=== PATIENT | male | born 1930 | race Caucasian/White ===

== ENCOUNTER 2017-04-23 20:34 | Emergency (ER) | payer MEDICARE, OTHER ==
[~2017-04-23 20:34] MED LIST: ALLO100 PO; COZA50TA PO; ECOT81TA2 PO; GABA100C4 PO; METO50TA PO; PERC10TA27 PO; ULTR50TA PO; Z.0.OXYGENDME NC; ZOCO80TA PO
[2017-04-23 20:38] VITALS: BP 144/67; PULSE 87; RESP 16; TEMP 97.7; O2SAT 95
[2017-04-24] MEDS ORDERED: METO50TA PO (09:33)
[2017-04-24] MEDS ORDERED: ZOCO80TA PO (09:33)
[2017-04-24] MEDS ORDERED: LOSA50TA PO (09:33)
[2017-04-24] MEDS ORDERED: ALLO100T PO (09:33)
[2017-04-24] MEDS ORDERED: ASPI81CH CHEW (09:33)
[2017-04-24] MEDS ORDERED: TRAM50TA PO (09:33)
[2017-04-24] MEDS ORDERED: DOXY1CAP91 PO (10:40)
== END 2017-04-23 22:27 | disposition left against medical advice (07) ==
LOC: NED 20:34
DX: R23.8 Other skin changes (principal); R22.40 Localized swelling, mass and lump, unspecified lower limb; Z53.21 Procedure and treatment not carried out due to patient leaving prior to being seen by health care provider

== ENCOUNTER 2017-04-24 09:11 | Emergency (ER) | payer OTHER ==
[~2017-04-24] VITALS: Ht 180.3 cm; Wt 100.6 kg
[2017-04-24 09:15] VITALS: BP 124/74; PULSE 76; RESP 16; TEMP 98.1; O2SAT 85
[2017-04-24] MEDS ORDERED: METO50TA PO (09:33)
[2017-04-24] MEDS ORDERED: ASPI81CH CHEW (09:33)
[2017-04-24] MEDS ORDERED: ZOCO80TA PO (09:33)
[2017-04-24] MEDS ORDERED: ALLO100T PO (09:33)
[2017-04-24] MEDS ORDERED: LOSA50TA PO (09:33)
[2017-04-24] MEDS ORDERED: TRAM50TA PO (09:33)
--- NOTE | 2017-04-24 09:40 | PD ---
HPI Chief Complaint: Skin Problem Time Seen by Provider: 09:26 Travel History International Travel<30 days: No Contact w/Intl Traveler<30days: No Traveled to known affect area: No History of Present Illness HPI Patient 87-year-old male presents emergency Department with a rash to his right lower extremity for the past 2 days. Patient states that it was itchy and he was scratching it and had some little discharge which was blood mixed with some minimal amount of pus. Denies any overt pain. He states his right lower extremity has been swollen too. He is not on any blood thinners. Denies any contact with chemicals. Denies any fever denies any nausea vomiting denies any shortness of breath. PFSH Past Medical History Hx Anticoagulant Therapy: Yes (ASA) AAA: Yes Blood Disorders: No Heart Rhythm Problems: No Cancer: Yes (LIVER, stage 4) Cardiovascular Problems: Yes (HTN) High Cholesterol: No Chemotherapy: Yes (WAS ON CHEMO PILLS) Chest Pain: No Congestive Heart Failure: No Coronary Artery Disease: Yes Diminished Hearing: No Endocrine: No Gout: Yes Genitourinary: No Hypertension: Yes Implanted Vascular Access Dvce: No Musculoskeletal: Yes (ARTHRITIS) Neurologic: No Psychiatric: No Reproductive: Yes (enlarged prostate) Respiratory: No Myocardial Infarction: Yes (x1) Radiation Therapy: Yes (2013) Renal Failure: Yes Past Surgical History Neurologic Surgery: Yes (cervical) Tonsillectomy: Yes Other Surgery: Yes (BILATERAL ELBOWS, NECK) Social History Alcohol Use: No (QUIT 5-6 YEARS AGO) Tobacco Use: No (QUIT 40 YEAS AGO) Substance Use: No Allergies-Medications (Allergen,Severity, Reaction): Coded Allergies: Levofloxacin (Verified Allergy, Severe, SOB PAIN LEGS, 04/24/17) Morphine (Verified Allergy, Severe, 04/24/17) Penicillin (Verified Allergy, Severe, 04/24/17) Adhesives (Verified Allergy, Mild, RASH, 04/24/17) Artane (Verified Allergy, Unknown, 04/24/17) Reported Meds & Prescriptions Reported Meds & Active Scripts Active Doxycycline (Doxycycline (Monohydrate)) 100 Mg Cap 100 Mg PO BID 7 Days Reported Tramadol (Tramadol HCl) 50 Mg Tab 50 Mg PO Q8H PRN Zocor (Simvastatin) 80 Mg Tab 80 Mg PO DAILY Metoprolol Tartrate 50 Mg Tab 50 Mg PO BID Losartan (Losartan Potassium) 50 Mg Tab 50 Mg PO DAILY Aspirin 81 Mg Chew 81 Mg CHEW DAILY Allopurinol 100 Mg Tab 100 Mg PO DAILY Review of Systems Except as stated in HPI: all other systems reviewed are Neg Physical Exam Narrative GENERAL: Well-nourished, well-developed patient. SKIN: There are 2 areas of what appears to be a petechial type rash of the right lower extremity. The rashes appear to be flat nonraised, there is some surrounding excoriations and some surrounding scab from excoriation. Minimal surrounding erythema. No fluid collection is obvious. The 2 locations are 1 over the mid tibia on the anterior lateral aspect, approximately 8 x 8 cm in size. The proximal site is on the medial thigh approximately 4 x 4 centimeters in size without any surrounding erythema. HEAD: Normocephalic. EYES: No scleral icterus. No injection or drainage. NECK: Supple, trachea midline. No JVD or lymphadenopathy. CARDIOVASCULAR: Regular rate and rhythm without murmurs, gallops, or rubs. RESPIRATORY: Breath sounds equal bilaterally. No accessory muscle use. GASTROINTESTINAL: Abdomen soft, non-tender, nondistended. MUSCULOSKELETAL: No cyanosis, or some mild edema of the right lower extremity which is not pitting. BACK: Nontender without obvious deformity. No CVA tenderness. Data Data Last Documented VS Vital Signs Date Time Temp Pulse Resp B/P Pulse Ox O2 Delivery O2 Flow Rate FiO2 04/24/17 10:19 66 94 Nasal Cannula 2 04/24/17 09:15 98.1 16 124/74 Orders Us Leg Venous Doppler (04/24/17 09:33) Basic Metabolic Panel (Bmp) (04/24/17 09:35) Complete Blood Count With Diff (04/24/17 09:35) Prothrombin Time / Inr (Pt) (04/24/17 09:35) Act Partial Throm Time (Ptt) (04/24/17 09:35) Ecg Monitoring (04/24/17 09:35) Iv Access Insert/Monitor (04/24/17 09:35) Oximetry (04/24/17 09:35) Oxygen Administration (04/24/17 09:35) Sodium Chloride 0.9% Flush (Ns Flush) (04/24/17 09:45) Labs Laboratory Tests Test 04/24/17 09:54 White Blood Count 6.2 TH/MM3 Red Blood Count 4.15 MIL/MM3 Hemoglobin 11.0 GM/DL Hematocrit 34.3 % Mean Corpuscular Volume 82.6 FL Mean Corpuscular Hemoglobin 26.6 PG Mean Corpuscular Hemoglobin 32.2 % Concent Red Cell Distribution Width 15.8 % Platelet Count 131 TH/MM3 Mean Platelet Volume 6.3 FL Neutrophils (%) (Auto) 68.4 % Lymphocytes (%) (Auto) 14.8 % Monocytes (%) (Auto) 9.5 % Eosinophils (%) (Auto) 7.1 % Basophils (%) (Auto) 0.2 % Neutrophils # (Auto) 4.3 TH/MM3 Lymphocytes # (Auto) 0.9 TH/MM3 Monocytes # (Auto) 0.6 TH/MM3 Eosinophils # (Auto) 0.4 TH/MM3 Basophils # (Auto) 0.0 TH/MM3 CBC Comment DIFF FINAL Differential Comment Prothrombin Time 11.1 SEC Prothromb Time International 1.0 RATIO Ratio Activated Partial 30.4 SEC Thromboplast Time Sodium Level 142 MEQ/L Potassium Level 3.9 MEQ/L Chloride Level 106 MEQ/L Carbon Dioxide Level 28.6 MEQ/L Anion Gap 7 MEQ/L Blood Urea Nitrogen 52 MG/DL Creatinine 3.80 MG/DL Estimat Glomerular Filtration 15 ML/MIN Rate Random Glucose 127 MG/DL Calcium Level 8.2 MG/DL MDM Medical Decision Making Medical Screen Exam Complete: Yes Emergency Medical Condition: Yes Differential Diagnosis DVT, petechiae, low platelets, elevated INR, elevated PTT, cellulitis. Narrative Course Patient roomed in emergency Department, basic labs obtained and show minimally decreased platelet count of 131, some mild anemia with hemoglobin 11, coagulation studies within normal limits. Patient does have a creatinine of 3.8 which somewhat elevated over his previous creatinines. He states that his creatinine has been slowly on the rise. There is no indication for acute dialysis at this time. His current creatinine is 29% elevated over his last period is no indication for admission for acute kidney injury. Furthermore the patient would like to follow-up with his primary care physician regarding his kidneys. Given the negative initial workup inclined to treat for mild cellulitis, Bactrim contraindicated given his kidney function, patient is penicillin allergic and will avoid Keflex. Doxycycline was chosen. Discussed with the patient need follow-up with his primary care physician and return to ED criteria. Continue cortisone cream at home. Diagnosis Primary Impression: Cellulitis Med/Other Pt SpecificInfo: Prescription(s) given Scripts Doxycycline (Monohydrate) (Doxycycline)100 Mg [id number] Mg PO BID 7 Days Ref 0 Prov:Lyle Payne MD 04/24/17 Disposition: 01 DISCHARGE HOME Condition: Stable Lyle Payne MD Apr 24, 2017 09:40
[2017-04-24] MEDS ORDERED: SODIUM CHLORIDE 0.9% FLUSH 10 ML FLUSH IVF PRN (09:45)
[2017-04-24 09:50] VITALS: O2SAT 85
[2017-04-24 10:00] LABS: AUTOMATED NEUTROPHIL # 4.3 TH/MM3 (1.8-7.7); BASOPHIL % 0.2 % (0.0-2.0); EOSINOPHIL # 0.4 TH/MM3 (0-0.4); EOSINOPHIL % 7.1 % (0.0-4.0); HEMATOCRIT 34.3 % (39.0-51.0); HEMO FLAGS DIFF FINAL; LYMPH % 14.8 % (9.0-44.0); LYMPHOCYTE # 0.9 TH/MM3 (1.0-4.8); MEAN CELL VOLUME 82.6 FL (80.0-100.0); MEAN CORPUSCULAR HEMOGLOBIN 26.6 PG (27.0-34.0); MEAN CORPUSCULAR HGB CONC 32.2 % (32.0-36.0); MONO % 9.5 % (0.0-8.0); NEUT % 68.4 % (16.0-70.0); PLATELET COUNT 131 TH/MM3 (150-450); RED BLOOD COUNT 4.15 MIL/MM3 (4.50-5.90); RED CELL DISTRIBUTION WIDTH 15.8 % (11.6-17.2); WHITE BLOOD COUNT 6.2 TH/MM3 (4.0-11.0)
[2017-04-24 10:07] LABS: POTASSIUM 3.9 MEQ/L (3.5-5.1)
[2017-04-24 10:10] LABS: BICARBONATE 28.6 MEQ/L (21.0-32.0)
[2017-04-24 10:12] LABS: APTT (PATIENT) 30.4 SEC (24.3-30.1); PROTHROMBIN TIME - PATIENT 11.1 SEC (9.8-11.6)
--- NOTE | 2017-04-24 10:15 | RADRPT ---
EXAM DATE/TIME: 04/24/2017 09:52 [facility] COMPARISON: US LEG RIGHT VENOUS DOPPLER, November 04, 2014, 20:22. INDICATIONS : Right leg rash and swelling. MEDICAL HISTORY : Hypertension. Myocardial infarction. Aneurysm, abdominal. Renal failure. Liver cancer. SURGICAL HISTORY : Tonsillectomy. Right knee surgery. Bilateral elbow surgery. Neck surgery. ENCOUNTER: Initial ACUITY: 2 day PAIN SCORE: 9/10 LOCATION: Right leg. TECHNIQUE: Venous ultrasound of the leg was performed from the inguinal ligament to the proximal calf. Real-ana e, color Doppler and spectral tracing, compression and augmentation techniques were used. FINDINGS: There is normal compressibility of the deep venous system from the inguinal region to the proximal ca lf. No echogenic clot is seen in the lumen of the common femoral, femoral, popliteal, and posterior tibial veins. There is a normal response of the venous system to proximal and distal augmentation an d respiration. Incidental note is made of nonspecific right groin adenopathy with the largest node m easuring up to 2.3 cm. CONCLUSION: 1. No sonographic evidence of right lower extremity DVT. 2. Nonspecific right inguinal adenopathy. Benton Escalante MD on April 24, 2017 at 10:12 Board Certified Radiologist. This report was verified electronically.
[2017-04-24 10:19] VITALS: PULSE 66; O2SAT 94
[2017-04-24] MEDS ORDERED: DOXY1CAP91 PO (10:40)
== END 2017-04-24 10:54 | disposition home or self-care (01) ==
LOC: PHED 09:11
DX: L03.115 Cellulitis of right lower limb (principal); R60.0 Localized edema; I10 Essential (primary) hypertension; N19 Unspecified kidney failure; I25.2 Old myocardial infarction; Z79.82 Long term (current) use of aspirin; Z86.79 Personal history of other diseases of the circulatory system; Z85.05 Personal history of malignant neoplasm of liver; Z87.39 Personal history of other diseases of the musculoskeletal system and connective tissue; Z87.438 Personal history of other diseases of male genital organs
CPT/HCPCS: 80048; 85025; 85610; 85730; 93971; 99284

== ENCOUNTER 2017-05-18 10:35 | Inpatient (IN) | payer OTHER, MEDICARE ==
[~2017-05-18] VITALS: Ht 180.3 cm; Wt 105.8 kg
[2017-05-18] VITALS (15 sets, daily range): BP systolic 128–141; BP diastolic 59–74; PULSE 52–62; RESP 18–22; TEMP 97.6; O2SAT 85–97
[~2017-05-18 10:35] MED LIST changes: -ALLO100 PO; +ALLO100T PO; +ASPI81CH CHEW; -COZA50TA PO; +DOXY1CAP91 PO; -ECOT81TA2 PO; -GABA100C4 PO; +LOSA50TA PO; -PERC10TA27 PO; +TRAM50TA PO; -ULTR50TA PO; -Z.0.OXYGENDME NC
[2017-05-18] MEDS: RESP: ALBUTEROL 2.5 MG/IPRATROPIUM 0.5 MG NEB (SCH) INH ×2 (11:00→11:01)
[2017-05-18] MEDS ORDERED: SODIUM CHLORIDE 0.9% FLUSH 10 ML FLUSH IVF PRN (11:00)
--- NOTE | 2017-05-18 11:04 | PD ---
HPI Chief Complaint: Respiratory Symptoms Time Seen by Provider: 10:46 Travel History International Travel<30 days: No Contact w/Intl Traveler<30days: No Traveled to known affect area: No History of Present Illness HPI The patient is a 87-year-old male who presents emergency department for shortness of breath. The patient has a one-week history of shortness of breath that is worse with exertion. The patient states he is out of breath that he walks form one room to the next, his symptoms do improve at rest. He denies any history of similar symptoms and denies any history of COPD, congestive heart failure, pulmonary embolism, or DVT. He also complains of a productive cough producing mostly white sputum, but denies any chest pain, fever , chills, or sweats. He does complain of mild right lower extremity edema which is chronic and states he has had an ultrasound in the past which is negative. 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 The patient[facility] primary physician [facility]. The patient's symptoms are moderate, worse with exertion, slightly alleviated at rest. The patient does have a history of hypertension and hyperlipidemia. The patient quit smoking 40 years ago. PFSH Past Medical History Hx Anticoagulant Therapy: Yes (ASA) AAA: Yes Arthritis: Yes Blood Disorders: No Heart Rhythm Problems: No Cancer: Yes (LIVER, stage 4) Cardiovascular Problems: Yes (HTN) High Cholesterol: No Chemotherapy: Yes (WAS ON CHEMO PILLS) Chest Pain: No Congestive Heart Failure: No Coronary Artery Disease: Yes Diminished Hearing: No Endocrine: No Gout: Yes Genitourinary: Yes (BPH) Hypertension: Yes Implanted Vascular Access Dvce: No Musculoskeletal: Yes (ARTHRITIS) Neurologic: No Psychiatric: No Reproductive: Yes (enlarged prostate) Respiratory: No Myocardial Infarction: Yes (x1) Radiation Therapy: Yes (2013) Renal Failure: Yes Past Surgical History Neurologic Surgery: Yes (cervical) Tonsillectomy: Yes Other Surgery: Yes (BILATERAL ELBOWS, NECK) Social History Alcohol Use: No (QUIT 5-6 YEARS AGO) Tobacco Use: No (QUIT ) Substance Use: No Allergies-Medications (Allergen,Severity, Reaction): Coded Allergies: Levofloxacin (Verified Allergy, Severe, SOB PAIN LEGS, 05/18/17) Morphine (Verified Allergy, Severe, CONFUSION, 05/18/17) Penicillin (Verified Allergy, Severe, SWELLING, 05/18/17) Adhesives (Verified Allergy, Mild, RASH, 05/18/17) Artane (Verified Allergy, Unknown, UNKNOWN, 05/18/17) Reported Meds & Prescriptions Reported Meds & Active Scripts Active Reported Tramadol (Tramadol HCl) 50 Mg Tab 50 Mg PO Q8H PRN Zocor (Simvastatin) 80 Mg Tab 80 Mg PO DAILY Metoprolol Tartrate 50 Mg Tab 50 Mg PO BID Losartan (Losartan Potassium) 50 Mg Tab 50 Mg PO DAILY Aspirin 81 Mg Chew 81 Mg CHEW DAILY Allopurinol 100 Mg Tab 100 Mg PO DAILY Review of Systems Except as stated in HPI: all other systems reviewed are Neg General / Constitutional: No: Fever, Chills HENT: No: Lightheadedness Cardiovascular: Positive: Dyspnea on exertion, No: Chest Pain or Discomfort Respiratory: Positive: Cough, Shortness of Breath, Orthopnea Gastrointestinal: No: Nausea, Vomiting Musculoskeletal: Positive: Edema (chronic edema to the lower extremity on the right) Neurologic: Positive: Sensory Disturbance (bilateral lower extremity neuropathy with burning) Physical Exam Narrative GENERAL: Awake, alert, very pleasant 87-year-old male who appears his stated age and is in mild respiratory distress. SKIN: Focused skin assessment warm/dry. Chronic venous stasis changes lower extremities bilateral. HEAD: Atraumatic. Normocephalic. EYES: No injection or drainage. ENT: No nasal bleeding or discharge. Mucous membranes pink and moist. NECK: Trachea midline. No JVD. CARDIOVASCULAR: Regular rate and rhythm. No murmur appreciated. Heart rate in the 60s. RESPIRATORY: No accessory muscle use. Diminished breath sounds in the bases bilateral. GASTROINTESTINAL: Abdomen soft, non-tender, nondistended. MUSCULOSKELETAL: No obvious deformities. Minimal edema on the right compared to left. NEUROLOGICAL: Awake and alert. No obvious cranial nerve deficits. Motor grossly within normal limits. Normal speech. PSYCHIATRIC: Appropriate mood and affect; insight and judgment normal. Data Data Last Documented VS Vital Signs Date Time Temp Pulse Resp B/P Pulse Ox O2 Delivery O2 Flow Rate FiO2 05/18/17 12:10 58 18 141/69 97 Nasal Cannula 4 05/18/17 10:42 97.6 Orders Complete Blood Count With Diff (05/18/17 10:52) Comprehensive Metabolic Panel (05/18/17 10:52) B-Type Natriuretic Peptide (05/18/17 10:52) Act Partial Throm Time (Ptt) (05/18/17 10:52) Prothrombin Time / Inr (Pt) (05/18/17 10:52) Magnesium (Mg) (05/18/17 10:52) Ckmb (Isoenzyme) Profile (05/18/17 10:52) Troponin I (05/18/17 10:52) Iv Access Insert/Monitor (05/18/17 10:52) Ecg Monitoring (05/18/17 10:52) Oximetry (05/18/17 10:52) Oxygen Administration (05/18/17 10:52) Chest, Single Ap (05/18/17 10:52) Sodium Chloride 0.9% Flush (Ns Flush) (05/18/17 11:00) Albuterol-Ipratropium Neb (Duoneb Neb) (05/18/17 11:00) Resp Blood Gas Venous (05/18/17 ) Lactic Acid (05/18/17 10:54) Blood Culture (05/18/17 10:54) Blood Gas Venous (Vbg) (05/18/17 11:00) Furosemide Inj (Lasix Inj) (05/18/17 12:00) Aspirin Chew (Aspirin Chew) (05/18/17 12:30) Admit Order (Ed Use Only) (05/18/17 12:37) Labs Laboratory Tests Test 05/18/17 05/18/17 11:00 11:03 Blood Gas Puncture Site LAC Blood Gas Patient Temperature 98.6 Venous Blood pH 7.37 Venous Blood Partial Pressure 45 mmHg CO2 Venous Blood Partial Pressure 43 mmHg O2 Venous Blood HCO3 26 mmol/L Venous Blood Oxygen Saturation 72 % Venous Blood Oxygen Content 10.7 Vol % Venous Blood Base Excess 0.9 mmol/L Oxygen Delivery Device NASAL CANNULA Blood Gas Liter Flow 3.5 L/M White Blood Count 6.1 TH/MM3 Red Blood Count 4.01 MIL/MM3 Hemoglobin 10.4 GM/DL Hematocrit 32.6 % Mean Corpuscular Volume 81.2 FL Mean Corpuscular Hemoglobin 25.9 PG Mean Corpuscular Hemoglobin 31.9 % Concent Red Cell Distribution Width 15.9 % Platelet Count 120 TH/MM3 Mean Platelet Volume 6.4 FL Neutrophils (%) (Auto) 68.9 % Lymphocytes (%) (Auto) 15.6 % Monocytes (%) (Auto) 7.7 % Eosinophils (%) (Auto) 7.1 % Basophils (%) (Auto) 0.7 % Neutrophils # (Auto) 4.2 TH/MM3 Lymphocytes # (Auto) 0.9 TH/MM3 Monocytes # (Auto) 0.5 TH/MM3 Eosinophils # (Auto) 0.4 TH/MM3 Basophils # (Auto) 0.0 TH/MM3 CBC Comment DIFF FINAL Differential Comment Prothrombin Time 11.4 SEC Prothromb Time International 1.0 RATIO Ratio Activated Partial 30.0 SEC Thromboplast Time Sodium Level 140 MEQ/L Potassium Level 4.4 MEQ/L Chloride Level 106 MEQ/L Carbon Dioxide Level 28.1 MEQ/L Anion Gap 6 MEQ/L Blood Urea Nitrogen 57 MG/DL Creatinine 4.40 MG/DL Estimat Glomerular Filtration 13 ML/MIN Rate Random Glucose 77 MG/DL Lactic Acid Level 1.4 mmol/L Calcium Level 7.9 MG/DL Magnesium Level 1.8 MG/DL Total Bilirubin 0.7 MG/DL Aspartate Amino Transf 16 U/L (AST/SGOT) Alanine Aminotransferase 13 U/L (ALT/SGPT) Alkaline Phosphatase 68 U/L Total Creatine Kinase 55 U/L Troponin I LESS THAN 0.02 NG/ML B-Type Natriuretic Peptide 672 PG/ML Total Protein 7.2 GM/DL Albumin 3.2 GM/DL [facility] Medical Decision Making Medical Screen Exam Complete: Yes Emergency Medical Condition: Yes Medical Record Reviewed: Yes Interpretation(s) EKG reveals sinus rhythm with a rate of 65. First-degree AV block with VT interval of 252 ms. Q waves noted in lead 3 and aVF with inverted T waves. Right bundle-branch block with RSR prime in V1 and QRS of 156 ms. Nonspecific lateral T-wave changes. No significant changes compared to EKG performed April 01, 2016. Differential Diagnosis Differential diagnosis includes congestive heart failure, pulmonary edema, pneumonia, pleural effusion, pulmonary embolism, acute coronary syndrome, cardiomyopathy, hypoxia. Narrative Course IV was established, labs were drawn and sent, and the patient was placed on cardiac telemetry monitoring and continuous pulse oximetry monitoring. EKG was ordered and interpreted. The patient's O2 saturation on room air upon arrival was 82%, therefore, the patient was placed on oxygen via nasal cannula which was oxygen saturation up to 94%. 2 duo nebs were ordered. Chest x-ray was obtained. Chest x-ray reveals mild interstitial edema and a small right pleural effusion. BNP is elevated at 600s, creatinine is elevated at 4.4, he does have a history of chronic renal failure. Patient notes minimal urine output, was administered Lasix 40 mg intravenously. Patient appears to have cardiomyopathy with pleural effusion and pulmonary edema with underlying acute on chronic renal failure. Patient will need an echocardiogram, diuresis, and possibly evaluation by nephrology for underlying acute renal on chronic renal failure. The patient was hypoxic at 82% upon arrival, has improved and his symptoms have improved on oxygen, however, he is not on oxygen at home. Therefore, the patient will be admitted. Physician Communication [facility] for [facility]. I discussed the patient Dr. Kamara who agrees with admission. Diagnosis Primary Impression: Congestive heart failure Qualified Code: I50.9 - Acute congestive heart failure, unspecified congestive heart failure type Additional Impressions: Dyspnea on exertion Hypoxia Admitting Information Admitting Physician Requests: Admit Condition: Stable Carl Dickson MD May 18, 2017 11:04
[2017-05-18 11:09] LABS: BLOOD GAS VENOUS BASE EXCESS 0.9 mmol/L (-2-2); BLOOD GAS VENOUS HCO3 26 mmol/L (22-26); BLOOD GAS VENOUS O2 CONTENT 10.7 Vol % (9.0-17.0); BLOOD GAS VENOUS O2 HGB SAT 72 % (70-76); BLOOD GAS VENOUS PCO2 45 mmHg (44-48); BLOOD GAS VENOUS PO2 43 mmHg (35-40); BLOOD GAS VENOUS pH 7.37 (7.360-7.400); CRITICAL VALUE NO; DRAW SITE LAC; LITER FLOW 3.5 L/M; OXYGEN DEVICE NASAL CANNULA; STAT YES; TEMP CORR TO 98.6
[2017-05-18 11:18] LABS: AUTOMATED NEUTROPHIL # 4.2 TH/MM3 (1.8-7.7); BASOPHIL % 0.7 % (0.0-2.0); EOSINOPHIL # 0.4 TH/MM3 (0-0.4); EOSINOPHIL % 7.1 % (0.0-4.0); HEMATOCRIT 32.6 % (39.0-51.0); HEMO FLAGS DIFF FINAL; LYMPH % 15.6 % (9.0-44.0); LYMPHOCYTE # 0.9 TH/MM3 (1.0-4.8); MEAN CELL VOLUME 81.2 FL (80.0-100.0); MEAN CORPUSCULAR HEMOGLOBIN 25.9 PG (27.0-34.0); MEAN CORPUSCULAR HGB CONC 31.9 % (32.0-36.0); MONO % 7.7 % (0.0-8.0); NEUT % 68.9 % (16.0-70.0); PLATELET COUNT 120 TH/MM3 (150-450); RED BLOOD COUNT 4.01 MIL/MM3 (4.50-5.90); RED CELL DISTRIBUTION WIDTH 15.9 % (11.6-17.2); WHITE BLOOD COUNT 6.1 TH/MM3 (4.0-11.0)
[2017-05-18 11:29] LABS: CHLORIDE 106 MEQ/L (98-107); POTASSIUM 4.4 MEQ/L (3.5-5.1); SODIUM (NA) 140 MEQ/L (136-145)
[2017-05-18 11:32] LABS: ANION GAP 6 MEQ/L (5-15); BICARBONATE 28.1 MEQ/L (21.0-32.0); BLOOD UREA NITROGEN 57 MG/DL (7-18); MAGNESIUM 1.8 MG/DL (1.5-2.5); PROTHROMBIN TIME - PATIENT 11.4 SEC (9.8-11.6)
[2017-05-18 11:35] LABS: ALT (GPT) 13 U/L (12-78); AST (GOT) 16 U/L (15-37)
[2017-05-18 11:36] LABS: GLOMERULAR FILTRATION RATE 13 ML/MIN (>89)
[2017-05-18 11:37] LABS: TOTAL BILIRUBIN ADULT 0.7 MG/DL (0.2-1.0)
[2017-05-18 11:38] LABS: ALKALINE PHOSPHATASE 68 U/L (45-117)
[2017-05-18 11:44] LABS: CREATINE KINASE 55 U/L (39-308)
--- NOTE | 2017-05-18 11:45 | RADRPT ---
EXAM DATE/TIME: 05/18/2017 11:15 [facility] COMPARISON: CHEST SINGLE AP, November 04, 2014, 19:07. INDICATIONS : Short of breath MEDICAL HISTORY : Hypertension. Myocardial infarction. Carcinoma,liver SURGICAL HISTORY : None. ENCOUNTER: Initial ACUITY: 1 day PAIN SCORE: 0/10 LOCATION: Bilateral chest FINDINGS: The heart is enlarged with mild interstitial edema. Minimal bibasilar parenchymal changes are eviden t without significant pleural effusion. Degenerative changes are present about both shoulders. CONCLUSION: Mild interstitial edema, minimal bibasilar clinical changes worse on the right. Jero Parker MD FACR on May 18, 2017 at 11:43 Board Certified Radiologist. This report was verified electronically.
[2017-05-18] MEDS ORDERED: FUROSEMIDE 40 MG/4 ML VIAL IV PUSH ONE (12:00)
[2017-05-18] MEDS ORDERED: ASPIRIN 81 MG CHEW TAB CHEW ONE (12:30)
[2017-05-18] MEDS ORDERED: MAGNESIUM HYDROXIDE SUSP 30 ML CUP PO PRN (12:45)
[2017-05-18] MEDS ORDERED: SENNOSIDES 8.6 MG TAB PO PRN (12:45)
[2017-05-18] MEDS ORDERED: ONDANSETRON HCL 4 MG/2 ML VIAL IVP PRN (12:45)
[2017-05-18] MEDS ORDERED: BISACODYL 10 MG SUPP RECTAL PRN (12:45)
[2017-05-18] MEDS ORDERED: LACTULOSE SYRUP 20 GM/30 ML CUP PO PRN (12:45)
[2017-05-18] MEDS ORDERED: ACETAMINOPHEN 325 MG TAB PO PRN (12:45)
[2017-05-18] MEDS ORDERED: SODIUM CHLORIDE 0.9% FLUSH 10 ML FLUSH IV FLUSH PRN (12:45)
--- NOTE | 2017-05-18 13:31 | HHI.HP ---
[facility] Admission Diagnosis congestive heart failure, pulmonary edema, hypoxia Diagnoses: (1) Congestive heart failure Diagnosis: Principal (2) Dyspnea on exertion Diagnosis: Principal (3) Hypoxia Diagnosis: Principal (4) Hypertension Diagnosis: Secondary (5) Chronic renal failure Diagnosis: Secondary (6) BPH (benign prostatic hyperplasia) Diagnosis: Secondary (7) REMA (acute kidney injury) Diagnosis: Secondary Travel History International Travel<30 Days: No Contact w/Intl Traveler <30 Da: No Traveled to Known Affected Are: No History of Present Illness This is a pleasant 87-year-old elderly male who presented the patient states he was told he had a myocardial infarction many years ago at the bottom of his heart, however he denies ever having stents placed in his heart. To the emergency department for dyspnea for 1 week which has been progressive. The patient states that he is not dyspneic when he is at rest but any activity makes him short of breath. The patient also states that he has a cough productive of white sputum. He denies any fever or chills. Denies any increasing pedal edema although he does have chronic right pedal edema which has been ruled out for DVT in the past. The patient goes to the [place] clinic. He has a history of liver cancer which has been in remission since 1 year ago. He also has a history of chronic kidney disease. The patient states that he has had difficulty voiding and has to get up 5 or 6 times per night and does not feel that he is fully emptying his bladder. The patient does not have oxygen at home. He was found to be hypoxic upon initial presentation to the emergency department with pulse oximetry of 81%. Of note the patient was hospitalized here 2 years ago for hypoxia, at that time he had an echocardiogram showing preserved ejection fraction, he was discharged home with oxygen at that time however he no longer has oxygen at home. In the emergency department chest x-ray showed mild interstitial edema minimal bibasal or clinical changes worse on the right. BNP of 672. Creatinine increased to 4.4 from 3.8 last month. Review of Systems Constitutional: DENIES: Fever, Weight loss Ears, nose, mouth, throat: DENIES: Throat pain, Hoarseness Respiratory: COMPLAINS OF: Cough, Sputum production, Shortness of breath, DENIES: Wheezing Cardiovascular: COMPLAINS OF: Lower Extremity Edema, DENIES: Chest pain Gastrointestinal: DENIES: Abdominal pain, Vomiting Genitourinary: COMPLAINS OF: Urinary frequency, Urinary incontinence, Nocturia , DENIES: Dysuria Neurologic: DENIES: Headache, Localized weakness Psychiatric: DENIES: Anxiety, Confusion Past Family Social History Past Medical History Chronic kidney disease stage III Abdominal aortic aneurysm Hypertension Coronary artery disease Gout BPH Osteoarthritis Liver cancer in remission for 1 year Past Surgical History Right knee replacement, neck surgery Reported Medications Allergies Coded Allergies Type Severity Reaction Last Updated Verified Levofloxacin Allergy Severe SOB PAIN LEGS 05/18/17 Yes Morphine Allergy Severe CONFUSION 05/18/17 Yes Penicillin Allergy Severe SWELLING 05/18/17 Yes Adhesives Allergy Mild RASH 05/18/17 Yes Artane Allergy Unknown UNKNOWN 05/18/17 Yes Active Scripts Medications Dose Route/Sig Days Date Category Tramadol (Tramadol HCl) 50 Mg Tab 50 Mg PO Q8H PRN 04/24/17 Reported Zocor (Simvastatin) 80 Mg Tab 80 Mg PO DAILY 04/24/17 Reported Metoprolol Tartrate 50 Mg Tab 50 Mg PO BID 04/24/17 Reported Losartan (Losartan Potassium) 50 Mg Tab 50 Mg PO DAILY 04/24/17 Reported Aspirin 81 Mg Chew 81 Mg CHEW DAILY 04/24/17 Reported Allopurinol 100 Mg Tab 100 Mg PO DAILY 04/24/17 Reported Allergies: Coded Allergies: Levofloxacin (Verified Allergy, Severe, SOB PAIN LEGS, 05/18/17) Morphine (Verified Allergy, Severe, CONFUSION, 05/18/17) Penicillin (Verified Allergy, Severe, SWELLING, 05/18/17) Adhesives (Verified Allergy, Mild, RASH, 05/18/17) Artane (Verified Allergy, Unknown, UNKNOWN, 05/18/17) Family History Reviewed and noncontributory - father did have CHF. Social History Quit smoking in the 1970s. 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 His daughter lives 20 minutes away. Physical Exam Vital Signs Vital Signs Date Time Temp Pulse Resp B/P Pulse Ox O2 Delivery O2 Flow Rate FiO2 05/18/17 12:10 58 18 141/69 97 Nasal Cannula 4 05/18/17 11:00 95 Nasal Cannula 3.5 05/18/17 11:00 95 05/18/17 10:47 62 22 94 Nasal Cannula 4 05/18/17 10:42 97.6 62 22 135/74 85 Physical Exam GENERAL: Well-nourished, well-developed very pleasant elderly male patient. SKIN: Warm and dry. HEAD: Normocephalic. EYES: No scleral icterus. No injection or drainage. NECK: Supple, trachea midline. No JVD or lymphadenopathy. CARDIOVASCULAR: Regular rate and rhythm without murmurs, gallops, or rubs. RESPIRATORY: Breathing is nonlabored on nasal cannula. He has crackles in the left lung base, otherwise lungs are clear. GASTROINTESTINAL: bowel sounds normoactive. Abdomen soft, non-tender, nondistended. EXTREMITIES: Trace pedal edema in the left leg, 1+ in the right leg with chronic venous stasis changes. NEUROLOGICAL: Awake, alert, and oriented x 3. Non-focal. Laboratory Laboratory Tests Test 05/18/17 05/18/17 11:00 11:03 Blood Gas Puncture Site LAC Blood Gas Patient Temperature 98.6 Venous Blood pH 7.37 Venous Blood Partial Pressure 45 CO2 Venous Blood Partial Pressure 43 O2 Venous Blood HCO3 26 Venous Blood Oxygen Saturation 72 Venous Blood Oxygen Content 10.7 Venous Blood Base Excess 0.9 Oxygen Delivery Device NASAL CANNULA Blood Gas Liter Flow 3.5 White Blood Count 6.1 Red Blood Count 4.01 Hemoglobin 10.4 Hematocrit 32.6 Mean Corpuscular Volume 81.2 Mean Corpuscular Hemoglobin 25.9 Mean Corpuscular Hemoglobin 31.9 Concent Red Cell Distribution Width 15.9 Platelet Count 120 Mean Platelet Volume 6.4 Neutrophils (%) (Auto) 68.9 Lymphocytes (%) (Auto) 15.6 Monocytes (%) (Auto) 7.7 Eosinophils (%) (Auto) 7.1 Basophils (%) (Auto) 0.7 Neutrophils # (Auto) 4.2 Lymphocytes # (Auto) 0.9 Monocytes # (Auto) 0.5 Eosinophils # (Auto) 0.4 Basophils # (Auto) 0.0 CBC Comment DIFF FINAL Differential Comment Prothrombin Time 11.4 Prothromb Time International 1.0 Ratio Activated Partial 30.0 Thromboplast Time Sodium Level 140 Potassium Level 4.4 Chloride Level 106 Carbon Dioxide Level 28.1 Anion Gap 6 Blood Urea Nitrogen 57 Creatinine 4.40 Estimat Glomerular Filtration 13 Rate Random Glucose 77 Lactic Acid Level 1.4 Calcium Level 7.9 Magnesium Level 1.8 Total Bilirubin 0.7 Aspartate Amino Transf 16 (AST/SGOT) Alanine Aminotransferase 13 (ALT/SGPT) Alkaline Phosphatase 68 Total Creatine Kinase 55 Troponin I LESS THAN 0.02 B-Type Natriuretic Peptide 672 Total Protein 7.2 Albumin 3.2 Date/Time Procedure Status Source Growth 05/18/17 11:10 Aerobic Blood Culture Received Blood Peripheral Pending 05/18/17 11:10 Anaerobic Blood Culture Received Blood Peripheral Pending Result Diagram: 05/18/17 1103 05/18/17 1103 Imaging Last Impressions Chest X-Ray 05/18/17 1052 Signed Impressions: Service Date/Time: Thursday, May 18, 2017 11:15 - CONCLUSION: Mild interstitial edema, minimal bibasilar clinical changes worse on the right. Jero Parker MD FACR Assessment and Plan Assessment and Plan 87-year-old male. -Dyspnea, hypoxia, pulmonary edema - likely CHF versus fluid overload from chronic renal failure. Status post Lasix 40 mg IV in the emergency department and I will continue with gentle diuresis 20 mg IV Lasix every 12 hours. Duo nebs and supplemental oxygen via nasal cannula. Check an echocardiogram. -Acute kidney injuriy on top of chronic kidney disease stage IV. We will check a renal ultrasound, avoid Vizcaino for now unless postvoid residual bladder scan shows he is retaining urine. -BPH which is symptomatic. Random bladder scan showing 300 mL urine, I instructed the nurse to obtain a postvoid residual. We'll start Flomax. -Hypertension - continue metoprolol, but hold losartan due to the acute kidney injury. -Coronary artery disease with remote history of myocardial infarction, no history of stents. Continue aspirin and metoprolol. Continue Zocor. -Gout. Hold allopurinol secondary to the acute kidney injury. -Abdominal aortic aneurysm history. -History of liver cancer in remission for 1 year. -DVT prophylaxis with SCDs and YENNY hose. -CODE STATUS: Patient is agreeable to chest compressions and shocks but declines intubation. Problem Qualifiers (1) Congestive heart failure: Qualified Code: I50.9 - Acute congestive heart failure, unspecified congestive heart failure type Moni Kamara MD May 18, 2017 13:31
[2017-05-18] MEDS ORDERED: AMLO10TA2 PO (15:39)
[2017-05-18] MEDS ORDERED: ALLE10TA PO (15:41)
[2017-05-18] MEDS ORDERED: LANT500 CHEW (15:51)
[2017-05-18] MEDS ORDERED: FLUT50SP EACH NARE (15:56)
[2017-05-18] MEDS ORDERED: TERA2CAP3 PO (15:58)
[2017-05-18] MEDS ORDERED: MIRTA15 PO (16:00)
[2017-05-18] MEDS ORDERED: VOLT1GEL4 TOPICAL (16:04)
[2017-05-18] MEDS ORDERED: FURO40TA PO (16:04)
[2017-05-18] MEDS ORDERED: ARTIDRO EACH EYE (16:05)
[2017-05-18] MEDS: FUROSEMIDE 20 MG/2 ML VIAL IV PUSH SCH (17:58)
[2017-05-18] MEDS: METOPROLOL TARTRATE 50 MG TAB PO SCH (21:00)
[2017-05-18] MEDS: TERAZOSIN HCL 1 MG CAP PO SCH (21:15)
[2017-05-18] MEDS: DOCUSATE SODIUM 50 MG/SENNA 8.6 MG TAB PO SCH (21:15)
[2017-05-18] MEDS: SODIUM CHLORIDE 0.9% FLUSH 10 ML FLUSH IV FLUSH SCH (21:15)
[2017-05-18] MEDS: VOLTAREN 1% TOPICAL SCH (21:15)
[2017-05-18] MEDS: traMADol HCL 50 MG TAB PO PRN (22:16)
[2017-05-18] MEDS ORDERED: MIRTAZAPINE 15 MG TAB PO ONE (23:30)
[2017-05-19] VITALS (8 sets, daily range): BP systolic 135–163; BP diastolic 61–88; PULSE 42–75; RESP 17–25; TEMP 97.4–97.9; O2SAT 92–98
[2017-05-19 04:40] LABS: POTASSIUM 3.8 MEQ/L (3.5-5.1)
[2017-05-19 04:44] LABS: BICARBONATE 27.9 MEQ/L (21.0-32.0)
[2017-05-19] MEDS: POTASSIUM CHLORIDE 20 MEQ CONTROLLED RELEASE TAB PO SCH ×2 (08:49→21:44)
[2017-05-19] MEDS: DOCUSATE SODIUM 50 MG/SENNA 8.6 MG TAB PO SCH ×2 (08:49→21:43)
[2017-05-19] MEDS: ASPIRIN 81 MG CHEW TAB CHEW SCH (08:49)
[2017-05-19] MEDS: SODIUM CHLORIDE 0.9% FLUSH 10 ML FLUSH IV FLUSH SCH ×2 (08:50→21:44)
[2017-05-19] MEDS: FUROSEMIDE 20 MG/2 ML VIAL IV PUSH SCH ×2 (08:50→17:32)
[2017-05-19] MEDS ORDERED: PRAVASTATIN SOD 40 MG TAB PO SCH (09:00)
[2017-05-19] MEDS: METOPROLOL TARTRATE 50 MG TAB PO SCH ×2 (09:00→21:43)
[2017-05-19] MEDS ORDERED: LORATADINE 10 MG TAB PO PRN (10:00)
[2017-05-19] MEDS ORDERED: FLUTICASONE PROPIONATE 50 MCG/ACT 16 GM NASAL SPRAY EACH NARE PRN (10:00)
[2017-05-19] MEDS ORDERED: ARTIFICIAL TEARS OPTH SOLN 15 ML BTL EACH EYE PRN (10:00)
[2017-05-19] MEDS: VOLTAREN 1% TOPICAL SCH ×2 (10:35→21:45)
--- NOTE | 2017-05-19 10:36 | HHI.PR ---
Subjective Remarks Patient states he is feeling better, no change in his cough productive of white sputum. He is not short of breath on oxygen 4 L. He did have some sinus bradycardia this morning and metoprolol was held. Also had a run of nonsustained V. tach. The patient denied any chest pain. He is voiding well with 700 mL out this morning. Objective Vitals Vital Signs Date Time Temp Pulse Resp B/P Pulse Ox O2 Delivery O2 Flow Rate FiO2 05/19/17 07:00 61 05/19/17 03:20 62 17 92 05/18/17 23:40 59 05/18/17 23:32 97.6 59 20 128/59 92 05/18/17 22:00 54 05/18/17 20:00 97.6 54 20 141/68 92 05/18/17 19:58 95 Nasal Cannula 3.00 05/18/17 18:04 94 Nasal Cannula 4.00 05/18/17 16:00 97.6 52 20 140/67 94 05/18/17 15:00 54 05/18/17 14:06 87 16 140/68 95 Nasal Cannula 3.5 05/18/17 14:05 54 05/18/17 14:00 54 20 140/65 94 05/18/17 12:10 58 18 141/69 97 Nasal Cannula 4 05/18/17 11:10 96 Nasal Cannula 3.50 05/18/17 11:00 95 Nasal Cannula 3.5 05/18/17 11:00 95 05/18/17 10:47 62 22 94 Nasal Cannula 4 05/18/17 10:42 97.6 62 22 135/74 85 I/O 05/18/17 05/18/17 05/18/17 05/19/17 05/19/17 05/19/17 06:59 14:59 22:59 06:59 14:59 22:59 Intake Total 580 ml Output Total 350 ml 1725 ml 500 ml Balance -350 ml -1145 ml -500 ml Intake Oral 580 ml Output Urine Total 350 ml 1725 ml 500 ml Bladder Scan Volume Amount 151 ml # Voids 1 # Bowel Movements 0 Result Diagram: 05/18/17 1103 05/19/17 0422 Objective Remarks GENERAL: Well-nourished, well-developed very pleasant elderly male patient. SKIN: Warm and dry. HEAD: Normocephalic. EYES: No scleral icterus. No injection or drainage. NECK: Supple, trachea midline. No JVD or lymphadenopathy. CARDIOVASCULAR: Regular rate and rhythm without murmurs, gallops, or rubs. RESPIRATORY: Breathing is nonlabored on nasal cannula. lungs are clear this morning. GASTROINTESTINAL: bowel sounds normoactive. Abdomen soft, non-tender, nondistended. EXTREMITIES: Trace pedal edema in the left leg, 1+ in the right leg with chronic venous stasis changes. NEUROLOGICAL: Awake, alert, and oriented x 3. Non-focal. A/P Problem List: (1) Congestive heart failure ICD Code: I50.9 Status: Acute (2) Dyspnea on exertion ICD Code: R06.09 Status: Acute (3) Hypoxia ICD Code: R09.02 Status: Acute (4) Hypertension ICD Code: I10 Status: Acute (5) Chronic renal failure ICD Code: N18.9 Status: Acute (6) BPH (benign prostatic hyperplasia) ICD Code: N40.0 Status: Acute (7) REMA (acute kidney injury) ICD Code: N17.9 Status: Acute Assessment and Plan 87-year-old male. -Dyspnea, hypoxia, pulmonary edema - likely CHF versus fluid overload from chronic renal failure. Status post Lasix 40 mg IV in the emergency department and I will continue with gentle diuresis 20 mg IV Lasix every 12 hours. Duo nebs and supplemental oxygen via nasal cannula. Check an echocardiogram. Will check a walk test. -chronic kidney disease stage IV, possible acute kidney injury versus his new baseline. We will check a renal ultrasound. He is voiding well. -BPH which is symptomatic. Postvoid residual showing 150 mL urine. Voiding well. Continue Hytrin. -Hypertension - continue metoprolol, but hold losartan due to the acute kidney injury. -Nonsustained V. tach - will check magnesium level, continue metoprolol. -Coronary artery disease with remote history of myocardial infarction, no history of stents. Continue aspirin and metoprolol. Continue Zocor. -Gout. Hold allopurinol secondary to the poor kidney function. -Abdominal aortic aneurysm history. -History of liver cancer in remission for 1 year. -DVT prophylaxis with SCDs and YENYN hose. -CODE STATUS: Patient is agreeable to chest compressions and shocks but declines intubation. Discharge Planning Anticipate discharge home in 1-2 days if continued clinical improvement. Problem Qualifiers (1) Congestive heart failure: Qualified Code: I50.9 - Acute congestive heart failure, unspecified congestive heart failure type Moni Kamara MD May 19, 2017 10:35
--- NOTE | 2017-05-19 11:11 | RADRPT ---
EXAM DATE/TIME: 05/19/2017 10:46 [place] COMPARISON: US KIDNEY/RENAL/BLADDER, November 07, 2014, 10:04. INDICATIONS : Increased BUN/creatinine. MEDICAL HISTORY : Aneurysm, abdominal. Myocardial infarction. Arthritis. Carcinoma, liver. Numbness, feet. HTN. Dyspnea . Renal failure. Nocturia. Incontinence. Gout. Anticoagulant therapy, Aspirin. SURGICAL HISTORY : Tonsillectomy. Cervical surgery. Right knee surgery. Bilateral elbows. Chemotherapy. Radiation th erapy. ENCOUNTER: Initial ACUITY: 1 day PAIN SCORE: 0/10 LOCATION: Bilateral flank MEASUREMENTS: RIGHT KIDNEY: 9.9 x 4.4 x 5.6 cm LEFT KIDNEY: 9.1 x 4.7 x 4.6 cm FINDINGS: RIGHT KIDNEY: There is increased echogenicity of the renal parenchyma. No evidence of hydronephrosis. There is a cy st measuring 2.2 cm along the midpole. There is a cyst measuring 1.5 cm is along the midpole. There i s a trace of fluid adjacent to the right kidney. LEFT KIDNEY: There is increased echogenicity of the renal parenchyma. There is no evidence of pneumothorax. There is a cyst along the lower pulmonary vein 1.1 cm. BLADDER: Within normal limits given the degree of distension. CONCLUSION: 1. There is increased echogenicity of the renal parenchyma bilaterally characteristic of medical [place] disease. 2. No evidence of hydronephrosis. 3. Bilateral benign-appearing renal cysts. Donovan Mercado MD on May 19, 2017 at 11:07 Board Certified Radiologist. This report was verified electronically.
--- NOTE | 2017-05-19 12:40 | ECHRPT ---
Indication: Heart failure, unspecified CONCLUSIONS Normal left ventricular size. Wall thickness is normal. The left ventricular systolic function is low normal with an estimated ejection fraction in the rang e of 50- 55%. Mitral annular calcification is present. Moderate mitral valve regurgitation. Trace aortic valve regurgitation. The pulmonary valve is not well visualized. BP: / HR: Rhythm: Sinus MEASUREMENTS (Male / Female) Normal Values Technical Quality:Good 2D ECHO LV Diastolic Diameter PLAX 5.4 cm 4.2 - 5.9 / 3.9 - 5.3 cm LV Systolic Diameter PLAX 4.5 cm IVS Diastolic Thickness 1.2 cm 0.6 - 1.0 / 0.6 - 0.9 cm LVPW Diastolic Thickness 0.9 cm 0.6 - 1.0 / 0.6 - 0.9 cm LV Relative Wall Thickness 0.4 RV Internal Dim ED PLAX 2.0 cm LA Systolic Diameter LX 3.4 cm 3.0 - 4.0 / 2.7 - 3.8 cm DOPPLER AV Peak Velocity 152.0 cm/s AV Peak Gradient 9.2 mmHg LVOT Peak Velocity 97.7 cm/s LVOT Peak Gradient 3.8 mmHg MR Peak Velocity 486.0 cm/s MR Peak Gradient 94.5 mmHg Mitral E Point Velocity 66.1 cm/s Mitral A Point Velocity 98.2 cm/s Mitral E to A Ratio 0.7 TR Peak Velocity 151.0 cm/s TR Peak Gradient 9.1 mmHg FINDINGS LEFT VENTRICLE Normal left ventricular size. Wall thickness is normal. The left ventricular systolic function is low normal with an estimated ejection fraction in the rang e of 50- 55%. RIGHT VENTRICLE Normal right ventricular size and systolic function. LEFT ATRIUM The left atrial size is normal. RIGHT ATRIUM The right atrial size is normal. ATRIAL SEPTUM Normal atrial septal thickness without atrial level shunting by limited color doppler interrogation. AORTA The aortic root and proximal ascending aorta are normal in size on limited imaging. MITRAL VALVE Mitral annular calcification is present. Moderate mitral valve regurgitation. AORTIC VALVE Trace aortic valve regurgitation. TRICUSPID VALVE Structurally normal tricuspid valve. No tricuspid valve stenosis or regurgitation. PULMONARY VALVE The pulmonary valve is not well visualized. VESSELS The inferior vena cava is normal in size. PERICARDIUM No pericardial effusion. Shashi Verdin MD, FACC (Electronically Signed) Final Date:19 May 2017 12:39
[2017-05-19] MEDS: LANTHANUM CARBONATE 500 MG CHEWABLE TABLET CHEW SCH ×2 (13:52→21:44)
--- NOTE | 2017-05-19 15:55 | EKG ---
Date Performed: 05/18/2017 Time Performed: 10:39:47 PTAGE: 87 years EKG: Sinus rhythm WITH FIRST DEGREE AV BLOCK INDETERMINATE AXIS RIGHT BUNDLE BRANCH BLOCK MODERATE T-WAVE ABNORMALITY, CONSIDER LATERAL ISCHEMIA ABNORMAL ECG INTERPRETATION BASED ON A DEFAULT AGE OF 40 YEARS NO PREVIOUS TRACING DOCTOR: Jackelyn Hutchinson Interpretating Date/Time 05/19/2017 15:47:39
[2017-05-19] MEDS ORDERED: MIRTAZAPINE 15 MG TAB PO SCH (21:00)
[2017-05-19] MEDS: TERAZOSIN HCL 1 MG CAP PO SCH (21:43)
[2017-05-19] MEDS: traMADol HCL 50 MG TAB PO PRN (21:43)
[2017-05-20 00:40] VITALS: BP 147/79; PULSE 63; RESP 20; TEMP 96.1; O2SAT 92
[2017-05-20 04:00] VITALS: BP 144/77; PULSE 72; RESP 18; TEMP 97.1; O2SAT 92
[2017-05-20 06:16] LABS: POTASSIUM 4.1 MEQ/L (3.5-5.1)
[2017-05-20 06:20] LABS: BICARBONATE 28.1 MEQ/L (21.0-32.0)
[2017-05-20 08:00] VITALS: BP 133/76; PULSE 68; PULSE 69; RESP 21; TEMP 96.7; O2SAT 91; O2SAT 93
[2017-05-20] MEDS: VOLTAREN 1% TOPICAL SCH (08:37)
[2017-05-20] MEDS: FUROSEMIDE 20 MG/2 ML VIAL IV PUSH SCH (08:38)
[2017-05-20] MEDS: ASPIRIN 81 MG CHEW TAB CHEW SCH (08:38)
[2017-05-20] MEDS: METOPROLOL TARTRATE 50 MG TAB PO SCH (08:39)
[2017-05-20] MEDS: POTASSIUM CHLORIDE 20 MEQ CONTROLLED RELEASE TAB PO SCH (08:39)
[2017-05-20] MEDS: DOCUSATE SODIUM 50 MG/SENNA 8.6 MG TAB PO SCH (08:39)
[2017-05-20] MEDS: traMADol HCL 50 MG TAB PO PRN (08:39)
[2017-05-20] MEDS: LANTHANUM CARBONATE 500 MG CHEWABLE TABLET CHEW SCH (08:40)
--- NOTE | 2017-05-20 10:42 | HHI.DCPOC ---
Discharge Care Plan Diagnosis: (1) COPD (chronic obstructive pulmonary disease) (2) Congestive heart failure Goals to Promote Your Health * To prevent worsening of your condition and complications * To maintain your health at the optimal level Directions to Meet Your Goals Take your medications as prescribed Follow your dietary instruction Follow activity as directed Keep your appointments as scheduled Take your immunizations and boosters as scheduled If your symptoms worsen call your PCP, if no PCP go to Urgent Care Center or Emergency Room Smoking is Dangerous to Your Health. Avoid second hand smoke Call the 24-hour hour crisis hotline for domestic abuse at Parul Bergman MD May 20, 2017 10:42
[2017-05-20] MEDS ORDERED: OXYGENDME NAS.CANULA (10:43)
--- NOTE | 2017-05-20 10:45 | HHI.DS ---
Discharge Summary Admission Date May 18, 2017 at 12:39 Discharge Date: May 20, 2017 Admitting Diagnosis congestive heart failure, pulmonary edema, hypoxia (1) Congestive heart failure ICD Code: I50.9 Diagnosis: Principal (2) Dyspnea on exertion ICD Code: R06.09 Diagnosis: Principal (3) Hypoxia ICD Code: R09.02 Diagnosis: Principal (4) Hypertension ICD Code: I10 Diagnosis: Secondary (5) Chronic renal failure ICD Code: N18.9 Diagnosis: Secondary (6) BPH (benign prostatic hyperplasia) ICD Code: N40.0 Diagnosis: Secondary (7) REMA (acute kidney injury) ICD Code: N17.9 Diagnosis: Secondary Procedures none Brief History - From Admission This is a pleasant 87-year-old elderly male who presented the patient states he was told he had a myocardial infarction many years ago at the bottom of his heart, however he denies ever having stents placed in his heart. To the emergency department for dyspnea for 1 week which has been progressive. The patient states that he is not dyspneic when he is at rest but any activity makes him short of breath. The patient also states that he has a cough productive of white sputum. He denies any fever or chills. Denies any increasing pedal edema although he does have chronic right pedal edema which has been ruled out for DVT in the past. The patient goes to the [place] clinic. He has a history of liver cancer which has been in remission since 1 year ago. He also has a history of chronic kidney disease. The patient states that he has had difficulty voiding and has to get up 5 or 6 times per night and does not feel that he is fully emptying his bladder. The patient does not have oxygen at home. He was found to be hypoxic upon initial presentation to the emergency department with pulse oximetry of 81%. Of note the patient was hospitalized here 2 years ago for hypoxia, at that time he had an echocardiogram showing preserved ejection fraction, he was discharged home with oxygen at that time however he no longer has oxygen at home. In the emergency department chest x-ray showed mild interstitial edema minimal bibasal or clinical changes worse on the right. BNP of 672. Creatinine increased to 4.4 from 3.8 last month. CBC/BMP: 05/18/17 1103 05/20/17 0500 Significant Findings Laboratory Tests Test 05/18/17 05/18/17 05/19/17 05/20/17 11:00 11:03 04:22 05:00 Venous Blood Partial Pressure 43 mmHg (35-40) O2 Red Blood Count 4.01 MIL/MM3 (4.50-5.90) Hemoglobin 10.4 GM/DL (13.0-17.0) Hematocrit 32.6 % (39.0-51.0) Mean Corpuscular Hemoglobin 25.9 PG (27.0-34.0) Mean Corpuscular Hemoglobin 31.9 % Concent (32.0-36.0) Platelet Count 120 TH/MM3 (150-450) Mean Platelet Volume 6.4 FL (7.0-11.0) Eosinophils (%) (Auto) 7.1 % (0.0-4.0) Lymphocytes # (Auto) 0.9 TH/MM3 (1.0-4.8) Blood Urea Nitrogen 57 MG/DL (7-18) 57 MG/DL (7-18) 55 MG/DL (7-18) Creatinine 4.40 MG/DL 4.40 MG/DL 4.30 MG/DL (0.60-1.30) (0.60-1.30) (0.60-1.30) Estimat Glomerular Filtration 13 ML/MIN (>89) 13 ML/MIN (>89) 13 ML/MIN (>89) Rate Calcium Level 7.9 MG/DL 8.2 MG/DL (8.5-10.1) (8.5-10.1) Troponin I LESS THAN 0.02 NG/ML (0.02-0.05) B-Type Natriuretic Peptide 672 PG/ML (0-100) Albumin 3.2 GM/DL (3.4-5.0) Imaging Last Impressions Renal Ultrasound 05/19/17 0000 Signed Impressions: Service Date/Time: Friday, May 19, 2017 10:46 - CONCLUSION: 1. There is increased echogenicity of the renal parenchyma bilaterally characteristic of medical renal disease. 2. No evidence of hydronephrosis. 3. Bilateral benign-appearing renal cysts. Donovan Mercado MD Chest X-Ray 05/18/17 1052 Signed Impressions: Service Date/Time: Thursday, May 18, 2017 11:15 - CONCLUSION: Mild interstitial edema, minimal bibasilar clinical changes worse on the right. Jero Parker MD FACR PE at Discharge GENERAL: Well-nourished, well-developed very pleasant elderly male patient. SKIN: Warm and dry. HEAD: Normocephalic. EYES: No scleral icterus. No injection or drainage. NECK: Supple, trachea midline. No JVD or lymphadenopathy. CARDIOVASCULAR: Regular rate and rhythm without murmurs, gallops, or rubs. RESPIRATORY: Breathing is nonlabored on nasal cannula. lungs are clear this morning. GASTROINTESTINAL: bowel sounds normoactive. Abdomen soft, non-tender, nondistended. EXTREMITIES: Trace pedal edema in the left leg, 1+ in the right leg with chronic venous stasis changes. NEUROLOGICAL: Awake, alert, and oriented x 3. Non-focal. Pt update on day of discharge Patient seen today in follow-up for hypoxemia and dyspnea on exertion. Patient feels much better after diuresis. Patient also with hypoxemia on walk test with 85%. Patient will follow for oxygen. Discharge plans discussed with patient and his family at bedside. Hospital Course Diastolic heart failure with acute exacerbation. Patient had evidence of fluid overload on exam and responded to IV diuresis. An echocardiogram did show preserved ejection fraction and evidence of right sided heart failure. Patient did have a walk test and was discharged on home O2. Pt Condition on Discharge: Good Discharge Disposition: Discharge Home Discharge Time: <= 30 minutes Discharge Instructions DIET: Follow Instructions for: Heart Healthy Diet Activities you can perform: Regular-No Restrictions Follow up Referrals: PCP Follow-up - 1 Week New Medications: Oxygen (O2) (Oxygen (O2)) Device 2 LITER ROBBIN.CANULA CONTINUOUS Oxygen Concentrator Portable Gaseous 2 L/min via Nasal Canula Continuous For 99 months Prevent Hypoxemia #2 CYLINDER Continued Medications: Amlodipine (Amlodipine) 10 Mg Tab 10 MG PO DAILY Blood Pressure Management #30 Ref 0 TAB Aspirin (Aspirin) 81 Mg Chew 81 MG CHEW DAILY Ref 0 TAB Diclofenac Sodium (Voltaren) 100 Gm Gel..gram. APPLIC TOPICAL BID PRN Pain Management Fluticasone Nasal [place] (Fluticasone Nasal [place]) 50 Mcg/Act Naspr 50 MCG EACH NARE BID 50 mcg/spray PRN ALLERGIES #1 Ref 0 BOTTLE Furosemide (Furosemide) 40 Mg Tab 40 MG PO DAILY #30 Ref 0 TAB Lanthanum (Fosrenol) 500 Mg Tab 500 MG CHEW BID Reduce Phosphorous #90 Ref 0 TAB Loratadine (Allergy Relief) 10 Mg Tab 10 MG PO DAILY PRN ALLERGIES TAB Metoprolol Tartrate (Metoprolol Tartrate) 50 Mg Tab 50 MG PO BID #60 Ref 0 TAB Mirtazapine (Mirtazapine) 15 Mg Tab 10 MG PO HS PRN Depression Control #30 Ref 0 TAB Propylene Glycol-Glycerin Opth Drops (Artificial Tears Opth Drops) 1-0.3% Drops 1-2 DROP EACH EYE PRN PRN DRY EYE #15 Ref 0 ML Terazosin (Terazosin) 2 Mg Cap 2 MG PO HS #30 Ref 0 CAP Tramadol (Tramadol) 50 Mg Tab 50 MG PO Q8H PRN PAIN Ref 0 TAB Parul Bergman MD May 20, 2017 10:45
[2017-05-20 12:00] VITALS: BP 106/70; PULSE 86; RESP 20; TEMP 97.2; O2SAT 93
== END 2017-05-20 16:49 | disposition home or self-care (01) | DRG 291 ==
LOC: PHED 10:35 → PHEDA 12:39 → PHICU 14:02 → PH3B 05-19 18:30
PROVIDERS: ADMIT Hospitalist; ATTEND Hospitalist
DX: I13.0 Hypertensive heart and chronic kidney disease with heart failure and stage 1 through stage 4 chronic kidney disease, or unspecified chronic kidney disease (principal); I50.33 Acute on chronic diastolic (congestive) heart failure; I47.2 Ventricular tachycardia; N17.9 Acute kidney failure, unspecified; N18.4 Chronic kidney disease, stage 4 (severe); N40.0 Benign prostatic hyperplasia without lower urinary tract symptoms; R09.02 Hypoxemia; I25.2 Old myocardial infarction; I25.10 Atherosclerotic heart disease of native coronary artery without angina pectoris; M10.9 Gout, unspecified; Z85.05 Personal history of malignant neoplasm of liver; M19.90 Unspecified osteoarthritis, unspecified site; Z96.651 Presence of right artificial knee joint; I71.4 Abdominal aortic aneurysm, without rupture; Z87.891 Personal history of nicotine dependence; G62.9 Polyneuropathy, unspecified; E78.5 Hyperlipidemia, unspecified; Z79.82 Long term (current) use of aspirin
CPT/HCPCS: 71010; 76775; 80048; 80053; 82550; 82805; 83605; 83735; 83880; 84484; 85025; 85610; 85730; 87040; 93005; 93306; 94620; 94640; 94664; 96374; J1940

== ENCOUNTER 2017-06-01 14:36 | Inpatient (IN) | payer MEDICARE, OTHER ==
[~2017-06-01] VITALS: Ht 180.3 cm; Wt 97.3 kg
[2017-06-01] VITALS (12 sets, daily range): BP systolic 135–177; BP diastolic 68–84; PULSE 58–64; RESP 15–22; TEMP 97.1–98.3; O2SAT 89–100
[~2017-06-01 14:36] MED LIST changes: +ALLE10TA PO; -ALLO100T PO; +AMLO10TA2 PO; +ARTIDRO EACH EYE; -DOXY1CAP91 PO; +FLUT50SP EACH NARE; +FURO40TA PO; +LANT500 CHEW; -LOSA50TA PO; +MIRTA15 PO; +OXYGENDME NAS.CANULA; +TERA2CAP3 PO; +VOLT1GEL4 TOPICAL; -ZOCO80TA PO
[2017-06-01] MEDS ORDERED: FUROSEMIDE 40 MG/4 ML VIAL IVP ONE (15:00)
[2017-06-01] MEDS ORDERED: SODIUM CHLORIDE 0.9% FLUSH 10 ML FLUSH IVF PRN (15:00)
--- NOTE | 2017-06-01 15:09 | RADRPT ---
EXAM DATE/TIME: 06/01/2017 14:53 [place] COMPARISON: CHEST SINGLE AP, May 18, 2017, 11:15. INDICATIONS : Very short of breath today MEDICAL HISTORY : Congestive heart failure. Myocardial infarction. Hypertension. carcinoma liver SURGICAL HISTORY : None. ENCOUNTER: Subsequent ACUITY: 1 day PAIN SCORE: 0/10 LOCATION: Bilateral chest FINDINGS: A single view of the chest demonstrates the lungs to be symmetrically aerated with bibasilar atelecta tic changes, right worse than left. Possible associated small effusion on the right side. Heart size is borderline. Degenerative changes in both shoulders including the glenohumeral articulation and a.c . joints. Osseous structures are otherwise intact. CONCLUSION: 1. Bibasilar atelectatic changes with possible associated small effusion on the right. 2. Borderline heart size. Arcenio Ortega MD on June 01, 2017 at 15:06 Board Certified Radiologist. This report was verified electronically.
--- NOTE | 2017-06-01 15:25 | PD ---
HPI Chief Complaint: Respiratory Distress Time Seen by Provider: 14:50 Travel History International Travel<30 days: No Contact w/Intl Traveler<30days: No Traveled to known affect area: No History of Present Illness HPI 87-year-old male came to the emergency room with history of respiratory distress which was sudden onset while trying to get out of the recliner. 911 was called and when fire responders arrived patient was noticed to be diaphoretic. He was put on a CPAP. He was brought in by EMS. When he arrived he seemed to be more calm and comfortable but the oxygen saturation was 89% on the CPAP. Patient denied of any chest pain. He said he was feeling little better. Vital signs were acceptable. Patient has history of congestive heart failure. No history of fever or chills. PFSH Past Medical History Narrative Medical List of his past medical, surgical, social and family history was reviewed from the nursing note. Hx Anticoagulant Therapy: Yes (ASA) AAA: Yes Arthritis: Yes Blood Disorders: No Heart Rhythm Problems: No Cancer: Yes (LIVER CA) Cardiovascular Problems: No High Cholesterol: No Chemotherapy: Yes (BY PILL) Chest Pain: No Congestive Heart Failure: No COPD: No Cerebrovascular Accident: No Coronary Artery Disease: Yes Diminished Hearing: No Endocrine: No Gout: Yes Genitourinary: No Hypertension: Yes Immune Disorder: No Implanted Vascular Access Dvce: No Kidney Stones: No Musculoskeletal: Yes (ARTHRITIS) Neurologic: No Psychiatric: No Reproductive: No Respiratory: Yes Migraines: No Myocardial Infarction: Yes (x1) Radiation Therapy: Yes (2014) Renal Failure: Yes Seizures: No Past Surgical History Cardiac Surgery: No Neurologic Surgery: Yes (cervical) Tonsillectomy: Yes Other Surgery: Yes (BILATERAL ELBOWS, NECK) Social History Alcohol Use: No (QUIT 5-6 YEARS AGO) Tobacco Use: No (QUIT ) Substance Use: No Allergies-Medications (Allergen,Severity, Reaction): Coded Allergies: levofloxacin (Unverified Allergy, Severe, SOB PAIN LEGS, 05/26/17) morphine (Unverified Allergy, Severe, CONFUSION, 05/26/17) penicillin G (Unverified Allergy, Severe, SWELLING, 05/26/17) adhesive (Unverified Allergy, Mild, RASH, 05/26/17) trihexyphenidyl (Unverified Allergy, Unknown, UNKNOWN, 05/26/17) Comments List of his allergies reviewed from the nursing note. Reported Meds & Prescriptions Reported Meds & Active Scripts Active Oxygen (O2) Device 2 Liter ROBBIN.CANULA CONTINUOUS Oxygen Concentrator Portable Gaseous 2 L/min via Nasal Canula Continuous For 99 months Reported Artificial Tears Opth Drops (Propylene Glycol-Glycerin Opth Drops) 1-0.3% Drops 1-2 Drop EACH EYE PRN PRN Voltaren (Diclofenac Sodium) 100 Gm Gel..gram. Applic TOPICAL BID PRN Furosemide 40 Mg Tab 40 Mg PO DAILY Mirtazapine 15 Mg Tab 10 Mg PO HS PRN Terazosin (Terazosin HCl) 2 Mg Cap 2 Mg PO HS Fluticasone Nasal [place] 50 Mcg/Act Naspr 50 Mcg EACH NARE BID PRN 50 mcg/spray Allergy Relief (Loratadine) 10 Mg Tab 10 Mg PO DAILY PRN Amlodipine (Amlodipine Besylate) 10 Mg Tab 10 Mg PO DAILY Tramadol (Tramadol HCl) 50 Mg Tab 50 Mg PO Q8H PRN Metoprolol Tartrate 50 Mg Tab 50 Mg PO BID Aspirin 81 Mg Chew 81 Mg CHEW DAILY Narrative Medication List of his home medications reviewed from the nursing note. Review of Systems Except as stated in HPI: all other systems reviewed are Neg Physical Exam Narrative GENERAL: Awake, alert, elderly, moderate distress SKIN: Focused skin assessment warm/dry. HEAD: Atraumatic. Normocephalic. EYES: Pupils equal and round. No scleral icterus. No injection or drainage. ENT: No nasal bleeding or discharge. Mucous membranes pink and moist. NECK: Trachea midline. No JVD. CARDIOVASCULAR: Regular rate and rhythm. No murmur appreciated. RESPIRATORY: Fine crackles bibasilar with diminished air entry GASTROINTESTINAL: Abdomen soft, non-tender, nondistended. Hepatic and splenic margins not palpable. MUSCULOSKELETAL: No obvious deformities. No clubbing. No cyanosis. No edema. NEUROLOGICAL: Awake and alert. No obvious cranial nerve deficits. Motor grossly within normal limits. Normal speech. PSYCHIATRIC: Appropriate mood and affect; insight and judgment normal. Data Data Last Documented VS Vital Signs Date Time Temp Pulse Resp B/P (MAP) Pulse Ox O2 Delivery O2 Flow Rate FiO2 06/01/17 17:00 58 20 159/74 (102) 98 CPAP 06/01/17 14:50 100 06/01/17 14:41 98.3 Orders Orders Complete Blood Count With Diff (06/01/17 14:50) Basic Metabolic Panel (Bmp) (06/01/17 14:50) B-Type Natriuretic Peptide (06/01/17 14:50) Magnesium (Mg) (06/01/17 14:50) Ckmb (Isoenzyme) Profile (06/01/17 14:50) Troponin I (06/01/17 14:50) Arterial Blood Gas (Abg) (06/01/17 14:50) Urinalysis - C+S If Indicated (06/01/17 14:50) Blood Culture (06/01/17 14:50) Iv Access Insert/Monitor (06/01/17 14:50) Electrocardiogram (06/01/17 14:50) Ecg Monitoring (06/01/17 14:50) Oximetry (06/01/17 14:50) Oxygen Administration (06/01/17 14:50) Chest, Single Ap (06/01/17 14:50) Furosemide Inj (Lasix Inj) (06/01/17 15:00) Resp Bipap / Cpap Non Invas Vt (06/01/17 14:50) Metolazone (Zaroxolyn) (06/01/17 17:45) Admit Order (Ed Use Only) (06/01/17 17:30) Labs Laboratory Tests Test 06/01/17 15:00 06/01/17 15:05 06/01/17 16:08 Blood Gas Puncture Site RT RADIAL Blood Gas Patient Temperature 98.6 Blood Gas HCO3 27 mmol/L Blood Gas Base Excess 2.7 mmol/L Blood Gas Oxygen Saturation 98 % Arterial Blood pH 7.39 Arterial Blood Partial Pressure CO2 46 mmHg Arterial Blood Partial Pressure O2 235 mmHG Arterial Blood Oxygen Content 14.8 Vol % Arterial Blood Carboxyhemoglobin 2.0 % Arterial Blood Methemoglobin 0.4 % Blood Gas Hemoglobin 10.4 G/DL Oxygen Delivery Device BiPAP Blood Gas Ventilator Setting IPAP14 [id number] Blood Gas Inspired Oxygen 100 % White Blood Count 5.9 TH/MM3 Red Blood Count 3.88 MIL/MM3 Hemoglobin 10.1 GM/DL Hematocrit 32.0 % Mean Corpuscular Volume 82.3 FL Mean Corpuscular Hemoglobin 25.9 PG Mean Corpuscular Hemoglobin Concent 31.4 % Red Cell Distribution Width 17.5 % Platelet Count 109 TH/MM3 Mean Platelet Volume 7.1 FL Neutrophils (%) (Auto) 67.3 % Lymphocytes (%) (Auto) 15.8 % Monocytes (%) (Auto) 10.6 % Eosinophils (%) (Auto) 5.8 % Basophils (%) (Auto) 0.5 % Neutrophils # (Auto) 4.0 TH/MM3 Lymphocytes # (Auto) 0.9 TH/MM3 Monocytes # (Auto) 0.6 TH/MM3 Eosinophils # (Auto) 0.3 TH/MM3 Basophils # (Auto) 0.0 TH/MM3 CBC Comment DIFF FINAL Differential Comment Blood Urea Nitrogen 55 MG/DL Creatinine 3.59 MG/DL Random Glucose 88 MG/DL Calcium Level 8.6 MG/DL Magnesium Level 2.3 MG/DL Sodium Level 139 MEQ/L Potassium Level 4.3 MEQ/L Chloride Level 104 MEQ/L Carbon Dioxide Level 27.9 MEQ/L Anion Gap 7 MEQ/L Estimat Glomerular Filtration Rate 16 ML/MIN Total Creatine Kinase 33 U/L Troponin I LESS THAN 0.02 NG/ML B-Type Natriuretic Peptide 597 PG/ML Urine Color LIGHT-YELLOW Urine Turbidity CLEAR Urine pH 5.5 Urine Specific Ismay 1.007 Urine Protein TRACE mg/dL Urine Glucose (UA) NEG mg/dL Urine Ketones NEG mg/dL Urine Occult Blood NEG Urine Nitrite NEG Urine Bilirubin NEG Urine Urobilinogen LESS THAN 2.0 MG/DL Urine Leukocyte Esterase NEG Urine RBC 1 /hpf Urine WBC LESS THAN 1 /hpf Urine Hyaline Casts 2 /lpf Microscopic Urinalysis Comment CULT NOT INDICATED MDM Medical Decision Making Medical Screen Exam Complete: Yes Emergency Medical Condition: Yes Medical Record Reviewed: Yes Interpretation(s) Twelve-lead EKG was reviewed by me. Normal sinus rhythm, right axis deviation, right bundle branch block, bradycardia, first-degree AV block. Heart rate of 59 bpm. Differential Diagnosis Pulmonary edema, pleural effusion, congestive heart failure, pneumonia, PE Narrative Course 3:24 PM awaiting for the blood test results. Chest x-ray suggestive of right pleural effusion. Patient was given 40 mg of IV Lasix. He will require admission. Blood gas appears to be within acceptable range. Patient was put on BiPAP with pressures of 14/7 in 100% oxygen. 4:40 PM blood test results are back. Patient has stage IV kidney disease which is his baseline. Chest x-ray shows pleural effusion. Awaiting for the hospitalist to call back for admission. Procedures EKG Prior to Arrival: Yes Diagnosis Primary Impression: Respiratory distress Additional Impressions: Pleural effusion Chronic kidney disease, stage IV (severe) Admitting Information Admitting Physician Requests: it Varinder Hernandez MD Jun 01, 2017 15:25
[2017-06-01 15:28] LABS: BLOOD GAS BASE EXCESS 2.7 mmol/L (-2-2); BLOOD GAS HCO3 27 mmol/L (22-26); BLOOD GAS METHEMOGLOBIN 0.4 % (0-2); BLOOD GAS O2 HGB SATURATION 98 % (90-100); BLOOD GAS OXYGEN CONTENT 14.8 Vol % (12.0-20.0); BLOOD GAS PCO2 46 mmHg (38-42); BLOOD GAS PO2 235 mmHG (61-120); BLOOD GAS TOTAL HGB 10.4 G/DL (12.0-16.0); CRITICAL VALUE NO; DRAW SITE RT RADIAL; FIO2 100 %; NUMBER OF ARTERIAL PUNCTURES 1; OXYGEN DEVICE BiPAP; STAT YES; TEMP CORR TO 98.6; ULNAR PULSE Y; VENT SETTINGS IPAP14 EPAP7
[2017-06-01 16:06] LABS: BASOPHIL % 0.5 % (0.0-2.0); EOSINOPHIL # 0.3 TH/MM3 (0-0.4); EOSINOPHIL % 5.8 % (0.0-4.0); HEMO FLAGS DIFF FINAL; LYMPH % 15.8 % (9.0-44.0); LYMPHOCYTE # 0.9 TH/MM3 (1.0-4.8); MEAN CELL VOLUME 82.3 FL (80.0-100.0); MEAN CORPUSCULAR HEMOGLOBIN 25.9 PG (27.0-34.0); MEAN CORPUSCULAR HGB CONC 31.4 % (32.0-36.0); MONO % 10.6 % (0.0-8.0); NEUT % 67.3 % (16.0-70.0); PLATELET COUNT 109 TH/MM3 (150-450); RED BLOOD COUNT 3.88 MIL/MM3 (4.50-5.90); RED CELL DISTRIBUTION WIDTH 17.5 % (11.6-17.2); WHITE BLOOD COUNT 5.9 TH/MM3 (4.0-11.0)
[2017-06-01 16:16] LABS: ANION GAP 7 MEQ/L (5-15); BICARBONATE 27.9 MEQ/L (21.0-32.0); BLOOD UREA NITROGEN 55 MG/DL (7-18); CHLORIDE 104 MEQ/L (98-107); GLOMERULAR FILTRATION RATE 16 ML/MIN (>89); MAGNESIUM 2.3 MG/DL (1.5-2.5); POTASSIUM 4.3 MEQ/L (3.5-5.1); SODIUM (NA) 139 MEQ/L (136-145)
[2017-06-01 16:29] LABS: CREATINE KINASE 33 U/L (39-308)
[2017-06-01 16:30] LABS: BLOOD, URINE NEG (NEG); GLUCOSE,URINE NEG (NEG); HYALINE CAST, URINE 2 /lpf (RARE); KETONE, URINE NEG (NEG); NITRITE,URINE NEG (NEG); PH, URINE 5.5 (5.0-8.5); URINE COLOR LIGHT-YELLOW (YELLW/STRAW)
[2017-06-01 16:35] LABS: COMMENT (UR) CULT NOT INDICATED; CULTURE IF INDICATED CULT NOT INDICATED
[2017-06-01] MEDS ORDERED: SODIUM CHLORIDE 0.9% FLUSH 10 ML FLUSH IV FLUSH PRN ×2 (18:30)
[2017-06-01] MEDS ORDERED: PROCHLORPERAZINE 25 MG SUPP RECTAL PRN (18:30)
[2017-06-01] MEDS ORDERED: NALOXONE HCL 0.4 MG/ML AMP IV PRN (18:30)
[2017-06-01] MEDS ORDERED: FLUTICASONE PROPIONATE 50 MCG/ACT 16 GM NASAL SPRAY EACH NARE PRN (18:30)
[2017-06-01] MEDS ORDERED: MORPHINE SULFATE 4 MG/ML INJ IV PRN ×2 (18:30)
[2017-06-01] MEDS ORDERED: LORATADINE 10 MG TAB PO PRN (18:30)
[2017-06-01] MEDS ORDERED: MIRTAZAPINE 15 MG TAB PO PRN (18:30)
[2017-06-01] MEDS ORDERED: ARTIFICIAL TEARS OPTH SOLN 15 ML BTL EACH EYE PRN (18:30)
[2017-06-01] MEDS ORDERED: BISACODYL 10 MG SUPP RECTAL PRN (18:30)
[2017-06-01] MEDS ORDERED: ONDANSETRON HCL 4 MG/2 ML VIAL IVP PRN (18:30)
[2017-06-01] MEDS ORDERED: RESP: ALBUTEROL 2.5 MG/IPRATROPIUM 0.5 MG NEB (PRN) NEB (19:00)
[2017-06-01] MEDS: METOLAZONE 5 MG TAB PO SCH (19:09)
--- NOTE | 2017-06-01 19:48 | MH ---
cc: LEEANN LÓPEZ DATE OF ADMISSION 06/01/[address] Leenan López REFERRING PHYSICIAN [facility] CONSULTING PHYSICIAN Cardiology as well as nephrology. HISTORY OF PRESENT ILLNESS The patient came in with respiratory distress. The patient is an 87-year-old male. He is normally followed at the [facility]. Who presented to the emergency department with history of respiratory distress. With sudden onset while trying to get out of his recliner. 911 was called and when fire responders arrived the patient was noted to be quite diaphoretic. He was placed on C-PAP and was brought in by EMS. When he arrived be seemed to more calm and comfortable but his oxygen saturation was 89% on C-PAP. The patient denied any chest pain. He states he was feeling a little better. Vital signs were stable. Has history of congestive heart failure. No history of fever or chills. The patient has also had recently been hospitalized at [facility] on May 18, 2017. Has made himself a limited DNR with chest compressions and shocks an ACL as medications but declines intubation. He has been worsening shortness of breath. Had supposed to be on 3 liters by nasal cannula, has up to 5 liters via nasal cannula. Has had increasing shortness of breath. Only goes to the [facility]. History of liver cancer, been in remission for at least a year ago. Has history of chronic kidney disease. Is on home oxygen. Recent. Has an extensive past medical history including chronic kidney disease stage III to IV, abdominal aortic aneurysm, hypertension, history of coronary artery disease, benign prostatic hypertrophy, osteoarthritis, liver cancer in remission four years. History of right knee replacement and neck surgery. Has history of liver cancer that he was treated with a pill. His only anticoagulation is an aspirin. Had been a smoker but quit that, had been a drinker but quit that also. Has history of osteoarthritis. History of myocardial infarction. History of radiation therapy. History of renal failure. History of cervical neck surgery. History of bilateral elbows and neck surgery, for the gout. Has history of gout and hypertension, chronic kidney disease, coronary artery disease. Had been a smoker, quit in the 1970s. Alcohol use, quit about 5-6 years ago. Denies any substance abuse. Lives in the area locally. ALLERGIES INCLUDE LEVAQUIN, MORPHINE, PENICILLIN, ADHESIVES, TRIHEXYPHENIDYL. MEDICATIONS 1. Had been on oxygen a couple of liters via nasal cannula. 2. Has history of artificial tears at home. 3. Voltaren gel. 4. Furosemide 40 milligrams daily. 5. Mirtazapine 10 milligrams p.o. q. h.s. 6. Terazosin 2 milligrams at bedtime. 7. Fluticasone 1 spray each nare b.i.d. 8. Loratadine 10 milligrams p.o. daily. 9. Amlodipine 10 milligrams p.o. daily. 10. Tramadol 50 milligrams p.o. q. 8 hours p.r.n. 11. Metoprolol tartrate 50 milligrams p.o. b.i.d. 12. Aspirin 81 milligrams daily. REVIEW OF SYSTEMS On review of systems he denies any fever or weight loss. Has had some weight gain. Denies any throat pain or hoarseness. Has a cough and some occasional sputum production and shortness of breath. Denies any wheezing. He has been needing to use more and more oxygen. Has had some bloody noses due to the oxygen. That he has upped himself to 5. Has chronic lower extremity edema. Denies any chest pain. Denies any abdominal pain or vomiting. Has some urinary frequency, urinary incontinence and nocturia. Denies dysuria. Denies any headache or localized weakness. Denies any anxiety or confusion. Has some depression. PHYSICAL EXAMINATION On physical exam he is awake and alert, talkative and cooperative. VITAL SIGNS: Current vital signs include the following had a temperature 98.3, pulse of about 58, respiratory rate of about 22, blood pressure is 159/74, 98% on C-PAP. FIO2 of 100%. GENERAL: He is awake, alert and oriented elderly gentleman in moderate to severe distress. SKIN: His skin is warm and dry. HEENT: His head is normocephalic, atraumatic. Pupils are equal, round, reactive to light and accommodation. Extraocular muscles appear grossly intact. No scleral icterus. No injection or drainage. Mucous membranes are pink and moist. Trachea is midline. Tongue is midline. HEART: Regular rate and rhythm, S1-S2. No S3-S4. No heave or thrill, rub or gallop. LUNGS: Are noted to have rales bilaterally and rhonchis bilaterally and coarse breath sounds bilaterally. But good expansion of lungs, on C-PAP. ABDOMEN: Abdomen is soft, nontender, nondistended, obese. No rebound, rigidity, guarding. EXTREMITIES: No clubbing or cyanosis. Plus 1 to 2 bilateral lower extremity edema. Cranial nerves II-XII appear grossly intact. Can move all four extremities, 4/5 in upper extremity and lower-extremity bilaterally. Motor strength. Skin is warm and dry. No obvious rashes. PSYCH: He has somewhat appropriate mood and affect. Insight and judgment appear normal. LABORATORY DATA His laboratory data includes the following. Had a white blood cell count 5.9. His hemoglobin is 10.1, hematocrit is 32.0, platelet count is 109 with thrombocytopenia. His blood gas had a pH of 7.39, pCO2 of 46, pO2 of 235. ABG O2 content was 14.8. ABG carboxyhemoglobin is 2.0, metahemoglobin 0.4, hemoglobin was 10.4, O2 delivery was BiPap. Base excess is 2.7, bicarb is 27. His chemistries had the sodium of 139, potassium 4.3, chloride is 104, carbon dioxide 27.9, anion gap 7, BUN is 55, creatinine is 3.59, estimated GFR 16, random glucose is 88, calcium is 8.6, magnesium is 2.3, total CK is 33. Troponin less than 0.02, BNP is pending. Urinalysis is negative. RADIOLOGY STUDIES Include a chest x-ray which shows a bibasilar atelectatic changes with possible associated small effusion on the right, borderline heart size. CARDIOLOGY STUDIES EKG shows sinus bradycardia, first-degree A-V block indeterminate axis, right bundle branch block, abnormal EKG. Has a right pleural effusion was given Lasix. Place the patient on BiPap of 14/__% FIO2. Has chronic stage IV kidney disease which baseline. Chest x-ray showed the pleural effusion. The patient has acute on chronic respiratory distress though he is on chronic oxygen. A couple liters at home, has upped himself to 5 liters with worsening shortness of breath, has been brought in on C-PAP, BiPap. Will continue on that. Will go to [facility]. Has the pleural effusion on the right. Has chronic kidney disease stage IV. Has history of gout at home. As well as history of tonsillectomy. History of a chronic neck problems. History of glasses. History of dentures. History of cervical surgery. History of a chronic numbness in the bilateral feet. History of an UT. History of aortic aneurysm. History of coronary artery disease. History of chronic anticoagulation with aspirin. History of hypertension. Chronic respiratory issues and dyspnea. History of osteoarthritis and gout. History of right knee surgery and bilateral elbow surgery. History of liver cancer treated with some unknown pill. History of claustrophobia. History of alcohol in the past and caffeine daily. As well as history of tobacco, quit many, many years ago. History of liver cancer. Some history of some radiation therapy in bilateral elbows and neck. Denies any family history of tobacco abuse. Has been diuresed here. Admitted for the worsening respiratory failure with CHF. Has the history of congestive heart failure, dyspnea on exertion, hypoxia, hypertension, chronic renal failure, BPH and chronic kidney disease. His home medications have been reviewed and include the following. 1. Had been on Loratadine at 10 milligrams daily. 2. Oxygen. 3. Terazosin 2 milligrams daily. 4. metoprolol 50 milligrams b.i.d. 5. Amlodipine 10 milligrams daily. 6. Aspirin 81 milligrams daily. 7. Voltaren topically. 8. Tramadol 50 milligrams q.8 hours. 9. Mirtazapine 15 milligrams I believe at bedtime. 10. Furosemide 40 milligrams daily. 11. Fluticasone nasal spray. 12. Propylene glycol glycerin ophthalmic drops. 13. Artifical tears 1-2 drops eyes p.r.n. Has the dyspnea and hypoxia and pulmonary edema, ____ congestive heart failure versus fluid overload with chronic renal failure. Was given Lasix. Will add Zaroxolyn to this. Make sure he is on Lasix and Zaroxolyn. Acute kidney injury on top of chronic kidney disease stage IV. BPH chronic. History of hypertension, coronary artery disease with history of myocardial infarction. No history of stents, on aspirin and metoprolol and Zocor. History of gou8t, allopurinol has been held. Abdominal and aortic aneurysm, stable. History of liver cancer in remission. History of DVT prophylaxis with SCDs and YENNY hose. Code status is alternative with chest compressions shocks and ACLS medications but no intubation. The patient will be admitted. Will consult cardiology and nephrology. Will diurese him aggressively. Will make him a full admission. Will consult get a 2-D echo with Doppler. Consult cardiology and nephrology that is internal combustion engine subassembler. Continue on heart healthy diet. Continue on oxygen. Continue on the BNP, CBC, CMP, CKs and troponins. Follow up with a free T4, hemoglobin A1c, mag and phos, TSH, troponins, urinalysis. Continue on p.r.n. medications and his home medications. Will continue on Lasix 40 milligrams IV b.i.d. Continue on lactulose p.r.n. And Claritin as needed. Continue on Metolazone 5 milligrams daily. Continue on Remeron. Continue on morphine as needed for pain. His morphine issues sounds like confusion and not a true allergy. Continue on oxycodone as needed. Continue on potassium chloride. Continue on terazosin and his tramadol. Blood cultures have been ordered. Continue on some DuoNebs. Continue on Mucinex if he is actually coughing anything up. Continue on incentive spirometry. Will get a.m. labs, CBC, CMP, TSH, free T4, hemoglobin A1c, mag and phos. We will continue to be followed throughout the admission for any other issues that may arise. Physical therapy and occupational therapy to eval and treat. Will continue on the BiPAP at 14/7 at 100% FIO2 and will continue to follow throughout the admission for any other issues that may arise. For any other information please see the chart. HE HAS MULTIPLE ALLERGIES, ADHESIVE, LEVAQUIN, MORPHINE BUT IT IS CONFUSION WHICH IS NOT ABNORMAL, PENICILLIN G AND TRIHEXYPHENIDYL For any other information please see the chart. Again, he is a limited DNR. Leeann López, DO [facility] /6:38 PM /7:05 PM
[2017-06-01] MEDS ORDERED: SODIUM CHLORIDE 0.9% FLUSH 10 ML FLUSH IV FLUSH SCH (21:00)
[2017-06-01] MEDS: METOPROLOL TARTRATE 50 MG TAB PO SCH (21:16)
[2017-06-01] MEDS: DOCUSATE SODIUM 50 MG/SENNA 8.6 MG TAB PO SCH (21:16)
[2017-06-01] MEDS: guaiFENesin E.R. 600 MG TAB PO SCH (21:16)
[2017-06-01] MEDS: TERAZOSIN HCL 1 MG CAP PO SCH (21:16)
[2017-06-01] MEDS: POTASSIUM CHLORIDE 10 MEQ CONTROLLED RELEASE TAB PO SCH (21:16)
[2017-06-01] MEDS: SODIUM CHLORIDE 0.9% FLUSH 10 ML FLUSH IV FLUSH SCH (21:17)
[2017-06-01 23:53] LABS: BACTERIA, URINE RARE /hpf; BLOOD, URINE TRACE (NEG); GLUCOSE,URINE NEG (NEG); KETONE, URINE NEG (NEG); NITRITE,URINE NEG (NEG); PH, URINE 5.5 (5.0-8.5); SQUAMOUS EPITHELIAL CELL URINE <1 /hpf (0-5); URINE COLOR LIGHT-YELLOW (YELLW/STRAW)
[2017-06-01 23:54] LABS: COMMENT (UR) CULT NOT INDICATED; CULTURE IF INDICATED CULT NOT INDICATED
[2017-06-02] VITALS (32 sets, daily range): BP systolic 128–145; BP diastolic 65–74; PULSE 60–82; RESP 17–24; TEMP 97.9–99; O2SAT 92–99
[2017-06-02 00:13] LABS: MAGNESIUM 2.2 MG/DL (1.5-2.5)
[2017-06-02 00:18] LABS: CREATINE KINASE 39 U/L (39-308)
[2017-06-02 05:47] LABS: AUTOMATED NEUTROPHIL # 4.8 TH/MM3 (1.8-7.7); BASOPHIL % 0.5 % (0.0-2.0); EOSINOPHIL # 0.4 TH/MM3 (0-0.4); EOSINOPHIL % 5.7 % (0.0-4.0); HEMATOCRIT 30.4 % (39.0-51.0); HEMO FLAGS DIFF FINAL; LYMPH % 11.8 % (9.0-44.0); LYMPHOCYTE # 0.8 TH/MM3 (1.0-4.8); MEAN CELL VOLUME 81.4 FL (80.0-100.0); MEAN CORPUSCULAR HEMOGLOBIN 26.3 PG (27.0-34.0); MEAN CORPUSCULAR HGB CONC 32.3 % (32.0-36.0); MONO % 9.2 % (0.0-8.0); NEUT % 72.8 % (16.0-70.0); PLATELET COUNT 109 TH/MM3 (150-450); RED BLOOD COUNT 3.74 MIL/MM3 (4.50-5.90); RED CELL DISTRIBUTION WIDTH 16.8 % (11.6-17.2); WHITE BLOOD COUNT 6.5 TH/MM3 (4.0-11.0)
[2017-06-02 06:08] LABS: ALT (GPT) 15 U/L (12-78); ANION GAP 8 MEQ/L (5-15); AST (GOT) 11 U/L (15-37); BICARBONATE 29.1 MEQ/L (21.0-32.0); BLOOD UREA NITROGEN 60 MG/DL (7-18); CHLORIDE 103 MEQ/L (98-107); GLOMERULAR FILTRATION RATE 14 ML/MIN (>89); MAGNESIUM 2.2 MG/DL (1.5-2.5); SODIUM (NA) 140 MEQ/L (136-145)
[2017-06-02 06:17] LABS: ALKALINE PHOSPHATASE 70 U/L (45-117); FREE T4 1.18 NG/DL (0.76-1.46)
[2017-06-02 06:28] LABS: CREATINE KINASE 34 U/L (39-308)
[2017-06-02] MEDS: ASPIRIN 81 MG CHEW TAB CHEW SCH (08:15)
[2017-06-02] MEDS: DOCUSATE SODIUM 50 MG/SENNA 8.6 MG TAB PO SCH ×2 (08:15→20:52)
[2017-06-02] MEDS: FUROSEMIDE 40 MG/4 ML VIAL IVP SCH ×2 (08:15→18:52)
[2017-06-02] MEDS: METOPROLOL TARTRATE 50 MG TAB PO SCH ×2 (08:15→20:52)
[2017-06-02] MEDS: guaiFENesin E.R. 600 MG TAB PO SCH ×2 (08:15→20:52)
[2017-06-02] MEDS: POTASSIUM CHLORIDE 10 MEQ CONTROLLED RELEASE TAB PO SCH ×2 (08:15→20:53)
[2017-06-02] MEDS: SODIUM CHLORIDE 0.9% FLUSH 10 ML FLUSH IV FLUSH SCH ×2 (08:16→20:54)
--- NOTE | 2017-06-02 08:28 | MB ---
cc: JODY ELLIOTT MD DATE OF CONSULTATION 06/02/2017 REASON FOR CONSULTATION Evaluation for CHF. HISTORY OF PRESENT ILLNESS Mr. Soliman is a pleasant 87-year-old who has severe COPD and was recently placed on home oxygen. He reports to me that he has had progressive shortness of breath. He denied any prior coronary disease or cardiac complaints such as chest pain. ALLERGIES Include LEVAQUIN, MORPHINE, PENICILLIN, ADHESIVES AND TRIHEXFENADIL. OUTPATIENT MEDICATIONS Included: 1. Home oxygen 2. Lasix 40 mg a day 3. Mirtazapine 10 mg q.h.s. 4. Terazosin 2 mg q.h.s. 5. Fluticasone 6. Loratadine 7. Amlodipine 10 mg a day 8. Tramadol 50 mg q.8 p.r.n. 9. Metoprolol 50 mg b.i.d. 10. Aspirin 81 mg day REVIEW OF SYSTEMS Except as mentioned in the HPI, all 12-systems are negative. PAST MEDICAL HISTORY Significant for: 1. Hypertension 2. COPD 3. CKD 4. Anemia 5. Abdominal aortic aneurysm 6. CAD - although the patient denies this. 7. Gout 8. Arthritis 9 Liver cancer that is in remission. FAMILY HISTORY Positive for CHF. SOCIAL HISTORY The patient is a former smoker. PHYSICAL EXAM VITAL SIGNS: Temperature 97.19, 66, 128/65. GENERAL: He is an overweight elderly man who is in no apparent distress. NECK: His neck is free from JVD. LUNGS: The lungs are bilaterally clear to auscultation although fairly decreased. ABDOMEN: The abdomen is soft. EXTREMITIES: The extremities have a trace amount of edema. LAB VALUES Significant for a hemoglobin of 9.8. His creatinine is 3.99 and troponin less than 0.02 with a BNP 597. Chest x-ray shows bibasilar atelectatic changes with possible small effusion on the right. Echocardiogram from 05/19/2017 shows normal LV function with an EF of 55%. IMPRESSION 1. CHF - The patient likely does have a small component heart failure with preserved LV function. He was quite hypertensive on arrival and hypoxic as well. His severe end-stage COPD, anemia and renal insufficiency are all contributing factors. The nephrology consult request is noted. At this point, I will add fluid and sodium restrictions. Further fluid management will be per nephrology. The patient is an aspirin and beta carmella. He does not wish ischemia evaluation as he has been DNR, thus we will not pursue this. 2. Hypertension - I do agree with the choice of Amlodipine and Metoprolol. His blood pressure does appear reasonably Controlled. 3. Renal insufficiency - Nephrology has been consulted. 4. COPD - The patient has end-stage COPD and this is likely the major contributing factor to his respiratory insufficiency. Of note, the C-PAP was removed this morning and he was placed on a 6 liter cannula with oxygen saturation around 90%. I will leave him on this for now and further management will be per the primary team since then. Jody Elliott M.D. [facility]YANT/DJL /8:03 AM /8:15 AM
[2017-06-02] MEDS ORDERED: METOLAZONE 2.5 MG TAB PO SCH (09:00)
--- NOTE | 2017-06-02 10:39 | HHI.PR ---
Subjective Remarks Patient says that his breathing is better, almost as it would be at home. Does report having dribbling issues urination [place] with some mild dysuria last night although urine analysis appears unremarkable for infection and patient is getting terazosin. Was weaned down to 6 L, home is 3 L Objective Vital Signs Date Time Temp Pulse Resp B/P (MAP) Pulse Ox O2 Delivery O2 Flow Rate FiO2 06/02/17 08:01 98.5 67 24 140/65 (90) 93 06/02/17 07:01 64 06/02/17 06:17 99 60 06/02/17 06:00 64 06/02/17 05:00 66 06/02/17 04:00 64 06/02/17 03:00 62 06/02/17 03:00 97.9 66 17 128/65 (86) 97 06/02/17 02:16 99 60 06/02/17 02:00 64 06/02/17 01:00 70 06/02/17 00:00 60 06/01/17 23:00 97.1 60 15 135/68 (90) 97 06/01/17 23:00 62 06/01/17 22:00 62 06/01/17 21:30 98.2 59 16 162/84 (110) 100 06/01/17 21:00 62 06/01/17 20:41 98 60 06/01/17 20:30 100 Non-Rebreather 100 06/01/17 20:30 100 15.00 100 06/01/17 19:07 58 18 177/81 (113) 95 CPAP 06/01/17 17:00 58 20 159/74 (102) 98 CPAP 06/01/17 16:28 100 CPAP 06/01/17 16:28 100 CPAP 06/01/17 15:18 100 CPAP 06/01/17 14:50 98 100 06/01/17 14:41 65 22 90 CPAP 06/01/17 14:41 98.3 64 22 147/71 (96) 89 CPAP I/O 06/01/17 06/01/17 06/01/17 06/02/17 06/02/17 06/02/17 07:00 15:00 23:00 07:00 15:00 23:00 Intake Total 480 ml Output Total 355 ml 1400 ml Balance -355 ml -920 ml Intake Oral 480 ml Output Urine Total 355 ml 1400 ml # Voids 2 Result Diagram: 06/02/1715 06/02/17 0515 Objective Remarks GENERAL: Lying in chair in no acute distress CARDIOVASCULAR: Regular rate and rhythm without murmurs, gallops, or rubs. RESPIRATORY: Breath sounds equal but diminished with obvious rales and bibasilar areas, unlabored GASTROINTESTINAL: Abdomen soft, non-tender, nondistended. MUSCULOSKELETAL: No cyanosis, or edema. A/P Assessment and Plan 87-year-old white male admitted for hypoxia and shortness of breath - IMPROVING 1. Hypoxia - increased from home O2 level at 3 L, likely from pulmonary edema - IMPROVING today - down to 6 L from CPAP. Treat as below 2. Pulmonary edema - likely combined from chronic kidney disease and congestive heart failure - Continue diuresis with IV Lasix and oral metolazone. Awaiting nephro consult 3. COPD - continue duo nebs when necessary shortness of breath 4. BPH - continue home terazosin 5. Hypertension/CHFpEF - continue home amlodipine and metoprolol and aspirin 6. Urinary discomfort - suspect this is due to increased diuresis and setting of BPH as opposed to infection given unremarkable UA D/C pending transition to oral diuretics with assistance of nephrology, possible discharge anticipated in next 24 hours. Patient is a DO NOT INTUBATE. Iggy Jackson MD Jun 02, 2017 10:39
[2017-06-02] MEDS: METOLAZONE 5 MG TAB PO SCH (12:00)
--- NOTE | 2017-06-02 13:45 | EKG ---
Date Performed: 06/01/2017 Time Performed: 14:48:30 PTAGE: 87 years EKG: SINUS BRADYCARDIA WITH FIRST DEGREE AV BLOCK INDETERMINATE AXIS RIGHT BUNDLE BRANCH BLOCK A BNORMAL ECG Compared to prior tracing no significant change PREVIOUS TRACING DOCTOR: Radha King Interpretating Date/Time 06/02/2017 13:40:57
--- NOTE | 2017-06-02 18:06 | MB ---
cc: LOC ANDINO MD DATE OF CONSULTATION 06/02/2017 REASON FOR CONSULTATION Elevated BUN and creatinine for evaluation. HISTORY OF PRESENT ILLNESS This is a 87-year-old male with past medical history of hypertension, ischemic heart disease and chronic kidney disease, chronic back pain and leg pain was brought to the hospital because of worsening shortness of breath. I was called to see the patient because of elevated BUN and creatinine. The patient has creatinine of 4.5 on presentation. Previously he has creatinine as high as 4.4. The patient was told in the [place] that he has chronic kidney disease but he has not seen any lather apprentice outside or even in the [place]. He was told that at some point he will need dialysis. When the patient came in here it was found that he has pleural effusion and according to the patient he has difficulty passing urine before he came in here but from yesterday his urine output has improved and he is passing more urine. He denies any nausea or vomiting. His appetite has been normal. There is no history of taking any nonsteroidal anti-inflammatory drugs. He is on tramadol for back pain and pain in his feet. Denies any history of weight loss. PAST MEDICAL HISTORY 1. Hypertension. 2. Ischemic heart disease. 3. Chronic kidney disease. 4. Abdominal aortic aneurysm. 5. Benign prostatic hypertrophy. 6. Osteoarthritis. 7. History of liver cancer. REVIEW OF SYSTEMS The patient has generalized weakness, feeling tired. Denies any history of fever. No weight loss. He has worsening shortness of breath especially on exertion and lying flat. There is mild cough which is mainly dry. No chest pain. No palpitation. No nausea or vomiting. He has some difficulty passing urine but it has been improving now. He has constipation at home and here he had two to three bowel movements today. There is no known history of diarrhea. Denies taking any nonsteroidal anti-inflammatory drugs. SOCIAL HISTORY The patient is single. He lives alone. Stopped smoking 5-6 years ago. There is no history of heavy alcoholism. FAMILY HISTORY Noncontributory. ALLERGIES HE IS ALLERGIC TO MULTIPLE MEDICATIONS INCLUDIN. LEVAQUIN. 2. MORPHINE. 3. PENICILLIN-G. 4. Trihexyphenidyl. MEDICATIONS Currently he is on following medications: 1. Metoprolol 50 mg b.i.d. 2. Indu-Colace 1 tablet b.i.d. 3. Potassium chloride 10 mg b.i.d. 4. Mucinex 600 mg b.i.d. 5. Lasix 40 mg IV b.i.d. 6. Metolazone 5 mg daily. 7. Norvasc 10 mg once a day. 8. Aspirin 81 mg once a day. 9. Hytrin 2 mg q.h.s. 10. Flonase nasal spray. 11. Claritin 10 mg once a day. 12. Remeron 10 mg p.r.n. 13. Ultram p.r.n. 14. Tylenol p.r.n. PHYSICAL EXAMINATION GENERAL: The patient is awake and alert. He is not in acute distress. He is sitting in the chair. VITAL SIGNS: His last blood pressure is 132/72. His blood pressure had been a little bit on the higher side in the beginning but now it is improving. Temperature is 98.6. Oxygen saturation on 7 liters nasal cannula is 98%. HEENT: Pupils are mid constricted. Nonicteric sclerae. Conjunctivae pale. NECK: Supple. JVD is slightly elevated. LUNGS: The patient has bilateral decreased air entry with basilar rales and scattered wheezing. HEART: S1-S2. Regular rhythm. ABDOMEN: Distended. Soft. Lax. There is no tenderness. Bowel sounds positive. EXTREMITIES: He has bilateral 1+ leg edema. LABORATORY DATA Investigations, WBC count 6.5, hemoglobin 9.8, platelet count 109, neutrophils 72.8%. Sodium 140, potassium 4.0, chloride 103, bicarb 29.1, BUN 60, creatinine 3.99, calcium is 8.4, phosphorus 3.6. Magnesium 2.2, AST is 11, ALT is 15. Troponin I is less than 0.02. Total protein is 6.7 with an albumin of 3.0. TSH 2.3. INR is 1.0. Urinalysis showing trace proteinuria. Cultures are all negative so far. IMAGING STUDIES The patient has chest x-ray done which shows possible small effusion on the right side, borderline heart size. Ultrasound of the kidney was done about two weeks ago and showed that the right kidney 9.9 and the left kidney is 9.1 cm. No evidence of hydronephrosis. Bilateral benign appearing renal cysts. Increased renal parenchymal echogenicity. ASSESSMENT/PLAN 1. Chronic kidney disease with a advanced renal failure. 2. Fluid overload status with pulmonary edema and hypoxemia. 3. COPD. 4. Hypertension. 5. Anemia. The patient has advanced renal disease. He does not have any proteinuria, most likely he has hypertensive or renovascular disease. I will check his serum protein electrophoresis. I agree with continuing the diuretics at present along with the potassium. His GFR is around 14-15 and if it is not improving then it is possible that he will need dialysis. I did discuss this with the patient and he is willing to go for dialysis as needed. I will discuss this with the family. There is no improvement in his renal function. I will also check the iron studies since his hemoglobin is on the lower side and he probably will need procrit. Thank you for the consultation and I will follow the patient while he is in the hospital. MD TEJAL Rivera/LIZABETH /5:08 PM /5:39 PM
[2017-06-02] MEDS: TERAZOSIN HCL 1 MG CAP PO SCH (20:52)
[2017-06-02 21:01] LABS: HEMOGLOBIN A1a 0.8 %; HEMOGLOBIN A1b 1.9 %; HEMOGLOBIN LA1C 2.2 %
[2017-06-02 21:02] LABS: HEMOGLOBIN Ao 84.6 %
[2017-06-03] VITALS (28 sets, daily range): BP systolic 124–147; BP diastolic 67–82; PULSE 60–80; RESP 18; TEMP 97.4–98.6; O2SAT 89–98
[2017-06-03 06:58] LABS: TRANSFERRIN IRON PROFILE 222 MG/DL (200-360)
[2017-06-03 07:00] LABS: FERRITIN 88 NG/ML (26-388); TOTAL PROTEIN SPE 7.1 GM/DL (6.0-7.6)
--- NOTE | 2017-06-03 07:03 | PD.CARD.PN ---
Subjective Subjective Remarks Pt without complaints Objective Medications Current Medications Medications (Trade) Dose Ordered Sig/Eduin Route Start Time Stop Time Status Last Admin (Zaroxolyn) 5 mg DAILY PO 06/01/17 17:45 06/02/17 12:00 (Norvasc) 10 mg DAILY PO 06/02/17 09:00 06/02/17 08:15 (Aspirin Chew) 81 mg DAILY CHEW 06/02/17 09:00 06/02/17 08:15 (Flonase Dejon Spr) 1 spray BID PRN EACH NARE 06/01/17 18:30 (Claritin) 10 mg DAILY PRN PO 06/01/17 18:30 (Lopressor) 50 mg BID PO 06/01/17 21:00 06/02/17 20:52 (Remeron) 10 mg HS PRN PO 06/01/17 18:30 (Tears Naturale Opth Soln) 2 drop Q4H PRN EACH EYE 06/01/17 18:30 (Hytrin) 2 mg HS PO 06/01/17 21:00 06/02/17 20:52 (Ultram) 50 mg Q8H PRN PO 06/01/17 18:30 (Tylenol) 650 mg Q6H PRN PO 06/01/17 18:30 (Narcan Inj) 0.4 mg UNSCH PRN IV 06/01/17 18:30 (Indu-Colace) 1 tab BID PO 06/01/17 21:00 06/02/17 20:52 (Milk Of Magnesia Liq) 30 ml Q12H PRN PO 06/01/17 18:30 (Senokot) 17.2 mg Q12H PRN PO 06/01/17 18:30 (Dulcolax Supp) 10 mg DAILY PRN RECTAL 06/01/17 18:30 (Lactulose Liq) 30 ml DAILY PRN PO 06/01/17 18:30 (NS Flush) 2 ml UNSCH PRN IV FLUSH 06/01/17 18:30 (NS Flush) 2 ml BID IV FLUSH 06/01/17 21:00 06/02/17 20:54 (Lasix Inj) 40 mg BID@,18 IVP 06/02/17 09:00 06/02/17 18:52 (KCl) 10 meq BID PO 06/01/17 21:00 06/02/17 20:53 (Duoneb Neb) 1 ampule Q4HR NEB PRN NEB 06/01/17 19:00 (Mucinex Er) 600 mg BID PO 06/01/17 21:00 06/02/17 20:52 Vital Signs / I&O Vital Signs Date Time Temp Pulse Resp B/P (MAP) Pulse Ox O2 Delivery O2 Flow Rate FiO2 06/03/17 06:12 70 06/03/17 05:00 73 06/03/17 04:00 70 06/03/17 03:45 97.6 67 18 146/78 (100) 97 06/03/17 03:00 70 06/03/17 02:01 67 06/03/17 01:05 62 06/03/17 00:10 71 06/02/17 23:00 97.9 71 20 141/69 (93) 92 06/02/17 23:00 92 Simple Mask 6.00 06/02/17 23:00 69 06/02/17 22:50 92 Simple Mask 6.00 06/02/17 22:07 93 Nasal Cannula 6.00 06/02/17 22:00 70 06/02/17 21:00 82 06/02/17 20:45 95 Nasal Cannula 6.00 06/02/17 20:45 99.0 75 18 145/74 (97) 95 06/02/17 20:00 74 06/02/17 19:00 72 06/02/17 18:01 74 06/02/17 17:00 68 06/02/17 16:00 66 06/02/17 15:15 98.0 65 22 137/69 (91) 98 06/02/17 15:00 70 06/02/17 14:31 98 Nasal Cannula 7.00 06/02/17 14:01 62 06/02/17 13:00 64 06/02/17 12:00 62 06/02/17 11:15 98.6 65 24 132/72 (92) 94 06/02/17 11:00 66 06/02/17 10:00 62 06/02/17 09:00 64 06/02/17 08:01 98.5 67 24 140/65 (90) 93 06/02/17 08:00 66 I/O 8/22/17 8/2206/02/17 06/03/17 06/03/17 06/03/17 07:00 15:00 23:00 07:00 15:00 23:00 Intake Total 480 ml 720 ml 360 ml Output Total 1400 ml 900 ml 850 ml Balance -920 ml -180 ml -490 ml Intake Oral 480 ml 720 ml 360 ml Output Urine Total 1400 ml 900 ml 850 ml # Voids 6 2 # Bowel Movements 3 0 Physical Exam GENERAL: Well developed, well nourished. No acute distress. HEENT: Jugular venous pressure is normal. CHEST: Lungs clear, but decreased to auscultation bilaterally. Unlabored respiratory effort. CARDIAC: Regular rate and rhythm without S3, S4, or murmur. ABDOMEN: Soft, nontender, no hepatosplenomegaly. Bowel sounds present. EXTREMITIES:, tr edema. Laboratory Laboratory Tests Test 06/03/17 05:59 Iron Level 31 MCG/DL Total Iron Binding Capacity 311 MCG/DL Percent Iron Saturation 10.0 % Ferritin 88 NG/ML Total Protein 7.1 GM/DL Assessment and Plan Assessment and Plan 1. CHF - The patient likely does have a small component heart failure with preserved LV function. -HTN related -fluid management per nephrology 2. Hypertension - 3. Renal insufficiency - Julia Villagomez MD Jun 03, 2017 07:03
[2017-06-03] MEDS: METOPROLOL TARTRATE 50 MG TAB PO SCH ×2 (09:11→20:53)
[2017-06-03] MEDS: POTASSIUM CHLORIDE 10 MEQ CONTROLLED RELEASE TAB PO SCH ×2 (09:11→20:53)
[2017-06-03] MEDS: SODIUM CHLORIDE 0.9% FLUSH 10 ML FLUSH IV FLUSH SCH ×2 (09:12→20:53)
[2017-06-03] MEDS: DOCUSATE SODIUM 50 MG/SENNA 8.6 MG TAB PO SCH ×2 (09:12→20:53)
[2017-06-03] MEDS: METOLAZONE 5 MG TAB PO SCH (09:12)
[2017-06-03] MEDS: ASPIRIN 81 MG CHEW TAB CHEW SCH (09:12)
[2017-06-03] MEDS: FUROSEMIDE 40 MG/4 ML VIAL IVP SCH (09:12)
[2017-06-03] MEDS: guaiFENesin E.R. 600 MG TAB PO SCH ×2 (09:12→20:53)
[2017-06-03 13:25] LABS: ALBUMIN SPE 4.15 GM/DL (3.50-5.00); ALPHA 1 GLOBULIN 0.23 GM/DL (0.11-0.29); ALPHA 2 GLOBULIN 0.73 GM/DL (0.22-1.00); BETA GLOBULINS (SPE) 0.63 GM/DL (0.53-1.03)
--- NOTE | 2017-06-03 17:13 | HHI.NPPN ---
Subjective History of Present Illness 87-year-old male with past medical history of hypertension, ischemic heart disease and chronic kidney disease, chronic back pain and leg pain was brought to the hospital because of worsening shortness of breath. I was called to see the patient because of elevated BUN and creatinine. The patient has creatinine of 4.5 on presentation. Previously he has creatinine as high as 4.4. [facility] that [facility]. Additional Remarks Patient is feeling better, breathing improving, and with nasal cannula. Review of Systems General Constitutional: Fatigue Respiratory Lungs: SOB, Cough, Sputum, Wheeze Cardiovascular Cardiac: CLEMONS Objective Data Data Vital Signs Date Time Temp Pulse Resp B/P (MAP) Pulse Ox O2 Delivery O2 Flow Rate FiO2 06/03/17 16:07 69 06/03/17 15:21 65 06/03/17 15:21 98 Nasal Cannula 3.00 06/03/17 15:21 98.0 67 18 136/69 (91) 98 06/03/17 14:18 66 06/03/17 13:14 71 06/03/17 12:34 60 06/03/17 11:02 97 Nasal Cannula 3.00 06/03/17 11:01 97.7 64 18 124/67 (86) 98 06/03/17 11:01 98 Nasal Cannula 3.00 06/03/17 11:01 60 06/03/17 10:01 66 06/03/17 09:33 74 06/03/17 08:00 97.4 67 18 145/74 (97) 96 06/03/17 08:00 96 Nasal Cannula 4.00 06/03/17 08:00 65 06/03/17 06:12 70 06/03/17 05:00 73 06/03/17 04:00 70 06/03/17 03:45 97.6 67 18 146/78 (100) 97 06/03/17 03:00 70 06/03/17 02:01 67 06/03/17 01:05 62 06/03/17 00:10 71 06/02/17 23:00 97.9 71 20 141/69 (93) 92 06/02/17 23:00 92 Simple Mask 6.00 06/02/17 23:00 69 06/02/17 22:50 92 Simple Mask 6.00 06/02/17 22:07 93 Nasal Cannula 6.00 06/02/17 22:00 70 06/02/17 21:00 82 06/02/17 20:45 95 Nasal Cannula 6.00 06/02/17 20:45 99.0 75 18 145/74 (97) 95 06/02/17 20:00 74 06/02/17 19:00 72 06/02/17 18:01 74 -: 06/02/17 0515 06/02/17 0515 Physical Exam General Appearance: No Acute Distress, Comfortable Eyes Eye Exam: Pupils Equal Throat Throat Exam: Oral Mucosa [place] & Moist Neck Neck Exam: Neck Supple Pulmonary Resp Exam: Breath Sounds Equal, No Distress, Crackles, Rhonchi, Decreased Bases , Diminished Breath Sounds Cardiology CV Exam: Regular, Normal Sinus Rhythm Gastrointestinal/Abdomen GI Exam: Soft, Non-Tender, Bowel Sounds Present, Non-Distended Extremeties Extremities Exam: Trace Edema Neurologic Neuro Exam: Alert, Awake, Oriented Psychiatric Psych Exam: Appropriate Responses Assessment/Plan Assessment Summary: Anemia of CKD, Fluid/Volume Overload, CKD Stage IV Problem List: (1) Hypoxia ICD Codes: R09.02 - Hypoxemia Status: Acute (2) CAD (coronary artery disease) ICD Codes: I25.10 - CAD (coronary artery disease) Status: Acute (3) COPD (chronic obstructive pulmonary disease) ICD Codes: J44.9 - Chronic obstructive pulmonary disease Status: Acute (4) Hypertension ICD Codes: I10 - Hypertension Status: Acute (5) Congestive heart failure ICD Codes: I50.9 - Heart failure, unspecified Status: Acute (6) Chronic kidney disease, stage IV (severe) ICD Codes: N18.4 - Chronic kidney disease, stage 4 (severe) Status: Acute Plan Patient has advance renal disease and GFR is 14-16 ml/min. On Torsemide and non oliguric. K is normal. Discussed with the daughter and patient about possible Dialysis. They want me to call his [employer] at [place]. Also to see repeat labs, which is PND. If he refuse Dialysis, then will D/C on Torsemide. Verona Raya MD Jun 03, 2017 17:13
--- NOTE | 2017-06-03 17:23 | HHI.PR ---
Subjective Remarks Patient says that his breathing is improved to as it would be at home. Patient says he is urinating Weaned down to 3 L at home level. Discussed with nursing, no acute issues with patient. Objective Vital Signs Date Time Temp Pulse Resp B/P (MAP) Pulse Ox O2 Delivery O2 Flow Rate FiO2 06/03/17 16:07 69 06/03/17 15:21 65 06/03/17 15:21 98 Nasal Cannula 3.00 06/03/17 15:21 98.0 67 18 136/69 (91) 98 06/03/17 14:18 66 06/03/17 13:14 71 06/03/17 12:34 60 06/03/17 11:02 97 Nasal Cannula 3.00 06/03/17 11:01 97.7 64 18 124/67 (86) 98 06/03/17 11:01 98 Nasal Cannula 3.00 06/03/17 11:01 60 06/03/17 10:01 66 06/03/17 09:33 74 06/03/17 08:00 97.4 67 18 145/74 (97) 96 06/03/17 08:00 96 Nasal Cannula 4.00 06/03/17 08:00 65 06/03/17 06:12 70 06/03/17 05:00 73 06/03/17 04:00 70 06/03/17 03:45 97.6 67 18 146/78 (100) 97 06/03/17 03:00 70 06/03/17 02:01 67 06/03/17 01:05 62 06/03/17 00:10 71 06/02/17 23:00 97.9 71 20 141/69 (93) 92 06/02/17 23:00 92 Simple Mask 6.00 06/02/17 23:00 69 06/02/17 22:50 92 Simple Mask 6.00 06/02/17 22:07 93 Nasal Cannula 6.00 06/02/17 22:00 70 06/02/17 21:00 82 06/02/17 20:45 95 Nasal Cannula 6.00 06/02/17 20:45 99.0 75 18 145/74 (97) 95 06/02/17 20:00 74 06/02/17 19:00 72 06/02/17 18:01 74 I/O 06/02/17 06/02/17 06/02/17 06/03/17 06/03/17 06/03/17 07:00 15:00 23:00 07:00 15:00 23:00 Intake Total 480 ml 720 ml 360 ml Output Total 1400 ml 900 ml 850 ml Balance -920 ml -180 ml -490 ml Intake Oral 480 ml 720 ml 360 ml Output Urine Total 1400 ml 900 ml 850 ml # Voids 6 2 # Bowel Movements 3 0 Result Diagram: 06/02/1751406/02/17514 Objective Remarks GENERAL: Lying in chair in no acute distress CARDIOVASCULAR: Regular rate and rhythm without murmurs, gallops, or rubs. No JVD RESPIRATORY: Breath sounds clear bilaterally, unlabored, all nasal cannula GASTROINTESTINAL: Abdomen soft, non-tender, nondistended. MUSCULOSKELETAL: No cyanosis, clubbing A/P Assessment and Plan 87-year-old white male admitted for hypoxia and shortness of breath - IMPROVING 1. Hypoxia - increased from home O2 level at 3 L, continue 3 L 2. Pulmonary edema - clinically resolved, from CKD and CHFpEF, transitioning to oral torsemide today from IV Lasix, on metolazone as well orally, maintaining negative fluid balance, 3. CKD - repeating labs to assess GFR, nephrology as concluded that the patient will likely need dialysis, will await labs today and repeat them in a.m. and wait for final decision of patient for dialysis. 3. COPD - continue duo nebs when necessary shortness of breath 4. BPH - continue home terazosin 5. Hypertension/CHFpEF - continue home amlodipine and metoprolol and aspirin 6. Urinary discomfort - suspect this is due to increased diuresis and setting of BPH as opposed to infection given unremarkable UA Anticipate DISCHARGE on 06/04/17 Patient is a DO NOT INTUBATE. Iggy Jackson MD Jun 03, 2017 17:23
[2017-06-03 17:42] LABS: BICARBONATE 27.7 MEQ/L (21.0-32.0); POTASSIUM 3.7 MEQ/L (3.5-5.1)
[2017-06-03] MEDS: TORSEMIDE 20 MG TAB PO SCH (18:17)
[2017-06-03] MEDS: TERAZOSIN HCL 1 MG CAP PO SCH (20:53)
[2017-06-04] VITALS (31 sets, daily range): BP systolic 117–150; BP diastolic 54–82; PULSE 61–80; RESP 16–18; TEMP 97.2–98.5; O2SAT 89–99
[2017-06-04] MEDS ORDERED: diphenhydrAMINE HCL 25 MG CAP PO ONE (01:00)
[2017-06-04] MEDS: traMADol HCL 50 MG TAB PO PRN ×2 (02:57→11:47)
[2017-06-04 06:47] LABS: BICARBONATE 30.7 MEQ/L (21.0-32.0); POTASSIUM 3.6 MEQ/L (3.5-5.1)
--- NOTE | 2017-06-04 07:55 | PD.CARD.PN ---
Subjective Subjective Remarks Pt without complaints Objective Medications Current Medications Medications (Trade) Dose Ordered Sig/Eduin Route Start Time Stop Time Status Last Admin (Zaroxolyn) 5 mg DAILY PO 06/01/17 17:45 06/03/17 09:12 (Norvasc) 10 mg DAILY PO 06/02/17 09:00 06/03/17 09:12 (Aspirin Chew) 81 mg DAILY CHEW 06/02/17 09:00 06/03/17 09:12 (Flonase Dejon Spr) 1 spray BID PRN EACH NARE 06/01/17 18:30 (Claritin) 10 mg DAILY PRN PO 06/01/17 18:30 (Lopressor) 50 mg BID PO 06/01/17 21:00 06/03/17 20:53 (Remeron) 10 mg HS PRN PO 06/01/17 18:30 06/03/17 20:52 (Tears Naturale Opth Soln) 2 drop Q4H PRN EACH EYE 06/01/17 18:30 (Hytrin) 2 mg HS PO 06/01/17 21:00 06/03/17 20:53 (Ultram) 50 mg Q8H PRN PO 06/01/17 18:30 06/04/17 02:57 (Tylenol) 650 mg Q6H PRN PO 06/01/17 18:30 (Narcan Inj) 0.4 mg UNSCH PRN IV 06/01/17 18:30 (Indu-Colace) 1 tab BID PO 06/01/17 21:00 06/03/17 20:53 (Milk Of Magnesia Liq) 30 ml Q12H PRN PO 06/01/17 18:30 (Senokot) 17.2 mg Q12H PRN PO 06/01/17 18:30 (Dulcolax Supp) 10 mg DAILY PRN RECTAL 06/01/17 18:30 (Lactulose Liq) 30 ml DAILY PRN PO 06/01/17 18:30 (NS Flush) 2 ml UNSCH PRN IV FLUSH 06/01/17 18:30 (NS Flush) 2 ml BID IV FLUSH 06/01/17 21:00 06/03/17 20:53 (KCl) 10 meq BID PO 06/01/17 21:00 06/03/17 20:53 (Duoneb Neb) 1 ampule Q4HR NEB PRN NEB 06/01/17 19:00 (Mucinex Er) 600 mg BID PO 06/01/17 21:00 06/03/17 20:53 (Demadex) 40 mg BID@09,18 PO 06/03/17 18:00 06/03/17 18:17 Vital Signs / I&O Vital Signs Date Time Temp Pulse Resp B/P (MAP) Pulse Ox O2 Delivery O2 Flow Rate FiO2 06/04/17 06:36 74 06/04/17 05:12 69 06/04/17 04:18 73 06/04/17 03:36 95 Nasal Cannula 3.00 06/04/17 03:36 98.0 72 18 147/82 (103) 89 06/04/17 03:00 79 06/04/17 02:18 74 06/04/17 01:00 73 06/04/17 00:00 73 06/03/17 23:05 89 Nasal Cannula 3.00 06/03/17 23:05 98.0 72 18 147/82 (103) 89 06/03/17 23:00 74 06/03/17 22:00 78 06/03/17 21:20 97 Nasal Cannula 3.00 06/03/17 21:00 80 06/03/17 20:50 92 Nasal Cannula 2.00 06/03/17 20:50 98.6 77 18 142/76 (98) 92 06/03/17 20:00 74 06/03/17 19:00 74 06/03/17 18:03 68 06/03/17 17:18 70 06/03/17 16:07 69 06/03/17 15:21 65 06/03/17 15:21 98 Nasal Cannula 3.00 06/03/17 15:21 98.0 67 18 136/69 (91) 98 06/03/17 14:18 66 06/03/17 13:14 71 06/03/17 12:34 60 06/03/17 11:02 97 Nasal Cannula 3.00 06/03/17 11:01 97.7 64 18 124/67 (86) 98 06/03/17 11:01 98 Nasal Cannula 3.00 06/03/17 11:01 60 06/03/17 10:01 66 06/03/17 09:33 74 06/03/17 08:00 97.4 67 18 145/74 (97) 96 06/03/17 08:00 96 Nasal Cannula 4.00 06/03/17 08:00 65 I/O 06/03/17 06/03/17 06/03/17 06/04/17 06/04/17 06/04/17 07:00 15:00 23:00 07:00 15:00 23:00 Intake Total 360 ml 480 ml 240 ml Output Total 850 ml 1300 ml 525 ml Balance -490 ml -820 ml -285 ml Intake Oral 360 ml 480 ml 240 ml Output Urine Total 850 ml 1300 ml 525 ml # Voids 2 # Bowel Movements 0 1 0 Physical Exam GENERAL: Well developed, well nourished. No acute distress. HEENT: Jugular venous pressure is normal. CHEST: Lungs clear, but decreased to auscultation bilaterally. Unlabored respiratory effort. CARDIAC: Regular rate and rhythm without S3, S4, or murmur. ABDOMEN: Soft, nontender, no hepatosplenomegaly. Bowel sounds present. EXTREMITIES:, no edema. Laboratory Laboratory Tests Test 06/04/17 04:47 Blood Urea Nitrogen 75 MG/DL Creatinine 4.62 MG/DL Random Glucose 94 MG/DL Calcium Level 8.8 MG/DL Sodium Level 137 MEQ/L Potassium Level 3.6 MEQ/L Chloride Level 97 MEQ/L Carbon Dioxide Level 30.7 MEQ/L Anion Gap 9 MEQ/L Estimat Glomerular Filtration Rate 12 ML/MIN Assessment and Plan Assessment and Plan 1. CHF - preserved LV function. -HTN related -fluid management per nephrology -doing well 2. Hypertension - 3. Renal insufficiency - Julia Villagomez MD Jun 04, 2017 07:55
[2017-06-04] MEDS: SODIUM CHLORIDE 0.9% FLUSH 10 ML FLUSH IV FLUSH SCH ×2 (09:18→20:16)
[2017-06-04] MEDS: DOCUSATE SODIUM 50 MG/SENNA 8.6 MG TAB PO SCH ×2 (09:19→20:16)
[2017-06-04] MEDS: TORSEMIDE 20 MG TAB PO SCH ×2 (09:19→18:30)
[2017-06-04] MEDS: METOLAZONE 5 MG TAB PO SCH (09:20)
[2017-06-04] MEDS: METOPROLOL TARTRATE 50 MG TAB PO SCH ×2 (09:20→20:15)
[2017-06-04] MEDS: guaiFENesin E.R. 600 MG TAB PO SCH ×2 (09:20→20:16)
[2017-06-04] MEDS: POTASSIUM CHLORIDE 10 MEQ CONTROLLED RELEASE TAB PO SCH ×2 (09:20→20:15)
[2017-06-04] MEDS: ASPIRIN 81 MG CHEW TAB CHEW SCH (09:21)
--- NOTE | 2017-06-04 13:44 | HHI.PR ---
Subjective Remarks Follow up shortness of breath. Patient states he is doing better, denies any sob. Currently on 3L NC, he states is only on o2 at night. Explained to patient that we will do a walk test to see if he needs it 04/05. He denies any chest pain , fever or chills. No events overnight. Objective Vitals Vital Signs Date Time Temp Pulse Resp B/P (MAP) Pulse Ox O2 Delivery O2 Flow Rate FiO2 06/04/17 12:00 68 06/04/17 11:50 97.4 66 16 140/66 (90) 98 06/04/17 11:50 98 Nasal Cannula 2.00 06/04/17 11:00 67 06/04/17 10:00 80 06/04/17 09:00 74 06/04/17 08:05 97 Nasal Cannula 2.00 06/04/17 08:00 70 06/04/17 07:55 97 Nasal Cannula 2.00 06/04/17 07:55 97.5 69 16 149/79 (102) 97 06/04/17 07:00 73 06/04/17 06:36 74 06/04/17 05:12 69 06/04/17 04:18 73 06/04/17 03:36 95 Nasal Cannula 3.00 06/04/17 03:36 98.0 72 18 147/82 (103) 89 06/04/17 03:00 79 06/04/17 02:18 74 06/04/17 01:00 73 06/04/17 00:00 73 06/03/17 23:05 89 Nasal Cannula 3.00 06/03/17 23:05 98.0 72 18 147/82 (103) 89 06/03/17 23:00 74 06/03/17 22:00 78 06/03/17 21:20 97 Nasal Cannula 3.00 06/03/17 21:00 80 06/03/17 20:50 92 Nasal Cannula 2.00 06/03/17 20:50 98.6 77 18 142/76 (98) 92 06/03/17 20:00 74 06/03/17 19:00 74 06/03/17 18:03 68 06/03/17 17:18 70 06/03/17 16:07 69 06/03/17 15:21 65 06/03/17 15:21 98 Nasal Cannula 3.00 06/03/17 15:21 98.0 67 18 136/69 (91) 98 06/03/17 14:18 66 I/O 06/03/17 06/03/17 06/03/17 06/04/17 06/04/17 06/04/17 06:59 14:59 22:59 06:59 14:59 22:59 Intake Total 360 ml 480 ml 240 ml Output Total 850 ml 1300 ml 525 ml Balance -490 ml -820 ml -285 ml Intake Oral 360 ml 480 ml 240 ml Output Urine Total 850 ml 1300 ml 525 ml # Voids 2 # Bowel Movements 0 1 0 Result Diagram: 06/02/17 0515 06/04/17 0447 Imaging Last Impressions Chest X-Ray 06/01/17 1450 Signed Impressions: Service Date/Time: Thursday, June 01, 2017 14:53 - CONCLUSION: 1. Bibasilar atelectatic changes with possible associated small effusion on the right. 2. Borderline heart size. Arcenio Ortega MD Objective Remarks GENERAL: Well nourished patient sitting in chair in NAD SKIN: Warm and dry. NECK: Trachea midline. No JVD. CARDIOVASCULAR: Regular rate and rhythm. No murmurs noted. RESPIRATORY: No accessory muscle use. Clear to auscultation. Breath sounds equal bilaterally. on 3L [place] GASTROINTESTINAL: Abdomen soft, non-tender, nondistended. BSx 4 MUSCULOSKELETAL: Extremities without clubbing, cyanosis, or edema. No obvious deformities. NEUROLOGICAL: Awake and alert. No obvious cranial nerve deficits. Motor grossly within normal limits. Normal speech. Medications and IVs Current Medications Medications (Trade) Dose Ordered Sig/Eduin Route Start Time Stop Time Status Last Admin (Zaroxolyn) 5 mg DAILY PO 06/01/17 17:45 06/04/17 09:20 (Norvasc) 10 mg DAILY PO 06/02/17 09:00 06/04/17 09:20 (Aspirin Chew) 81 mg DAILY CHEW 06/02/17 09:00 06/04/17 09:21 (Flonase Dejon Spr) 1 spray BID PRN EACH NARE 06/01/17 18:30 (Claritin) 10 mg DAILY PRN PO 06/01/17 18:30 (Lopressor) 50 mg BID PO 06/01/17 21:00 06/04/17 09:20 (Remeron) 10 mg HS PRN PO 06/01/17 18:30 06/03/17 20:52 (Tears Naturale Opth Soln) 2 drop Q4H PRN EACH EYE 06/01/17 18:30 (Hytrin) 2 mg HS PO 06/01/17 21:00 06/03/17 20:53 (Ultram) 50 mg Q8H PRN PO 06/01/17 18:30 06/04/17 11:47 (Tylenol) 650 mg Q6H PRN PO 06/01/17 18:30 (Narcan Inj) 0.4 mg UNSCH PRN IV 06/01/17 18:30 (Indu-Colace) 1 tab BID PO 06/01/17 21:00 06/04/17 09:19 (Milk Of Magnesia Liq) 30 ml Q12H PRN PO 06/01/17 18:30 (Senokot) 17.2 mg Q12H PRN PO 06/01/17 18:30 (Dulcolax Supp) 10 mg DAILY PRN RECTAL 06/01/17 18:30 (Lactulose Liq) 30 ml DAILY PRN PO 06/01/17 18:30 (NS Flush) 2 ml UNSCH PRN IV FLUSH 06/01/17 18:30 (NS Flush) 2 ml BID IV FLUSH 06/01/17 21:00 06/04/17 09:18 (KCl) 10 meq BID PO 06/01/17 21:00 06/04/17 09:20 (Duoneb Neb) 1 ampule Q4HR NEB PRN NEB 06/01/17 19:00 (Mucinex Er) 600 mg BID PO 06/01/17 21:00 06/04/17 09:20 (Demadex) 40 mg BID@,18 PO 06/03/17 18:00 06/04/17 09:19 Urinary Catheter: No Vascular Central Line Catheter: No A/P Assessment and Plan 87-year-old white male admitted for hypoxia and shortness of breath. Hypoxia - increased from home O2 level at 3 L, continue 3 L, improving, on 2L HS at home -Walk test ordered Pulmonary edema - clinically resolved, from CKD and CHFpEF -Cont oral torsemide, maintain negative fluid balance CKD - repeating labs to assess GFR, Creatine 4.6, GFR 12 -nephrology following, await decision on dialysis, [facility] -Labs in AM if patient does not discharge COPD, chronic - continue duo nebs when necessary shortness of breath BPH, chronic - continue home terazosin Hypertension/CHFpEF, chronic currently controlled - continue home amlodipine and metoprolol and aspirin Urinary discomfort - suspect this is due to increased diuresis and setting of BPH, UA negative, improving Patient is a DO NOT INTUBATE. DVT prophylaxis: SCDs Discharge Planning Possible today if ok with nephrology Attending Statement Discussed with patient today. He will like to proceed with hemodialysis pending nephrologists recommendation and [facility] discussion with [facility]. He is still on 3 L at home. He used to see BiPAP at night. He reports his breathing has improved. No complaint of chest pain. He has not coughed. Patient presented with acute respiratory failure with hypoxia due to pulmonary edema fluid overload and acute on chronic diastolic congestive heart failure along with IQs estimated chronic kidney disease stage IV. Continue with oxygen support and wean as tolerated. Continue with diuretics torsemide, monitor input and output closely. Await further recommendation per inspector wreath. Acute exacerbation of chronic kidney disease stage IV worsening, avoid nephrotoxins and monitor closely on diuretics. The exam, history, and the medical decision making described in the above note were completed with the assistance of the dictating practitioner. I reviewed and agree with the findings presented. I attest that I had a face-to face encounter with the patient on the same day and personally performed and documented my assessment and findings in the medical record. Bambi Shah Jun 04, 2017 13:44 Msia Henderson MD Jun 04, 2017 15:45
[2017-06-04] MEDS ORDERED: SODIUM CHLOR 0.9% 1000 ML INJ 1,000 ML OTHER PRN (17:23)
[2017-06-04] MEDS ORDERED: SODIUM CHLOR 0.9% 1000 ML INJ 1,000 ML IV PRN (17:23)
[2017-06-04] MEDS ORDERED: cloNIDine HCL 0.1 MG TAB PO PRN (17:30)
[2017-06-04] MEDS ORDERED: HEPARIN SODIUM - IV 10,000 UNITS/10 ML VIAL IVF PRN (17:30)
[2017-06-04] MEDS ORDERED: diphenhydrAMINE HCL 25 MG CAP PO PRN (17:30)
[2017-06-04] MEDS ORDERED: ONDANSETRON HCL 4 MG/2 ML VIAL IV PRN (17:30)
[2017-06-04] MEDS ORDERED: ACETAMINOPHEN 325 MG TAB PO PRN (17:30)
[2017-06-04] MEDS ORDERED: ALBUMIN HUMAN 25% 25 GM/100 ML BAGP IV PRN (17:30)
[2017-06-04] MEDS ORDERED: NITROGLYCERIN 0.4 MG SL 25 TABS/BTL SL PRN (17:30)
[2017-06-04] MEDS ORDERED: MANNITOL 12.5 GM/50 ML VIAL IV PRN (17:30)
[2017-06-04] MEDS ORDERED: GELATIN 12 MM/7 MM FOAM TOP PRN (17:30)
--- NOTE | 2017-06-04 17:30 | HHI.NPPN ---
Subjective History of Present Illness 87-year-old male with past medical history of hypertension, ischemic heart disease and chronic kidney disease, chronic back pain and leg pain was brought to the hospital because of worsening shortness of breath. I was called to see the patient because of elevated BUN and creatinine. The patient has creatinine of 4.5 on presentation. Previously he has creatinine as high as 4.4. [facility]. Additional Remarks Patient is alert, not in distress, sitting on chair, with nasal cannula. Review of Systems General Constitutional: Fatigue Respiratory Lungs: SOB, Cough, Sputum, Wheeze Cardiovascular Cardiac: CLEMONS Objective Data Data Vital Signs Date Time Temp Pulse Resp B/P (MAP) Pulse Ox O2 Delivery O2 Flow Rate FiO2 06/04/17 17:00 64 06/04/17 16:12 97.2 70 16 135/73 (93) 99 06/04/17 16:12 99 Nasal Cannula 2.00 06/04/17 16:00 64 06/04/17 15:00 67 06/04/17 14:00 68 06/04/17 13:00 62 06/04/17 12:00 68 06/04/17 11:50 97.4 66 16 140/66 (90) 98 06/04/17 11:50 98 Nasal Cannula 2.00 06/04/17 11:00 67 06/04/17 10:00 80 06/04/17 09:00 74 06/04/17 08:05 97 Nasal Cannula 2.00 06/04/17 08:00 70 06/04/17 07:55 97 Nasal Cannula 2.00 06/04/17 07:55 97.5 69 16 149/79 (102) 97 06/04/17 07:00 73 06/04/17 06:36 74 06/04/17 05:12 69 06/04/17 04:18 73 06/04/17 03:36 95 Nasal Cannula 3.00 06/04/17 03:36 98.0 72 18 147/82 (103) 89 06/04/17 03:00 79 06/04/17 02:18 74 06/04/17 01:00 73 06/04/17 00:00 73 06/03/17 23:05 89 Nasal Cannula 3.00 06/03/17 23:05 98.0 72 18 147/82 (103) 89 8/23/17 23:00 74 06/03/17 22:00 78 06/03/17 21:20 97 Nasal Cannula 3.00 06/03/17 21:00 80 06/03/17 20:50 92 Nasal Cannula 2.00 06/03/17 20:50 98.6 77 18 142/76 (98) 92 06/03/17 20:00 74 06/03/17 19:00 74 06/03/17 18:03 68 -: 06/02/17 0515 06/04/17 0447 Physical Exam General Appearance: No Acute Distress, Comfortable Eyes Eye Exam: Pupils Equal Throat Throat Exam: Oral Mucosa [place] & Moist Neck Neck Exam: Neck Supple Pulmonary Resp Exam: Breath Sounds Equal, No Distress, Crackles, Rhonchi, Decreased Bases , Diminished Breath Sounds Cardiology CV Exam: Regular, Normal Sinus Rhythm Gastrointestinal/Abdomen GI Exam: Soft, Non-Tender, Bowel Sounds Present, Non-Distended Extremeties Extremities Exam: Trace Edema Neurologic Neuro Exam: Alert, Awake, Oriented Psychiatric Psych Exam: Appropriate Responses Assessment/Plan Assessment Summary: Anemia of CKD, Fluid/Volume Overload, CKD Stage IV Problem List: (1) Hypoxia ICD Codes: R09.02 - Hypoxemia Status: Acute (2) CAD (coronary artery disease) ICD Codes: I25.10 - CAD (coronary artery disease) Status: Acute (3) COPD (chronic obstructive pulmonary disease) ICD Codes: J44.9 - Chronic obstructive pulmonary disease Status: Acute (4) Hypertension ICD Codes: I10 - Hypertension Status: Acute (5) Congestive heart failure ICD Codes: I50.9 - Heart failure, unspecified Status: Acute (6) Chronic kidney disease, stage IV (severe) ICD Codes: N18.4 - Chronic kidney disease, stage 4 (severe) Status: Acute Plan Patient has advance renal disease and GFR is decreasing. On Torsemide and non oliguric. K is normal. Discussed with the daughter and patient about possible Dialysis. I tried to call his Environmental Specialist and got answering machine. Patient and family agreed about starting HD. He will need AVF and PermCath. Iron supplement and Epogen. HD to start tomorrow. Verona Raya MD Jun 04, 2017 17:30
[2017-06-04] MEDS: TERAZOSIN HCL 1 MG CAP PO SCH (20:16)
--- NOTE | 2017-06-04 23:36 | PD.CAR.PN ---
CVT Progress Note Subjective/Hospital Course: Referral received Full consult and surgery to follow Thanks J Objective: Vital Signs Date Time Temp Pulse Resp B/P (MAP) Pulse Ox O2 Delivery O2 Flow Rate FiO2 06/04/17 21:13 99 Nasal Cannula 3.00 06/04/17 19:00 Nasal Cannula 2.00 06/04/17 19:00 97.6 72 150/74 (99) 91 06/04/17 18:00 70 06/04/17 17:00 64 06/04/17 16:12 97.2 70 16 135/73 (93) 99 06/04/17 16:12 99 Nasal Cannula 2.00 06/04/17 16:00 64 06/04/17 15:00 67 06/04/17 14:00 68 06/04/17 13:00 62 06/04/17 12:00 68 06/04/17 11:50 97.4 66 16 140/66 (90) 98 06/04/17 11:50 98 Nasal Cannula 2.00 06/04/17 11:00 67 06/04/17 10:00 80 06/04/17 09:00 74 06/04/17 08:05 97 Nasal Cannula 2.00 06/04/17 08:00 70 06/04/17 07:55 97 Nasal Cannula 2.00 06/04/17 07:55 97.5 69 16 149/79 (102) 97 06/04/17 07:00 73 06/04/17 06:36 74 06/04/17 05:12 69 06/04/17 04:18 73 06/04/17 03:36 95 Nasal Cannula 3.00 06/04/17 03:36 98.0 72 18 147/82 (103) 89 06/04/17 03:00 79 06/04/17 02:18 74 06/04/17 01:00 73 06/04/17 00:00 73 Labs: Laboratory Tests Test 06/04/17 20:35 Result Diagram: 06/02/17 0515 06/04/17 0447 Wendy Gregory MD Jun 04, 2017 23:36
[2017-06-05] VITALS (31 sets, daily range): BP systolic 116–145; BP diastolic 55–87; PULSE 58–81; RESP 16–18; TEMP 97.9–99.1; O2SAT 91–99
[2017-06-05 07:09] LABS: BICARBONATE 32.7 MEQ/L (21.0-32.0); POTASSIUM 3.5 MEQ/L (3.5-5.1)
--- NOTE | 2017-06-05 07:52 | PD.CARD.PN ---
Subjective Subjective Remarks Pt without CV complaints Objective Vital Signs / I&O Vital Signs Date Time Temp Pulse Resp B/P (MAP) Pulse Ox O2 Delivery O2 Flow Rate FiO2 06/05/17 06:01 64 06/05/17 05:33 63 06/05/17 04:00 62 06/05/17 03:36 97.9 70 116/60 (78) 91 06/05/17 03:36 Nasal Cannula 4.00 06/05/17 03:00 62 06/05/17 02:00 62 06/05/17 01:00 62 06/05/17 00:00 58 06/04/17 23:53 Nasal Cannula 3.00 06/04/17 23:53 98.5 63 117/54 (75) 98 06/04/17 23:00 61 06/04/17 22:00 62 06/04/17 21:13 99 Nasal Cannula 3.00 06/04/17 21:00 72 06/04/17 20:00 66 06/04/17 19:00 66 06/04/17 19:00 Nasal Cannula 2.00 06/04/17 19:00 97.6 72 150/74 (99) 91 06/04/17 18:00 70 06/04/17 17:00 64 06/04/17 16:12 97.2 70 16 135/73 (93) 99 06/04/17 16:12 99 Nasal Cannula 2.00 06/04/17 16:00 64 06/04/17 15:00 67 06/04/17 14:00 68 06/04/17 13:00 62 06/04/17 12:00 68 06/04/17 11:50 97.4 66 16 140/66 (90) 98 06/04/17 11:50 98 Nasal Cannula 2.00 06/04/17 11:00 67 06/04/17 10:00 80 06/04/17 09:00 74 06/04/17 08:05 97 Nasal Cannula 2.00 06/04/17 08:00 70 06/04/17 07:55 97 Nasal Cannula 2.00 06/04/17 07:55 97.5 69 16 149/79 (102) 97 I/O 06/04/17 06/04/17 06/04/17 06/05/17 06/05/17 06/05/17 06:59 14:59 22:59 06:59 14:59 22:59 Intake Total 240 ml 480 ml 240 ml Output Total 525 ml 600 ml Balance -285 ml 480 ml -360 ml Intake Oral 240 ml 480 ml 240 ml Output Urine Total 525 ml 600 ml # Voids 6 # Bowel Movements 0 0 Physical Exam GENERAL: Well developed, well nourished. No acute distress. HEENT: Jugular venous pressure is normal. CHEST: Lungs clear, but decreased to auscultation bilaterally. Unlabored respiratory effort. CARDIAC: Regular rate and rhythm without S3, S4, or murmur. ABDOMEN: Soft, nontender, no hepatosplenomegaly. Bowel sounds present. EXTREMITIES:, no edema. Laboratory Laboratory Tests Test 06/04/17 20:35 06/05/17 06:11 Blood Urea Nitrogen 82 MG/DL Creatinine 4.81 MG/DL Random Glucose 100 MG/DL Calcium Level 8.2 MG/DL Sodium Level 138 MEQ/L Potassium Level 3.5 MEQ/L Chloride Level 94 MEQ/L Carbon Dioxide Level 32.7 MEQ/L Anion Gap 11 MEQ/L Estimat Glomerular Filtration Rate 12 ML/MIN Assessment and Plan Assessment and Plan 1. CHF - preserved LV function. -HTN related -fluid management per nephrology -doing well on BB, LINETTE relatively contraindicated with CKD 2. Hypertension - 3. Renal insufficiency - Available Julia Delcid MD Jun 05, 2017 07:52
[2017-06-05] MEDS: SODIUM CHLORIDE 0.9% FLUSH 10 ML FLUSH IV FLUSH SCH ×2 (08:52→20:51)
[2017-06-05] MEDS: guaiFENesin E.R. 600 MG TAB PO SCH ×2 (08:52→20:51)
[2017-06-05] MEDS: DOCUSATE SODIUM 50 MG/SENNA 8.6 MG TAB PO SCH ×2 (08:52→20:51)
[2017-06-05] MEDS: ASPIRIN 81 MG CHEW TAB CHEW SCH (08:53)
[2017-06-05] MEDS: METOPROLOL TARTRATE 50 MG TAB PO SCH ×2 (08:53→20:51)
[2017-06-05] MEDS: TORSEMIDE 20 MG TAB PO SCH ×2 (08:53→16:59)
[2017-06-05] MEDS: POTASSIUM CHLORIDE 10 MEQ CONTROLLED RELEASE TAB PO SCH ×2 (08:53→20:51)
[2017-06-05] MEDS: METOLAZONE 5 MG TAB PO SCH (08:53)
[2017-06-05] MEDS: IRON SUCROSE INJ 100 MG in SODIUM CHLORIDE 0.9% INJ 100 ML IV SCH (09:00)
[2017-06-05] MEDS ORDERED: VANCOMYCIN INJ 1,000 MG in SODIUM CHLOR 0.9% 250 ML INJ 250 ML IV SCH (09:15)
[2017-06-05] MEDS ORDERED: ATROPINE SULFATE 1 MG/10 ML SYRINGE ONE (10:30)
[2017-06-05] MEDS ORDERED: EPINEPHrine HCL (1:10,000) 1 MG/10 ML SYRINGE ONE (10:30)
[2017-06-05] MEDS ORDERED: fentaNYL CITRATE 250 MCG/5 ML AMP ONE (10:45)
[2017-06-05] MEDS ORDERED: MIDAZOLAM HCL 2 MG/2 ML VIAL ONE ×2 (10:45)
[2017-06-05] MEDS ORDERED: LIDOCAINE 1%/EPINEPHrine 1:200,000 PF SOLN 30 ML VIAL ONE (10:56)
[2017-06-05] MEDS ORDERED: SODIUM CHLORIDE 0.9% FLUSH 10 ML FLUSH IVF PRN (11:45)
[2017-06-05] MEDS ORDERED: HEPARIN SODIUM - IV 2,000 UNITS/2 ML VIAL IV FLUSH PRN (11:45)
--- NOTE | 2017-06-05 11:45 | RADRPT ---
EXAM DATE/TIME: 06/05/2017 09:37 [facility] COMPARISON: No previous studies available for comparison. INDICATIONS : Evaluate for fistula placement. MEDICAL HISTORY : Myocardial infarction. Carcinoma, hepatocellular. Hypertension. Neck pain. Glasses. Upper dentures. N umbness. Abdominal aortic aneurysm. Coronary artery disease. Anticoagulant therapy. Dyspnea. Renal fa ilure. Arthritis. SURGICAL HISTORY : Tonsillectomy. ENCOUNTER: Initial ACUITY: 1 day PAIN SCORE: 0/10 LOCATION: Left arm. FINDINGS: There is spontaneous flow documented in the brachial, basilic, cephalic, axillary, and subclavian vei ns. The vessels are compressible and augmentation response is documented. No filling defects are se en. The flow is phasic with respiration. Direction of flow in the jugular vein is caudal. CONCLUSION: No DVT or superficial venous thrombosis is identified in the left upper extremity. Taqueria Mcnamara MD on June 05, 2017 at 11:44 Board Certified Radiologist. This report was verified electronically.
--- NOTE | 2017-06-05 11:47 | PD.RAD ---
Post Procedure Progress Note Pre Procedure Diagnosis: (1) Chronic kidney disease, stage IV (severe) Post Procedure Diagnosis: (1) Chronic kidney disease, stage IV (severe) Procedure Date: Jun 05, 2017 Supervising Radiologist: Arcenio Ortega Proceduralist/Assist: Modesto Petty, RT(R), Bakari Villanueva RT(R)() Anesthesia: Analgesia, Conscious Sedation Plan of Activity Patient to Unit: Critical Care Patient Condition: Good See PACS Report for procedural detail/treatment Central Venous Access Device Procedure 1 Right Internal Jugular Hemodialysis Catheter Tunneled Placement dual lumen Croatian: 15 PICC Line Length (cm): 23 Arcenio Ortega MD Jun 05, 2017 11:47
--- NOTE | 2017-06-05 12:07 | RADRPT ---
EXAM DATE/TIME: 06/05/2017 09:49 [facility] COMPARISON: No previous studies available for comparison. INDICATIONS : Evaluate for fistula placement. MEDICAL HISTORY : Myocardial infarction. Hypertension. Carcinoma, hepatocellular. Neck pain. Glasses. Upper dentures. N umbness. Abdominal aortic aneurysm. Coronary artery disease. Anticoagulant therapy. Dyspnea. Renal fa ilure. Arthritis. SURGICAL HISTORY : Tonsillectomy. ENCOUNTER: Initial ACUITY: 1 day PAIN SCORE: 0/10 LOCATION: Left arm. CEPHALIC: ORIGIN: 2 mm MID-ARM: 4 mm ELBOW: 3 mm FOREARM: 3 mm WRIST: 2 mm BASILIC: ORIGIN: 5 mm MID-ARM: 3 mm ELBOW: 3 mm ARTERIES: BRACHIAL: 7 mm ULNAR: 2 mm RADIAL: 1 mm VEINS: RADIAL: 2 mm ULNAR: 2 mm FINDINGS: The venous system of the upper extremity is patent by color Doppler imaging. Measurements of the arm veins (in mm) are listed above. CONCLUSION: 1. Left upper extremity venous mapping, as above. Benton Escalante MD on June 05, 2017 at 12:05 Board Certified Radiologist. This report was verified electronically.
--- NOTE | 2017-06-05 14:34 | HHI.PR ---
Subjective Remarks Breathing still okay. Not worse. No point of chest pain. Is agreeable to continued to move forward with starting dialysis. Objective Vitals Vital Signs Date Time Temp Pulse Resp B/P (MAP) Pulse Ox O2 Delivery O2 Flow Rate FiO2 06/05/17 13:00 65 124/73 (90) 06/05/17 13:00 62 06/05/17 12:45 65 125/74 (91) 06/05/17 12:30 65 138/75 (96) 06/05/17 12:21 95 Nasal Cannula 3.00 06/05/17 12:20 66 145/77 (99) 06/05/17 12:18 98.0 68 18 145/77 (99) 95 06/05/17 12:00 62 06/05/17 11:00 66 06/05/17 10:00 58 06/05/17 09:00 66 06/05/17 08:56 99 Nasal Cannula 3.00 06/05/17 08:00 62 06/05/17 08:00 97 Nasal Cannula 3.00 06/05/17 07:52 97.9 66 16 138/87 (104) 97 06/05/17 07:00 65 06/05/17 06:01 64 06/05/17 05:33 63 06/05/17 04:00 62 06/05/17 03:36 97.9 70 116/60 (78) 91 06/05/17 03:36 Nasal Cannula 4.00 06/05/17 03:00 62 06/05/17 02:00 62 06/05/17 01:00 62 06/05/17 00:00 58 06/04/17 23:53 Nasal Cannula 3.00 06/04/17 23:53 98.5 63 117/54 (75) 98 06/04/17 23:00 61 06/04/17 22:00 62 06/04/17 21:13 99 Nasal Cannula 3.00 06/04/17 21:00 72 06/04/17 20:00 66 06/04/17 19:00 66 06/04/17 19:00 Nasal Cannula 2.00 06/04/17 19:00 97.6 72 150/74 (99) 91 06/04/17 18:00 70 06/04/17 17:00 64 06/04/17 16:12 97.2 70 16 135/73 (93) 99 06/04/17 16:12 99 Nasal Cannula 2.00 06/04/17 16:00 64 06/04/17 15:00 67 I/O 06/04/17 06/04/17 06/04/17 06/05/17 06/05/17 06/05/17 07:00 15:00 23:00 07:00 15:00 23:00 Intake Total 240 ml 480 ml 240 ml Output Total 525 ml 600 ml Balance -285 ml 480 ml -360 ml Intake Oral 240 ml 480 ml 240 ml Output Urine Total 525 ml 600 ml # Voids 6 # Bowel Movements 0 0 Result Diagram: 06/02/17 0515 06/05/17 0611 Objective Remarks GENERAL: This is a well-nourished, well-developed patient, in no apparent distress. CARDIOVASCULAR: Regular rate and rhythm RESPIRATORY: Diminished breath sounds at bases GASTROINTESTINAL: Abdomen soft, non-tender, nondistended. Normal active bowel sounds MUSCULOSKELETAL: Extremities without clubbing, cyanosis, 2+ edema NEURO: Alert & Oriented x4 to person, place, time, situation. Moves all ext x4 A/P Problem List: (1) Acute respiratory failure ICD Code: J96.00 - Acute respiratory failure, unspecified whether with hypoxia or hypercapnia Status: Acute (2) Acute on chronic diastolic congestive heart failure ICD Code: I50.33 - Acute on chronic diastolic (congestive) heart failure Status: Acute (3) Acute renal failure ICD Code: N17.9 - Acute kidney failure, unspecified Status: Acute (4) Chronic kidney disease, stage IV (severe) ICD Code: N18.4 - Chronic kidney disease, stage 4 (severe) Status: Chronic Assessment and Plan 87-year-old white male admitted for hypoxia and shortness of breath. Acute respiratory failure due to pulmonary edema fluid overload and acute on chronic diastolic congestive heart failure along with cute respiratory failure with hypoxia due to pulmonary edema fluid overload and acute on chronic diastolic congestive heart failure along with exacerbation of chronic kidney disease stage IV. Continue with oxygen support and wean as tolerated. Continue with diuretic torsemide and Zaroxolyn, monitor input and output closely. 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 This time we'll move forward for Vas-Cath and consultation with neurovascular surgery for AV fistula placement. Continue with torsemide and Zaroxolyn COPD, chronic- continue with O2 support and DuoNeb. BPH, chronic - continue home terazosin. Hypertension- continue with home amlodipine and metoprolol and Hytrin.. DVT prophylaxis-heparin Discharge Planning Home with home health care when cleared by nephrology Problem Qualifiers (1) Acute respiratory failure: Qualified Codes: J96.01 - Acute respiratory failure with hypoxia Misa Henderson MD Jun 05, 2017 14:34
--- NOTE | 2017-06-05 19:38 | HHI.NPPN ---
Subjective History of Present Illness 87-year-old male with past medical history of hypertension, ischemic heart disease and chronic kidney disease, chronic back pain and leg pain was brought to the hospital because of worsening shortness of breath. I was called to see the patient because of elevated BUN and creatinine. The patient has creatinine of 4.5 on presentation. Previously he has creatinine as high as 4.4. [facility]. Additional Remarks Patient is alert, not in distress, sitting on chair, with nasal cannula, clinically same. Review of Systems General Constitutional: Fatigue Respiratory Lungs: SOB, Cough, Sputum, Wheeze Cardiovascular Cardiac: CLEMONS Objective Data Data 06/05/17 06/06/17 19:00 07:00 Output Total 1000 ml Balance -1000 ml Output Urine Total 1000 ml Vital Signs Date Time Temp Pulse Resp B/P (MAP) Pulse Ox O2 Delivery O2 Flow Rate FiO2 06/05/17 16:01 63 06/05/17 15:00 59 06/05/17 15:00 98.0 62 18 140/73 (95) 97 06/05/17 15:00 97 Nasal Cannula 3.00 06/05/17 14:45 60 135/72 (93) 06/05/17 14:30 62 144/72 (96) 06/05/17 14:15 62 124/57 (79) 06/05/17 14:00 63 126/68 (87) 06/05/17 14:00 62 06/05/17 13:45 65 127/55 (79) 06/05/17 13:15 65 117/71 (86) 06/05/17 13:00 65 124/73 (90) 06/05/17 13:00 62 06/05/17 12:45 65 125/74 (91) 06/05/17 12:30 65 138/75 (96) 06/05/17 12:21 95 Nasal Cannula 3.00 06/05/17 12:20 66 145/77 (99) 06/05/17 12:18 98.0 68 18 145/77 (99) 95 06/05/17 12:00 62 06/05/17 11:00 66 06/05/17 10:00 58 06/05/17 09:00 66 06/05/17 08:56 99 Nasal Cannula 3.00 06/05/17 08:00 62 06/05/17 08:00 97 Nasal Cannula 3.00 06/05/17 07:52 97.9 66 16 138/87 (104) 97 06/05/17 07:00 65 06/05/17 06:01 64 06/05/17 05:33 63 06/05/17 04:00 62 06/05/17 03:36 97.9 70 116/60 (78) 91 06/05/17 03:36 Nasal Cannula 4.00 06/05/17 03:00 62 06/05/17 02:00 62 06/05/17 01:00 62 06/05/17 00:00 58 06/04/17 23:53 Nasal Cannula 3.00 06/04/17 23:53 98.5 63 117/54 (75) 98 06/04/17 23:00 61 06/04/17 22:00 62 06/04/17 21:13 99 Nasal Cannula 3.00 06/04/17 21:00 72 06/04/17 20:00 66 -: 06/02/17 0515 06/05/17 0611 Physical Exam General Appearance: No Acute Distress, Comfortable Eyes Eye Exam: Pupils Equal Throat Throat Exam: Oral Mucosa [place] & Moist Neck Neck Exam: Neck Supple Pulmonary Resp Exam: Breath Sounds Equal, No Distress, Crackles, Rhonchi, Decreased Bases , Diminished Breath Sounds Cardiology CV Exam: Regular, Normal Sinus Rhythm Gastrointestinal/Abdomen GI Exam: Soft, Non-Tender, Bowel Sounds Present, Non-Distended Extremeties Extremities Exam: Trace Edema Neurologic Neuro Exam: Alert, Awake, Oriented Psychiatric Psych Exam: Appropriate Responses Assessment/Plan Assessment Summary: Anemia of CKD, Fluid/Volume Overload, CKD Stage IV Problem List: (1) Hypoxia ICD Codes: R09.02 - Hypoxemia Status: Acute (2) CAD (coronary artery disease) ICD Codes: I25.10 - CAD (coronary artery disease) Status: Acute (3) COPD (chronic obstructive pulmonary disease) ICD Codes: J44.9 - Chronic obstructive pulmonary disease Status: Acute (4) Hypertension ICD Codes: I10 - Hypertension Status: Acute (5) Congestive heart failure ICD Codes: I50.9 - Heart failure, unspecified Status: Acute (6) Chronic kidney disease, stage IV (severe) ICD Codes: N18.4 - Chronic kidney disease, stage 4 (severe) Status: Chronic Plan Patient has advance renal disease and GFR is decreasing. On Torsemide and non oliguric. K is normal. Discussed with the daughter and patient about possible Dialysis. I tried to call his Dumper Bailer Operator and got answering machine. Patient and family agreed about starting HD. He will need AVF and PermCath. Iron supplement and Epogen. HD to start tomorrow. I spoke to his Dumper Bailer Operator in [place]. Consult Vascular surgery for AVF. Verona Raya MD Jun 05, 2017 19:37
[2017-06-05] MEDS: TERAZOSIN HCL 1 MG CAP PO SCH (20:51)
[2017-06-05] MEDS: traMADol HCL 50 MG TAB PO PRN (20:57)
[2017-06-06] VITALS (8 sets, daily range): BP systolic 98–159; BP diastolic 47–75; PULSE 68–80; RESP 16–20; TEMP 97.6–99.8; O2SAT 91–95
--- NOTE | 2017-06-06 09:40 | HHI.NPPN ---
Subjective History of Present Illness 87-year-old male with past medical history of hypertension, ischemic heart disease and chronic kidney disease, chronic back pain and leg pain was brought to the hospital because of worsening shortness of breath. I was called to see the patient because of elevated BUN and creatinine. The patient has creatinine of 4.5 on presentation. Previously he has creatinine as high as 4.4. [facility]. Additional Remarks Patient is alert, not in distress, sitting on chair, with nasal cannula. Review of Systems General Constitutional: Fatigue Respiratory Lungs: SOB, Cough, Sputum, Wheeze Cardiovascular Cardiac: CLEMONS Objective Data Data Vital Signs Date Time Temp Pulse Resp B/P (MAP) Pulse Ox O2 Delivery O2 Flow Rate FiO2 06/06/17 04:00 98.2 71 20 98/47 (64) 92 06/06/17 00:00 98.1 76 20 111/55 (73) 91 06/05/17 20:00 77 06/05/17 20:00 Nasal Cannula 3.00 Humidified 06/05/17 19:53 99.1 81 18 136/73 (94) 93 06/05/17 16:01 63 06/05/17 15:00 59 06/05/17 15:00 98.0 62 18 140/73 (95) 97 06/05/17 15:00 97 Nasal Cannula 3.00 06/05/17 14:45 60 135/72 (93) 06/05/17 14:30 62 144/72 (96) 06/05/17 14:15 62 124/57 (79) 06/05/17 14:00 63 126/68 (87) 06/05/17 14:00 62 06/05/17 13:45 65 127/55 (79) 06/05/17 13:15 65 117/71 (86) 06/05/17 13:00 65 124/73 (90) 06/05/17 13:00 62 06/05/17 12:45 65 125/74 (91) 06/05/17 12:30 65 138/75 (96) 06/05/17 12:21 95 Nasal Cannula 3.00 06/05/17 12:20 66 145/77 (99) 06/05/17 12:18 98.0 68 18 145/77 (99) 95 06/05/17 12:00 62 8/25/17 11:00 66 06/05/17 10:00 58 -: 06/02/17 0515 06/05/17 0611 Physical Exam General Appearance: No Acute Distress, Comfortable Eyes Eye Exam: Pupils Equal Throat Throat Exam: Oral Mucosa [place] & Moist Neck Neck Exam: Neck Supple Pulmonary Resp Exam: Breath Sounds Equal, No Distress, Crackles, Rhonchi, Decreased Bases , Diminished Breath Sounds Cardiology CV Exam: Regular, Normal Sinus Rhythm Gastrointestinal/Abdomen GI Exam: Soft, Non-Tender, Bowel Sounds Present, Non-Distended Extremeties Extremities Exam: Trace Edema Neurologic Neuro Exam: Alert, Awake, Oriented Psychiatric Psych Exam: Appropriate Responses Assessment/Plan Assessment Summary: Anemia of CKD, Fluid/Volume Overload, CKD Stage IV Problem List: (1) Hypoxia ICD Codes: R09.02 - Hypoxemia Status: Acute (2) CAD (coronary artery disease) ICD Codes: I25.10 - CAD (coronary artery disease) Status: Acute (3) COPD (chronic obstructive pulmonary disease) ICD Codes: J44.9 - Chronic obstructive pulmonary disease Status: Acute (4) Hypertension ICD Codes: I10 - Hypertension Status: Acute (5) Congestive heart failure ICD Codes: I50.9 - Heart failure, unspecified Status: Acute (6) Chronic kidney disease, stage IV (severe) ICD Codes: N18.4 - Chronic kidney disease, stage 4 (severe) Status: Chronic Plan Patient has advance renal disease and GFR is decreasing. Patient and family agreed about starting HD. He will need AVF and PermCath. Iron supplement and Epogen. HD seen during dialysis 3 K UF 1.5 L Magalie Tracey MD Jun 06, 2017 09:40
[2017-06-06] MEDS: SODIUM CHLOR 0.9% 1000 ML INJ 1,000 ML OTHER PRN (10:00)
[2017-06-06] MEDS: GENTAMICIN SULFATE (DIALYSIS USE ONLY) 20 MG/2 ML VIAL IV PRN (10:00)
[2017-06-06] MEDS: EPOETIN ALFA 10,000 UNITS/ML VIAL IV PRN (10:00)
--- NOTE | 2017-06-06 11:19 | PD.CAR.PN ---
CVT Progress Note Subjective/Hospital Course: Referral received Full consult and surgery to follow Thanks J 06/06/17 Try to see the patient yesterday however he was in some sort of a study and then later got transferred to different floor My attempt to see patient today on the fourth floor failed because patient is now in dialysis Will try to catch up with patient tomorrow Objective: Vital Signs Date Time Temp Pulse Resp B/P (MAP) Pulse Ox O2 Delivery O2 Flow Rate FiO2 06/06/17 08:00 98.6 75 20 132/59 (83) 93 06/06/17 04:00 98.2 71 20 98/47 (64) 92 06/06/17 00:00 98.1 76 20 111/55 (73) 91 06/05/17 20:00 77 06/05/17 20:00 Nasal Cannula 3.00 Humidified 06/05/17 19:53 99.1 81 18 136/73 (94) 93 06/05/17 16:01 63 06/05/17 15:00 59 06/05/17 15:00 98.0 62 18 140/73 (95) 97 06/05/17 15:00 97 Nasal Cannula 3.00 06/05/17 14:45 60 135/72 (93) 06/05/17 14:30 62 144/72 (96) 06/05/17 14:15 62 124/57 (79) 06/05/17 14:00 63 126/68 (87) 06/05/17 14:00 62 06/05/17 13:45 65 127/55 (79) 06/05/17 13:15 65 117/71 (86) 06/05/17 13:00 65 124/73 (90) 06/05/17 13:00 62 06/05/17 12:45 65 125/74 (91) 06/05/17 12:30 65 138/75 (96) 06/05/17 12:21 95 Nasal Cannula 3.00 06/05/17 12:20 66 145/77 (99) 06/05/17 12:18 98.0 68 18 145/77 (99) 95 06/05/17 12:00 62 Result Diagram: 06/02/17 0515 06/05/17 0611 Wendy Gregory MD Jun 06, 2017 11:19
[2017-06-06] MEDS: METOLAZONE 5 MG TAB PO SCH (12:22)
[2017-06-06] MEDS: ASPIRIN 81 MG CHEW TAB CHEW SCH (12:22)
[2017-06-06] MEDS: METOPROLOL TARTRATE 50 MG TAB PO SCH ×2 (12:22→20:54)
[2017-06-06] MEDS: guaiFENesin E.R. 600 MG TAB PO SCH ×2 (12:22→20:54)
[2017-06-06] MEDS: POTASSIUM CHLORIDE 10 MEQ CONTROLLED RELEASE TAB PO SCH ×2 (12:23→20:54)
[2017-06-06] MEDS: TORSEMIDE 20 MG TAB PO SCH ×2 (12:23→17:05)
[2017-06-06] MEDS: DOCUSATE SODIUM 50 MG/SENNA 8.6 MG TAB PO SCH ×2 (12:24→20:54)
[2017-06-06] MEDS: SODIUM CHLORIDE 0.9% FLUSH 10 ML FLUSH IV FLUSH SCH ×2 (12:24→20:56)
--- NOTE | 2017-06-06 12:33 | HHI.PR ---
Subjective Remarks Follow-up for acute renal failure Patient stated that he feels a lot better. Denied any shortness of breathing. He stated that after dialysis his breathing may get better. Denied any cough. Objective Vitals Vital Signs Date Time Temp Pulse Resp B/P (MAP) Pulse Ox O2 Delivery O2 Flow Rate FiO2 06/06/17 08:00 98.6 75 20 132/59 (83) 93 06/06/17 04:00 98.2 71 20 98/47 (64) 92 06/06/17 00:00 98.1 76 20 111/55 (73) 91 06/05/17 20:00 77 06/05/17 20:00 Nasal Cannula 3.00 Humidified 06/05/17 19:53 99.1 81 18 136/73 (94) 93 06/05/17 16:01 63 06/05/17 15:00 59 06/05/17 15:00 98.0 62 18 140/73 (95) 97 06/05/17 15:00 97 Nasal Cannula 3.00 06/05/17 14:45 60 135/72 (93) 06/05/17 14:30 62 144/72 (96) 06/05/17 14:15 62 124/57 (79) 06/05/17 14:00 63 126/68 (87) 06/05/17 14:00 62 06/05/17 13:45 65 127/55 (79) 06/05/17 13:15 65 117/71 (86) 06/05/17 13:00 65 124/73 (90) 06/05/17 13:00 62 06/05/17 12:45 65 125/74 (91) I/O 06/05/17 06/05/17 06/05/17 06/06/17 06/06/17 06/06/17 07:00 15:00 23:00 07:00 15:00 23:00 Intake Total 240 ml 250 ml Output Total 600 ml 1000 ml 900 ml 1500 ml Balance -360 ml -1000 ml -650 ml -1500 ml Intake Oral 240 ml 250 ml Output Urine Total 600 ml 1000 ml 900 ml Hemodialysis 1500 ml Result Diagram: 06/02/17 0515 06/05/17 0611 Objective Remarks GENERAL: In no acute distress. CARDIOVASCULAR: Regular rate and rhythm without murmurs, gallops, or rubs. RESPIRATORY: Breath sounds equal bilaterally. No accessory muscle use. No cough noted during exam. GASTROINTESTINAL: Abdomen soft, non-tender, nondistended. MUSCULOSKELETAL: No cyanosis, or edema. BACK: Nontender without obvious deformity. No CVA tenderness. Medications and IVs Current Medications Sodium Chloride (NS Flush) 2 ml UNSCH PRN IVF FLUSH AFTER USING IV ACCESS; Start 06/01/17 at 15:00; Status Cancel Furosemide (Lasix Inj) 40 mg ONCE ONCE IVP Last administered on 06/01/17 15: 17; Start 06/01/17 at 15:00; Stop 06/01/17 at 15:01; Status DC Metolazone (Zaroxolyn) 5 mg DAILY PO Last administered on 06/06/17 12:22; Start 06/01/17 at 17:45 Amlodipine Besylate (Norvasc) 10 mg DAILY PO Last administered on 06/06/17 12: 27; Start 06/02/17 at 09:00 Aspirin (Aspirin Chew) 81 mg DAILY CHEW Last administered on 06/06/17 12:22; Start 06/02/17 at 09:00 Fluticasone Propionate (Flonase Dejon Spr) 1 spray BID PRN EACH NARE ALLERGIES; Start 06/01/17 at 18:30 Loratadine (Claritin) 10 mg DAILY PRN PO ALLERGIES; Start 06/01/17 at 18:30 Metoprolol Tartrate (Lopressor) 50 mg BID PO Last administered on 06/06/17 12: 22; Start 06/01/17 at 21:00 Mirtazapine (Remeron) 10 mg HS PRN PO DEP Last administered on 06/03/17 20:52 ; Start 06/01/17 at 18:30 Artificial Tears (Tears Naturale Opth Soln) 2 drop Q4H PRN EACH EYE DRY EYE; Start 06/01/17 at 18:30 Terazosin HCl (Hytrin) 2 mg HS PO Last administered on 06/05/17 20:51; Start 06/01/17 at 21:00 Tramadol HCl (Ultram) 50 mg Q8H PRN PO PAIN SCALE 3 TO 10 Last administered on 06/05/17 20:57; Start 06/01/17 at 18:30 Sodium Chloride (NS Flush) 2 ml UNSCH PRN IV FLUSH FLUSH AFTER USING IV ACCESS ; Start 06/01/17 at 18:30; Stop 06/01/17 at 18:34; Status DC Sodium Chloride (NS Flush) 2 ml BID IV FLUSH ; Start 06/01/17 at 21:00; Stop at 21:00; Status DC Ondansetron HCl (Zofran Inj) 4 mg Q6H PRN IVP NAUSEA OR VOMITING; Start at 18:30; Status Cancel Prochlorperazine (Compazine Supp) 25 mg Q12H PRN RECTAL NAUSEA OR VOMITING; Start 06/01/17 at 18:30; Status Cancel Acetaminophen (Tylenol) 650 mg Q6H PRN PO PAIN SCALE 1 TO 2; Start 06/01/17 at 18:30 Oxycodone HCl (Roxicodone) 10 mg Q4H PRN PO PAIN SCALE 6 TO 10; Start 06/01/17 at 18:30; Status Cancel Morphine Sulfate (Morphine Inj) 2 mg Q3H PRN IV Pain 3-5; if unable to take PO ; Start 06/01/17 at 18:30; Status Cancel Morphine Sulfate (Morphine Inj) 4 mg Q3H PRN IV Pain 6-10;if unable to take PO ; Start 06/01/17 at 18:30; Status Cancel Oxycodone HCl (Roxicodone) 5 mg Q4H PRN PO PAIN SCALE 3 TO 5; Start 06/01/17 at 18:30; Status Cancel Naloxone HCl (Narcan Inj) 0.4 mg UNSCH PRN IV SEE LABEL COMMENTS; Start at 18:30 Senna/Docusate Sodium (Indu-Colace) 1 tab BID PO Last administered on t 12:24; Start 06/01/17 at 21:00 Magnesium Hydroxide (Milk Of Magnesia Liq) 30 ml Q12H PRN PO MILD - MODERATE CONSTIPATION; Start 06/01/17 at 18:30 Sennosides (Senokot) 17.2 mg Q12H PRN PO MODERATE - SEVERE CONSTIPATION; Start 06/01/17 at 18:30 Bisacodyl (Dulcolax Supp) 10 mg DAILY PRN RECTAL SEVERE CONSITIPATION; Start at 18:30 Lactulose (Lactulose Liq) 30 ml DAILY PRN PO SEVERE CONSITIPATION; Start at 18:30 Sodium Chloride (NS Flush) 2 ml UNSCH PRN IV FLUSH FLUSH AFTER USING IV ACCESS ; Start 06/01/17 at 18:30 Sodium Chloride (NS Flush) 2 ml BID IV FLUSH Last administered on 06/06/17 12: 24; Start 06/01/17 at 21:00 Furosemide (Lasix Inj) 40 mg BID@09,18 IVP Last administered on 06/03/17 09:12 ; Start 06/02/17 at 09:00; Stop 06/03/17 at 16:41; Status DC Metolazone (Zaroxolyn) 5 mg DAILY PO ; Start 06/02/17 at 09:00; Status Cancel Potassium Chloride (KCl) 10 meq BID PO Last administered on 06/06/17 12:23; Start 06/01/17 at 21:00 Albuterol/ Ipratropium (Duoneb Neb) 1 ampule Q4HR NEB PRN NEB SHORTNESS OF BREATH; Start 06/01/17 at 19:00 Guaifenesin (Mucinex Er) 600 mg BID PO Last administered on 06/06/17 12:22; Start 06/01/17 at 21:00 Torsemide (Demadex) 40 mg BID@18 PO Last administered on 06/06/17 12:23; Start 06/03/17 at 18:00 Diphenhydramine HCl (Benadryl) 25 mg ONCE ONCE PO Last administered on 01:17; Start 06/04/17 at 01:00; Stop 06/04/17 at 01:01; Status DC Sodium Chloride 1,000 ml @ 0 mls/hr Q0M PRN OTHER For Prime & Rinse Back; Start 06/04/17 at 17:23 Heparin Sodium (Porcine) (Heparin Inj) 8,000 units UNSCH PRN IVF WITH DIALYSIS ; Start 06/04/17 at 17:30 Sodium Chloride 1,000 ml @ 200 mls/hr Q5H PRN IV WITH DIALYSIS; Start 06/04/17 at 17:23 Sodium Chloride 1,000 ml @ 0 mls/hr Q0M PRN OTHER WITH DIALYSIS Last administered on 06/06/17 10:00; Start 06/04/17 at 17:23 Mannitol (Mannitol Inj) 12.5 gm UNSCH PRN IV WITH DIALYSIS; Start 06/04/17 at 17:30 Albumin Human (Albumin 25% Inj) 25 gm UNSCH PRN IV WITH DIALYSIS; Start at 17:30 Sodium Chloride (NS Flush) 5 ml UNSCH PRN IV FLUSH WITH DIALYSIS; Start at 17:30 Heparin Sodium (Porcine) (Heparin Inj) UNSCH PRN .XX WITH DIALYSIS; Start at 17:30 Gentamicin Sulfate (Gentamicin (Dialysis) Inj) 20 mg UNSCH PRN IV WITH DIALYSIS Last administered on 06/06/17 10:00; Start 06/04/17 at 17:30 Ondansetron HCl (Zofran Inj) 4 mg UNSCH PRN IV WITH DIALYSIS; Start 06/04/17 at 17:30 Acetaminophen (Tylenol) 650 mg UNSCH PRN PO for headach, pain, temp > 101F; Start 06/04/17 at 17:30 Diphenhydramine HCl (Benadryl) 25 mg UNSCH PRN PO for hives/itching/anaphylaxis ; Start 06/04/17 at 17:30 Nitroglycerin (Nitrostat Sl) 0.4 mg UNSCH PRN SL CHEST PAIN; Start 06/04/17 at 17:30 Clonidine (Catapres) 0.1 mg UNSCH PRN PO for BP > 180/100 X 2 readings; Start 06/04/17 at 17:30 Epoetin Tera (Epogen Inj) 6,000 units UNSCH PRN IV WITH DIALYSIS Last administered on 06/06/17 10:00; Start 06/04/17 at 17:30 Gelatin (Gelfoam 12 Mm/7 Mm Top) 1 foam UNSCH PRN TOP SEE LABEL COMMENTS; Start 06/04/17 at 17:30 Iron Sucrose 100 mg/Sodium Chloride 105 ml @ 105 mls/hr DAILY IV ; Start at 09:00; Stop 06/07/17 at 09:59 Vancomycin HCl 1000 mg/Sodium Chloride 250 ml @ 250 mls/hr [employer] IV Last administered on 06/05/17 10:17; Start 06/05/17 at 09:15; Stop 06/09/17 at 09:14 Atropine Sulfate (Atropine Inj) 1 mg STK-MED ONCE .ROUTE ; Start 06/05/17 at 10: 30; Stop 06/05/17 at 10:31; Status DC Epinephrine HCl (EPINEPHrine (1:10,000) INJ) 1 mg STK-MED ONCE .ROUTE ; Start at 10:30; Stop 06/05/17 at 10:31; Status DC Midazolam HCl (Versed Inj) 2 mg STK-MED ONCE .ROUTE Last administered on 10:45; Start 06/05/17 at 10:45; Stop 06/05/17 at 10:46; Status DC Midazolam HCl (Versed Inj) 2 mg STK-MED ONCE .ROUTE ; Start 06/05/17 at 10:45; Stop 06/05/17 at 10:46; Status DC Fentanyl Citrate (fentaNYL INJ) 250 mcg STK-MED ONCE .ROUTE Last administered on 06/05/17 10:45; Start 06/05/17 at 10:45; Stop 06/05/17 at 10:46; Status DC Heparin Sodium (Porcine) (*HEPARIN INJ Periprocedural ONLY) 10,000 units STK- MED ONCE .ROUTE Last administered on 06/05/17 11:25; Start 06/05/17 at 10:56; Stop 06/05/17 at 10:57; Status DC Lidocaine/ Epinephrine (Xylocaine-Epi Mpf 1%-1:200,000 Inj) 30 ml STK-MED ONCE .ROUTE Last administered on 06/05/17 11:16; Start 06/05/17 at 10:56; Stop at 10:57; Status DC Sodium Chloride (NS Flush) UNSCH PRN IVF SEE PROTOCOL; Start 06/05/17 at 11:45 Heparin Sodium (Porcine) (Heparin Inj) UNSCH PRN IV FLUSH SEE PROTOCOL; Start 06/05/17 at 11:45 A/P Problem List: (1) Acute respiratory failure ICD Code: J96.00 - Acute respiratory failure, unspecified whether with hypoxia or hypercapnia Status: Acute (2) Acute on chronic diastolic congestive heart failure ICD Code: I50.33 - Acute on chronic diastolic (congestive) heart failure Status: Acute (3) Acute renal failure ICD Code: N17.9 - Acute kidney failure, unspecified Status: Acute (4) Chronic kidney disease, stage IV (severe) ICD Code: N18.4 - Chronic kidney disease, stage 4 (severe) Status: Chronic Assessment and Plan 87-year-old white male admitted for hypoxia and shortness of breath. Acute respiratory failure due to p acute on chronic diastolic congestive heart failure along -Improved after dialysis. - Continue with oxygen support and wean as tolerated. - Continue with diuretic torsemide and Zaroxolyn, monitor input and output closely. -Continue with dialysis. Acute exacerbation of chronic kidney disease stage IV with likely end-stage renal disease -nephrology is currently following. - status post Vas-Cath. -Per nephrology as he would need AV fistula. COPD, chronic- continue with O2 support and DuoNeb. BPH, chronic - continue home terazosin. Hypertension- continue with home amlodipine and metoprolol and Hytrin.. DVT prophylaxis-heparin Problem Qualifiers (1) Acute respiratory failure: Qualified Codes: J96.01 - Acute respiratory failure with hypoxia Mily Nassar MD Jun 06, 2017 12:33
[2017-06-06] MEDS: IRON SUCROSE INJ 100 MG in SODIUM CHLORIDE 0.9% INJ 100 ML IV SCH (17:04)
[2017-06-06] MEDS: traMADol HCL 50 MG TAB PO PRN (20:53)
[2017-06-06] MEDS: TERAZOSIN HCL 1 MG CAP PO SCH (20:54)
[2017-06-07] VITALS (9 sets, daily range): BP systolic 111–141; BP diastolic 58–67; PULSE 67–84; RESP 16–20; TEMP 97.2–98.4; O2SAT 90–98
[2017-06-07] MEDS: ACETAMINOPHEN 325 MG TAB PO PRN ×3 (00:12→21:31)
[2017-06-07] MEDS: traMADol HCL 50 MG TAB PO PRN ×2 (06:53→18:08)
[2017-06-07] MEDS: SODIUM CHLORIDE 0.9% FLUSH 10 ML FLUSH IV FLUSH SCH ×2 (09:00→21:24)
--- NOTE | 2017-06-07 11:18 | PD.CAR.PN ---
CVT Progress Note Subjective/Hospital Course: Referral received Full consult and surgery to follow Thanks Alla 06/06/17 Try to see the patient yesterday however he was in some sort of a study and then later got transferred to different floor My attempt to see patient today on the fourth floor failed because patient is now in dialysis Will try to catch up with patient tomorrow 06/07/17 Discussed care with the patient Clinically his veins a very poor and this is confirmed by the venous mapping study The only possibility will be above elebow AV fistula with either basilic or cephalic vein We'll go ahead with the same tomorrow Objective: Vital Signs Date Time Temp Pulse Resp B/P (MAP) Pulse Ox O2 Delivery O2 Flow Rate FiO2 06/07/17 08:00 97.9 78 18 135/65 (88) 94 06/07/17 04:00 98.3 72 20 122/60 (80) 93 06/07/17 00:00 98.4 70 20 141/67 (91) 95 06/06/17 20:51 94 Nasal Cannula 2.00 06/06/17 20:50 97.6 80 16 159/75 (103) 94 06/06/17 19:49 72 06/06/17 18:04 3.00 06/06/17 16:00 98.5 73 20 126/70 (88) 95 06/06/17 12:00 99.8 75 20 117/58 (77) 93 Result Diagram: 06/05/17 0611 Wendy Gregory MD Jun 07, 2017 11:18
[2017-06-07] MEDS: TORSEMIDE 20 MG TAB PO SCH ×2 (13:01→18:05)
[2017-06-07] MEDS: METOPROLOL TARTRATE 50 MG TAB PO SCH ×2 (13:01→21:23)
[2017-06-07] MEDS: METOLAZONE 5 MG TAB PO SCH (13:01)
[2017-06-07] MEDS: IRON SUCROSE INJ 100 MG in SODIUM CHLORIDE 0.9% INJ 100 ML IV SCH (13:01)
[2017-06-07] MEDS: guaiFENesin E.R. 600 MG TAB PO SCH ×2 (13:02→21:23)
[2017-06-07] MEDS: POTASSIUM CHLORIDE 10 MEQ CONTROLLED RELEASE TAB PO SCH ×2 (13:02→21:24)
[2017-06-07] MEDS: DOCUSATE SODIUM 50 MG/SENNA 8.6 MG TAB PO SCH ×2 (13:02→21:23)
[2017-06-07] MEDS: ASPIRIN 81 MG CHEW TAB CHEW SCH (13:02)
[2017-06-07] MEDS: LACTULOSE SYRUP 20 GM/30 ML CUP PO PRN (13:21)
--- NOTE | 2017-06-07 14:44 | HHI.NPPN ---
Subjective History of Present Illness 87-year-old male with past medical history of hypertension, ischemic heart disease and chronic kidney disease, chronic back pain and leg pain was brought to the hospital because of worsening shortness of breath. I was called to see the patient because of elevated BUN and creatinine. The patient has creatinine of 4.5 on presentation. Previously he has creatinine as high as 4.4. [facility]. Additional Remarks Patient is alert, not in distress, sitting on chair, with nasal cannula. Review of Systems General Constitutional: Fatigue Respiratory Lungs: SOB, Cough, Sputum, Wheeze Cardiovascular Cardiac: CLEMONS Objective Data Data Vital Signs Date Time Temp Pulse Resp B/P (MAP) Pulse Ox O2 Delivery O2 Flow Rate FiO2 06/07/17 12:00 97.2 74 18 111/60 (77) 90 06/07/17 08:14 84 06/07/17 08:00 97.9 78 18 135/65 (88) 94 06/07/17 08:00 Nasal Cannula 3.00 Humidified 06/07/17 04:00 98.3 72 20 122/60 (80) 93 06/07/17 00:00 98.4 70 20 141/67 (91) 95 06/06/17 20:51 94 Nasal Cannula 2.00 06/06/17 20:50 97.6 80 16 159/75 (103) 94 06/06/17 19:49 72 06/06/17 18:04 3.00 06/06/17 16:00 98.5 73 20 126/70 (88) 95 -: 06/05/17 0611 Physical Exam General Appearance: No Acute Distress, Comfortable Eyes Eye Exam: Pupils Equal Throat Throat Exam: Oral Mucosa [place] & Moist Neck Neck Exam: Neck Supple Pulmonary Resp Exam: Breath Sounds Equal, No Distress, Crackles, Rhonchi, Decreased Bases , Diminished Breath Sounds Cardiology CV Exam: Regular, Normal Sinus Rhythm Gastrointestinal/Abdomen GI Exam: Soft, Non-Tender, Bowel Sounds Present, Non-Distended Extremeties Extremities Exam: Trace Edema Neurologic Neuro Exam: Alert, Awake, Oriented Psychiatric Psych Exam: Appropriate Responses Assessment/Plan Assessment Summary: Anemia of CKD, Fluid/Volume Overload, CKD Stage IV Problem List: (1) Hypoxia ICD Codes: R09.02 - Hypoxemia Status: Acute (2) CAD (coronary artery disease) ICD Codes: I25.10 - CAD (coronary artery disease) Status: Acute (3) COPD (chronic obstructive pulmonary disease) ICD Codes: J44.9 - Chronic obstructive pulmonary disease Status: Acute (4) Hypertension ICD Codes: I10 - Hypertension Status: Acute (5) Congestive heart failure ICD Codes: I50.9 - Heart failure, unspecified Status: Acute (6) Chronic kidney disease, stage IV (severe) ICD Codes: N18.4 - Chronic kidney disease, stage 4 (severe) Status: Chronic Plan Patient has advance renal disease and GFR is decreasing. On Torsemide and non oliguric. K is normal. Patient and family agreed about starting HD. He will need AVF and PermCath. Iron supplement and Epogen. HD yesterday UF 1.[address] Raya to follow Magalie Tracey MD Jun 07, 2017 14:44
--- NOTE | 2017-06-07 15:31 | HHI.PR ---
Subjective Remarks f/u for renal failure patient has no complaints. Denied any SOB. patient c/o constipation and declined suppository. He stated he is doing well. Objective Vitals Vital Signs Date Time Temp Pulse Resp B/P (MAP) Pulse Ox O2 Delivery O2 Flow Rate FiO2 06/07/17 12:00 97.2 74 18 111/60 (77) 90 06/07/17 08:14 84 06/07/17 08:00 97.9 78 18 135/65 (88) 94 06/07/17 08:00 Nasal Cannula 3.00 Humidified 06/07/17 04:00 98.3 72 20 122/60 (80) 93 06/07/17 00:00 98.4 70 20 141/67 (91) 95 06/06/17 20:51 94 Nasal Cannula 2.00 06/06/17 20:50 97.6 80 16 159/75 (103) 94 06/06/17 19:49 72 06/06/17 18:04 3.00 06/06/17 16:00 98.5 73 20 126/70 (88) 95 I/O 06/06/17 06/06/17 06/06/17 06/07/17 06/07/17 06/07/17 07:00 15:00 23:00 07:00 15:00 23:00 Intake Total 250 ml 480 ml 480 ml Output Total 900 ml 1500 ml 600 ml Balance -650 ml -1500 ml -120 ml 480 ml Intake Oral 250 ml 480 ml 480 ml Output Urine Total 900 ml 600 ml Hemodialysis 1500 ml # Voids 2 # Bowel Movements 0 Result Diagram: 06/05/17 0611 Objective Remarks GENERAL: In no acute distress. CARDIOVASCULAR: Regular rate and rhythm without murmurs, gallops, or rubs. RESPIRATORY: Breath sounds equal bilaterally. No accessory muscle use. No cough noted during exam. GASTROINTESTINAL: Abdomen soft, non-tender, nondistended. MUSCULOSKELETAL: No cyanosis, or edema. BACK: Nontender without obvious deformity. No CVA tenderness. Medications and IVs Current Medications Sodium Chloride (NS Flush) 2 ml UNSCH PRN IVF FLUSH AFTER USING IV ACCESS; Start 06/01/17 at 15:00; Status Cancel Furosemide (Lasix Inj) 40 mg ONCE ONCE IVP Last administered on 06/01/17t 15: 17; Start 06/01/17 at 15:00; Stop 06/01/17 at 15:01; Status DC Metolazone (Zaroxolyn) 5 mg DAILY PO Last administered on 06/07/17 13:01; Start 06/01/17 at 17:45 Amlodipine Besylate (Norvasc) 10 mg DAILY PO Last administered on 06/07/17 13: 02; Start 06/02/17 at 09:00 Aspirin (Aspirin Chew) 81 mg DAILY CHEW Last administered on 06/07/17 13:02; Start 06/02/17 at 09:00 Fluticasone Propionate (Flonase Dejon Spr) 1 spray BID PRN EACH NARE ALLERGIES; Start 06/01/17 at 18:30 Loratadine (Claritin) 10 mg DAILY PRN PO ALLERGIES; Start 06/01/17 at 18:30 Metoprolol Tartrate (Lopressor) 50 mg BID PO Last administered on 06/07/17 13: 01; Start 06/01/17 at 21:00 Mirtazapine (Remeron) 10 mg HS PRN PO DEP Last administered on 06/03/17 20:52 ; Start 06/01/17 at 18:30 Artificial Tears (Tears Naturale Opth Soln) 2 drop Q4H PRN EACH EYE DRY EYE; Start 06/01/17 at 18:30 Terazosin HCl (Hytrin) 2 mg HS PO Last administered on 06/06/17 20:54; Start 06/01/17 at 21:00 Tramadol HCl (Ultram) 50 mg Q8H PRN PO PAIN SCALE 3 TO 10 Last administered on 06/07/17 06:53; Start 06/01/17 at 18:30 Sodium Chloride (NS Flush) 2 ml UNSCH PRN IV FLUSH FLUSH AFTER USING IV ACCESS ; Start 06/01/17 at 18:30; Stop 06/01/17 at 18:34; Status DC Sodium Chloride (NS Flush) 2 ml BID IV FLUSH ; Start 06/01/17 at 21:00; Stop at 21:00; Status DC Ondansetron HCl (Zofran Inj) 4 mg Q6H PRN IVP NAUSEA OR VOMITING; Start at 18:30; Status Cancel Prochlorperazine (Compazine Supp) 25 mg Q12H PRN RECTAL NAUSEA OR VOMITING; Start 06/01/17 at 18:30; Status Cancel Acetaminophen (Tylenol) 650 mg Q6H PRN PO PAIN SCALE 1 TO 2 Last administered on 06/07/17 08:57; Start 06/01/17 at 18:30 Oxycodone HCl (Roxicodone) 10 mg Q4H PRN PO PAIN SCALE 6 TO 10; Start 06/01/17 at 18:30; Status Cancel Morphine Sulfate (Morphine Inj) 2 mg Q3H PRN IV Pain 3-5; if unable to take PO ; Start 06/01/17 at 18:30; Status Cancel Morphine Sulfate (Morphine Inj) 4 mg Q3H PRN IV Pain 6-10;if unable to take PO ; Start 06/01/17 at 18:30; Status Cancel Oxycodone HCl (Roxicodone) 5 mg Q4H PRN PO PAIN SCALE 3 TO 5; Start 06/01/17 at 18:30; Status Cancel Naloxone HCl (Narcan Inj) 0.4 mg UNSCH PRN IV SEE LABEL COMMENTS; Start at 18:30 Senna/Docusate Sodium (Indu-Colace) 1 tab BID PO Last administered on 13:02; Start 06/01/17 at 21:00 Magnesium Hydroxide (Milk Of Magnesia Liq) 30 ml Q12H PRN PO MILD - MODERATE CONSTIPATION; Start 06/01/17 at 18:30 Sennosides (Senokot) 17.2 mg Q12H PRN PO MODERATE - SEVERE CONSTIPATION; Start 06/01/17 at 18:30 Bisacodyl (Dulcolax Supp) 10 mg DAILY PRN RECTAL SEVERE CONSITIPATION; Start at 18:30 Lactulose (Lactulose Liq) 30 ml DAILY PRN PO SEVERE CONSITIPATION Last administered on 06/07/17 13:21; Start 06/01/17 at 18:30 Sodium Chloride (NS Flush) 2 ml UNSCH PRN IV FLUSH FLUSH AFTER USING IV ACCESS ; Start 06/01/17 at 18:30 Sodium Chloride (NS Flush) 2 ml BID IV FLUSH Last administered on 06/07/17 09: 00; Start 06/01/17 at 21:00 Furosemide (Lasix Inj) 40 mg BID@09,18 IVP Last administered on 06/03/17 09:12 ; Start 06/02/17 at 09:00; Stop 06/03/17 at 16:41; Status DC Metolazone (Zaroxolyn) 5 mg DAILY PO ; Start 06/02/17 at 09:00; Status Cancel Potassium Chloride (KCl) 10 meq BID PO Last administered on 06/07/17 13:02; Start 06/01/17 at 21:00 Albuterol/ Ipratropium (Duoneb Neb) 1 ampule Q4HR NEB PRN NEB SHORTNESS OF BREATH; Start 06/01/17 at 19:00 Guaifenesin (Mucinex Er) 600 mg BID PO Last administered on 06/07/17 13:02; Start 06/01/17 at 21:00 Torsemide (Demadex) 40 mg BID@18 PO Last administered on 06/07/17 13:01; Start 06/03/17 at 18:00 Diphenhydramine HCl (Benadryl) 25 mg ONCE ONCE PO Last administered on 01:17; Start 06/04/17 at 01:00; Stop 06/04/17 at 01:01; Status DC Sodium Chloride 1,000 ml @ 0 mls/hr Q0M PRN OTHER For Prime & Rinse Back; Start 06/04/17 at 17:23 Heparin Sodium (Porcine) (Heparin Inj) 8,000 units UNSCH PRN IVF WITH DIALYSIS ; Start 06/04/17 at 17:30 Sodium Chloride 1,000 ml @ 200 mls/hr Q5H PRN IV WITH DIALYSIS; Start 06/04/17 at 17:23 Sodium Chloride 1,000 ml @ 0 mls/hr Q0M PRN OTHER WITH DIALYSIS Last administered on 06/06/17 10:00; Start 06/04/17 at 17:23 Mannitol (Mannitol Inj) 12.5 gm UNSCH PRN IV WITH DIALYSIS; Start 06/04/17 at 17:30 Albumin Human (Albumin 25% Inj) 25 gm UNSCH PRN IV WITH DIALYSIS; Start at 17:30 Sodium Chloride (NS Flush) 5 ml UNSCH PRN IV FLUSH WITH DIALYSIS; Start at 17:30 Heparin Sodium (Porcine) (Heparin Inj) UNSCH PRN .XX WITH DIALYSIS; Start at 17:30 Gentamicin Sulfate (Gentamicin (Dialysis) Inj) 20 mg UNSCH PRN IV WITH DIALYSIS Last administered on 06/06/17 10:00; Start 06/04/17 at 17:30 Ondansetron HCl (Zofran Inj) 4 mg UNSCH PRN IV WITH DIALYSIS; Start 06/04/17 at 17:30 Acetaminophen (Tylenol) 650 mg UNSCH PRN PO for headach, pain, temp > 101F; Start 06/04/17 at 17:30 Diphenhydramine HCl (Benadryl) 25 mg UNSCH PRN PO for hives/itching/anaphylaxis ; Start 06/04/17 at 17:30 Nitroglycerin (Nitrostat Sl) 0.4 mg UNSCH PRN SL CHEST PAIN; Start 06/04/17 at 17:30 Clonidine (Catapres) 0.1 mg UNSCH PRN PO for BP > 180/100 X 2 readings; Start 06/04/17 at 17:30 Epoetin Tera (Epogen Inj) 6,000 units UNSCH PRN IV WITH DIALYSIS Last administered on 06/06/17 10:00; Start 06/04/17 at 17:30 Gelatin (Gelfoam 12 Mm/7 Mm Top) 1 foam UNSCH PRN TOP SEE LABEL COMMENTS; Start 06/04/17 at 17:30 Iron Sucrose 100 mg/Sodium Chloride 105 ml @ 105 mls/hr DAILY IV Last administered on 06/07/17 13:01; Start 06/05/17 at 09:00; Stop 06/07/17 at 09:59 ; Status DC Vancomycin HCl 1000 mg/Sodium Chloride 250 ml @ 250 mls/hr CIRCULATION ANALYST IV Last administered on 06/05/17 10:17; Start 06/05/17 at 09:15; Stop 06/09/17 at 09:14 Atropine Sulfate (Atropine Inj) 1 mg STK-MED ONCE .ROUTE ; Start 06/05/17 at 10: 30; Stop 06/05/17 at 10:31; Status DC Epinephrine HCl (EPINEPHrine (1:10,000) INJ) 1 mg STK-MED ONCE .ROUTE ; Start at 10:30; Stop 06/05/17 at 10:31; Status DC Midazolam HCl (Versed Inj) 2 mg STK-MED ONCE .ROUTE Last administered on 10:45; Start 06/05/17 at 10:45; Stop 06/05/17 at 10:46; Status DC Midazolam HCl (Versed Inj) 2 mg STK-MED ONCE .ROUTE ; Start 06/05/17 at 10:45; Stop 06/05/17 at 10:46; Status DC Fentanyl Citrate (fentaNYL INJ) 250 mcg STK-MED ONCE .ROUTE Last administered on 06/05/17 10:45; Start 06/05/17 at 10:45; Stop 06/05/17 at 10:46; Status DC Heparin Sodium (Porcine) (*HEPARIN INJ Periprocedural ONLY) 10,000 units STK- MED ONCE .ROUTE Last administered on 06/05/17 11:25; Start 06/05/17 at 10:56; Stop 06/05/17 at 10:57; Status DC Lidocaine/ Epinephrine (Xylocaine-Epi Mpf 1%-1:200,000 Inj) 30 ml STK-MED ONCE .ROUTE Last administered on 06/05/17 11:16; Start 06/05/17 at 10:56; Stop at 10:57; Status DC Sodium Chloride (NS Flush) UNSCH PRN IVF SEE PROTOCOL; Start 06/05/17 at 11:45 Heparin Sodium (Porcine) (Heparin Inj) UNSCH PRN IV FLUSH SEE PROTOCOL; Start 06/05/17 at 11:45 A/P Problem List: (1) Acute respiratory failure ICD Code: J96.00 - Acute respiratory failure, unspecified whether with hypoxia or hypercapnia Status: Acute (2) Acute on chronic diastolic congestive heart failure ICD Code: I50.33 - Acute on chronic diastolic (congestive) heart failure Status: Acute (3) Acute renal failure ICD Code: N17.9 - Acute kidney failure, unspecified Status: Acute (4) Chronic kidney disease, stage IV (severe) ICD Code: N18.4 - Chronic kidney disease, stage 4 (severe) Status: Chronic Assessment and Plan 87-year-old white male admitted for hypoxia and shortness of breath. Acute respiratory failure due to p acute on chronic diastolic congestive heart failure along -Improved after dialysis. - Continue with oxygen support and wean as tolerated. - Continue with diuretic torsemide and Zaroxolyn, monitor input and output closely. -Continue with dialysis. Acute exacerbation of chronic kidney disease stage IV with likely end-stage renal disease -nephrology is currently following. - status post Vas-Cath. -Per nephrology as he would need AV fistula. COPD, chronic- continue with O2 support and DuoNeb. BPH, chronic - continue home terazosin. Hypertension- continue with home amlodipine and metoprolol and Hytrin.. DVT prophylaxis-heparin Problem Qualifiers (1) Acute respiratory failure: Qualified Codes: J96.01 - Acute respiratory failure with hypoxia Mily Nassar MD Jun 07, 2017 15:30
[2017-06-07] MEDS: TERAZOSIN HCL 1 MG CAP PO SCH (21:23)
[2017-06-08] VITALS: BP 110/58; PULSE 82; RESP 20; TEMP 98.6; O2SAT 98
[2017-06-08 04:00] VITALS: BP 120/69; PULSE 80; RESP 20; TEMP 98.2; O2SAT 97
[2017-06-08 06:19] LABS: AUTOMATED NEUTROPHIL # 4.1 TH/MM3 (1.8-7.7); BASOPHIL # 0.1 TH/MM3 (0-0.2); BASOPHIL % 0.7 % (0.0-2.0); EOSINOPHIL # 0.5 TH/MM3 (0-0.4); EOSINOPHIL % 7.6 % (0.0-4.0); HEMO FLAGS DIFF FINAL; LYMPH % 20.7 % (9.0-44.0); LYMPHOCYTE # 1.5 TH/MM3 (1.0-4.8); MEAN CELL VOLUME 80.8 FL (80.0-100.0); MEAN CORPUSCULAR HEMOGLOBIN 26.2 PG (27.0-34.0); MEAN CORPUSCULAR HGB CONC 32.5 % (32.0-36.0); MONO % 13.2 % (0.0-8.0); NEUT % 57.8 % (16.0-70.0); PLATELET COUNT 123 TH/MM3 (150-450); RED BLOOD COUNT 3.96 MIL/MM3 (4.50-5.90); WHITE BLOOD COUNT 7.1 TH/MM3 (4.0-11.0)
[2017-06-08 06:53] LABS: POTASSIUM 3.4 MEQ/L (3.5-5.1)
[2017-06-08] MEDS ORDERED: SODIUM CHLORID 0.9% 500 ML IV PRN (07:00)
[2017-06-08] MEDS ORDERED: INSULIN HUMAN REGULAR 1,000 UNITS/10 ML VIAL SQ PRN (07:00)
[2017-06-08] MEDS ORDERED: POVIDONE IODINE 5% (ANTISEPSIS KIT) 4 APPLICATIONS EACH NARE PRN (07:00)
[2017-06-08] MEDS ORDERED: LACTATED RINGER'S 1000 ML IV PRN (07:00)
[2017-06-08] MEDS ORDERED: CHLORHEXIDINE GLUCONATE 2 % 1 PACK (2 CLOTHS) TOPICAL PRN (07:00)
[2017-06-08] MEDS ORDERED: METOPROLOL TARTRATE 25 MG TAB PO PRN (07:00)
[2017-06-08 08:00] VITALS: BP 127/57; PULSE 65; PULSE 71; RESP 16; TEMP 97.2; O2SAT 93
--- NOTE | 2017-06-08 12:31 | PD.CAR.PN ---
CVT Progress Note Subjective/Hospital Course: Referral received Full consult and surgery to follow Thanks Alla 06/06/17 Try to see the patient yesterday however he was in some sort of a study and then later got transferred to different floor My attempt to see patient today on the fourth floor failed because patient is now in dialysis Will try to catch up with patient tomorrow 06/07/17 Discussed care with the patient Clinically his veins a very poor and this is confirmed by the venous mapping study The only possibility will be above elebow AV fistula with either basilic or cephalic vein We'll go ahead with the same tomorrow 06/08/17 Patient was initially scheduled for AV fistula of the left arm however family has decided not to proceed with the same yet There would like to discuss this further and perhaps make decisions in a more comprehensive way in a sense of even continuing with the dialysis therapy and I can see there point completely. Surgery has been canceled and I'll be happy to create AV fistula in some other times family is wishes her such Otherwise, I would certainly recommend palliative care consult to discuss option with the patient and the family Objective: Vital Signs Date Time Temp Pulse Resp B/P (MAP) Pulse Ox O2 Delivery O2 Flow Rate FiO2 06/08/17 08:00 97.2 65 16 127/57 (80) 93 06/08/17 04:00 98.2 80 20 120/69 (86) 97 06/08/17 00:00 98.6 82 20 110/58 (75) 98 06/07/17 22:10 98 Nasal Cannula 3.00 06/07/17 21:20 97.9 72 16 125/58 (80) 97 06/07/17 21:20 Nasal Cannula 3.00 06/07/17 20:00 76 06/07/17 16:00 97.7 67 18 118/62 (80) 94 Labs: Laboratory Tests Test 06/08/17 05:05 White Blood Count 7.1 TH/MM3 (4.0-11.0) Red Blood Count 3.96 MIL/MM3 (4.50-5.90) Hemoglobin 10.4 GM/DL (13.0-17.0) Hematocrit 32.0 % (39.0-51.0) Mean Corpuscular Volume 80.8 FL (80.0-100.0) Mean Corpuscular Hemoglobin 26.2 PG (27.0-34.0) Mean Corpuscular Hemoglobin Concent 32.5 % (32.0-36.0) Red Cell Distribution Width 17.0 % (11.6-17.2) Platelet Count 123 TH/MM3 (150-450) Mean Platelet Volume 7.5 FL (7.0-11.0) Neutrophils (%) (Auto) 57.8 % (16.0-70.0) Lymphocytes (%) (Auto) 20.7 % (9.0-44.0) Monocytes (%) (Auto) 13.2 % (0.0-8.0) Eosinophils (%) (Auto) 7.6 % (0.0-4.0) Basophils (%) (Auto) 0.7 % (0.0-2.0) Neutrophils # (Auto) 4.1 TH/MM3 (1.8-7.7) Lymphocytes # (Auto) 1.5 TH/MM3 (1.0-4.8) Monocytes # (Auto) 0.9 TH/MM3 (0-0.9) Eosinophils # (Auto) 0.5 TH/MM3 (0-0.4) Basophils # (Auto) 0.1 TH/MM3 (0-0.2) CBC Comment DIFF FINAL Differential Comment Blood Urea Nitrogen 82 MG/DL (7-18) Creatinine 5.37 MG/DL (0.60-1.30) Random Glucose 89 MG/DL (74-106) Albumin 3.1 GM/DL (3.4-5.0) Calcium Level 8.0 MG/DL (8.5-10.1) Phosphorus Level 6.6 MG/DL (2.5-4.9) Sodium Level 135 MEQ/L (136-145) Potassium Level 3.4 MEQ/L (3.5-5.1) Chloride Level 92 MEQ/L (98-107) Carbon Dioxide Level 31.0 MEQ/L (21.0-32.0) Anion Gap 12 MEQ/L (5-15) Estimat Glomerular Filtration Rate 10 ML/MIN (>89) Result Diagram: 06/08/17 0505 06/08/17 0505 Wendy Gregory MD Jun 08, 2017 12:31
[2017-06-08] MEDS: ASPIRIN 81 MG CHEW TAB CHEW SCH (13:27)
[2017-06-08] MEDS: METOLAZONE 5 MG TAB PO SCH (13:28)
[2017-06-08] MEDS: traMADol HCL 50 MG TAB PO PRN ×2 (13:28→22:13)
[2017-06-08] MEDS: POTASSIUM CHLORIDE 10 MEQ CONTROLLED RELEASE TAB PO SCH ×2 (13:29→20:47)
[2017-06-08] MEDS: SODIUM CHLORIDE 0.9% FLUSH 10 ML FLUSH IV FLUSH SCH ×2 (13:29→20:47)
[2017-06-08] MEDS: METOPROLOL TARTRATE 50 MG TAB PO SCH ×2 (13:29→20:47)
[2017-06-08] MEDS: TORSEMIDE 20 MG TAB PO SCH ×2 (13:29→17:37)
[2017-06-08] MEDS: DOCUSATE SODIUM 50 MG/SENNA 8.6 MG TAB PO SCH ×2 (13:29→20:47)
[2017-06-08] MEDS: guaiFENesin E.R. 600 MG TAB PO SCH ×2 (13:29→20:47)
--- NOTE | 2017-06-08 16:01 | HHI.PR ---
Subjective Remarks Patient seen after dialysis Patient stated that he was tired. He stated that he was upset this morning because he wasn't able to eat then the procedure was canceled. I told patient that it was stated in the note that patient and family did not want the AV fistula. Patient stated that he did not know that. I told patient that it's his decision but to talk it over with everyone and let us know if he wants to proceed with AV fistula placement. Patient has not had a bowel movement yet. Objective Vitals Vital Signs Date Time Temp Pulse Resp B/P (MAP) Pulse Ox O2 Delivery O2 Flow Rate FiO2 06/08/17 08:00 Nasal Cannula 2.00 Humidified 06/08/17 08:00 97.2 65 16 127/57 (80) 93 06/08/17 04:00 98.2 80 20 120/69 (86) 97 06/08/17 00:00 98.6 82 20 110/58 (75) 98 06/07/17 22:10 98 Nasal Cannula 3.00 06/07/17 21:20 97.9 72 16 125/58 (80) 97 06/07/17 21:20 Nasal Cannula 3.00 06/07/17 20:00 76 06/07/17 16:00 97.7 67 18 118/62 (80) 94 I/O 06/07/17 06/07/17 06/07/17 06/08/17 06/08/17 06/08/17 06:59 14:59 22:59 06:59 14:59 22:59 Intake Total 480 ml 105 ml 720 ml Output Total 300 ml 2000 ml Balance 480 ml 105 ml 420 ml -2000 ml Intake Oral 480 ml 720 ml IV Total 105 ml Output Urine Total 300 ml Hemodialysis 2000 ml # Voids 2 # Bowel Movements 0 Result Diagram: 06/08/17 0505 06/08/17 0505 Objective Remarks GENERAL: In no acute distress. CARDIOVASCULAR: Regular rate and rhythm without murmurs, gallops, or rubs. RESPIRATORY: Breath sounds equal bilaterally. No accessory muscle use. No cough noted during exam. GASTROINTESTINAL: Abdomen soft, non-tender, nondistended. MUSCULOSKELETAL: No cyanosis, or edema. BACK: Nontender without obvious deformity. No CVA tenderness. Medications and IVs Current Medications Sodium Chloride (NS Flush) 2 ml UNSCH PRN IVF FLUSH AFTER USING IV ACCESS; Start 06/01/17 at 15:00; Status Cancel Furosemide (Lasix Inj) 40 mg ONCE ONCE IVP Last administered on 06/01/17 15: 17; Start 06/01/17 at 15:00; Stop 06/01/17 at 15:01; Status DC Metolazone (Zaroxolyn) 5 mg DAILY PO Last administered on 06/08/17 13:28; Start 06/01/17 at 17:45 Amlodipine Besylate (Norvasc) 10 mg DAILY PO Last administered on 06/08/17 13: 28; Start 06/02/17 at 09:00 Aspirin (Aspirin Chew) 81 mg DAILY CHEW Last administered on 06/08/17 13:27; Start 06/02/17 at 09:00 Fluticasone Propionate (Flonase Dejon Spr) 1 spray BID PRN EACH NARE ALLERGIES; Start 06/01/17 at 18:30 Loratadine (Claritin) 10 mg DAILY PRN PO ALLERGIES; Start 06/01/17 at 18:30 Metoprolol Tartrate (Lopressor) 50 mg BID PO Last administered on 06/08/17 13: 29; Start 06/01/17 at 21:00 Mirtazapine (Remeron) 10 mg HS PRN PO DEP Last administered on 06/03/17 20:52 ; Start 06/01/17 at 18:30 Artificial Tears (Tears Naturale Opth Soln) 2 drop Q4H PRN EACH EYE DRY EYE; Start 06/01/17 at 18:30 Terazosin HCl (Hytrin) 2 mg HS PO Last administered on 06/07/17 21:23; Start 06/01/17 at 21:00 Tramadol HCl (Ultram) 50 mg Q8H PRN PO PAIN SCALE 3 TO 10 Last administered on 06/08/17 13:28; Start 06/01/17 at 18:30 Sodium Chloride (NS Flush) 2 ml UNSCH PRN IV FLUSH FLUSH AFTER USING IV ACCESS ; Start 06/01/17 at 18:30; Stop 06/01/17 at 18:34; Status DC Sodium Chloride (NS Flush) 2 ml BID IV FLUSH ; Start 06/01/17 at 21:00; Stop at 21:00; Status DC Ondansetron HCl (Zofran Inj) 4 mg Q6H PRN IVP NAUSEA OR VOMITING; Start at 18:30; Status Cancel Prochlorperazine (Compazine Supp) 25 mg Q12H PRN RECTAL NAUSEA OR VOMITING; Start 06/01/17 at 18:30; Status Cancel Acetaminophen (Tylenol) 650 mg Q6H PRN PO PAIN SCALE 1 TO 2 Last administered on 06/07/17 21:31; Start 06/01/17 at 18:30 Oxycodone HCl (Roxicodone) 10 mg Q4H PRN PO PAIN SCALE 6 TO 10; Start 06/01/17 at 18:30; Status Cancel Morphine Sulfate (Morphine Inj) 2 mg Q3H PRN IV Pain 3-5; if unable to take PO ; Start 06/01/17 at 18:30; Status Cancel Morphine Sulfate (Morphine Inj) 4 mg Q3H PRN IV Pain 6-10;if unable to take PO ; Start 06/01/17 at 18:30; Status Cancel Oxycodone HCl (Roxicodone) 5 mg Q4H PRN PO PAIN SCALE 3 TO 5; Start 06/01/17 at 18:30; Status Cancel Naloxone HCl (Narcan Inj) 0.4 mg UNSCH PRN IV SEE LABEL COMMENTS; Start at 18:30 Senna/Docusate Sodium (Indu-Colace) 1 tab BID PO Last administered on 13:29; Start 06/01/17 at 21:00 Magnesium Hydroxide (Milk Of Magnesia Liq) 30 ml Q12H PRN PO MILD - MODERATE CONSTIPATION; Start 06/01/17 at 18:30 Sennosides (Senokot) 17.2 mg Q12H PRN PO MODERATE - SEVERE CONSTIPATION; Start 06/01/17 at 18:30 Bisacodyl (Dulcolax Supp) 10 mg DAILY PRN RECTAL SEVERE CONSITIPATION; Start at 18:30 Lactulose (Lactulose Liq) 30 ml DAILY PRN PO SEVERE CONSITIPATION Last administered on 06/07/17 13:21; Start 06/01/17 at 18:30 Sodium Chloride (NS Flush) 2 ml UNSCH PRN IV FLUSH FLUSH AFTER USING IV ACCESS ; Start 06/01/17 at 18:30 Sodium Chloride (NS Flush) 2 ml BID IV FLUSH Last administered on 06/08/17 13: 29; Start 06/01/17 at 21:00 Furosemide (Lasix Inj) 40 mg BID@09,18 IVP Last administered on 06/03/17 09:12 ; Start 06/02/17 at 09:00; Stop 06/03/17 at 16:41; Status DC Metolazone (Zaroxolyn) 5 mg DAILY PO ; Start 06/02/17 at 09:00; Status Cancel Potassium Chloride (KCl) 10 meq BID PO Last administered on 06/08/17 13:29; Start 06/01/17 at 21:00 Albuterol/ Ipratropium (Duoneb Neb) 1 ampule Q4HR NEB PRN NEB SHORTNESS OF BREATH; Start 06/01/17 at 19:00 Guaifenesin (Mucinex Er) 600 mg BID PO Last administered on 06/08/17 13:29; Start 06/01/17 at 21:00 Torsemide (Demadex) 40 mg BID@18 PO Last administered on 06/08/17 13:29; Start 06/03/17 at 18:00 Diphenhydramine HCl (Benadryl) 25 mg ONCE ONCE PO Last administered on 01:17; Start 06/04/17 at 01:00; Stop 06/04/17 at 01:01; Status DC Sodium Chloride 1,000 ml @ 0 mls/hr Q0M PRN OTHER For Prime & Rinse Back; Start 06/04/17 at 17:23 Heparin Sodium (Porcine) (Heparin Inj) 8,000 units UNSCH PRN IVF WITH DIALYSIS ; Start 06/04/17 at 17:30 Sodium Chloride 1,000 ml @ 200 mls/hr Q5H PRN IV WITH DIALYSIS; Start 06/04/17 at 17:23 Sodium Chloride 1,000 ml @ 0 mls/hr Q0M PRN OTHER WITH DIALYSIS Last administered on 06/06/17 10:00; Start 06/04/17 at 17:23 Mannitol (Mannitol Inj) 12.5 gm UNSCH PRN IV WITH DIALYSIS; Start 06/04/17 at 17:30 Albumin Human (Albumin 25% Inj) 25 gm UNSCH PRN IV WITH DIALYSIS; Start at 17:30 Sodium Chloride (NS Flush) 5 ml UNSCH PRN IV FLUSH WITH DIALYSIS; Start at 17:30 Heparin Sodium (Porcine) (Heparin Inj) UNSCH PRN .XX WITH DIALYSIS; Start at 17:30 Gentamicin Sulfate (Gentamicin (Dialysis) Inj) 20 mg UNSCH PRN IV WITH DIALYSIS Last administered on 06/06/17 10:00; Start 06/04/17 at 17:30 Ondansetron HCl (Zofran Inj) 4 mg UNSCH PRN IV WITH DIALYSIS; Start 06/04/17 at 17:30 Acetaminophen (Tylenol) 650 mg UNSCH PRN PO for headach, pain, temp > 101F; Start 06/04/17 at 17:30 Diphenhydramine HCl (Benadryl) 25 mg UNSCH PRN PO for hives/itching/anaphylaxis ; Start 06/04/17 at 17:30 Nitroglycerin (Nitrostat Sl) 0.4 mg UNSCH PRN SL CHEST PAIN; Start 06/04/17 at 17:30 Clonidine (Catapres) 0.1 mg UNSCH PRN PO for BP > 180/100 X 2 readings; Start 06/04/17 at 17:30 Epoetin Tera (Epogen Inj) 6,000 units UNSCH PRN IV WITH DIALYSIS Last administered on 06/06/17 10:00; Start 06/04/17 at 17:30 Gelatin (Gelfoam 12 Mm/7 Mm Top) 1 foam UNSCH PRN TOP SEE LABEL COMMENTS; Start 06/04/17 at 17:30 Iron Sucrose 100 mg/Sodium Chloride 105 ml @ 105 mls/hr DAILY IV Last administered on 06/07/17 13:01; Start 06/05/17 at 09:00; Stop 06/07/17 at 09:59 ; Status DC Vancomycin HCl 1000 mg/Sodium Chloride 250 ml @ 250 mls/hr [employer] IV Last administered on 06/05/17 10:17; Start 06/05/17 at 09:15; Stop 06/09/17 at 09:14 Atropine Sulfate (Atropine Inj) 1 mg STK-MED ONCE .ROUTE ; Start 06/05/17 at 10: 30; Stop 06/05/17 at 10:31; Status DC Epinephrine HCl (EPINEPHrine (1:10,000) INJ) 1 mg STK-MED ONCE .ROUTE ; Start at 10:30; Stop 06/05/17 at 10:31; Status DC Midazolam HCl (Versed Inj) 2 mg STK-MED ONCE .ROUTE Last administered on 10:45; Start 06/05/17 at 10:45; Stop 06/05/17 at 10:46; Status DC Midazolam HCl (Versed Inj) 2 mg STK-MED ONCE .ROUTE ; Start 06/05/17 at 10:45; Stop 06/05/17 at 10:46; Status DC Fentanyl Citrate (fentaNYL INJ) 250 mcg STK-MED ONCE .ROUTE Last administered on 06/05/17 10:45; Start 06/05/17 at 10:45; Stop 06/05/17 at 10:46; Status DC Heparin Sodium (Porcine) (*HEPARIN INJ Periprocedural ONLY) 10,000 units STK- MED ONCE .ROUTE Last administered on 06/05/17 11:25; Start 06/05/17 at 10:56; Stop 06/05/17 at 10:57; Status DC Lidocaine/ Epinephrine (Xylocaine-Epi Mpf 1%-1:200,000 Inj) 30 ml STK-MED ONCE .ROUTE Last administered on 06/05/17 11:16; Start 06/05/17 at 10:56; Stop at 10:57; Status DC Sodium Chloride (NS Flush) UNSCH PRN IVF SEE PROTOCOL; Start 06/05/17 at 11:45 Heparin Sodium (Porcine) (Heparin Inj) UNSCH PRN IV FLUSH SEE PROTOCOL; Start 06/05/17 at 11:45 Lactated Ringer's 1,000 ml @ 30 mls/hr Q24H PRN IV SEE LABEL COMMENTS; Start at 07:00; Stop 06/11/17 at 06:59 Sodium Chloride 500 ml @ 30 mls/hr [id number] PRN IV SEE LABEL COMMENTS; Start at 07:00; Stop 06/11/17 at 06:59 Metoprolol Tartrate (Lopressor) 25 mg [employer] PRN PO SEE LABEL COMMENTS; Start 06/08/17 at 07:00; Stop 06/11/17 at 06:59 Povidone Iodine (Betadine 5% Antisepsis Kit) 1 applic [employer] PRN EACH NARE SEE LABEL COMMENTS; Start 06/08/17 at 07:00; Stop 06/11/17 at 06:59 Chlorhexidine Gluconate (Chlorhexidine 2% Cloth) 3 pack [employer] PRN TOPICAL SEE LABEL COMMENTS; Start 06/08/17 at 07:00; Stop 06/11/17 at 06:59 Insulin Human Regular (NovoLIN R INJ) See Protocol Table ... [employer] PRN SQ SEE PROTOCOL TABLE; Start 06/08/17 at 07:00; Stop 06/11/17 at 06:59 A/P Problem List: (1) Acute respiratory failure ICD Code: J96.00 - Acute respiratory failure, unspecified whether with hypoxia or hypercapnia Status: Acute (2) Acute on chronic diastolic congestive heart failure ICD Code: I50.33 - Acute on chronic diastolic (congestive) heart failure Status: Acute (3) Acute renal failure ICD Code: N17.9 - Acute kidney failure, unspecified Status: Acute (4) Chronic kidney disease, stage IV (severe) ICD Code: N18.4 - Chronic kidney disease, stage 4 (severe) Status: Chronic Assessment and Plan 87-year-old white male admitted for hypoxia and shortness of breath. Acute respiratory failure due to p acute on chronic diastolic congestive heart failure along -Improved after dialysis. - Continue with oxygen support and wean as tolerated. - Continue with diuretic torsemide and Zaroxolyn, monitor input and output closely. -Continue with dialysis. Acute exacerbation of chronic kidney disease stage IV with likely end-stage renal disease -nephrology is currently following. - status post Vas-Cath. -Per nephrology as he would need AV fistula -Per note patient and family declined AV fistula so procedure was canceled this morning. Patient was unaware. I told patient to talk it over family again and if he wants to AV fistula to notify us. COPD, chronic- continue with O2 support and DuoNeb. BPH, chronic - continue home terazosin. Hypertension- continue with home amlodipine and metoprolol and Hytrin. Constipation -Has not improved with stool softeners or laxatives. Will try suppository. DVT prophylaxis-heparin Problem Qualifiers (1) Acute respiratory failure: Qualified Codes: J96.01 - Acute respiratory failure with hypoxia Mily Nassar MD Jun 08, 2017 16:01
[2017-06-08 16:09] VITALS: BP 96/53; PULSE 80; RESP 21; TEMP 97.8; O2SAT 93
[2017-06-08] MEDS ORDERED: BISACODYL 10 MG SUPP RECTAL ONE (16:15)
[2017-06-08 20:00] VITALS: BP 106/55; PULSE 73; RESP 19; TEMP 98.5; O2SAT 95
[2017-06-08 20:11] VITALS: PULSE 72
[2017-06-08] MEDS: TERAZOSIN HCL 1 MG CAP PO SCH (20:47)
--- NOTE | 2017-06-08 22:02 | HHI.NPPN ---
Subjective History of Present Illness 87-year-old male with past medical history of hypertension, ischemic heart disease and chronic kidney disease, chronic back pain and leg pain was brought to the hospital because of worsening shortness of breath. I was called to see the patient because of elevated BUN and creatinine. The patient has creatinine of 4.5 on presentation. Previously he has creatinine as high as 4.4. [facility]. Additional Remarks Patient is alert, seen during HD, has mild SOB. Review of Systems General Constitutional: Fatigue Respiratory Lungs: SOB, Cough, Sputum, Wheeze Cardiovascular Cardiac: CLEMONS Objective Data Data 06/08/17 06/09/17 19:00 07:00 Output Total 2000 ml Balance -2000 ml Hemodialysis 2000 ml Vital Signs Date Time Temp Pulse Resp B/P (MAP) Pulse Ox O2 Delivery O2 Flow Rate FiO2 06/08/17 16:09 97.8 80 21 96/53 (67) 93 06/08/17 16:00 3.00 06/08/17 12:00 3.00 06/08/17 08:00 Nasal Cannula 2.00 Humidified 06/08/17 08:00 71 06/08/17 08:00 97.2 65 16 127/57 (80) 93 06/08/17 04:00 98.2 80 20 120/69 (86) 97 06/08/17 00:00 98.6 82 20 110/58 (75) 98 06/07/17 22:10 98 Nasal Cannula 3.00 -: 06/08/17 0505 06/08/17 0505 Physical Exam General Appearance: No Acute Distress, Comfortable Eyes Eye Exam: Pupils Equal Throat Throat Exam: Oral Mucosa [place] & Moist Neck Neck Exam: Neck Supple Pulmonary Resp Exam: Breath Sounds Equal, No Distress, Crackles, Rhonchi, Decreased Bases , Diminished Breath Sounds Cardiology CV Exam: Regular, Normal Sinus Rhythm Gastrointestinal/Abdomen GI Exam: Soft, Non-Tender, Bowel Sounds Present, Non-Distended Extremeties Extremities Exam: Trace Edema Neurologic Neuro Exam: Alert, Awake, Oriented Psychiatric Psych Exam: Appropriate Responses Assessment/Plan Assessment Summary: Anemia of CKD, Fluid/Volume Overload, CKD Stage IV Problem List: (1) Hypoxia ICD Codes: R09.02 - Hypoxemia Status: Acute (2) CAD (coronary artery disease) ICD Codes: I25.10 - CAD (coronary artery disease) Status: Acute (3) COPD (chronic obstructive pulmonary disease) ICD Codes: J44.9 - Chronic obstructive pulmonary disease Status: Acute (4) Hypertension ICD Codes: I10 - Hypertension Status: Acute (5) Congestive heart failure ICD Codes: I50.9 - Heart failure, unspecified Status: Acute (6) Chronic kidney disease, stage IV (severe) ICD Codes: N18.4 - Chronic kidney disease, stage 4 (severe) Status: Chronic Plan Patient has advance renal disease and GFR is decreasing. On Torsemide and non oliguric. K is normal. Discussed with the daughter and patient about possible Dialysis. I tried to call his [employer] and got answering machine. Patient and family agreed about starting HD. He will need AVF and PermCath. Iron supplement and Epogen. Started on HD, 2nd treatment today. I have extensive discussion with patient and family about residential HD. Patient was not sure, but ad=fter today's HD , he want to continue HD. I informed Vascular surgery , and will have AVF possibly on Thu. Verona Raya MD Jun 08, 2017 22:02
[2017-06-09] VITALS (9 sets, daily range): BP systolic 99–137; BP diastolic 51–73; PULSE 67–77; RESP 17–21; TEMP 96.9–98.8; O2SAT 93–100
[2017-06-09] MEDS: DOCUSATE SODIUM 50 MG/SENNA 8.6 MG TAB PO SCH ×2 (08:02→20:35)
[2017-06-09] MEDS: ASPIRIN 81 MG CHEW TAB CHEW SCH (08:02)
[2017-06-09] MEDS: guaiFENesin E.R. 600 MG TAB PO SCH ×2 (08:02→20:35)
[2017-06-09] MEDS: traMADol HCL 50 MG TAB PO PRN ×3 (08:02→20:35)
[2017-06-09] MEDS: METOPROLOL TARTRATE 50 MG TAB PO SCH ×2 (08:03→20:35)
[2017-06-09] MEDS: METOLAZONE 5 MG TAB PO SCH (08:03)
[2017-06-09] MEDS: POTASSIUM CHLORIDE 10 MEQ CONTROLLED RELEASE TAB PO SCH ×2 (08:03→20:35)
[2017-06-09] MEDS: TORSEMIDE 20 MG TAB PO SCH ×2 (08:03→18:25)
[2017-06-09] MEDS: SODIUM CHLORIDE 0.9% FLUSH 10 ML FLUSH IV FLUSH SCH ×2 (08:08→20:36)
[2017-06-09] MEDS: ACETAMINOPHEN 325 MG TAB PO PRN (12:02)
--- NOTE | 2017-06-09 14:47 | HHI.PR ---
Subjective Remarks Follow-up for renal disease Patient found sitting in the chair in no acute distress. He had no complaints. Deny any shortness of breathing. His daughter and son-in-law are at the bedside during the interview. Daughter had questions about his diet. Objective Vitals Vital Signs Date Time Temp Pulse Resp B/P (MAP) Pulse Ox O2 Delivery O2 Flow Rate FiO2 06/09/17 12:00 98.1 67 20 108/51 (70) 100 06/09/17 08:15 96 Nasal Cannula 06/09/17 08:00 98.8 74 20 122/61 (81) 96 06/09/17 08:00 77 06/09/17 08:00 Nasal Cannula 3.00 06/09/17 04:00 98.0 73 21 131/73 (92) 93 06/09/17 04:00 Nasal Cannula 3.00 Humidified 06/09/17 00:00 98.5 74 17 115/59 (77) 94 06/09/17 00:00 Nasal Cannula 3.00 Humidified 06/08/17 23:15 18 06/08/17 20:50 Nasal Cannula Humidified 06/08/17 20:11 72 06/08/17 20:00 98.5 73 19 106/55 (72) 95 06/08/17 16:09 97.8 80 21 96/53 (67) 93 06/08/17 16:00 3.00 I/O 06/08/17 06/08/17 06/08/17 06/09/17 06/09/17 06/09/17 07:00 15:00 23:00 07:00 15:00 23:00 Intake Total 880 ml Output Total 2000 ml 450 ml Balance -2000 ml 430 ml Intake Oral 880 ml Output Urine Total 450 ml Hemodialysis 2000 ml # Bowel Movements 0 Result Diagram: 06/08/17 0505 06/08/17 0505 Objective Remarks GENERAL: In no acute distress. CARDIOVASCULAR: Regular rate and rhythm without murmurs, gallops, or rubs. RESPIRATORY: Breath sounds equal bilaterally. No accessory muscle use. No cough noted during exam. GASTROINTESTINAL: Abdomen soft, non-tender, nondistended. MUSCULOSKELETAL: No cyanosis, or edema. BACK: Nontender without obvious deformity. No CVA tenderness. Medications and IVs Current Medications Sodium Chloride (NS Flush) 2 ml UNSCH PRN IVF FLUSH AFTER USING IV ACCESS; Start 06/01/17 at 15:00; Status Cancel Furosemide (Lasix Inj) 40 mg ONCE ONCE IVP Last administered on 06/01/17 15: 17; Start 06/01/17 at 15:00; Stop 06/01/17 at 15:01; Status DC Metolazone (Zaroxolyn) 5 mg DAILY PO Last administered on 06/09/17 08:03; Start 06/01/17 at 17:45 Amlodipine Besylate (Norvasc) 10 mg DAILY PO Last administered on 06/09/17 08: 03; Start 06/02/17 at 09:00 Aspirin (Aspirin Chew) 81 mg DAILY CHEW Last administered on 06/09/17 08:02; Start 06/02/17 at 09:00 Fluticasone Propionate (Flonase Dejon Spr) 1 spray BID PRN EACH NARE ALLERGIES; Start 06/01/17 at 18:30 Loratadine (Claritin) 10 mg DAILY PRN PO ALLERGIES; Start 06/01/17 at 18:30 Metoprolol Tartrate (Lopressor) 50 mg BID PO Last administered on 06/09/17 08: 03; Start 06/01/17 at 21:00 Mirtazapine (Remeron) 10 mg HS PRN PO DEP Last administered on 06/03/17 20:52 ; Start 06/01/17 at 18:30 Artificial Tears (Tears Naturale Opth Soln) 2 drop Q4H PRN EACH EYE DRY EYE; Start 06/01/17 at 18:30 Terazosin HCl (Hytrin) 2 mg HS PO Last administered on 06/08/17 20:47; Start 06/01/17 at 21:00 Tramadol HCl (Ultram) 50 mg Q8H PRN PO PAIN SCALE 3 TO 10 Last administered on 06/09/17 08:02; Start 06/01/17 at 18:30 Sodium Chloride (NS Flush) 2 ml UNSCH PRN IV FLUSH FLUSH AFTER USING IV ACCESS ; Start 06/01/17 at 18:30; Stop 06/01/17 at 18:34; Status DC Sodium Chloride (NS Flush) 2 ml BID IV FLUSH ; Start 06/01/17 at 21:00; Stop at 21:00; Status DC Ondansetron HCl (Zofran Inj) 4 mg Q6H PRN IVP NAUSEA OR VOMITING; Start at 18:30; Status Cancel Prochlorperazine (Compazine Supp) 25 mg Q12H PRN RECTAL NAUSEA OR VOMITING; Start 06/01/17 at 18:30; Status Cancel Acetaminophen (Tylenol) 650 mg Q6H PRN PO PAIN SCALE 1 TO 2 Last administered on 06/09/17 12:02; Start 06/01/17 at 18:30 Oxycodone HCl (Roxicodone) 10 mg Q4H PRN PO PAIN SCALE 6 TO 10; Start 06/01/17 at 18:30; Status Cancel Morphine Sulfate (Morphine Inj) 2 mg Q3H PRN IV Pain 3-5; if unable to take PO ; Start 06/01/17 at 18:30; Status Cancel Morphine Sulfate (Morphine Inj) 4 mg Q3H PRN IV Pain 6-10;if unable to take PO ; Start 06/01/17 at 18:30; Status Cancel Oxycodone HCl (Roxicodone) 5 mg Q4H PRN PO PAIN SCALE 3 TO 5; Start 06/01/17 at 18:30; Status Cancel Naloxone HCl (Narcan Inj) 0.4 mg UNSCH PRN IV SEE LABEL COMMENTS; Start at 18:30 Senna/Docusate Sodium (Indu-Colace) 1 tab BID PO Last administered on 08:02; Start 06/01/17 at 21:00 Magnesium Hydroxide (Milk Of Magnesia Liq) 30 ml Q12H PRN PO MILD - MODERATE CONSTIPATION; Start 06/01/17 at 18:30 Sennosides (Senokot) 17.2 mg Q12H PRN PO MODERATE - SEVERE CONSTIPATION; Start 06/01/17 at 18:30 Bisacodyl (Dulcolax Supp) 10 mg DAILY PRN RECTAL SEVERE CONSITIPATION; Start at 18:30 Lactulose (Lactulose Liq) 30 ml DAILY PRN PO SEVERE CONSITIPATION Last administered on 06/07/17 13:21; Start 06/01/17 at 18:30 Sodium Chloride (NS Flush) 2 ml UNSCH PRN IV FLUSH FLUSH AFTER USING IV ACCESS ; Start 06/01/17 at 18:30 Sodium Chloride (NS Flush) 2 ml BID IV FLUSH Last administered on 06/09/17 08: 08; Start 06/01/17 at 21:00 Furosemide (Lasix Inj) 40 mg BID@09,18 IVP Last administered on 06/03/17 09:12 ; Start 06/02/17 at 09:00; Stop 06/03/17 at 16:41; Status DC Metolazone (Zaroxolyn) 5 mg DAILY PO ; Start 06/02/17 at 09:00; Status Cancel Potassium Chloride (KCl) 10 meq BID PO Last administered on 06/09/17 08:03; Start 06/01/17 at 21:00 Albuterol/ Ipratropium (Duoneb Neb) 1 ampule Q4HR NEB PRN NEB SHORTNESS OF BREATH; Start 06/01/17 at 19:00 Guaifenesin (Mucinex Er) 600 mg BID PO Last administered on 06/09/17 08:02; Start 06/01/17 at 21:00 Torsemide (Demadex) 40 mg BID@18 PO Last administered on 06/09/17 08:03; Start 06/03/17 at 18:00 Diphenhydramine HCl (Benadryl) 25 mg ONCE ONCE PO Last administered on 01:17; Start 06/04/17 at 01:00; Stop 06/04/17 at 01:01; Status DC Sodium Chloride 1,000 ml @ 0 mls/hr Q0M PRN OTHER For Prime & Rinse Back; Start 06/04/17 at 17:23 Heparin Sodium (Porcine) (Heparin Inj) 8,000 units UNSCH PRN IVF WITH DIALYSIS ; Start 06/04/17 at 17:30 Sodium Chloride 1,000 ml @ 200 mls/hr Q5H PRN IV WITH DIALYSIS; Start 06/04/17 at 17:23 Sodium Chloride 1,000 ml @ 0 mls/hr Q0M PRN OTHER WITH DIALYSIS Last administered on 06/06/17 10:00; Start 06/04/17 at 17:23 Mannitol (Mannitol Inj) 12.5 gm UNSCH PRN IV WITH DIALYSIS; Start 06/04/17 at 17:30 Albumin Human (Albumin 25% Inj) 25 gm UNSCH PRN IV WITH DIALYSIS; Start at 17:30 Sodium Chloride (NS Flush) 5 ml UNSCH PRN IV FLUSH WITH DIALYSIS; Start at 17:30 Heparin Sodium (Porcine) (Heparin Inj) UNSCH PRN .XX WITH DIALYSIS; Start at 17:30 Gentamicin Sulfate (Gentamicin (Dialysis) Inj) 20 mg UNSCH PRN IV WITH DIALYSIS Last administered on 06/06/17 10:00; Start 06/04/17 at 17:30 Ondansetron HCl (Zofran Inj) 4 mg UNSCH PRN IV WITH DIALYSIS; Start 06/04/17 at 17:30 Acetaminophen (Tylenol) 650 mg UNSCH PRN PO for headach, pain, temp > 101F; Start 06/04/17 at 17:30 Diphenhydramine HCl (Benadryl) 25 mg UNSCH PRN PO for hives/itching/anaphylaxis ; Start 06/04/17 at 17:30 Nitroglycerin (Nitrostat Sl) 0.4 mg UNSCH PRN SL CHEST PAIN; Start 06/04/17 at 17:30 Clonidine (Catapres) 0.1 mg UNSCH PRN PO for BP > 180/100 X 2 readings; Start 06/04/17 at 17:30 Epoetin Tera (Epogen Inj) 6,000 units UNSCH PRN IV WITH DIALYSIS Last administered on 06/06/17 10:00; Start 06/04/17 at 17:30 Gelatin (Gelfoam 12 Mm/7 Mm Top) 1 foam UNSCH PRN TOP SEE LABEL COMMENTS; Start 06/04/17 at 17:30 Iron Sucrose 100 mg/Sodium Chloride 105 ml @ 105 mls/hr DAILY IV Last administered on 06/07/17 13:01; Start 06/05/17 at 09:00; Stop 06/07/17 at 09:59 ; Status DC Vancomycin HCl 1000 mg/Sodium Chloride 250 ml @ 250 mls/hr POLITICAL GEOGRAPHER IV Last administered on 06/05/17 10:17; Start 06/05/17 at 09:15; Stop 06/09/17 at 09:14 ; Status DC Atropine Sulfate (Atropine Inj) 1 mg STK-MED ONCE .ROUTE ; Start 06/05/17 at 10: 30; Stop 06/05/17 at 10:31; Status DC Epinephrine HCl (EPINEPHrine (1:10,000) INJ) 1 mg STK-MED ONCE .ROUTE ; Start at 10:30; Stop 06/05/17 at 10:31; Status DC Midazolam HCl (Versed Inj) 2 mg STK-MED ONCE .ROUTE Last administered on 10:45; Start 06/05/17 at 10:45; Stop 06/05/17 at 10:46; Status DC Midazolam HCl (Versed Inj) 2 mg STK-MED ONCE .ROUTE ; Start 06/05/17 at 10:45; Stop 06/05/17 at 10:46; Status DC Fentanyl Citrate (fentaNYL INJ) 250 mcg STK-MED ONCE .ROUTE Last administered on 06/05/17 10:45; Start 06/05/17 at 10:45; Stop 06/05/17 at 10:46; Status DC Heparin Sodium (Porcine) (*HEPARIN INJ Periprocedural ONLY) 10,000 units STK- MED ONCE .ROUTE Last administered on 06/05/17 11:25; Start 06/05/17 at 10:56; Stop 06/05/17 at 10:57; Status DC Lidocaine/ Epinephrine (Xylocaine-Epi Mpf 1%-1:200,000 Inj) 30 ml STK-MED ONCE .ROUTE Last administered on 06/05/17 11:16; Start 06/05/17 at 10:56; Stop at 10:57; Status DC Sodium Chloride (NS Flush) UNSCH PRN IVF SEE PROTOCOL; Start 06/05/17 at 11:45 Heparin Sodium (Porcine) (Heparin Inj) UNSCH PRN IV FLUSH SEE PROTOCOL; Start 06/05/17 at 11:45 Lactated Ringer's 1,000 ml @ 30 mls/hr Q24H PRN IV SEE LABEL COMMENTS; Start at 07:00; Stop 06/11/17 at 06:59 Sodium Chloride 500 ml @ 30 mls/hr [id number] PRN IV SEE LABEL COMMENTS; Start at 07:00; Stop 06/11/17 at 06:59 Metoprolol Tartrate (Lopressor) 25 mg POLITICAL GEOGRAPHER PRN PO SEE LABEL COMMENTS; Start 06/08/17 at 07:00; Stop 06/11/17 at 06:59 Povidone Iodine (Betadine 5% Antisepsis Kit) 1 applic POLITICAL GEOGRAPHER PRN EACH NARE SEE LABEL COMMENTS; Start 06/08/17 at 07:00; Stop 06/11/17 at 06:59 Chlorhexidine Gluconate (Chlorhexidine 2% Cloth) 3 pack POLITICAL GEOGRAPHER PRN TOPICAL SEE LABEL COMMENTS; Start 06/08/17 at 07:00; Stop 06/11/17 at 06:59 Insulin Human Regular (NovoLIN R INJ) See Protocol Table ... POLITICAL GEOGRAPHER PRN SQ SEE PROTOCOL TABLE; Start 06/08/17 at 07:00; Stop 06/11/17 at 06:59 Bisacodyl (Dulcolax Supp) 10 mg ONCE ONCE RECTAL Last administered on t 17:37; Start 06/08/17 at 16:15; Stop 06/08/17 at 16:41; Status DC A/P Problem List: (1) Acute respiratory failure ICD Code: J96.00 - Acute respiratory failure, unspecified whether with hypoxia or hypercapnia Status: Acute (2) Acute on chronic diastolic congestive heart failure ICD Code: I50.33 - Acute on chronic diastolic (congestive) heart failure Status: Acute (3) Acute renal failure ICD Code: N17.9 - Acute kidney failure, unspecified Status: Acute (4) Chronic kidney disease, stage IV (severe) ICD Code: N18.4 - Chronic kidney disease, stage 4 (severe) Status: Chronic Assessment and Plan 87-year-old white male admitted for hypoxia and shortness of breath. Acute respiratory failure due to p acute on chronic diastolic congestive heart failure along -Improved after dialysis. - Continue with diuretic torsemide and Zaroxolyn, monitor input and output closely. -Continue with dialysis. Acute exacerbation of chronic kidney disease stage IV with likely end-stage renal disease -nephrology is currently following. - status post Vas-Cath. -Per nephrology as he would need AV fistula -Patient scheduled for AV fistula tomorrow. -Will consult dietitian since patient does not understand renal diet. Daughter wants to be notify since patient does not have a good memory so that she would know what patient can eat. COPD, chronic- continue with O2 support and DuoNeb. BPH, chronic - continue home terazosin. Hypertension- continue with home amlodipine and metoprolol and Hytrin. Constipation -Patient given a suppository yesterday with no improvement. Will give him a dose of lactulose. DVT prophylaxis-heparin Discharge Planning Patient is scheduled for AV fistula placement tomorrow. Problem Qualifiers (1) Acute respiratory failure: Qualified Codes: J96.01 - Acute respiratory failure with hypoxia Mily Nassar MD Jun 09, 2017 14:47
[2017-06-09] MEDS ORDERED: LACTULOSE SYRUP 20 GM/30 ML CUP PO ONE (15:15)
--- NOTE | 2017-06-09 16:50 | HHI.NPPN ---
Subjective History of Present Illness 87-year-old male with past medical history of hypertension, ischemic heart disease and chronic kidney disease, chronic back pain and leg pain was brought to the hospital because of worsening shortness of breath. I was called to see the patient because of elevated BUN and creatinine. The patient has creatinine of 4.5 on presentation. Previously he has creatinine as high as 4.4. [facility]. Additional Remarks Patient is alert, sitting on chair, breathing is better. Review of Systems General Constitutional: Fatigue Respiratory Lungs: SOB, Cough, Sputum, Wheeze Cardiovascular Cardiac: CLEMONS Objective Data Data Vital Signs Date Time Temp Pulse Resp B/P (MAP) Pulse Ox O2 Delivery O2 Flow Rate FiO2 06/09/17 12:00 98.1 67 20 108/51 (70) 100 06/09/17 08:15 96 Nasal Cannula 06/09/17 08:00 98.8 74 20 122/61 (81) 96 06/09/17 08:00 77 06/09/17 08:00 Nasal Cannula 3.00 06/09/17 04:00 98.0 73 21 131/73 (92) 93 06/09/17 04:00 Nasal Cannula 3.00 Humidified 06/09/17 00:00 98.5 74 17 115/59 (77) 94 06/09/17 00:00 Nasal Cannula 3.00 Humidified 06/08/17 23:15 18 06/08/17 20:50 Nasal Cannula Humidified 06/08/17 20:11 72 06/08/17 20:00 98.5 73 19 106/55 (72) 95 -: 06/08/17 0505 06/08/17 0505 Physical Exam General Appearance: No Acute Distress, Comfortable Eyes Eye Exam: Pupils Equal Throat Throat Exam: Oral Mucosa [place] & Moist Neck Neck Exam: Neck Supple Pulmonary Resp Exam: Breath Sounds Equal, No Distress, Crackles, Rhonchi, Decreased Bases , Diminished Breath Sounds Cardiology CV Exam: Regular, Normal Sinus Rhythm Gastrointestinal/Abdomen GI Exam: Soft, Non-Tender, Bowel Sounds Present, Non-Distended Extremeties Extremities Exam: Trace Edema Neurologic Neuro Exam: Alert, Awake, Oriented Psychiatric Psych Exam: Appropriate Responses Assessment/Plan Assessment Summary: Anemia of CKD, Fluid/Volume Overload, CKD Stage IV Problem List: (1) Hypoxia ICD Codes: R09.02 - Hypoxemia Status: Acute (2) CAD (coronary artery disease) ICD Codes: I25.10 - CAD (coronary artery disease) Status: Acute (3) COPD (chronic obstructive pulmonary disease) ICD Codes: J44.9 - Chronic obstructive pulmonary disease Status: Acute (4) Hypertension ICD Codes: I10 - Hypertension Status: Acute (5) Congestive heart failure ICD Codes: I50.9 - Heart failure, unspecified Status: Acute (6) Chronic kidney disease, stage IV (severe) ICD Codes: N18.4 - Chronic kidney disease, stage 4 (severe) Status: Chronic Plan Patient has advance renal disease and GFR is decreasing. On Torsemide and non oliguric. K is normal. Discussed with the daughter and patient about possible Dialysis. I tried to call his Car Framer and got answering machine. Patient and family agreed about starting HD. He will need AVF and PermCath. Iron supplement and Epogen. Started on HD Patient now agreed to continue HD. I spoke to vascular to get AVF, possibly in AM,. Problem Qualifiers (1) Hypertension: Qualified Codes: I10 - Essential (primary) hypertension Verona Raya MD Jun 09, 2017 16:50
[2017-06-09] MEDS: TERAZOSIN HCL 1 MG CAP PO SCH (20:35)
[2017-06-10] VITALS (8 sets, daily range): BP systolic 107–124; BP diastolic 54–64; PULSE 63–81; RESP 18–20; TEMP 97.2–98.2; O2SAT 93–99
[2017-06-10] MEDS: traMADol HCL 50 MG TAB PO PRN ×2 (00:24→04:51)
[2017-06-10] MEDS: SODIUM CHLORIDE 0.9% FLUSH 10 ML FLUSH IV FLUSH SCH ×2 (09:00→20:22)
[2017-06-10] MEDS: ASPIRIN 81 MG CHEW TAB CHEW SCH (09:00)
[2017-06-10] MEDS: TORSEMIDE 20 MG TAB PO SCH ×2 (09:32→20:24)
[2017-06-10] MEDS: METOPROLOL TARTRATE 50 MG TAB PO SCH ×2 (09:33→20:22)
[2017-06-10] MEDS: guaiFENesin E.R. 600 MG TAB PO SCH ×2 (09:33→20:22)
[2017-06-10] MEDS: POTASSIUM CHLORIDE 10 MEQ CONTROLLED RELEASE TAB PO SCH ×2 (09:33→20:22)
[2017-06-10] MEDS: METOLAZONE 5 MG TAB PO SCH (09:34)
[2017-06-10] MEDS: DOCUSATE SODIUM 50 MG/SENNA 8.6 MG TAB PO SCH ×2 (09:34→20:21)
--- NOTE | 2017-06-10 10:52 | RADRPT ---
EXAM DATE/TIME: 06/05/2017 10:26 [facility] COMPARISON: No previous studies available for comparison. INDICATIONS : Patient with history chronic renal disease in need of permcath placement. MEDICAL HISTORY : 1.CHF 2.Liver cancer 3.CKD 4.AAA 5.HTN 6.CAD 7.BPH 8.Osteoarthritis SURGICAL HISTORY : 1.Cervical neck surgery 2.Bilateral elbow and neck surgery ENCOUNTER: Initial ACUITY: >1 year PAIN SCORE: 0/10 FLUORO TIME: 0.4 minutes IMAGE SERIES: 1 SEDATION TIME: 25 minutes ACCESS: Right internal jugular vein SEDATION: 1.) 1 mg midazolam (Versed) IV 2.) 75 mcg fentanyl (Sublimaze) IV Prophylactic antibiotics were administered with appropriate pre-procedure timing. Vancomycin within 2 hours of procedure, Ancef (or alternative) within 1 hour of procedure. DEVICE: 1. 15 [place] dual lumen 23 cm Jesus II Plus catheter PROCEDURE : 1. Ultrasound-guided venipuncture. 2. PermaCath placement. 3. Conscious sedation with continuous EKG and oximetry monitoring. The risks, benefits and alternatives to the procedure were explained and verbal and written consent w as obtained. The site was prepped in sterile fashion. Full sterile technique was used, including ca p, mask, sterile gloves and gown and a large sterile sheet. Hand hygiene and 2% chlorhexidine and/or betadine/alcohol prep was utilized per protocol for cutaneous antisepsis. The skin and subcutaneous tissues were infiltrated with local anesthetic solution. Sterile gel and sterile probe cover were u tilized for ultrasound guidance. With ultrasound and fluoroscopic guidance a dermatotomy was created over the prescribed vein. A micr opuncture set was used to access the targeted vein and serial dilatation was performed to accept the prescribed length catheter. A subcutaneous tunnel was created in a retrograde fashion the catheter w as pulled through the tunnel. The catheter was flushed and assembled and locked with heparin. The c atheter was sutured in place. Conscious sedation was performed with the prescribed dosages and duration as above in the presence of an independent trained radiology nurse to assist in the monitoring of the patient. EKG and oximetry remained stable throughout the procedure. The patient tolerated the procedure well and there were n o complications. The patient was sent to post anesthesia recovery in stable condition. CONCLUSION: Uncomplicated PermaCath placement as above. Arcenio Ortega MD on June 10, 2017 at 10:50 Board Certified Radiologist. This report was verified electronically.
--- NOTE | 2017-06-10 11:41 | HHI.NPPN ---
Subjective History of Present Illness 87-year-old male with past medical history of hypertension, ischemic heart disease and chronic kidney disease, chronic back pain and leg pain was brought to the hospital because of worsening shortness of breath. I was called to see the patient because of elevated BUN and creatinine. The patient has creatinine of 4.5 on presentation. Previously he has creatinine as high as 4.4. [facility]. Additional Remarks Patient is alert, sitting on chair, with nasal cannula, feeling better. Review of Systems General Constitutional: Fatigue Respiratory Lungs: SOB, Cough, Sputum, Wheeze Cardiovascular Cardiac: CLEMONS Objective Data Data Vital Signs Date Time Temp Pulse Resp B/P (MAP) Pulse Ox O2 Delivery O2 Flow Rate FiO2 06/10/17 11:03 Nasal Cannula 3.00 60 Humidified 06/10/17 08:00 98.2 66 20 107/58 (74) 97 06/10/17 04:00 Nasal Cannula 3.00 Humidified 06/10/17 04:00 97.9 66 18 110/54 (72) 93 06/10/17 00:00 97.7 81 18 117/64 (81) 96 06/10/17 00:00 Nasal Cannula 3.00 Humidified 06/09/17 20:22 73 06/09/17 20:00 98.0 74 18 137/60 (85) 97 06/09/17 20:00 Nasal Cannula 3.00 Humidified 06/09/17 17:28 100 Nasal Cannula 3.00 06/09/17 16:00 96.9 69 20 99/59 (72) 93 06/09/17 16:00 3.00 06/09/17 12:00 98.1 67 20 108/51 (70) 100 06/09/17 12:00 3.00 -: 06/08/17 0505 06/08/17 0505 Physical Exam General Appearance: No Acute Distress, Comfortable Eyes Eye Exam: Pupils Equal Throat Throat Exam: Oral Mucosa [place] & Moist Neck Neck Exam: Neck Supple Pulmonary Resp Exam: Breath Sounds Equal, No Distress, Crackles, Rhonchi, Decreased Bases , Diminished Breath Sounds Cardiology CV Exam: Regular, Normal Sinus Rhythm Gastrointestinal/Abdomen GI Exam: Soft, Non-Tender, Bowel Sounds Present, Non-Distended Extremeties Extremities Exam: Trace Edema Neurologic Neuro Exam: Alert, Awake, Oriented Psychiatric Psych Exam: Appropriate Responses Assessment/Plan Assessment Summary: Anemia of CKD, Fluid/Volume Overload, CKD Stage IV Problem List: (1) Hypoxia ICD Codes: R09.02 - Hypoxemia Status: Acute (2) CAD (coronary artery disease) ICD Codes: I25.10 - CAD (coronary artery disease) Status: Acute (3) COPD (chronic obstructive pulmonary disease) ICD Codes: J44.9 - Chronic obstructive pulmonary disease Status: Acute (4) Hypertension ICD Codes: I10 - Hypertension Status: Acute (5) Congestive heart failure ICD Codes: I50.9 - Heart failure, unspecified Status: Acute (6) Chronic kidney disease, stage IV (severe) ICD Codes: N18.4 - Chronic kidney disease, stage 4 (severe) Status: Chronic Plan Patient has advance renal disease and GFR is decreasing. On Torsemide and non oliguric. K is normal. Discussed with the daughter and patient about possible Dialysis. I tried to call his [employer]ric [employer] and got answering machine. Patient and family agreed about starting HD. He will need AVF and PermCath. Iron supplement and Epogen. Started on HD Patient now agreed to continue HD. To get AVF and HD today, now NPO. D/W the daughter about out patient HD. Problem Qualifiers (1) Hypertension: Qualified Codes: I10 - Essential (primary) hypertension Verona Raya MD Jun 10, 2017 11:41
[2017-06-10] MEDS ORDERED: LACTULOSE SYRUP 20 GM/30 ML CUP PO ONE (12:30)
--- NOTE | 2017-06-10 12:44 | HHI.PR ---
Subjective Remarks Follow-up for acute on chronic renal failure possible end-stage renal disease Patient stated that he continues to have chronic bilateral foot pain. Per patient's daughter if patient doesn't get his tramadol on time is when his pain worsens. He also stated that his left wrist pain has worsened. He was told by a prior provider that this was secondary to gout. Otherwise he has no other complaints. He remains afebrile. Patient is nothing by mouth at the moment pending surgery. Had a bowel movement yesterday. Patient's daughters at the bedside. Dealt with patient's nurse. Objective Vitals Vital Signs Date Time Temp Pulse Resp B/P (MAP) Pulse Ox O2 Delivery O2 Flow Rate FiO2 06/10/17 11:03 Nasal Cannula 3.00 60 Humidified 06/10/17 08:00 98.2 66 20 107/58 (74) 97 06/10/17 04:00 Nasal Cannula 3.00 Humidified 06/10/17 04:00 97.9 66 18 110/54 (72) 93 06/10/17 00:00 97.7 81 18 117/64 (81) 96 06/10/17 00:00 Nasal Cannula 3.00 Humidified 06/09/17 20:22 73 06/09/17 20:00 98.0 74 18 137/60 (85) 97 06/09/17 20:00 Nasal Cannula 3.00 Humidified 06/09/17 17:28 100 Nasal Cannula 3.00 06/09/17 16:00 96.9 69 20 99/59 (72) 93 06/09/17 16:00 3.00 I/O 06/09/17 06/09/17 06/09/17 06/10/17 06/10/17 06/10/17 07:00 15:00 23:00 07:00 15:00 23:00 Intake Total 880 ml 720 ml 700 ml Output Total 450 ml 200 ml Balance 430 ml 720 ml 500 ml Intake Oral 880 ml 720 ml 700 ml Output Urine Total 450 ml 200 ml # Voids 4 # Bowel Movements 0 1 0 Result Diagram: 06/08/17 0505 06/08/17 0505 Objective Remarks GENERAL: In no acute distress. CARDIOVASCULAR: Regular rate and rhythm without murmurs, gallops, or rubs. RESPIRATORY: Breath sounds equal bilaterally. No accessory muscle use. No cough noted during exam. GASTROINTESTINAL: Abdomen soft, non-tender, nondistended. MUSCULOSKELETAL: No cyanosis, or edema. Left wrist increased swelling. No erythema. Decreased range of motion secondary to pain. Sensation is intact. BACK: Nontender without obvious deformity. No CVA tenderness. Medications and IVs Current Medications Sodium Chloride (NS Flush) 2 ml UNSCH PRN IVF FLUSH AFTER USING IV ACCESS; Start 06/01/17 at 15:00; Status Cancel Furosemide (Lasix Inj) 40 mg ONCE ONCE IVP Last administered on 06/01/17 15: 17; Start 06/01/17 at 15:00; Stop 06/01/17 at 15:01; Status DC Metolazone (Zaroxolyn) 5 mg DAILY PO Last administered on 06/10/17 09:34; Start 06/01/17 at 17:45 Amlodipine Besylate (Norvasc) 10 mg DAILY PO Last administered on 06/10/17 09: 33; Start 06/02/17 at 09:00 Aspirin (Aspirin Chew) 81 mg DAILY CHEW Last administered on 06/09/17 08:02; Start 06/02/17 at 09:00 Fluticasone Propionate (Flonase Dejon Spr) 1 spray BID PRN EACH NARE ALLERGIES; Start 06/01/17 at 18:30 Loratadine (Claritin) 10 mg DAILY PRN PO ALLERGIES; Start 06/01/17 at 18:30 Metoprolol Tartrate (Lopressor) 50 mg BID PO Last administered on 06/10/17 09: 33; Start 06/01/17 at 21:00 Mirtazapine (Remeron) 10 mg HS PRN PO DEP Last administered on 06/03/17 20:52 ; Start 06/01/17 at 18:30 Artificial Tears (Tears Naturale Opth Soln) 2 drop Q4H PRN EACH EYE DRY EYE; Start 06/01/17 at 18:30 Terazosin HCl (Hytrin) 2 mg HS PO Last administered on 06/09/17 20:35; Start 06/01/17 at 21:00 Tramadol HCl (Ultram) 50 mg Q8H PRN PO PAIN SCALE 3 TO 10 Last administered on 06/09/17 08:02; Start 06/01/17 at 18:30; Stop 06/09/17 at 15:40; Status DC Sodium Chloride (NS Flush) 2 ml UNSCH PRN IV FLUSH FLUSH AFTER USING IV ACCESS ; Start 06/01/17 at 18:30; Stop 06/01/17 at 18:34; Status DC Sodium Chloride (NS Flush) 2 ml BID IV FLUSH ; Start 06/01/17 at 21:00; Stop at 21:00; Status DC Ondansetron HCl (Zofran Inj) 4 mg Q6H PRN IVP NAUSEA OR VOMITING; Start at 18:30; Status Cancel Prochlorperazine (Compazine Supp) 25 mg Q12H PRN RECTAL NAUSEA OR VOMITING; Start 06/01/17 at 18:30; Status Cancel Acetaminophen (Tylenol) 650 mg Q6H PRN PO PAIN SCALE 1 TO 2 Last administered on 06/09/17 12:02; Start 06/01/17 at 18:30 Oxycodone HCl (Roxicodone) 10 mg Q4H PRN PO PAIN SCALE 6 TO 10; Start 06/01/17 at 18:30; Status Cancel Morphine Sulfate (Morphine Inj) 2 mg Q3H PRN IV Pain 3-5; if unable to take PO ; Start 06/01/17 at 18:30; Status Cancel Morphine Sulfate (Morphine Inj) 4 mg Q3H PRN IV Pain 6-10;if unable to take PO ; Start 06/01/17 at 18:30; Status Cancel Oxycodone HCl (Roxicodone) 5 mg Q4H PRN PO PAIN SCALE 3 TO 5; Start 06/01/17 at 18:30; Status Cancel Naloxone HCl (Narcan Inj) 0.4 mg UNSCH PRN IV SEE LABEL COMMENTS; Start at 18:30 Senna/Docusate Sodium (Indu-Colace) 1 tab BID PO Last administered on 09:34; Start 06/01/17 at 21:00 Magnesium Hydroxide (Milk Of Magnesia Liq) 30 ml Q12H PRN PO MILD - MODERATE CONSTIPATION; Start 06/01/17 at 18:30 Sennosides (Senokot) 17.2 mg Q12H PRN PO MODERATE - SEVERE CONSTIPATION; Start 06/01/17 at 18:30 Bisacodyl (Dulcolax Supp) 10 mg DAILY PRN RECTAL SEVERE CONSITIPATION; Start at 18:30 Lactulose (Lactulose Liq) 30 ml DAILY PRN PO SEVERE CONSITIPATION Last administered on 06/07/17 13:21; Start 06/01/17 at 18:30 Sodium Chloride (NS Flush) 2 ml UNSCH PRN IV FLUSH FLUSH AFTER USING IV ACCESS ; Start 06/01/17 at 18:30 Sodium Chloride (NS Flush) 2 ml BID IV FLUSH Last administered on 06/10/17 09: 00; Start 06/01/17 at 21:00 Furosemide (Lasix Inj) 40 mg BID@18 IVP Last administered on 06/03/17 09:12 ; Start 06/02/17 at 09:00; Stop 06/03/17 at 16:41; Status DC Metolazone (Zaroxolyn) 5 mg DAILY PO ; Start 06/02/17 at 09:00; Status Cancel Potassium Chloride (KCl) 10 meq BID PO Last administered on 06/10/17 09:33; Start 06/01/17 at 21:00 Albuterol/ Ipratropium (Duoneb Neb) 1 ampule Q4HR NEB PRN NEB SHORTNESS OF BREATH; Start 06/01/17 at 19:00 Guaifenesin (Mucinex Er) 600 mg BID PO Last administered on 06/10/17 09:33; Start 06/01/17 at 21:00 Torsemide (Demadex) 40 mg BID@18 PO Last administered on 06/10/17 09:32; Start 06/03/17 at 18:00 Diphenhydramine HCl (Benadryl) 25 mg ONCE ONCE PO Last administered on 01:17; Start 06/04/17 at 01:00; Stop 06/04/17 at 01:01; Status DC Sodium Chloride 1,000 ml @ 0 mls/hr Q0M PRN OTHER For Prime & Rinse Back; Start 06/04/17 at 17:23 Heparin Sodium (Porcine) (Heparin Inj) 8,000 units UNSCH PRN IVF WITH DIALYSIS ; Start 06/04/17 at 17:30 Sodium Chloride 1,000 ml @ 200 mls/hr Q5H PRN IV WITH DIALYSIS; Start 06/04/17 at 17:23 Sodium Chloride 1,000 ml @ 0 mls/hr Q0M PRN OTHER WITH DIALYSIS Last administered on 06/06/17 10:00; Start 06/04/17 at 17:23 Mannitol (Mannitol Inj) 12.5 gm UNSCH PRN IV WITH DIALYSIS; Start 06/04/17 at 17:30 Albumin Human (Albumin 25% Inj) 25 gm UNSCH PRN IV WITH DIALYSIS; Start at 17:30 Sodium Chloride (NS Flush) 5 ml UNSCH PRN IV FLUSH WITH DIALYSIS; Start at 17:30 Heparin Sodium (Porcine) (Heparin Inj) UNSCH PRN .XX WITH DIALYSIS; Start at 17:30 Gentamicin Sulfate (Gentamicin (Dialysis) Inj) 20 mg UNSCH PRN IV WITH DIALYSIS Last administered on 06/06/17 10:00; Start 06/04/17 at 17:30 Ondansetron HCl (Zofran Inj) 4 mg UNSCH PRN IV WITH DIALYSIS; Start 06/04/17 at 17:30 Acetaminophen (Tylenol) 650 mg UNSCH PRN PO for headach, pain, temp > 101F; Start 06/04/17 at 17:30 Diphenhydramine HCl (Benadryl) 25 mg UNSCH PRN PO for hives/itching/anaphylaxis ; Start 06/04/17 at 17:30 Nitroglycerin (Nitrostat Sl) 0.4 mg UNSCH PRN SL CHEST PAIN; Start 06/04/17 at 17:30 Clonidine (Catapres) 0.1 mg UNSCH PRN PO for BP > 180/100 X 2 readings; Start 06/04/17 at 17:30 Epoetin Tera (Epogen Inj) 6,000 units UNSCH PRN IV WITH DIALYSIS Last administered on 06/06/17 10:00; Start 06/04/17 at 17:30 Gelatin (Gelfoam 12 Mm/7 Mm Top) 1 foam UNSCH PRN TOP SEE LABEL COMMENTS; Start 06/04/17 at 17:30 Iron Sucrose 100 mg/Sodium Chloride 105 ml @ 105 mls/hr DAILY IV Last administered on 06/07/17 13:01; Start 06/05/17 at 09:00; Stop 06/07/17 at 09:59 ; Status DC Vancomycin HCl 1000 mg/Sodium Chloride 250 ml @ 250 mls/hr [employer] IV Last administered on 06/05/17 10:17; Start 06/05/17 at 09:15; Stop 06/09/17 at 09:14 ; Status DC Atropine Sulfate (Atropine Inj) 1 mg STK-MED ONCE .ROUTE ; Start 06/05/17 at 10: 30; Stop 06/05/17 at 10:31; Status DC Epinephrine HCl (EPINEPHrine (1:10,000) INJ) 1 mg STK-MED ONCE .ROUTE ; Start at 10:30; Stop 06/05/17 at 10:31; Status DC Midazolam HCl (Versed Inj) 2 mg STK-MED ONCE .ROUTE Last administered on 10:45; Start 06/05/17 at 10:45; Stop 06/05/17 at 10:46; Status DC Midazolam HCl (Versed Inj) 2 mg STK-MED ONCE .ROUTE ; Start 06/05/17 at 10:45; Stop 06/05/17 at 10:46; Status DC Fentanyl Citrate (fentaNYL INJ) 250 mcg STK-MED ONCE .ROUTE Last administered on 06/05/17 10:45; Start 06/05/17 at 10:45; Stop 06/05/17 at 10:46; Status DC Heparin Sodium (Porcine) (*HEPARIN INJ Periprocedural ONLY) 10,000 units STK- MED ONCE .ROUTE Last administered on 06/05/17 11:25; Start 06/05/17 at 10:56; Stop 06/05/17 at 10:57; Status DC Lidocaine/ Epinephrine (Xylocaine-Epi Mpf 1%-1:200,000 Inj) 30 ml STK-MED ONCE .ROUTE Last administered on 06/05/17 11:16; Start 06/05/17 at 10:56; Stop at 10:57; Status DC Sodium Chloride (NS Flush) UNSCH PRN IVF SEE PROTOCOL; Start 06/05/17 at 11:45 Heparin Sodium (Porcine) (Heparin Inj) UNSCH PRN IV FLUSH SEE PROTOCOL; Start 06/05/17 at 11:45 Lactated Ringer's 1,000 ml @ 30 mls/hr Q24H PRN IV SEE LABEL COMMENTS; Start at 07:00; Stop 06/11/17 at 06:59 Sodium Chloride 500 ml @ 30 mls/hr [id number] PRN IV SEE LABEL COMMENTS; Start at 07:00; Stop 06/11/17 at 06:59 Metoprolol Tartrate (Lopressor) 25 mg [employer] PRN PO SEE LABEL COMMENTS; Start 06/08/17 at 07:00; Stop 06/11/17 at 06:59 Povidone Iodine (Betadine 5% Antisepsis Kit) 1 applic [employer] PRN EACH NARE SEE LABEL COMMENTS; Start 06/08/17 at 07:00; Stop 06/11/17 at 06:59 Chlorhexidine Gluconate (Chlorhexidine 2% Cloth) 3 pack [employer] PRN TOPICAL SEE LABEL COMMENTS; Start 06/08/17 at 07:00; Stop 06/11/17 at 06:59 Insulin Human Regular (NovoLIN R INJ) See Protocol Table ... [employer] PRN SQ SEE PROTOCOL TABLE; Start 06/08/17 at 07:00; Stop 06/11/17 at 06:59 Bisacodyl (Dulcolax Supp) 10 mg ONCE ONCE RECTAL Last administered on 17:37; Start 06/08/17 at 16:15; Stop 06/08/17 at 16:41; Status DC Lactulose (Lactulose Liq) 30 ml ONCE ONCE PO Last administered on 06/09/17 16 :13; Start 06/09/17 at 15:15; Stop 06/09/17 at 15:16; Status DC Tramadol HCl (Ultram) 50 mg Q4H PRN PO pain 3-10 Last administered on 04:51; Start 06/09/17 at 15:45; Stop 06/10/17 at 12:38; Status DC Lactulose (Lactulose Liq) 30 ml ONCE ONCE PO ; Start 06/10/17 at 12:30; Stop at 12:31; Status UNV Tramadol HCl (Ultram) 50 mg Q6H PO ; Start 06/10/17 at 12:45; Status UNV A/P Problem List: (1) Acute respiratory failure ICD Code: J96.00 - Acute respiratory failure, unspecified whether with hypoxia or hypercapnia Status: Acute (2) Acute on chronic diastolic congestive heart failure ICD Code: I50.33 - Acute on chronic diastolic (congestive) heart failure Status: Acute (3) Acute renal failure ICD Code: N17.9 - Acute kidney failure, unspecified Status: Acute (4) Chronic kidney disease, stage IV (severe) ICD Code: N18.4 - Chronic kidney disease, stage 4 (severe) Status: Chronic Assessment and Plan 87-year-old white male admitted for hypoxia and shortness of breath. Acute respiratory failure due to p acute on chronic diastolic congestive heart failure along -Improved after dialysis. - Continue with diuretic torsemide and Zaroxolyn, monitor input and output closely. -Continue with dialysis. Acute exacerbation of chronic kidney disease stage IV with likely end-stage renal disease -nephrology is currently following. - status post Vas-Cath. -Per nephrology as he would need AV fistula -Patient scheduled for AV fistula today. -Will consult dietitian since patient does not understand renal diet. Daughter wants to be notify since patient does not have a good memory so that she would know what patient can eat. Pending consult. Left wrist pain -May be secondary to inflammatory arthritis. Infection noted. will get xray. COPD, chronic- continue with O2 support and DuoNeb. BPH, chronic - continue home terazosin. Hypertension- continue with home amlodipine and metoprolol and Hytrin. Constipation -Improved the lactulose. We'll give another dose of lactulose. DVT prophylaxis-heparin Discharge Planning Patient is scheduled for AV fistula placement today. Problem Qualifiers (1) Acute respiratory failure: Qualified Codes: J96.01 - Acute respiratory failure with hypoxia Mily Nassar MD Jun 10, 2017 12:44
--- NOTE | 2017-06-10 13:19 | RADRPT ---
EXAM DATE/TIME: 06/10/2017 12:45 [facility] COMPARISON: No previous studies available for comparison. INDICATIONS : Left wrist pain. MEDICAL HISTORY : Hypertension. Gout, arthritis, AAA, coronary artery disease, carcinoma, hepatocellular. SURGICAL HISTORY : ENCOUNTER: Initial ACUITY: 1 week PAIN SCORE: 10/10 LOCATION: Left wrist FINDINGS: Severe arthritic changes present throughout the wrist. No evidence of fracture, dislocation or bony d estruction. Severe degenerative changes present in the visualized hand. Vascular calcifications. CONCLUSION: Severe arthritic changes. No acute bony findings Taqueria Odonnell MD on June 10, 2017 at 13:15 Board Certified Radiologist. This report was verified electronically.
[2017-06-10] MEDS: traMADol HCL 50 MG TAB PO SCH ×2 (13:20→20:22)
[2017-06-10] MEDS: EPOETIN ALFA 10,000 UNITS/ML VIAL IV PRN (17:59)
[2017-06-10] MEDS: SODIUM CHLOR 0.9% 1000 ML INJ 1,000 ML OTHER PRN (17:59)
[2017-06-10] MEDS: HEPARIN SODIUM - IV 10,000 UNITS/10 ML VIAL PRN (18:00)
[2017-06-10] MEDS: GENTAMICIN SULFATE (DIALYSIS USE ONLY) 20 MG/2 ML VIAL IV PRN (18:00)
[2017-06-10] MEDS: SODIUM CHLORIDE 0.9% FLUSH 10 ML FLUSH IV FLUSH PRN (18:01)
[2017-06-10] MEDS: TERAZOSIN HCL 1 MG CAP PO SCH (20:22)
[2017-06-11] VITALS (8 sets, daily range): BP systolic 105–135; BP diastolic 53–60; PULSE 67–82; RESP 18–20; TEMP 97.6–98.5; O2SAT 93–97
[2017-06-11] MEDS: traMADol HCL 50 MG TAB PO SCH ×4 (01:20→18:11)
[2017-06-11] MEDS: METOPROLOL TARTRATE 50 MG TAB PO SCH ×2 (09:00→22:37)
[2017-06-11] MEDS: TORSEMIDE 20 MG TAB PO SCH ×2 (09:00→18:11)
[2017-06-11] MEDS: POTASSIUM CHLORIDE 10 MEQ CONTROLLED RELEASE TAB PO SCH ×2 (09:00→22:37)
[2017-06-11] MEDS: ASPIRIN 81 MG CHEW TAB CHEW SCH (09:00)
[2017-06-11] MEDS: guaiFENesin E.R. 600 MG TAB PO SCH ×2 (09:00→22:36)
[2017-06-11] MEDS: DOCUSATE SODIUM 50 MG/SENNA 8.6 MG TAB PO SCH ×2 (09:00→22:36)
[2017-06-11] MEDS ORDERED: KETAMINE HCL 500 MG/5 ML VIAL ONE (09:19)
[2017-06-11] MEDS ORDERED: BUPIVACAINE HCL PF 0.5% 30 ML VIAL ONE (09:35)
[2017-06-11] MEDS ORDERED: HEPARIN SODIUM - SQ 10,000 UNITS/ML VIAL ONE ×2 (09:35→11:20)
[2017-06-11] MEDS ORDERED: ceFAZolin INJ 1,000 MG VIAL ONE (11:10)
[2017-06-11] MEDS ORDERED: POTASSIUM CHLORIDE 20 MEQ CONTROLLED RELEASE TAB PO ONE (11:15)
[2017-06-11] MEDS ORDERED: PROTAMINE SULFATE 50 MG/5 ML VIAL ONE (11:20)
[2017-06-11] MEDS ORDERED: ONDANSETRON HCL 4 MG/2 ML VIAL IV PUSH ONE (12:00)
[2017-06-11] MEDS ORDERED: ePHEDrine/NS 25 MG/5 ML SYR IV ONE (12:00)
[2017-06-11] MEDS ORDERED: PROPOFOL 200 MG/20 ML AMP IV ONE (12:00)
[2017-06-11] MEDS ORDERED: *HYDROmorphone PF 1 MG VIAL PERIprocedural Use ONLY ONE (12:25)
[2017-06-11] MEDS ORDERED: ERYTHROMYCIN 0.5% OPTH OINT 1 GM TUBO ONE (12:44)
--- NOTE | 2017-06-11 12:48 | HHI.PR ---
Subjective Remarks Follow-up for acute on chronic renal disease/questionable end-stage renal disease Patient seen in the PACU after AV fistula placement He was still sedated, but able to response to questions. He had no complaints. PACU nurse at bedside. Objective Vitals Vital Signs Date Time Temp Pulse Resp B/P (MAP) Pulse Ox O2 Delivery O2 Flow Rate FiO2 06/11/17 08:00 97.8 67 20 134/60 (84) 96 06/11/17 07:45 Nasal Cannula 3.00 06/11/17 04:00 97.6 68 18 105/54 (71) 95 06/11/17 00:00 97.6 76 20 135/60 (85) 93 06/10/17 20:16 93 Nasal Cannula 3.00 06/10/17 20:00 97.2 69 20 124/62 (82) 96 06/10/17 19:45 Nasal Cannula 3.00 06/10/17 19:45 77 I/O 06/10/17 06/10/17 06/10/17 06/11/17 06/11/17 06/11/17 07:00 15:00 23:00 07:00 15:00 23:00 Intake Total 700 ml 0 ml 800 ml Output Total 200 ml 2275 ml 25 ml Balance 500 ml -2275 ml 775 ml Intake Oral 700 ml 0 ml IV Total 800 ml Output Urine Total 200 ml 275 ml Hemodialysis 2000 ml Estimated Blood Loss 25 ml # Bowel Movements 0 0 Result Diagram: 06/08/17 0505 06/11/17 0900 Imaging Last Impressions Wrist X-Ray 06/10/17 0000 Signed Impressions: Service Date/Time: Saturday, June 10, 2017 12:45 - CONCLUSION: Severe arthritic changes. No acute bony findings Taqueria Odonnell MD Upper Extremity Ultrasound 06/05/17 0000 Signed Impressions: Service Date/Time: Monday, June 05, 2017 09:37 - CONCLUSION: No DVT or superficial venous thrombosis is identified in the left upper extremity. Taqueria Mcnamara MD Catheter Placement X-Ray 06/05/17 0000 Signed Impressions: Service Date/Time: Monday, June 05, 2017 10:26 - CONCLUSION: Uncomplicated PermaCath placement as above. Arcenio Ortega MD Chest X-Ray 06/01/17 1450 Signed Impressions: Service Date/Time: Thursday, June 01, 2017 14:53 - CONCLUSION: 1. Bibasilar atelectatic changes with possible associated small effusion on the right. 2. Borderline heart size. Arcenio Ortega MD Objective Remarks GENERAL: In no acute distress. CARDIOVASCULAR: Regular rate and rhythm without murmurs, gallops, or rubs. RESPIRATORY: Breath sounds equal bilaterally. No accessory muscle use. No cough noted during exam. GASTROINTESTINAL: Abdomen soft, non-tender, nondistended. MUSCULOSKELETAL: No cyanosis, or edema. Left wrist swelling improved. No erythema. Decreased range of motion but seems to improve. Sensation is intact. BACK: Nontender without obvious deformity. No CVA tenderness. Medications and IVs Current Medications Sodium Chloride (NS Flush) 2 ml UNSCH PRN IVF FLUSH AFTER USING IV ACCESS; Start 06/01/17 at 15:00; Status Cancel Furosemide (Lasix Inj) 40 mg ONCE ONCE IVP Last administered on 06/01/17 15: 17; Start 06/01/17 at 15:00; Stop 06/01/17 at 15:01; Status DC Metolazone (Zaroxolyn) 5 mg DAILY PO Last administered on 06/10/17 09:34; Start 06/01/17 at 17:45 Amlodipine Besylate (Norvasc) 10 mg DAILY PO Last administered on 06/10/17 09: 33; Start 06/02/17 at 09:00 Aspirin (Aspirin Chew) 81 mg DAILY CHEW Last administered on 06/09/17 08:02; Start 06/02/17 at 09:00 Fluticasone Propionate (Flonase Dejon Spr) 1 spray BID PRN EACH NARE ALLERGIES; Start 06/01/17 at 18:30 Loratadine (Claritin) 10 mg DAILY PRN PO ALLERGIES; Start 06/01/17 at 18:30 Metoprolol Tartrate (Lopressor) 50 mg BID PO Last administered on 06/10/17 20: 22; Start 06/01/17 at 21:00 Mirtazapine (Remeron) 10 mg HS PRN PO DEP Last administered on 06/03/17 20:52 ; Start 06/01/17 at 18:30 Artificial Tears (Tears Naturale Opth Soln) 2 drop Q4H PRN EACH EYE DRY EYE; Start 06/01/17 at 18:30 Terazosin HCl (Hytrin) 2 mg HS PO Last administered on 06/10/17 20:22; Start 06/01/17 at 21:00 Tramadol HCl (Ultram) 50 mg Q8H PRN PO PAIN SCALE 3 TO 10 Last administered on 06/09/17 08:02; Start 06/01/17 at 18:30; Stop 06/09/17 at 15:40; Status DC Sodium Chloride (NS Flush) 2 ml UNSCH PRN IV FLUSH FLUSH AFTER USING IV ACCESS ; Start 06/01/17 at 18:30; Stop 06/01/17 at 18:34; Status DC Sodium Chloride (NS Flush) 2 ml BID IV FLUSH ; Start 06/01/17 at 21:00; Stop at 21:00; Status DC Ondansetron HCl (Zofran Inj) 4 mg Q6H PRN IVP NAUSEA OR VOMITING; Start at 18:30; Status Cancel Prochlorperazine (Compazine Supp) 25 mg Q12H PRN RECTAL NAUSEA OR VOMITING; Start 06/01/17 at 18:30; Status Cancel Acetaminophen (Tylenol) 650 mg Q6H PRN PO PAIN SCALE 1 TO 2 Last administered on 06/09/17 12:02; Start 06/01/17 at 18:30 Oxycodone HCl (Roxicodone) 10 mg Q4H PRN PO PAIN SCALE 6 TO 10; Start 06/01/17 at 18:30; Status Cancel Morphine Sulfate (Morphine Inj) 2 mg Q3H PRN IV Pain 3-5; if unable to take PO ; Start 06/01/17 at 18:30; Status Cancel Morphine Sulfate (Morphine Inj) 4 mg Q3H PRN IV Pain 6-10;if unable to take PO ; Start 06/01/17 at 18:30; Status Cancel Oxycodone HCl (Roxicodone) 5 mg Q4H PRN PO PAIN SCALE 3 TO 5; Start 06/01/17 at 18:30; Status Cancel Naloxone HCl (Narcan Inj) 0.4 mg UNSCH PRN IV SEE LABEL COMMENTS; Start at 18:30 Senna/Docusate Sodium (Indu-Colace) 1 tab BID PO Last administered on 20:21; Start 06/01/17 at 21:00 Magnesium Hydroxide (Milk Of Magnesia Liq) 30 ml Q12H PRN PO MILD - MODERATE CONSTIPATION; Start 06/01/17 at 18:30 Sennosides (Senokot) 17.2 mg Q12H PRN PO MODERATE - SEVERE CONSTIPATION; Start 06/01/17 at 18:30 Bisacodyl (Dulcolax Supp) 10 mg DAILY PRN RECTAL SEVERE CONSITIPATION; Start at 18:30 Lactulose (Lactulose Liq) 30 ml DAILY PRN PO SEVERE CONSITIPATION Last administered on 06/07/17 13:21; Start 06/01/17 at 18:30 Sodium Chloride (NS Flush) 2 ml UNSCH PRN IV FLUSH FLUSH AFTER USING IV ACCESS ; Start 06/01/17 at 18:30 Sodium Chloride (NS Flush) 2 ml BID IV FLUSH Last administered on 06/10/17 20: 22; Start 06/01/17 at 21:00 Furosemide (Lasix Inj) 40 mg BID@ IVP Last administered on 06/03/17 09:12 ; Start 06/02/17 at 09:00; Stop 06/03/17 at 16:41; Status DC Metolazone (Zaroxolyn) 5 mg DAILY PO ; Start 06/02/17 at 09:00; Status Cancel Potassium Chloride (KCl) 10 meq BID PO Last administered on 06/10/17 20:22; Start 06/01/17 at 21:00 Albuterol/ Ipratropium (Duoneb Neb) 1 ampule Q4HR NEB PRN NEB SHORTNESS OF BREATH; Start 06/01/17 at 19:00 Guaifenesin (Mucinex Er) 600 mg BID PO Last administered on 06/10/17 20:22; Start 06/01/17 at 21:00 Torsemide (Demadex) 40 mg BID@,18 PO Last administered on 06/10/17 20:24; Start 06/03/17 at 18:00 Diphenhydramine HCl (Benadryl) 25 mg ONCE ONCE PO Last administered on 01:17; Start 06/04/17 at 01:00; Stop 06/04/17 at 01:01; Status DC Sodium Chloride 1,000 ml @ 0 mls/hr Q0M PRN OTHER For Prime & Rinse Back; Start 06/04/17 at 17:23 Heparin Sodium (Porcine) (Heparin Inj) 8,000 units UNSCH PRN IVF WITH DIALYSIS ; Start 06/04/17 at 17:30 Sodium Chloride 1,000 ml @ 200 mls/hr Q5H PRN IV WITH DIALYSIS; Start 06/04/17 at 17:23 Sodium Chloride 1,000 ml @ 0 mls/hr Q0M PRN OTHER WITH DIALYSIS Last administered on 06/10/17 17:59; Start 06/04/17 at 17:23 Mannitol (Mannitol Inj) 12.5 gm UNSCH PRN IV WITH DIALYSIS; Start 06/04/17 at 17:30 Albumin Human (Albumin 25% Inj) 25 gm UNSCH PRN IV WITH DIALYSIS; Start at 17:30 Sodium Chloride (NS Flush) 5 ml UNSCH PRN IV FLUSH WITH DIALYSIS Last administered on 06/10/17 18:01; Start 06/04/17 at 17:30 Heparin Sodium (Porcine) (Heparin Inj) UNSCH PRN .XX WITH DIALYSIS Last administered on 06/10/17 18:00; Start 06/04/17 at 17:30 Gentamicin Sulfate (Gentamicin (Dialysis) Inj) 20 mg UNSCH PRN IV WITH DIALYSIS Last administered on 06/10/17 18:00; Start 06/04/17 at 17:30 Ondansetron HCl (Zofran Inj) 4 mg UNSCH PRN IV WITH DIALYSIS; Start 06/04/17 at 17:30 Acetaminophen (Tylenol) 650 mg UNSCH PRN PO for headach, pain, temp > 101F; Start 06/04/17 at 17:30 Diphenhydramine HCl (Benadryl) 25 mg UNSCH PRN PO for hives/itching/anaphylaxis ; Start 06/04/17 at 17:30 Nitroglycerin (Nitrostat Sl) 0.4 mg UNSCH PRN SL CHEST PAIN; Start 06/04/17 at 17:30 Clonidine (Catapres) 0.1 mg UNSCH PRN PO for BP > 180/100 X 2 readings; Start 06/04/17 at 17:30 Epoetin Tera (Epogen Inj) 6,000 units UNSCH PRN IV WITH DIALYSIS Last administered on 06/10/17 17:59; Start 06/04/17 at 17:30 Gelatin (Gelfoam 12 Mm/7 Mm Top) 1 foam UNSCH PRN TOP SEE LABEL COMMENTS; Start 06/04/17 at 17:30 Iron Sucrose 100 mg/Sodium Chloride 105 ml @ 105 mls/hr DAILY IV Last administered on 06/07/17 13:01; Start 06/05/17 at 09:00; Stop 06/07/17 at 09:59 ; Status DC Vancomycin HCl 1000 mg/Sodium Chloride 250 ml @ 250 mls/hr [employer] IV Last administered on 06/05/17 10:17; Start 06/05/17 at 09:15; Stop 06/09/17 at 09:14 ; Status DC Atropine Sulfate (Atropine Inj) 1 mg STK-MED ONCE .ROUTE ; Start 06/05/17 at 10: 30; Stop 06/05/17 at 10:31; Status DC Epinephrine HCl (EPINEPHrine (1:10,000) INJ) 1 mg STK-MED ONCE .ROUTE ; Start at 10:30; Stop 06/05/17 at 10:31; Status DC Midazolam HCl (Versed Inj) 2 mg STK-MED ONCE .ROUTE Last administered on 10:45; Start 06/05/17 at 10:45; Stop 06/05/17 at 10:46; Status DC Midazolam HCl (Versed Inj) 2 mg STK-MED ONCE .ROUTE ; Start 06/05/17 at 10:45; Stop 06/05/17 at 10:46; Status DC Fentanyl Citrate (fentaNYL INJ) 250 mcg STK-MED ONCE .ROUTE Last administered on 06/05/17 10:45; Start 06/05/17 at 10:45; Stop 06/05/17 at 10:46; Status DC Heparin Sodium (Porcine) (*HEPARIN INJ Periprocedural ONLY) 10,000 units STK- MED ONCE .ROUTE Last administered on 06/05/17 11:25; Start 06/05/17 at 10:56; Stop 06/05/17 at 10:57; Status DC Lidocaine/ Epinephrine (Xylocaine-Epi Mpf 1%-1:200,000 Inj) 30 ml STK-MED ONCE .ROUTE Last administered on 06/05/17 11:16; Start 06/05/17 at 10:56; Stop at 10:57; Status DC Sodium Chloride (NS Flush) UNSCH PRN IVF SEE PROTOCOL; Start 06/05/17 at 11:45 Heparin Sodium (Porcine) (Heparin Inj) UNSCH PRN IV FLUSH SEE PROTOCOL; Start 06/05/17 at 11:45 Lactated Ringer's 1,000 ml @ 30 mls/hr Q24H PRN IV SEE LABEL COMMENTS; Start at 07:00; Stop 06/11/17 at 06:59; Status DC Sodium Chloride 500 ml @ 30 mls/hr [id number] PRN IV SEE LABEL COMMENTS; Start at 07:00; Stop 06/11/17 at 06:59; Status DC Metoprolol Tartrate (Lopressor) 25 mg [employer] [employer]GER PRN PO SEE LABEL COMMENTS; Start 06/08/17 at 07:00; Stop 06/11/17 at 06:59; Status DC Povidone Iodine (Betadine 5% Antisepsis Kit) 1 applic [employer]IV[employer] MANAGER PRN EACH NARE SEE LABEL COMMENTS; Start 06/08/17 at 07:00; Stop 06/11/17 at 06:59; Status DC Chlorhexidine Gluconate (Chlorhexidine 2% Cloth) 3 pack [employer]IVERS[facility] MANAGER PRN TOPICAL SEE LABEL COMMENTS; Start 06/08/17 at 07:00; Stop 06/11/17 at 06:59; Status DC Insulin Human Regular (NovoLIN R INJ) See Protocol Table ... [employer]IVERS[facility] MANAGER PRN SQ SEE PROTOCOL TABLE; Start 06/08/17 at 07:00; Stop 06/11/17 at 06:59; Status DC Bisacodyl (Dulcolax Supp) 10 mg ONCE ONCE RECTAL Last administered on 17:37; Start 06/08/17 at 16:15; Stop 06/08/17 at 16:41; Status DC Lactulose (Lactulose Liq) 30 ml ONCE ONCE PO Last administered on 06/09/17 16 :13; Start 06/09/17 at 15:15; Stop 06/09/17 at 15:16; Status DC Tramadol HCl (Ultram) 50 mg Q4H PRN PO pain 3-10 Last administered on 04:51; Start 06/09/17 at 15:45; Stop 06/10/17 at 12:38; Status DC Lactulose (Lactulose Liq) 30 ml ONCE ONCE PO Last administered on 06/10/17 13 :19; Start 06/10/17 at 12:30; Stop 06/10/17 at 12:49; Status DC Tramadol HCl (Ultram) 50 mg Q6H PO Last administered on 06/11/17 06:51; Start 06/10/17 at 13:00 Ketamine HCl (Ketalar Inj) 500 mg STK-MED ONCE .ROUTE ; Start 06/11/17 at 09:19 ; Stop 06/11/17 at 09:20; Status DC Fentanyl Citrate (fentaNYL INJ) 100 mcg STK-MED ONCE .ROUTE ; Start 06/11/17 at 09:19; Stop 06/11/17 at 09:20; Status DC Heparin Sodium (Porcine) (Heparin Inj) 10,000 units STK-MED ONCE .ROUTE Last administered on 06/11/17 11:07; Start 06/11/17 at 09:35; Stop 06/11/17 at 09:36 ; Status DC Bupivacaine HCl (Marcaine Pf 0.5% Inj) 30 ml STK-MED ONCE .ROUTE Last administered on 06/11/17 11:07; Start 06/11/17 at 09:35; Stop 06/11/17 at 09:36 ; Status DC Potassium Chloride (KCl) 20 meq ONCE ONCE PO ; Start 06/11/17 at 11:15; Stop at 11:16; Status DC Cefazolin Sodium (Ancef Inj) 1,000 mg STK-MED ONCE .ROUTE Last administered on 06/11/17 11:09; Start 06/11/17 at 11:10; Stop 06/11/17 at 11:11; Status DC Heparin Sodium (Porcine) (Heparin Inj) 10,000 units STK-MED ONCE .ROUTE Last administered on 06/11/17 11:20; Start 06/11/17 at 11:20; Stop 06/11/17 at 11:21 ; Status DC Protamine Sulfate (Protamine Sulfate Inj) 50 mg STK-MED ONCE .ROUTE ; Start at 11:20; Stop 06/11/17 at 11:21; Status DC Hydromorphone HCl (*DILAUDID PF INJ PERIprocedural ONLY) 1 mg STK-MED ONCE .ROUTE ; Start 06/11/17 at 12:25; Stop 06/11/17 at 12:35; Status DC A/P Problem List: (1) Acute respiratory failure ICD Code: J96.00 - Acute respiratory failure, unspecified whether with hypoxia or hypercapnia Status: Acute (2) Acute on chronic diastolic congestive heart failure ICD Code: I50.33 - Acute on chronic diastolic (congestive) heart failure Status: Acute (3) Acute renal failure ICD Code: N17.9 - Acute kidney failure, unspecified Status: Acute (4) Chronic kidney disease, stage IV (severe) ICD Code: N18.4 - Chronic kidney disease, stage 4 (severe) Status: Chronic Assessment and Plan 87-year-old white male admitted for hypoxia and shortness of breath. Acute respiratory failure due to p acute on chronic diastolic congestive heart failure along -Improved after dialysis. - Continue with diuretic torsemide and Zaroxolyn, monitor input and output closely. -Continue with dialysis. Acute exacerbation of chronic kidney disease stage IV with likely end-stage renal disease -nephrology is currently following. - status post Vas-Cath. -s/p AV fistula done today 06/11. -Dietitian consulted so that patient understood what a renal diet was. -Continue management per rn pediatric icu. Left wrist pain -May be secondary to inflammatory arthritis. -X-ray the wrist showed severe arthritis. Today swelling seemed to decrease. -May consider steroids tomorrow if he continues to complain of pain. COPD, chronic- continue with O2 support and DuoNeb. BPH, chronic - continue home terazosin. Hypertension- continue with home amlodipine and metoprolol and Hytrin. Constipation -Improved the lactulose. DVT prophylaxis-heparin Problem Qualifiers (1) Acute respiratory failure: Qualified Codes: J96.01 - Acute respiratory failure with hypoxia Mily Nassar MD Jun 11, 2017 12:48
[2017-06-11] MEDS ORDERED: TETRACAINE 0.5% OPTH SOLN 4 ML BTL ONE (12:51)
--- NOTE | 2017-06-11 12:54 | HHI.NPPN ---
Subjective History of Present Illness 87-year-old male with past medical history of hypertension, ischemic heart disease and chronic kidney disease, chronic back pain and leg pain was brought to the hospital because of worsening shortness of breath. I was called to see the patient because of elevated BUN and creatinine. The patient has creatinine of 4.5 on presentation. Previously he has creatinine as high as 4.4. [facility]. Additional Remarks Patient is alert, seen in the RR, post AVF. Review of Systems General Constitutional: Fatigue Respiratory Lungs: SOB, Cough, Sputum, Wheeze Cardiovascular Cardiac: CLEMONS Objective Data Data 06/11/17 06/12/17 19:00 07:00 Intake Total 800 ml Output Total 25 ml Balance 775 ml IV Total 800 ml Estimated Blood Loss 25 ml Vital Signs Date Time Temp Pulse Resp B/P (MAP) Pulse Ox O2 Delivery O2 Flow Rate FiO2 06/11/17 08:00 97.8 67 20 134/60 (84) 96 06/11/17 07:45 Nasal Cannula 3.00 06/11/17 04:00 97.6 68 18 105/54 (71) 95 06/11/17 00:00 97.6 76 20 135/60 (85) 93 06/10/17 20:16 93 Nasal Cannula 3.00 06/10/17 20:00 97.2 69 20 124/62 (82) 96 06/10/17 19:45 Nasal Cannula 3.00 06/10/17 19:45 77 -: 06/08/17 0505 06/11/17 0900 Physical Exam General Appearance: No Acute Distress, Comfortable Eyes Eye Exam: Pupils Equal Throat Throat Exam: Oral Mucosa [employer] & Moist Neck Neck Exam: Neck Supple Pulmonary Resp Exam: Breath Sounds Equal, No Distress, Crackles, Rhonchi, Decreased Bases , Diminished Breath Sounds Cardiology CV Exam: Regular, Normal Sinus Rhythm Gastrointestinal/Abdomen GI Exam: Soft, Non-Tender, Bowel Sounds Present, Non-Distended Extremeties Extremities Exam: Trace Edema Neurologic Neuro Exam: Alert, Awake, Oriented Psychiatric Psych Exam: Appropriate Responses Assessment/Plan Assessment Summary: Anemia of CKD, Fluid/Volume Overload, CKD Stage IV Problem List: (1) Hypoxia ICD Codes: R09.02 - Hypoxemia Status: Acute (2) CAD (coronary artery disease) ICD Codes: I25.10 - CAD (coronary artery disease) Status: Acute (3) COPD (chronic obstructive pulmonary disease) ICD Codes: J44.9 - Chronic obstructive pulmonary disease Status: Acute (4) Hypertension ICD Codes: I10 - Hypertension Status: Acute (5) Congestive heart failure ICD Codes: I50.9 - Heart failure, unspecified Status: Acute (6) Chronic kidney disease, stage IV (severe) ICD Codes: N18.4 - Chronic kidney disease, stage 4 (severe) Status: Chronic Plan Patient has advance renal disease and GFR is decreasing. On Torsemide and non oliguric. K is normal. Discussed with the daughter and patient about possible Dialysis. I tried to call his Document Examiner and got answering machine. Patient and family agreed about starting HD. He will need AVF and PermCath. Iron supplement and Epogen. Started on HD Patient now agreed to continue HD. AVF done, has good Bruit. HD will be in AM. Problem Qualifiers (1) Hypertension: Qualified Codes: I10 - Essential (primary) hypertension Verona Raya MD Jun 11, 2017 12:54
[2017-06-11] MEDS: SODIUM CHLORIDE 0.9% FLUSH 10 ML FLUSH IV FLUSH SCH ×2 (13:48→22:37)
[2017-06-11] MEDS ORDERED: LACTULOSE SYRUP 20 GM/30 ML CUP PO SCH (14:00)
[2017-06-11] MEDS ORDERED: ERYTHROMYCIN 0.5% OPTH OINT 3.5 GM TUBO ONE (14:15)
[2017-06-11] MEDS ORDERED: DO NOT ADM ANY ANTICOAGULANT DRUGS PRN (14:15)
[2017-06-11] MEDS ORDERED: BALANCED SALT SOLN OPHT IRRIG 15 ML BTL ONE (14:15)
[2017-06-11] MEDS ORDERED: TETRACAINE 0.5% OPTH SOLN 4 ML BTL LEFT EYE ONE (14:15)
[2017-06-11] MEDS: METOLAZONE 5 MG TAB PO SCH (14:50)
[2017-06-11] MEDS: TERAZOSIN HCL 1 MG CAP PO SCH (22:36)
[2017-06-11] MEDS: ACETAMINOPHEN 325 MG TAB PO PRN (22:36)
[2017-06-12] VITALS: BP 103/55; PULSE 69; RESP 20; TEMP 98.3; O2SAT 96
[2017-06-12] MEDS: traMADol HCL 50 MG TAB PO SCH ×4 (00:23→20:06)
[2017-06-12 04:00] VITALS: BP 97/54; PULSE 60; RESP 18; TEMP 98.4; O2SAT 96
[2017-06-12 08:00] VITALS: BP 105/52; PULSE 61; PULSE 64; RESP 18; TEMP 97.8; O2SAT 98
[2017-06-12] MEDS: POTASSIUM CHLORIDE 10 MEQ CONTROLLED RELEASE TAB PO SCH ×2 (09:17→20:06)
[2017-06-12] MEDS: DOCUSATE SODIUM 50 MG/SENNA 8.6 MG TAB PO SCH ×2 (09:17→20:06)
[2017-06-12] MEDS: TORSEMIDE 20 MG TAB PO SCH ×2 (09:18→18:37)
[2017-06-12] MEDS: METOLAZONE 5 MG TAB PO SCH (09:18)
[2017-06-12] MEDS: guaiFENesin E.R. 600 MG TAB PO SCH ×2 (09:18→20:06)
[2017-06-12] MEDS: METOPROLOL TARTRATE 50 MG TAB PO SCH ×2 (09:18→20:07)
[2017-06-12] MEDS: SODIUM CHLORIDE 0.9% FLUSH 10 ML FLUSH IV FLUSH SCH ×2 (09:19→20:07)
[2017-06-12] MEDS: ASPIRIN 81 MG CHEW TAB CHEW SCH (09:19)
[2017-06-12 10:57] LABS: BICARBONATE 31.2 MEQ/L (21.0-32.0); POTASSIUM 3.6 MEQ/L (3.5-5.1)
--- NOTE | 2017-06-12 11:42 | HHI.PR ---
Subjective Remarks Pt complains of pain at the AV fistula site but states pain meds help. He denies any CP/SOB/N/V. Daughter at bedside, states pt has a sore in his sacral area that bothers him to the point he asked to stop dialysis yesterday. Pt then states that these were present before hospitalization. Objective Vitals Vital Signs Date Time Temp Pulse Resp B/P (MAP) Pulse Ox O2 Delivery O2 Flow Rate FiO2 06/12/17 08:00 97.8 61 18 105/52 (69) 98 06/12/17 04:00 98.4 60 18 97/54 (68) 96 06/12/17 00:00 98.3 69 20 103/55 (71) 96 06/11/17 22:11 96 Nasal Cannula 2.00 06/11/17 20:30 Nasal Cannula 3.00 06/11/17 20:15 77 06/11/17 20:00 98.5 82 18 117/57 (77) 95 06/11/17 18:23 97 Nasal Cannula 2.00 06/11/17 16:00 98.0 76 20 123/53 (76) 97 06/11/17 13:30 97.7 69 10 131/63 (85) 100 Nasal Cannula 2 06/11/17 13:15 70 14 131/63 (85) 100 06/11/17 13:00 71 12 133/63 (86) 100 06/11/17 12:45 74 20 129/63 (85) 96 06/11/17 12:30 73 14 138/64 (88) 97 06/11/17 12:15 76 12 143/56 (85) 94 Nasal Cannula 2 06/11/17 12:12 97.7 74 13 175/77 (109) 97 Nasal Cannula 2 I/O 06/11/17 06/11/17 06/11/17 06/12/17 06/12/17 06/12/17 07:00 15:00 23:00 07:00 15:00 23:00 Intake Total 800 ml 360 ml 720 ml Output Total 25 ml 300 ml Balance 775 ml 60 ml 720 ml Intake Oral 360 ml 720 ml IV Total 800 ml Output Urine Total 300 ml Estimated Blood Loss 25 ml # Voids 3 # Bowel Movements 1 Result Diagram: 06/08/17 0505 06/12/17 0711 Imaging Last Impressions Wrist X-Ray 06/10/17 0000 Signed Impressions: Service Date/Time: Saturday, June 10, 2017 12:45 - CONCLUSION: Severe arthritic changes. No acute bony findings Taqueria Odonnell MD Upper Extremity Ultrasound 06/05/17 0000 Signed Impressions: Service Date/Time: Monday, June 05, 2017 09:37 - CONCLUSION: No DVT or superficial venous thrombosis is identified in the left upper extremity. Taqueria Mcnamara MD Catheter Placement X-Ray 06/05/17 0000 Signed Impressions: Service Date/Time: Monday, June 05, 2017 10:26 - CONCLUSION: Uncomplicated PermaCath placement as above. Arcenio Ortega MD Chest X-Ray 06/01/17 1450 Signed Impressions: Service Date/Time: Thursday, June 01, 2017 14:53 - CONCLUSION: 1. Bibasilar atelectatic changes with possible associated small effusion on the right. 2. Borderline heart size. Arcenio Ortega MD Objective Remarks GENERAL: sitting up on recliner CARDIOVASCULAR: Regular rate and rhythm without murmurs RESPIRATORY: Breath sounds equal bilaterally. No accessory muscle use. No cough noted during exam. GASTROINTESTINAL: Abdomen soft, non-tender, nondistended. MUSCULOSKELETAL: No edema. Left wrist swelling improved. No erythema. Sensation is intact. Sacrum: two small sores stage one noted MSK: able to ambulate in room without assistance. A/P Problem List: (1) Acute respiratory failure ICD Code: J96.00 - Acute respiratory failure, unspecified whether with hypoxia or hypercapnia Status: Acute (2) Acute on chronic diastolic congestive heart failure ICD Code: I50.33 - Acute on chronic diastolic (congestive) heart failure Status: Acute (3) Acute renal failure ICD Code: N17.9 - Acute kidney failure, unspecified Status: Acute (4) Chronic kidney disease, stage IV (severe) ICD Code: N18.4 - Chronic kidney disease, stage 4 (severe) Status: Chronic Assessment and Plan 87-year-old white male admitted for hypoxia and shortness of breath. Acute respiratory failure due to acute on chronic diastolic congestive heart failure along w worsening renal failire - much Improved after dialysis. Continue with dialysis. - Continue with diuretic torsemide and Zaroxolyn, monitor input and output closely. 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 - status post Vas-Cath. -s/p AV fistula done 06/11. CM assisting w d/c planning and arranging outpatient HD -Dietitian to educate pt on renal diet. -Continue management per supervisor hydrochloric area. Left wrist pain -Most likely from arthritis. -X-ray the wrist showed severe arthritis. no complaints today. Consider short course of steroids if worsening. COPD, chronic- continue with O2 support and DuoNeb. BPH, chronic - continue home terazosin. Hypertension- continue with home amlodipine and metoprolol and Hytrin. Constipation -Improved the lactulose. DVT prophylaxis-heparin Discharge Planning encourage pt out of bed and encourage ambulation as pt has two small sores on his buttocks stage one Continue HD per nephrology. CM assisting w d/c planing. Problem Qualifiers (1) Acute respiratory failure: Qualified Codes: J96.01 - Acute respiratory failure with hypoxia Marilynn Banegas MD Jun 12, 2017 11:42
[2017-06-12 12:00] VITALS: BP 110/56; PULSE 61; RESP 18; TEMP 97.6; O2SAT 98
--- NOTE | 2017-06-12 12:33 | HHI.NPPN ---
Subjective History of Present Illness 87-year-old male with past medical history of hypertension, ischemic heart disease and chronic kidney disease, chronic back pain and leg pain was brought to the hospital because of worsening shortness of breath. I was called to see the patient because of elevated BUN and creatinine. The patient has creatinine of 4.5 on presentation. Previously he has creatinine as high as 4.4. [facility]. Additional Remarks Patient is alert, post AVF, sitting on the chair. Review of Systems General Constitutional: Fatigue Respiratory Lungs: SOB, Cough, Sputum, Wheeze Cardiovascular Cardiac: CLEMONS Objective Data Data Vital Signs Date Time Temp Pulse Resp B/P (MAP) Pulse Ox O2 Delivery O2 Flow Rate FiO2 06/12/17 12:00 97.6 61 18 110/56 (74) 98 06/12/17 08:00 97.8 61 18 105/52 (69) 98 06/12/17 04:00 98.4 60 18 97/54 (68) 96 06/12/17 00:00 98.3 69 20 103/55 (71) 96 06/11/17 22:11 96 Nasal Cannula 2.00 06/11/17 20:30 Nasal Cannula 3.00 06/11/17 20:15 77 06/11/17 20:00 98.5 82 18 117/57 (77) 95 06/11/17 18:23 97 Nasal Cannula 2.00 06/11/17 16:00 98.0 76 20 123/53 (76) 97 06/11/17 13:30 97.7 69 10 131/63 (85) 100 Nasal Cannula 2 06/11/17 13:15 70 14 131/63 (85) 100 06/11/17 13:00 71 12 133/63 (86) 100 06/11/17 12:45 74 20 129/63 (85) 96 -: 06/08/17 0505 06/12/17 0711 Physical Exam General Appearance: No Acute Distress, Comfortable Eyes Eye Exam: Pupils Equal Throat Throat Exam: Oral Mucosa [place] & Moist Neck Neck Exam: Neck Supple Pulmonary Resp Exam: Breath Sounds Equal, No Distress, Crackles, Rhonchi, Decreased Bases , Diminished Breath Sounds Cardiology CV Exam: Regular, Normal Sinus Rhythm Gastrointestinal/Abdomen GI Exam: Soft, Non-Tender, Bowel Sounds Present, Non-Distended Extremeties Extremities Exam: Trace Edema Neurologic Neuro Exam: Alert, Awake, Oriented Psychiatric Psych Exam: Appropriate Responses Assessment/Plan Assessment Summary: Anemia of CKD, Fluid/Volume Overload, CKD Stage IV Problem List: (1) Hypoxia ICD Codes: R09.02 - Hypoxemia Status: Acute (2) CAD (coronary artery disease) ICD Codes: I25.10 - CAD (coronary artery disease) Status: Acute (3) COPD (chronic obstructive pulmonary disease) ICD Codes: J44.9 - Chronic obstructive pulmonary disease Status: Acute (4) Hypertension ICD Codes: I10 - Hypertension Status: Acute (5) Congestive heart failure ICD Codes: I50.9 - Heart failure, unspecified Status: Acute (6) Chronic kidney disease, stage IV (severe) ICD Codes: N18.4 - Chronic kidney disease, stage 4 (severe) Status: Chronic Plan Patient has advance renal disease and GFR is decreasing. On Torsemide and non oliguric. K is normal. Discussed with the daughter and patient about possible Dialysis. I tried to call his [employer] and got answering machine. Patient and family agreed about starting HD. He will need AVF and PermCath. Iron supplement and Epogen. Started on HD Patient now agreed to continue HD. AVF done, has good Bruit. HD today and arrangements for out patient HD. Problem Qualifiers (1) Hypertension: Qualified Codes: I10 - Essential (primary) hypertension Verona Raya MD Jun 12, 2017 12:33
[2017-06-12] MEDS: GENTAMICIN SULFATE (DIALYSIS USE ONLY) 20 MG/2 ML VIAL IV PRN (16:25)
[2017-06-12] MEDS: SODIUM CHLORIDE 0.9% FLUSH 10 ML FLUSH IV FLUSH PRN (16:25)
[2017-06-12] MEDS: EPOETIN ALFA 10,000 UNITS/ML VIAL IV PRN (16:25)
[2017-06-12 18:30] VITALS: BP 120/60; PULSE 93; RESP 18; TEMP 97.2; O2SAT 96
[2017-06-12 20:00] VITALS: BP 123/57; PULSE 69; RESP 18; TEMP 97.8; O2SAT 95
[2017-06-12] MEDS: TERAZOSIN HCL 1 MG CAP PO SCH (20:07)
[2017-06-13] VITALS (8 sets, daily range): BP systolic 102–119; BP diastolic 51–57; PULSE 61–70; RESP 18–20; TEMP 97.6–99.6; O2SAT 92–100
[2017-06-13] MEDS: traMADol HCL 50 MG TAB PO SCH ×4 (00:58→17:25)
[2017-06-13 08:50] LABS: BICARBONATE 31.8 MEQ/L (21.0-32.0); MAGNESIUM 2.1 MG/DL (1.5-2.5); POTASSIUM 3.8 MEQ/L (3.5-5.1)
[2017-06-13] MEDS: ASPIRIN 81 MG CHEW TAB CHEW SCH (08:56)
[2017-06-13] MEDS: TORSEMIDE 20 MG TAB PO SCH ×2 (08:57→17:14)
[2017-06-13] MEDS: POTASSIUM CHLORIDE 10 MEQ CONTROLLED RELEASE TAB PO SCH ×2 (08:57→21:18)
[2017-06-13] MEDS: DOCUSATE SODIUM 50 MG/SENNA 8.6 MG TAB PO SCH ×2 (08:57→21:18)
[2017-06-13] MEDS: METOLAZONE 5 MG TAB PO SCH (08:58)
[2017-06-13] MEDS: METOPROLOL TARTRATE 50 MG TAB PO SCH ×2 (09:00→21:18)
[2017-06-13] MEDS: SODIUM CHLORIDE 0.9% FLUSH 10 ML FLUSH IV FLUSH SCH ×2 (09:03→21:19)
--- NOTE | 2017-06-13 11:42 | HHI.NPPN ---
Subjective History of Present Illness 87-year-old male with past medical history of hypertension, ischemic heart disease and chronic kidney disease, chronic back pain and leg pain was brought to the hospital because of worsening shortness of breath. I was called to see the patient because of elevated BUN and creatinine. The patient has creatinine of 4.5 on presentation. Previously he has creatinine as high as 4.4. [facility]. Additional Remarks Patient is alert, breathing is better, still with nasal cannula. Review of Systems General Constitutional: Fatigue Respiratory Lungs: SOB, Cough, Sputum, Wheeze Cardiovascular Cardiac: CLEMONS Objective Data Data Vital Signs Date Time Temp Pulse Resp B/P (MAP) Pulse Ox O2 Delivery O2 Flow Rate FiO2 06/13/17 09:38 98 2.00 06/13/17 09:00 95 Nasal Cannula 2.00 06/13/17 08:07 97.7 65 18 103/51 (68) 92 06/13/17 04:00 98.5 65 20 109/57 (74) 94 06/13/17 00:00 99.6 70 20 105/57 (73) 95 06/12/17 20:09 Nasal Cannula 2.50 06/12/17 20:00 97.8 69 18 123/57 (79) 95 06/12/17 18:30 97.2 93 18 120/60 (80) 96 06/12/17 17:58 Nasal Cannula 2.00 06/12/17 12:00 97.6 61 18 110/56 (74) 98 -: 06/13/17 0735 Physical Exam General Appearance: No Acute Distress, Comfortable Eyes Eye Exam: Pupils Equal Throat Throat Exam: Oral Mucosa [place] & Moist Neck Neck Exam: Neck Supple Pulmonary Resp Exam: Breath Sounds Equal, No Distress, Crackles, Rhonchi, Decreased Bases , Diminished Breath Sounds Cardiology CV Exam: Regular, Normal Sinus Rhythm Gastrointestinal/Abdomen GI Exam: Soft, Non-Tender, Bowel Sounds Present, Non-Distended Extremeties Extremities Exam: Trace Edema Neurologic Neuro Exam: Alert, Awake, Oriented Psychiatric Psych Exam: Appropriate Responses Assessment/Plan Assessment Summary: Anemia of CKD, Fluid/Volume Overload, CKD Stage IV Problem List: (1) Hypoxia ICD Codes: R09.02 - Hypoxemia Status: Acute (2) CAD (coronary artery disease) ICD Codes: I25.10 - CAD (coronary artery disease) Status: Acute (3) COPD (chronic obstructive pulmonary disease) ICD Codes: J44.9 - Chronic obstructive pulmonary disease Status: Acute (4) Hypertension ICD Codes: I10 - Hypertension Status: Acute (5) Congestive heart failure ICD Codes: I50.9 - Heart failure, unspecified Status: Acute (6) Chronic kidney disease, stage IV (severe) ICD Codes: N18.4 - Chronic kidney disease, stage 4 (severe) Status: Chronic Plan Patient has advance renal disease and GFR is decreasing. On Torsemide and non oliguric. K is normal. Patient and family agreed about starting HD. Iron supplement and Epogen. Started on HD Patient now agreed to continue HD. AVF done, has good Bruit. arrangements for out patient HD. Continue HD , MWF. Problem Qualifiers (1) Hypertension: Qualified Codes: I10 - Essential (primary) hypertension Verona Raya MD Jun 13, 2017 11:42
[2017-06-13] MEDS: guaiFENesin E.R. 600 MG TAB PO SCH ×2 (12:47→21:18)
--- NOTE | 2017-06-13 16:02 | HHI.PR ---
Subjective Remarks Follow up visit on patient with REMA on CKD stage IV, now on HD. Patient seen and examined today. Patient has no new complaints. He is eager to go home. He denies any fever or chills. Denies any chest pain or shortness of breath. Denies any N/V or abdominal pain. Objective Vitals Vital Signs Date Time Temp Pulse Resp B/P (MAP) Pulse Ox O2 Delivery O2 Flow Rate FiO2 06/13/17 12:12 98.1 66 18 110/57 (74) 97 06/13/17 10:00 61 06/13/17 09:38 98 2.00 06/13/17 09:00 95 Nasal Cannula 2.00 06/13/17 08:07 97.7 65 18 103/51 (68) 92 06/13/17 04:00 98.5 65 20 109/57 (74) 94 06/13/17 00:00 99.6 70 20 105/57 (73) 95 06/12/17 20:09 Nasal Cannula 2.50 06/12/17 20:00 97.8 69 18 123/57 (79) 95 06/12/17 18:30 97.2 93 18 120/60 (80) 96 06/12/17 17:58 Nasal Cannula 2.00 I/O 06/12/17 06/12/17 06/12/17 06/13/17 06/13/17 06/13/17 06:59 14:59 22:59 06:59 14:59 22:59 Intake Total 720 ml 480 ml Output Total 3000 ml Balance 720 ml -3000 ml 480 ml Intake Oral 720 ml 480 ml Hemodialysis 3000 ml # Voids 3 2 Result Diagram: 06/13/17 0735 Imaging Last Impressions Wrist X-Ray 06/10/17 0000 Signed Impressions: Service Date/Time: Saturday, June 10, 2017 12:45 - CONCLUSION: Severe arthritic changes. No acute bony findings Taqueria Odonnell MD Upper Extremity Ultrasound 06/05/17 0000 Signed Impressions: Service Date/Time: Monday, June 05, 2017 09:37 - CONCLUSION: No DVT or superficial venous thrombosis is identified in the left upper extremity. Taqueria Mcnamara MD Catheter Placement X-Ray 06/05/17 0000 Signed Impressions: Service Date/Time: Monday, June 05, 2017 10:26 - CONCLUSION: Uncomplicated PermaCath placement as above. Arcenio Ortega MD Chest X-Ray 06/01/17 [id number] Signed Impressions: Service Date/Time: Thursday, June 01, 2017 14:53 - CONCLUSION: 1. Bibasilar atelectatic changes with possible associated small effusion on the right. 2. Borderline heart size. Arcenio Ortega MD Objective Remarks GENERAL: Well-nourished, well-developed patient in NAD. Sitting up in recliner. Appears comfortable. SKIN: Warm and dry. HEAD: Normocephalic. Atraumatic. EYES: Pupils equal and round. No scleral icterus. No injection or drainage. ENT: No nasal bleeding or discharge. Mucous membranes pink and moist. NECK: Supple. Trachea midline. CARDIOVASCULAR: Regular rate and rhythm. (+)murmur. RESPIRATORY: No accessory muscle use. Clear to auscultation. Breath sounds equal bilaterally. GASTROINTESTINAL: Abdomen soft, non-tender, nondistended. Normoactive bowel sounds x4. MUSCULOSKELETAL: No obvious deformities. Extremities with edema. NEUROLOGICAL: Awake and alert. Able to move all extremities spontaneously. Normal speech. PSYCHIATRIC: Appropriate mood and affect; insight and judgment normal. Medications and IVs Current Medications Medications (Trade) Dose Ordered Sig/Eduin Route Start Time Stop Time Status Last Admin (Zaroxolyn) 5 mg DAILY PO 06/01/17 17:45 06/13/17 08:58 (Norvasc) 10 mg DAILY PO 06/02/17 09:00 06/12/17 09:18 (Aspirin Chew) 81 mg DAILY CHEW 06/02/17 09:00 06/13/17 08:56 (Flonase Dejon Spr) 1 spray BID PRN EACH NARE 06/01/17 18:30 (Claritin) 10 mg DAILY PRN PO 06/01/17 18:30 (Lopressor) 50 mg BID PO 06/01/17 21:00 06/12/17 20:07 (Remeron) 10 mg HS PRN PO 06/01/17 18:30 06/03/17 20:52 (Tears Naturale Opth Soln) 2 drop Q4H PRN EACH EYE 06/01/17 18:30 (Hytrin) 2 mg HS PO 06/01/17 21:00 06/12/17 20:07 (Tylenol) 650 mg Q6H PRN PO 06/01/17 18:30 06/11/17 22:36 (Narcan Inj) 0.4 mg UNSCH PRN IV 06/01/17 18:30 (Indu-Colace) 1 tab BID PO 06/01/17 21:00 06/13/17 08:57 (Milk Of Magnesia Liq) 30 ml Q12H PRN PO 06/01/17 18:30 (Senokot) 17.2 mg Q12H PRN PO 06/01/17 18:30 (Dulcolax Supp) 10 mg DAILY PRN RECTAL 06/01/17 18:30 (Lactulose Liq) 30 ml DAILY PRN PO 06/01/17 18:30 06/07/17 13:21 (NS Flush) 2 ml UNSCH PRN IV FLUSH 06/01/17 18:30 (NS Flush) 2 ml BID IV FLUSH 06/01/17 21:00 06/13/17 09:03 (KCl) 10 meq BID PO 06/01/17 21:00 06/13/17 08:57 (Duoneb Neb) 1 ampule Q4HR NEB PRN NEB 06/01/17 19:00 (Mucinex Er) 600 mg BID PO 06/01/17 21:00 06/13/17 12:47 (Demadex) 40 mg BID@09,18 PO 06/03/17 18:00 06/13/17 08:57 Sodium Chloride 1,000 ml @ 0 mls/hr Q0M PRN OTHER 06/04/17 17:23 (Heparin Inj) 8,000 units UNSCH PRN IVF 06/04/17 17:30 06/12/17 16:25 Sodium Chloride 1,000 ml @ 200 mls/hr Q5H PRN IV 06/04/17 17:23 Sodium Chloride 1,000 ml @ 0 mls/hr Q0M PRN OTHER 06/04/17 17:23 06/10/17 17:59 (Mannitol Inj) 12.5 gm UNSCH PRN IV 06/04/17 17:30 (Albumin 25% Inj) 25 gm UNSCH PRN IV 06/04/17 17:30 (NS Flush) 5 ml UNSCH PRN IV FLUSH 06/04/17 17:30 06/12/17 16:25 (Heparin Inj) UNSCH PRN .XX 06/04/17 17:30 06/10/17 18:00 (Gentamicin (Dialysis) Inj) 20 mg UNSCH PRN IV 06/04/17 17:30 06/12/17 16:25 (Zofran Inj) 4 mg UNSCH PRN IV 06/04/17 17:30 (Tylenol) 650 mg UNSCH PRN PO 06/04/17 17:30 (Benadryl) 25 mg UNSCH PRN PO 06/04/17 17:30 (Nitrostat Sl) 0.4 mg UNSCH PRN SL 06/04/17 17:30 (Catapres) 0.1 mg UNSCH PRN PO 06/04/17 17:30 (Epogen Inj) 6,000 units UNSCH PRN IV 06/04/17 17:30 06/12/17 16:25 (Gelfoam 12 Mm/7 Mm Top) 1 foam UNSCH PRN TOP 06/04/17 17:30 (NS Flush) UNSCH PRN IVF 06/05/17 11:45 (Heparin Inj) UNSCH PRN IV FLUSH 06/05/17 11:45 (Ultram) 50 mg Q6H PO 06/10/17 13:00 06/13/17 08:57 A/P Problem List: (1) Acute respiratory failure ICD Code: J96.00 - Acute respiratory failure, unspecified whether with hypoxia or hypercapnia Status: Acute (2) Acute on chronic diastolic congestive heart failure ICD Code: I50.33 - Acute on chronic diastolic (congestive) heart failure Status: Acute (3) Acute renal failure ICD Code: N17.9 - Acute kidney failure, unspecified Status: Acute (4) Chronic kidney disease, stage IV (severe) ICD Code: N18.4 - Chronic kidney disease, stage 4 (severe) Status: Chronic Assessment and Plan 87-year-old white male admitted for hypoxia and shortness of breath. Acute respiratory failure due to acute on chronic diastolic congestive heart failure along w worsening renal failure - no complaints of cough or shortness of breath - much Improved after dialysis. Continue with dialysis. - Continue with diuretic torsemide and Zaroxolyn, monitor input and output closely. Acute exacerbation of chronic kidney disease stage IV with likely end-stage renal disease - nephrology following. - status post Vas-Cath. - s/p AV fistula done 06/11. CM assisting w d/c planning and arranging outpatient HD - Dietitian to educate pt on renal diet. - Continue management per cylinder sander operator. - monitor Cr Left wrist pain - Most likely from arthritis. - X-ray the wrist showed severe arthritis. no complaints today. Consider short course of steroids if worsening. - no complaints of wrist pain presently Hyponatremia - mild - continue to monitor. AM labs ordered. COPD, chronic - not in exacerbation - continue with O2 support and DuoNeb. BPH, chronic - continue home terazosin. Hypertension - controlled - continue with home amlodipine and metoprolol and Hytrin. Constipation - Improved with lactulose. DVT prophylaxis - heparin Discussed with patient and Dr. Banegas Discharge Planning Continue HD per nephrology. CM assisting w d/c planing. Attending Statement The exam, history, and the medical decision-making described in the above note were completed with the assistance of the mid-level provider. I reviewed and agree with the findings presented. I attest that I had a [id number] encounter with the patient on the same day, and personally performed and documented my assessment and findings in the medical record. Pt is eager to go home, has no complaints today. on exam, soft murmur noted. lungs are clear, abdomen soft. Pt will continue HD. CM assisting with setting up outpatient HD continue inpt HD per nephrology recs Problem Qualifiers (1) Acute respiratory failure: Qualified Codes: J96.01 - Acute respiratory failure with hypoxia Lavonne Bailey Jun 13, 2017 16:02 Marilynn Banegas MD Jun 13, 2017 17:40
[2017-06-13] MEDS: TERAZOSIN HCL 1 MG CAP PO SCH (21:18)
[2017-06-13] MEDS: MAGNESIUM HYDROXIDE SUSP 30 ML CUP PO PRN (21:26)
[2017-06-14] VITALS (8 sets, daily range): BP systolic 98–134; BP diastolic 51–58; PULSE 60–66; RESP 19–20; TEMP 97.3–98; O2SAT 94–100
--- NOTE | 2017-06-14 | MP ---
cc: MD COLT,TAMMY DATE OF SURGERY 06/11/17 PREOPERATIVE DIAGNOSIS Chronic renal failure, need for dialysis. POSTOPERATIVE DIAGNOSIS Chronic renal failure, need for dialysis. PROCEDURE AV fistula left upper arm using cephalic vein. SURGEON MD Colt ANESTHESIA General. ESTIMATED BLOOD LOSS 20 cc. PROCEDURE IN DETAIL The patient prepped and draped usual fashion and a small incision made antecubital fossa, deepened down to the level of the antecubital, i.e. cephalic vein. This was isolated proximal distally, appears to be fairly large in diameter about 6 mm and very much adequate for the anastomosis. Basilic vein is now dissected, appears to be fairly small and this is abandoned. Antecubital brachial artery is now freed up with sharp and blunt dissection. Vessel loops placed around it. At the very distal end of antecubital artery division of the ulnar radial artery is encountered and vessel loops is placed distally. The patient is given 5000 units of heparin and then clamps are applied. The profunda clamp to the antecubital artery and then bulldog to the vein. The vein is freed up, about 2 inches in length area, distally it is ligated with 3-0 silk and divided and then fellow branches are ligated with 3-0 silk and divided. A swing in the vein now into toward the artery. About 5 mm incision is made in the brachial artery distally where before it bifurcates. In this case I chose to make smaller incision based on the fact the patient has a fairly large vein and I did not want to divert too much flow and causes steal syndrome. Anastomosis now created with 6-0 Prolene in a running fashion and blood flow reestablished usual order and fashion. The patient readily has nice thrill and bruit in the vein and he has excellent flow distally. The hand is warm. Area irrigated with saline. Incision closed with 2-0 Vicryl and 4-0 Monocryl. Benzoin and Steri-Strips applied. The patient tolerated the procedure well. Tammy GRESHAM/GAGAN /2:55 PM /11:50 PM
[2017-06-14] MEDS: traMADol HCL 50 MG TAB PO SCH ×4 (01:27→19:06)
[2017-06-14] MEDS: guaiFENesin E.R. 600 MG TAB PO SCH ×2 (08:45→19:49)
[2017-06-14] MEDS: METOLAZONE 5 MG TAB PO SCH (08:45)
[2017-06-14] MEDS: POTASSIUM CHLORIDE 10 MEQ CONTROLLED RELEASE TAB PO SCH ×2 (08:45→19:50)
[2017-06-14] MEDS: ASPIRIN 81 MG CHEW TAB CHEW SCH (08:46)
[2017-06-14] MEDS: DOCUSATE SODIUM 50 MG/SENNA 8.6 MG TAB PO SCH ×2 (08:46→19:49)
[2017-06-14] MEDS: TORSEMIDE 20 MG TAB PO SCH ×2 (08:46→18:00)
[2017-06-14] MEDS: SODIUM CHLORIDE 0.9% FLUSH 10 ML FLUSH IV FLUSH SCH ×2 (08:47→19:50)
[2017-06-14] MEDS: METOPROLOL TARTRATE 50 MG TAB PO SCH ×2 (08:48→19:50)
[2017-06-14 09:57] LABS: POTASSIUM 4.2 MEQ/L (3.5-5.1)
--- NOTE | 2017-06-14 12:51 | HHI.NPPN ---
Subjective History of Present Illness 87-year-old male with past medical history of hypertension, ischemic heart disease and chronic kidney disease, chronic back pain and leg pain was brought to the hospital because of worsening shortness of breath. I was called to see the patient because of elevated BUN and creatinine. The patient has creatinine of 4.5 on presentation. Previously he has creatinine as high as 4.4. [facility]. Additional Remarks Patient is alert, breathing is better, edema decreased, has cramps in hands. Review of Systems General Constitutional: Fatigue Respiratory Lungs: SOB, Cough, Sputum, Wheeze Cardiovascular Cardiac: [place]MON[place] Objective Data Data Vital Signs Date Time Temp Pulse Resp B/P (MAP) Pulse Ox O2 Delivery O2 Flow Rate FiO2 06/14/17 12:00 97.8 64 20 134/58 (83) 98 06/14/17 09:00 95 Nasal Cannula 2.00 06/14/17 08:00 97.8 63 20 111/55 (73) 99 06/14/17 07:56 99 Nasal Cannula 2.00 06/14/17 04:00 97.8 65 19 123/55 (77) 94 06/14/17 00:00 98.0 65 19 98/51 (67) 94 06/13/17 21:15 Nasal Cannula 2.00 06/13/17 20:00 98.3 65 18 119/57 (77) 100 06/13/17 16:07 97.6 63 18 102/56 (71) 99 -: 06/14/17 0845 Physical Exam General Appearance: No Acute Distress, Comfortable Eyes Eye Exam: Pupils Equal Throat Throat Exam: Oral Mucosa [place] & Moist Neck Neck Exam: Neck Supple Pulmonary Resp Exam: Breath Sounds Equal, No Distress, Crackles, Rhonchi, Decreased Bases , Diminished Breath Sounds Cardiology CV Exam: Regular, Normal Sinus Rhythm Gastrointestinal/Abdomen GI Exam: Soft, Non-Tender, Bowel Sounds Present, Non-Distended Extremeties Extremities Exam: Trace Edema Neurologic Neuro Exam: Alert, Awake, Oriented Psychiatric Psych Exam: Appropriate Responses Assessment/Plan Assessment Summary: Anemia of CKD, Fluid/Volume Overload, CKD Stage IV Problem List: (1) Hypoxia ICD Codes: R09.02 - Hypoxemia Status: Acute (2) CAD (coronary artery disease) ICD Codes: I25.10 - CAD (coronary artery disease) Status: Acute (3) COPD (chronic obstructive pulmonary disease) ICD Codes: J44.9 - Chronic obstructive pulmonary disease Status: Acute (4) Hypertension ICD Codes: I10 - Hypertension Status: Acute (5) Congestive heart failure ICD Codes: I50.9 - Heart failure, unspecified Status: Acute (6) Chronic kidney disease, stage IV (severe) ICD Codes: N18.4 - Chronic kidney disease, stage 4 (severe) Status: Chronic Plan Patient has advance renal disease and GFR is decreasing. On Torsemide and non oliguric. K is normal. Patient and family agreed about starting HD. Iron supplement and Epogen. Started on HD Patient now agreed to continue HD. AVF done, has good Bruit. arrangements for out patient HD. HD will be in AM. D/W Metolazone and decrease Torsemide. Problem Qualifiers (1) Hypertension: Qualified Codes: I10 - Essential (primary) hypertension Verona Raya MD Jun 14, 2017 12:51
--- NOTE | 2017-06-14 13:50 | HHI.PR ---
Subjective Remarks Follow up visit on patient with REMA on CKD stage IV, now on HD. Patient seen and examined today. Patient is resting comfortably in his bedside recliner. Daughter is at the bedside. Patient denies any acute complaints. He denies any fever or chills. Denies any chest pain or shortness of breath. Denies any N /V or abdominal pain. Objective Vitals Vital Signs Date Time Temp Pulse Resp B/P (MAP) Pulse Ox O2 Delivery O2 Flow Rate FiO2 06/14/17 12:00 97.8 64 20 134/58 (83) 98 06/14/17 09:00 95 Nasal Cannula 2.00 06/14/17 08:00 97.8 63 20 111/55 (73) 99 06/14/17 07:56 99 Nasal Cannula 2.00 06/14/17 04:00 97.8 65 19 123/55 (77) 94 06/14/17 00:00 98.0 65 19 98/51 (67) 94 06/13/17 21:15 Nasal Cannula 2.00 06/13/17 20:00 98.3 65 18 119/57 (77) 100 06/13/17 16:07 97.6 63 18 102/56 (71) 99 I/O 06/13/17 06/13/17 06/13/17 06/14/17 06/14/17 06/14/17 07:00 15:00 23:00 07:00 15:00 23:00 Intake Total 480 ml 720 ml 560 ml Output Total 350 ml Balance 480 ml 720 ml 210 ml Intake Oral 480 ml 720 ml 560 ml Output Urine Total 350 ml # Voids 2 3 # Bowel Movements 0 1 Result Diagram: 06/14/17 0845 Imaging Last Impressions Wrist X-Ray 06/10/17 0000 Signed Impressions: Service Date/Time: Saturday, June 10, 2017 12:45 - CONCLUSION: Severe arthritic changes. No acute bony findings Taqueria Odonnell MD Upper Extremity Ultrasound 06/05/17 0000 Signed Impressions: Service Date/Time: Monday, June 05, 2017 09:37 - CONCLUSION: No DVT or superficial venous thrombosis is identified in the left upper extremity. Taqueria Mcnamara MD Catheter Placement X-Ray 06/05/17 0000 Signed Impressions: Service Date/Time: Monday, June 05, 2017 10:26 - CONCLUSION: Uncomplicated PermaCath placement as above. Arcenio Ortega MD Chest X-Ray 06/01/17 1450 Signed Impressions: Service Date/Time: Thursday, June 01, 2017 14:53 - CONCLUSION: 1. Bibasilar atelectatic changes with possible associated small effusion on the right. 2. Borderline heart size. Arcenio Ortega MD Objective Remarks GENERAL: Well-nourished, well-developed patient in NAD. Sitting up in recliner. Appears comfortable. Daughter is at the bedside. SKIN: Warm and dry. HEAD: Normocephalic. Atraumatic. EYES: Pupils equal and round. No scleral icterus. No injection or drainage. ENT: No nasal bleeding or discharge. Mucous membranes pink and moist. NECK: Supple. Trachea midline. CARDIOVASCULAR: Regular rate and rhythm. S1, S2 noted. (+)soft murmur appreciated. RESPIRATORY: No accessory muscle use. Clear to auscultation. Breath sounds equal bilaterally. GASTROINTESTINAL: Abdomen soft, non-tender, nondistended. Normoactive bowel sounds x4. MUSCULOSKELETAL: No obvious deformities. Extremities without edema. NEUROLOGICAL: Awake and alert. Able to move all extremities spontaneously. Normal speech. PSYCHIATRIC: Appropriate mood and affect; insight and judgment normal. Medications and IVs Current Medications Medications (Trade) Dose Ordered Sig/Eduin Route Start Time Stop Time Status Last Admin (Norvasc) 10 mg DAILY PO 06/02/17 09:00 06/12/17 09:18 (Aspirin Chew) 81 mg DAILY CHEW 06/02/17 09:00 06/14/17 08:46 (Flonase Dejon Spr) 1 spray BID PRN EACH NARE 06/01/17 18:30 (Claritin) 10 mg DAILY PRN PO 06/01/17 18:30 (Lopressor) 50 mg BID PO 06/01/17 21:00 06/13/17 21:18 (Remeron) 10 mg HS PRN PO 06/01/17 18:30 06/03/17 20:52 (Tears Naturale Opth Soln) 2 drop Q4H PRN EACH EYE 06/01/17 18:30 (Hytrin) 2 mg HS PO 06/01/17 21:00 06/13/17 21:18 (Tylenol) 650 mg Q6H PRN PO 06/01/17 18:30 06/11/17 22:36 (Narcan Inj) 0.4 mg UNSCH PRN IV 06/01/17 18:30 (Indu-Colace) 1 tab BID PO 06/01/17 21:00 06/14/17 08:46 (Milk Of Magnesia Liq) 30 ml Q12H PRN PO 06/01/17 18:30 06/13/17 21:26 (Senokot) 17.2 mg Q12H PRN PO 06/01/17 18:30 (Dulcolax Supp) 10 mg DAILY PRN RECTAL 06/01/17 18:30 (Lactulose Liq) 30 ml DAILY PRN PO 06/01/17 18:30 06/07/17 13:21 (NS Flush) 2 ml UNSCH PRN IV FLUSH 06/01/17 18:30 (NS Flush) 2 ml BID IV FLUSH 06/01/17 21:00 06/14/17 08:47 (KCl) 10 meq BID PO 06/01/17 21:00 06/14/17 08:45 (Duoneb Neb) 1 ampule Q4HR NEB PRN NEB 06/01/17 19:00 (Mucinex Er) 600 mg BID PO 06/01/17 21:00 06/14/17 08:45 (Demadex) 40 mg BID@09,18 PO 06/03/17 18:00 06/14/17 18:00 06/14/17 08:46 Sodium Chloride 1,000 ml @ 0 mls/hr Q0M PRN OTHER 06/04/17 17:23 (Heparin Inj) 8,000 units UNSCH PRN IVF 06/04/17 17:30 06/12/17 16:25 Sodium Chloride 1,000 ml @ 200 mls/hr Q5H PRN IV 06/04/17 17:23 Sodium Chloride 1,000 ml @ 0 mls/hr Q0M PRN OTHER 06/04/17 17:23 06/10/17 17:59 (Mannitol Inj) 12.5 gm UNSCH PRN IV 06/04/17 17:30 (Albumin 25% Inj) 25 gm UNSCH PRN IV 06/04/17 17:30 (NS Flush) 5 ml UNSCH PRN IV FLUSH 06/04/17 17:30 06/12/17 16:25 (Heparin Inj) UNSCH PRN .XX 06/04/17 17:30 06/10/17 18:00 (Gentamicin (Dialysis) Inj) 20 mg UNSCH PRN IV 06/04/17 17:30 06/12/17 16:25 (Zofran Inj) 4 mg UNSCH PRN IV 06/04/17 17:30 (Tylenol) 650 mg UNSCH PRN PO 06/04/17 17:30 (Benadryl) 25 mg UNSCH PRN PO 06/04/17 17:30 (Nitrostat Sl) 0.4 mg UNSCH PRN SL 06/04/17 17:30 (Catapres) 0.1 mg UNSCH PRN PO 06/04/17 17:30 (Epogen Inj) 6,000 units UNSCH PRN IV 06/04/17 17:30 06/12/17 16:25 (Gelfoam 12 Mm/7 Mm Top) 1 foam UNSCH PRN TOP 06/04/17 17:30 (NS Flush) UNSCH PRN IVF 06/05/17 11:45 (Heparin Inj) UNSCH PRN IV FLUSH 06/05/17 11:45 (Ultram) 50 mg Q6H PO 06/10/17 13:00 06/14/17 07:00 (Demadex) 40 mg DAILY PO 06/15/17 09:00 (Rocaltrol) 0.5 mcg DAILY PO 06/14/17 13:00 (Nephrocaps) 1 cap DAILY PO 06/14/17 13:00 A/P Problem List: (1) Acute respiratory failure ICD Code: J96.00 - Acute respiratory failure, unspecified whether with hypoxia or hypercapnia Status: Acute (2) Acute on chronic diastolic congestive heart failure ICD Code: I50.33 - Acute on chronic diastolic (congestive) heart failure Status: Acute (3) Acute renal failure ICD Code: N17.9 - Acute kidney failure, unspecified Status: Acute (4) Chronic kidney disease, stage IV (severe) ICD Code: N18.4 - Chronic kidney disease, stage 4 (severe) Status: Chronic Assessment and Plan 87-year-old white male admitted for hypoxia and shortness of breath. Acute respiratory failure due to acute on chronic diastolic congestive heart failure along w worsening renal failure - no complaints of cough or shortness of breath - much Improved after dialysis. Continue with dialysis. - Continue with diuretic torsemide but at lower dose per nephrology - Zaroxolyn discontinued by nephrology - monitor input and output closely. Acute exacerbation of chronic kidney disease stage IV with likely end-stage renal disease - nephrology following. Plan for HD tomorrow. - status post Vas-Cath. - s/p AV fistula done 06/11. CM assisting w d/c planning and arranging outpatient HD - Dietitian to educate pt on renal diet. - monitor Cr. trending up. As above Torsemide dose decreased and Zaroxolyn discontinued by Nephrology Left wrist pain - Most likely from arthritis. - X-ray the wrist showed severe arthritis. no complaints today. Consider short course of steroids if worsening. - no complaints of wrist pain presently Hyponatremia - worsening. Possibly due to Metolazone which has been discontinued by Nephrology - continue to monitor. - AM labs ordered. COPD, chronic - not in exacerbation - continue with O2 support and DuoNeb. BPH, chronic - continue home terazosin. Hypertension - controlled - continue with home amlodipine and metoprolol and Hytrin. Constipation - Improved with lactulose. - + Bm today DVT prophylaxis - heparin Discussed with patient, daughter and Dr. Banegas Discharge Planning Continue HD per nephrology. CM assisting w d/c planing. Attending Statement The exam, history, and the medical decision-making described in the above note were completed with the assistance of the mid-level provider. I reviewed and agree with the findings presented. I attest that I had a [id number] encounter with the patient on the same day, and personally performed and documented my assessment and findings in the medical record. Pt doing well. No complaints today. Daughter at bedside on exam: sitting on recliner, covered up, lungs are clear, HR, rrr w soft murmur appreciated, abdomen soft, non tender, moves all extremities continue HD per nephrology recs. CM still working on setting up outpatient HD. Nephrology has stopped Metolazone and decrease Torsemide. Problem Qualifiers (1) Acute respiratory failure: Qualified Codes: J96.01 - Acute respiratory failure with hypoxia Lavonne Bailey Jun 14, 2017 13:50 Marilynn Banegas MD Jun 14, 2017 15:37
[2017-06-14] MEDS: VITAMIN B CMPLX/VITC/FOLIC AC CAP PO SCH (14:23)
[2017-06-14] MEDS: CALCITRIOL 0.25 MCG CAP PO SCH (14:23)
[2017-06-14] MEDS: TERAZOSIN HCL 1 MG CAP PO SCH (19:49)
[2017-06-15] VITALS (7 sets, daily range): BP systolic 109–133; BP diastolic 58–65; PULSE 59–77; RESP 16–20; TEMP 97.3–98.7; O2SAT 94–100
[2017-06-15] MEDS: traMADol HCL 50 MG TAB PO SCH ×4 (00:13→19:00)
[2017-06-15] MEDS: guaiFENesin E.R. 600 MG TAB PO SCH ×2 (08:36→20:02)
[2017-06-15] MEDS: ASPIRIN 81 MG CHEW TAB CHEW SCH (08:37)
[2017-06-15] MEDS: POTASSIUM CHLORIDE 10 MEQ CONTROLLED RELEASE TAB PO SCH ×2 (08:37→20:01)
[2017-06-15] MEDS: TORSEMIDE 20 MG TAB PO SCH (08:37)
[2017-06-15] MEDS: VITAMIN B CMPLX/VITC/FOLIC AC CAP PO SCH (08:37)
[2017-06-15] MEDS: DOCUSATE SODIUM 50 MG/SENNA 8.6 MG TAB PO SCH ×2 (08:38→20:01)
[2017-06-15] MEDS: SODIUM CHLORIDE 0.9% FLUSH 10 ML FLUSH IV FLUSH SCH ×2 (08:38→20:01)
[2017-06-15] MEDS: METOPROLOL TARTRATE 50 MG TAB PO SCH ×2 (08:40→20:01)
[2017-06-15] MEDS: SENNOSIDES 8.6 MG TAB PO PRN (08:42)
[2017-06-15] MEDS: CALCITRIOL 0.25 MCG CAP PO SCH (09:00)
[2017-06-15 09:39] LABS: BICARBONATE 27.4 MEQ/L (21.0-32.0); POTASSIUM 3.6 MEQ/L (3.5-5.1)
[2017-06-15] MEDS: HEPARIN SODIUM - IV 10,000 UNITS/10 ML VIAL PRN (11:21)
[2017-06-15] MEDS: GENTAMICIN SULFATE (DIALYSIS USE ONLY) 20 MG/2 ML VIAL IV PRN (11:21)
[2017-06-15] MEDS: EPOETIN ALFA 10,000 UNITS/ML VIAL IV PRN (11:21)
--- NOTE | 2017-06-15 16:07 | HHI.PR ---
Subjective Remarks Just came back from dialysis and is eating a snack. has no complaints. no CP/SOB /N/V Objective Vitals Vital Signs Date Time Temp Pulse Resp B/P (MAP) Pulse Ox O2 Delivery O2 Flow Rate FiO2 06/15/17 13:56 97.3 73 18 127/60 (82) 100 06/15/17 09:00 95 Nasal Cannula 2.00 06/15/17 08:00 98.1 62 18 116/58 (77) 98 06/15/17 04:00 98.1 64 18 133/62 (85) 94 06/15/17 00:00 98.0 59 20 109/59 (76) 98 06/14/17 20:05 Nasal Cannula 2.00 06/14/17 20:00 60 06/14/17 20:00 97.7 62 19 124/58 (80) 100 06/14/17 17:58 100 Nasal Cannula 2.00 I/O 06/14/17 06/14/17 06/14/17 06/15/17 06/15/17 06/15/17 07:00 15:00 23:00 07:00 15:00 23:00 Intake Total 560 ml 720 ml 520 ml Output Total 350 ml 1300 ml 2800 ml Balance 210 ml 720 ml -780 ml -2800 ml Intake Oral 560 ml 720 ml 520 ml Output Urine Total 350 ml 1300 ml Hemodialysis 2800 ml # Voids 2 # Bowel Movements 1 1 Result Diagram: 06/15/17 0816 Imaging Last Impressions Wrist X-Ray 06/10/17 0000 Signed Impressions: Service Date/Time: Saturday, June 10, 2017 12:45 - CONCLUSION: Severe arthritic changes. No acute bony findings Taqueria Odonnell MD Upper Extremity Ultrasound 06/05/17 0000 Signed Impressions: Service Date/Time: Monday, June 05, 2017 09:37 - CONCLUSION: No DVT or superficial venous thrombosis is identified in the left upper extremity. Taqueria Mcnamara MD Catheter Placement X-Ray 06/05/17 0000 Signed Impressions: Service Date/Time: Monday, June 05, 2017 10:26 - CONCLUSION: Uncomplicated PermaCath placement as above. Arcenio Ortgea MD Chest X-Ray 06/01/17 1450 Signed Impressions: Service Date/Time: Shreyas, June 01, 2017 14:53 - CONCLUSION: 1. Bibasilar atelectatic changes with possible associated small effusion on the right. 2. Borderline heart size. Arcenio Ortega MD Objective Remarks GENERAL: Well-nourished, well-developed patient in NAD. Sitting up in recliner. EYES: EOMI NECK: Supple. Trachea midline. CARDIOVASCULAR: Regular rate and rhythm. (+)soft murmur appreciated. RESPIRATORY: No accessory muscle use. Clear to auscultation. Breath sounds equal bilaterally. GASTROINTESTINAL: Abdomen soft, non-tender, nondistended. Normoactive bowel sounds x4. MUSCULOSKELETAL: No obvious deformities. Extremities without edema. NEUROLOGICAL: Awake and alert. Able to move all extremities spontaneously. Normal speech. PSYCHIATRIC: Appropriate mood and affect; insight and judgment normal. A/P Problem List: (1) Acute respiratory failure ICD Code: J96.00 - Acute respiratory failure, unspecified whether with hypoxia or hypercapnia Status: Acute (2) Acute on chronic diastolic congestive heart failure ICD Code: I50.33 - Acute on chronic diastolic (congestive) heart failure Status: Acute (3) Acute renal failure ICD Code: N17.9 - Acute kidney failure, unspecified Status: Acute (4) Chronic kidney disease, stage IV (severe) ICD Code: N18.4 - Chronic kidney disease, stage 4 (severe) Status: Chronic Assessment and Plan 87-year-old white male admitted for hypoxia and shortness of breath. Acute respiratory failure due to acute on chronic diastolic congestive heart failure along w worsening renal failure - much Improved after dialysis. Continue with dialysis. - Continue with diuretic torsemide and Zaroxolyn, monitor input and output closely. 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 Had HD today - status post Vas-Cath. -s/p AV fistula done 06/11. CM assisting w d/c planning and arranging outpatient HD -Dietitian to educate pt on renal diet. -Continue management per fire protection equipment technician. Left wrist pain -Most likely from arthritis. -X-ray the wrist showed severe arthritis. no complaints today. Consider short course of steroids if worsening. COPD, chronic- continue with O2 support and DuoNeb. BPH, chronic - continue home terazosin. Hypertension- continue with home amlodipine and metoprolol and Hytrin. Constipation -Improved the lactulose. DVT prophylaxis-heparin Discharge Planning encourage pt out of bed and encourage ambulation as pt has two small sores on his buttocks stage one Continue HD per nephrology. CM assisting w d/c planing as pt needs outpatient HD set up prior to discharge. Problem Qualifiers (1) Acute respiratory failure: Qualified Codes: J96.01 - Acute respiratory failure with hypoxia Marilynn Banegas MD Jun 15, 2017 16:07
--- NOTE | 2017-06-15 16:07 | HHI.NPPN ---
Subjective History of Present Illness 87-year-old male with past medical history of hypertension, ischemic heart disease and chronic kidney disease, chronic back pain and leg pain was brought to the hospital because of worsening shortness of breath. I was called to see the patient because of elevated BUN and creatinine. The patient has creatinine of 4.5 on presentation. Previously he has creatinine as high as 4.4. [facility]. Additional Remarks Patient is alert, breathing is better, sitting on chair, has HD in AM. Review of Systems General Constitutional: Fatigue Respiratory Lungs: SOB, Cough, Sputum, Wheeze Cardiovascular Cardiac: CLEMONS Objective Data Data 06/15/17 06/16/17 19:00 07:00 Output Total 2800 ml Balance -2800 ml Hemodialysis 2800 ml Vital Signs Date Time Temp Pulse Resp B/P (MAP) Pulse Ox O2 Delivery O2 Flow Rate FiO2 06/15/17 13:56 97.3 73 18 127/60 (82) 100 06/15/17 09:00 95 Nasal Cannula 2.00 06/15/17 08:00 98.1 62 18 116/58 (77) 98 06/15/17 04:00 98.1 64 18 133/62 (85) 94 06/15/17 00:00 98.0 59 20 109/59 (76) 98 06/14/17 20:05 Nasal Cannula 2.00 06/14/17 20:00 60 06/14/17 20:00 97.7 62 19 124/58 (80) 100 06/14/17 17:58 100 Nasal Cannula 2.00 -: 06/15/17 0816 Physical Exam General Appearance: No Acute Distress, Comfortable Eyes Eye Exam: Pupils Equal Throat Throat Exam: Oral Mucosa Rembert & Moist Neck Neck Exam: Neck Supple Pulmonary Resp Exam: Breath Sounds Equal, No Distress, Crackles, Rhonchi, Decreased Bases , Diminished Breath Sounds Cardiology CV Exam: Regular, Normal Sinus Rhythm Gastrointestinal/Abdomen GI Exam: Soft, Non-Tender, Bowel Sounds Present, Non-Distended Extremeties Extremities Exam: Trace Edema Neurologic Neuro Exam: Alert, Awake, Oriented Psychiatric Psych Exam: Appropriate Responses Assessment/Plan Assessment Summary: Anemia of CKD, Fluid/Volume Overload, CKD Stage IV Problem List: (1) Hypoxia ICD Codes: R09.02 - Hypoxemia Status: Acute (2) CAD (coronary artery disease) ICD Codes: I25.10 - CAD (coronary artery disease) Status: Acute (3) COPD (chronic obstructive pulmonary disease) ICD Codes: J44.9 - Chronic obstructive pulmonary disease Status: Acute (4) Hypertension ICD Codes: I10 - Hypertension Status: Acute (5) Congestive heart failure ICD Codes: I50.9 - Heart failure, unspecified Status: Acute (6) Chronic kidney disease, stage IV (severe) ICD Codes: N18.4 - Chronic kidney disease, stage 4 (severe) Status: Chronic Plan Patient has advance renal disease and GFR is decreasing. On Torsemide and non oliguric. K is normal. Patient and family agreed about starting HD. Iron supplement and Epogen. Started on HD Patient now agreed to continue HD. AVF done, has good Bruit. arrangements for out patient HD. HD done in Am. On low dose Torsemide. Aawaiting out patient HD arrangements. Problem Qualifiers (1) Hypertension: Qualified Codes: I10 - Essential (primary) hypertension Verona Raya MD Jun 15, 2017 16:07
[2017-06-15] MEDS: TERAZOSIN HCL 1 MG CAP PO SCH (20:01)
[2017-06-16] VITALS (7 sets, daily range): BP systolic 103–127; BP diastolic 53–67; PULSE 60–68; RESP 16–20; TEMP 97.2–99.1; O2SAT 96–99
[2017-06-16] MEDS: traMADol HCL 50 MG TAB PO SCH ×4 (00:16→19:05)
[2017-06-16] MEDS: SODIUM CHLORIDE 0.9% FLUSH 10 ML FLUSH IV FLUSH SCH ×2 (07:31→21:07)
[2017-06-16] MEDS: DOCUSATE SODIUM 50 MG/SENNA 8.6 MG TAB PO SCH ×2 (09:00→21:06)
[2017-06-16] MEDS: METOPROLOL TARTRATE 50 MG TAB PO SCH ×2 (09:22→21:06)
[2017-06-16] MEDS: TORSEMIDE 20 MG TAB PO SCH (09:22)
[2017-06-16] MEDS: CALCITRIOL 0.25 MCG CAP PO SCH (09:22)
[2017-06-16] MEDS: guaiFENesin E.R. 600 MG TAB PO SCH ×2 (09:23→21:07)
[2017-06-16] MEDS: ASPIRIN 81 MG CHEW TAB CHEW SCH (09:23)
[2017-06-16] MEDS: VITAMIN B CMPLX/VITC/FOLIC AC CAP PO SCH (09:23)
[2017-06-16] MEDS: POTASSIUM CHLORIDE 10 MEQ CONTROLLED RELEASE TAB PO SCH ×2 (09:23→21:06)
--- NOTE | 2017-06-16 10:01 | HHI.PR ---
Subjective Remarks Seen in his bedroom no complaint, no nausea, vomit or diarrhea, discussed with nurse and with Building Official, awaiting for outpatient hemodialysis arrangement for discharge. Objective Vital Signs Date Time Temp Pulse Resp B/P (MAP) Pulse Ox O2 Delivery O2 Flow Rate FiO2 06/16/17 08:00 97.8 63 20 122/59 (80) 99 06/16/17 04:07 98.5 66 16 114/59 (77) 96 06/16/17 00:00 Nasal Cannula 2.00 06/16/17 00:00 99.1 68 16 103/53 (70) 97 06/15/17 23:37 2.00 06/15/17 20:00 Nasal Cannula 2.00 06/15/17 20:00 60 06/15/17 19:55 98.7 77 16 119/65 (83) 94 06/15/17 18:44 98.7 74 18 122/60 (80) 96 06/15/17 13:56 97.3 73 18 127/60 (82) 100 I/O 06/15/17 06/15/17 06/15/17 06/16/17 06/16/17 06/16/17 06:59 14:59 22:59 06:59 14:59 22:59 Intake Total 520 ml 960 ml 720 ml Output Total 1300 ml 2800 ml 500 ml 400 ml Balance -780 ml -2800 ml 460 ml 320 ml Intake Oral 520 ml 960 ml 720 ml Output Urine Total 1300 ml 500 ml 400 ml Hemodialysis 2800 ml # Voids 5 # Bowel Movements 1 1 0 Result Diagram: 06/15/17 0816 Imaging Last Impressions Wrist X-Ray 06/10/17 0000 Signed Impressions: Service Date/Time: Saturday, June 10, 2017 12:45 - CONCLUSION: Severe arthritic changes. No acute bony findings Taqueria Odonnell MD Upper Extremity Ultrasound 06/05/17 0000 Signed Impressions: Service Date/Time: Monday, June 05, 2017 09:37 - CONCLUSION: No DVT or superficial venous thrombosis is identified in the left upper extremity. Taqueria Mcnamara MD Catheter Placement X-Ray 06/05/17 0000 Signed Impressions: Service Date/Time: Monday, June 05, 2017 10:26 - CONCLUSION: Uncomplicated PermaCath placement as above. Arcenio Ortega MD Chest X-Ray 06/01/17 [id number] Signed Impressions: Service Date/Time: Thursday, June 01, 2017 14:53 - CONCLUSION: 1. Bibasilar atelectatic changes with possible associated small effusion on the right. 2. Borderline heart size. Arcenio Ortega MD Procedures HD Other Results Laboratory Tests Test 06/01/17 15:00 06/01/17 15:05 06/01/17 16:08 06/01/17 23:07 Blood Gas Puncture Site RT RADIAL Blood Gas Patient Temperature 98.6 Blood Gas HCO3 27 mmol/L Blood Gas Base Excess 2.7 mmol/L Blood Gas Oxygen Saturation 98 % Arterial Blood pH 7.39 Arterial Blood Partial Pressure CO2 46 mmHg Arterial Blood Partial Pressure O2 235 mmHG Arterial Blood Oxygen Content 14.8 Vol % Arterial Blood Carboxyhemoglobin 2.0 % Arterial Blood Methemoglobin 0.4 % Blood Gas Hemoglobin 10.4 G/DL Oxygen Delivery Device BiPAP Blood Gas Ventilator Setting IPAP14 EPAP7 Blood Gas Inspired Oxygen 100 % B-Type Natriuretic Peptide 597 PG/ML Urine Hyaline Casts 2 /lpf Urine Color LIGHT-YELLOW Urine Turbidity CLEAR Urine pH 5.5 Urine Specific [place] 1.007 Urine Protein TRACE mg/dL Urine Glucose (UA) NEG mg/dL Urine Ketones NEG mg/dL Urine Occult Blood TRACE Urine Nitrite NEG Urine Bilirubin NEG Urine Urobilinogen LESS THAN 2.0 MG/DL Urine Leukocyte Esterase NEG Urine RBC 4 /hpf Urine WBC LESS THAN 1 /hpf Urine Squamous Epithelial Cells <1 /hpf Urine Bacteria RARE /hpf Microscopic Urinalysis Comment CULT NOT INDICATED Test 06/02/17 05:15 06/03/17 05:59 06/04/17 20:35 06/08/17 05:05 Hemoglobin A1c 5.2 % Blood Urea Nitrogen 60 MG/DL 82 MG/DL Creatinine 3.99 MG/DL 5.37 MG/DL Random Glucose 95 MG/DL 89 MG/DL Total Protein 6.7 GM/DL 7.1 GM/DL Albumin 3.0 GM/DL 3.1 GM/DL Calcium Level 8.4 MG/DL 8.0 MG/DL Phosphorus Level 3.6 MG/DL 6.6 MG/DL Magnesium Level 2.2 MG/DL Alkaline Phosphatase 70 U/L Aspartate Amino Transf (AST/SGOT) 11 U/L Alanine Aminotransferase (ALT/SGPT) 15 U/L Total Bilirubin 1.0 MG/DL Sodium Level 140 MEQ/L 135 MEQ/L Potassium Level 4.0 MEQ/L 3.4 MEQ/L Chloride Level 103 MEQ/L 92 MEQ/L Carbon Dioxide Level 29.1 MEQ/L 31.0 MEQ/L Total Creatine Kinase 34 U/L Troponin I LESS THAN 0.02 NG/ML Free Thyroxine 1.18 NG/DL Thyroid Stimulating Hormone 3rd Gen 2.360 uIU/ML Iron Level 31 MCG/DL Total Iron Binding Capacity 311 MCG/DL Percent Iron Saturation 10.0 % Ferritin 88 NG/ML Albumin/Globulin Ratio 1.40 Qoait-9-Awbzwxslq 0.23 GM/DL Rggml-3-Zdyfjkhww 0.73 GM/DL Beta Globulins 0.63 GM/DL Gamma Globulins 1.36 GM/DL Electrophoresis Pathologist Comment Hepatitis A IgM Antibody NEGATIVE Hepatitis B Surface Antigen NEGATIVE Hepatitis B Core IgM Antibody NEGATIVE Hepatitis C Antibody NEGATIVE White Blood Count 7.1 TH/MM3 Red Blood Count 3.96 MIL/MM3 Hemoglobin 10.4 GM/DL Hematocrit 32.0 % Mean Corpuscular Volume 80.8 FL Mean Corpuscular Hemoglobin 26.2 PG Mean Corpuscular Hemoglobin Concent 32.5 % Red Cell Distribution Width 17.0 % Platelet Count 123 TH/MM3 Mean Platelet Volume 7.5 FL Neutrophils (%) (Auto) 57.8 % Lymphocytes (%) (Auto) 20.7 % Monocytes (%) (Auto) 13.2 % Eosinophils (%) (Auto) 7.6 % Basophils (%) (Auto) 0.7 % Neutrophils # (Auto) 4.1 TH/MM3 Lymphocytes # (Auto) 1.5 TH/MM3 Monocytes # (Auto) 0.9 TH/MM3 Eosinophils # (Auto) 0.5 TH/MM3 Basophils # (Auto) 0.1 TH/MM3 CBC Comment DIFF FINAL Differential Comment Test 06/10/17 14:30 06/13/17 07:35 06/15/17 08:16 Uric Acid 10.4 MG/DL Blood Urea Nitrogen 41 MG/DL 69 MG/DL Creatinine 4.49 MG/DL 5.46 MG/DL Random Glucose 96 MG/DL 91 MG/DL Calcium Level 8.3 MG/DL 8.3 MG/DL Phosphorus Level 4.0 MG/DL Magnesium Level 2.1 MG/DL Sodium Level 133 MEQ/L 125 MEQ/L Potassium Level 3.8 MEQ/L 3.6 MEQ/L Chloride Level 94 MEQ/L 85 MEQ/L Carbon Dioxide Level 31.8 MEQ/L 27.4 MEQ/L Anion Gap 13 MEQ/L Estimat Glomerular Filtration Rate 10 ML/MIN Objective Remarks GENERAL: No acute distress. EYES: EOMI NECK: Supple. Trachea midline. CARDIOVASCULAR: Regular rate and rhythm. (+)soft murmur appreciated. RESPIRATORY: No accessory muscle use. Clear to auscultation. Breath sounds equal bilaterally. GASTROINTESTINAL: Abdomen soft, non-tender, nondistended. Normoactive bowel sounds x4. MUSCULOSKELETAL: No obvious deformities. Extremities without edema. NEUROLOGICAL: Awake and alert. Able to move all extremities spontaneously. Normal speech. PSYCHIATRIC: Appropriate mood and affect; insight and judgment normal. Medications and IVs Current Medications Medications (Trade) Dose Ordered Sig/Eduin Route Start Time Stop Time Status Last Admin (Norvasc) 10 mg DAILY PO 06/02/17 09:00 06/16/17 09:22 (Aspirin Chew) 81 mg DAILY CHEW 06/02/17 09:00 06/16/17 09:23 (Flonase Dejon Spr) 1 spray BID PRN EACH NARE 06/01/17 18:30 (Claritin) 10 mg DAILY PRN PO 06/01/17 18:30 (Lopressor) 50 mg BID PO 06/01/17 21:00 06/16/17 09:22 (Remeron) 10 mg HS PRN PO 06/01/17 18:30 06/03/17 20:52 (Tears Naturale Opth Soln) 2 drop Q4H PRN EACH EYE 06/01/17 18:30 (Hytrin) 2 mg HS PO 06/01/17 21:00 06/15/17 20:01 (Tylenol) 650 mg Q6H PRN PO 06/01/17 18:30 06/11/17 22:36 (Narcan Inj) 0.4 mg UNSCH PRN IV 06/01/17 18:30 (Indu-Colace) 1 tab BID PO 06/01/17 21:00 06/16/17 09:00 (Milk Of Magnesia Liq) 30 ml Q12H PRN PO 06/01/17 18:30 06/13/17 21:26 (Senokot) 17.2 mg Q12H PRN PO 06/01/17 18:30 06/15/17 08:42 (Dulcolax Supp) 10 mg DAILY PRN RECTAL 06/01/17 18:30 (Lactulose Liq) 30 ml DAILY PRN PO 06/01/17 18:30 06/07/17 13:21 (NS Flush) 2 ml UNSCH PRN IV FLUSH 06/01/17 18:30 (NS Flush) 2 ml BID IV FLUSH 06/01/17 21:00 06/16/17 07:31 (KCl) 10 meq BID PO 06/01/17 21:00 06/16/17 09:23 (Duoneb Neb) 1 ampule Q4HR NEB PRN NEB 06/01/17 19:00 (Mucinex Er) 600 mg BID PO 06/01/17 21:00 06/16/17 09:23 Sodium Chloride 1,000 ml @ 0 mls/hr Q0M PRN OTHER 06/04/17 17:23 (Heparin Inj) 8,000 units UNSCH PRN IVF 06/04/17 17:30 06/12/17 16:25 Sodium Chloride 1,000 ml @ 200 mls/hr Q5H PRN IV 06/04/17 17:23 Sodium Chloride 1,000 ml @ 0 mls/hr Q0M PRN OTHER 06/04/17 17:23 06/10/17 17:59 (Mannitol Inj) 12.5 gm UNSCH PRN IV 06/04/17 17:30 (Albumin 25% Inj) 25 gm UNSCH PRN IV 06/04/17 17:30 (NS Flush) 5 ml UNSCH PRN IV FLUSH 06/04/17 17:30 06/12/17 16:25 (Heparin Inj) UNSCH PRN .XX 06/04/17 17:30 06/15/17 11:21 (Gentamicin (Dialysis) Inj) 20 mg UNSCH PRN IV 06/04/17 17:30 06/15/17 11:21 (Zofran Inj) 4 mg UNSCH PRN IV 06/04/17 17:30 (Tylenol) 650 mg UNSCH PRN PO 06/04/17 17:30 (Benadryl) 25 mg UNSCH PRN PO 06/04/17 17:30 (Nitrostat Sl) 0.4 mg UNSCH PRN SL 06/04/17 17:30 (Catapres) 0.1 mg UNSCH PRN PO 06/04/17 17:30 (Epogen Inj) 6,000 units UNSCH PRN IV 06/04/17 17:30 06/15/17 11:21 (Gelfoam 12 Mm/7 Mm Top) 1 foam UNSCH PRN TOP 06/04/17 17:30 (NS Flush) UNSCH PRN IVF 06/05/17 11:45 (Heparin Inj) UNSCH PRN IV FLUSH 06/05/17 11:45 (Ultram) 50 mg Q6H PO 06/10/17 13:00 06/16/17 09:22 (Demadex) 40 mg DAILY PO 06/15/17 09:00 06/16/17 09:22 (Rocaltrol) 0.5 mcg DAILY PO 06/14/17 13:00 06/16/17 09:22 (Nephrocaps) 1 cap DAILY PO 06/14/17 13:00 06/16/17 09:23 A/P Assessment and Plan 87-year-old white male admitted for hypoxia and shortness of breath. Acute respiratory failure due to acute on chronic diastolic congestive heart failure along w worsening renal failure - much Improved after dialysis. Continue with dialysis. - Continue with diuretic torsemide and Zaroxolyn, monitor input and output closely. 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 Had HD today - status post Vas-Cath. -s/p AV fistula done 06/11. CM assisting w d/c planning and arranging outpatient HD -Dietitian to educate pt on renal diet. -Continue management per research environmental scientist. Left wrist pain -Most likely from arthritis. -X-ray the wrist showed severe arthritis. no complaints today. Consider short course of steroids if worsening. COPD, chronic- continue with O2 support and DuoNeb. BPH, chronic - continue home terazosin. Hypertension- continue with home amlodipine and metoprolol and Hytrin. Constipation -Improved the lactulose. DVT prophylaxis-heparin Discharge Planning Awaiting final arrangements for outpatient Hemodialysis to discharge Home. Sukhwinder Tanner MD Jun 16, 2017 10:01
--- NOTE | 2017-06-16 19:53 | HHI.NPPN ---
Subjective History of Present Illness 87-year-old male with past medical history of hypertension, ischemic heart disease and chronic kidney disease, chronic back pain and leg pain was brought to the hospital because of worsening shortness of breath. I was called to see the patient because of elevated BUN and creatinine. The patient has creatinine of 4.5 on presentation. Previously he has creatinine as high as 4.4. [facility]. Additional Remarks Patient is alert, breathing is better, sitting on chair, no SOB. Review of Systems General Constitutional: Fatigue Respiratory Lungs: SOB, Cough, Sputum, Wheeze Cardiovascular Cardiac: CLEMONS Objective Data Data 06/16/17 06/17/17 19:00 07:00 Intake Total 480 ml Balance 480 ml Intake Oral 480 ml # Voids 3 # Bowel Movements 1 Vital Signs Date Time Temp Pulse Resp B/P (MAP) Pulse Ox O2 Delivery O2 Flow Rate FiO2 06/16/17 16:00 97.2 60 20 115/67 (83) 98 06/16/17 13:47 98 Nasal Cannula 2.00 06/16/17 12:46 Nasal Cannula 2.00 60 06/16/17 12:00 97.8 63 20 121/60 (80) 97 06/16/17 08:00 97.8 63 20 122/59 (80) 99 06/16/17 04:07 98.5 66 16 114/59 (77) 96 06/16/17 00:00 Nasal Cannula 2.00 06/16/17 00:00 99.1 68 16 103/53 (70) 97 06/15/17 23:37 2.00 06/15/17 20:00 Nasal Cannula 2.00 06/15/17 20:00 60 06/15/17 19:55 98.7 77 16 119/65 (83) 94 -: 06/15/17 0816 Physical Exam General Appearance: No Acute Distress, Comfortable Eyes Eye Exam: Pupils Equal Throat Throat Exam: Oral Mucosa [place] & Moist Neck Neck Exam: Neck Supple Pulmonary Resp Exam: Breath Sounds Equal, No Distress, Crackles, Rhonchi, Decreased Bases , Diminished Breath Sounds Cardiology CV Exam: Regular, Normal Sinus Rhythm Gastrointestinal/Abdomen GI Exam: Soft, Non-Tender, Bowel Sounds Present, Non-Distended Extremeties Extremities Exam: Trace Edema Neurologic Neuro Exam: Alert, Awake, Oriented Psychiatric Psych Exam: Appropriate Responses Assessment/Plan Assessment Summary: Anemia of CKD, Fluid/Volume Overload, CKD Stage IV Problem List: (1) Hypoxia ICD Codes: R09.02 - Hypoxemia Status: Acute (2) CAD (coronary artery disease) ICD Codes: I25.10 - CAD (coronary artery disease) Status: Acute (3) COPD (chronic obstructive pulmonary disease) ICD Codes: J44.9 - Chronic obstructive pulmonary disease Status: Acute (4) Hypertension ICD Codes: I10 - Hypertension Status: Acute (5) Congestive heart failure ICD Codes: I50.9 - Heart failure, unspecified Status: Acute (6) Chronic kidney disease, stage IV (severe) ICD Codes: N18.4 - Chronic kidney disease, stage 4 (severe) Status: Chronic Plan Patient has advance renal disease and GFR is decreasing. On Torsemide and non oliguric. K is normal. Patient and family agreed about starting HD. Iron supplement and Epogen. Started on HD Patient now agreed to continue HD. AVF done, has good Bruit. arrangements for out patient HD. On low dose Torsemide. Awaiting out patient HD arrangements. HD to continue on MWF , next in AM. Problem Qualifiers (1) Hypertension: Qualified Codes: I10 - Essential (primary) hypertension Verona Raya MD Jun 16, 2017 19:53
[2017-06-16] MEDS: TERAZOSIN HCL 1 MG CAP PO SCH (21:06)
[2017-06-16] MEDS: MAGNESIUM HYDROXIDE SUSP 30 ML CUP PO PRN (21:15)
[2017-06-17] VITALS (9 sets, daily range): BP systolic 94–140; BP diastolic 57–70; PULSE 56–66; RESP 16–18; TEMP 97.3–98.7; O2SAT 93–96
[2017-06-17] MEDS: traMADol HCL 50 MG TAB PO SCH ×4 (01:48→18:51)
--- NOTE | 2017-06-17 08:29 | HHI.PR ---
Subjective Remarks 06/17: Seen in his bedroom no complaint, no nausea, vomit or diarrhea, discussed with nurse and with Landing Man, awaiting for outpatient hemodialysis arrangement for discharge. Objective Vital Signs Date Time Temp Pulse Resp B/P (MAP) Pulse Ox O2 Delivery O2 Flow Rate FiO2 06/17/17 05:14 97.8 65 16 114/58 (76) 93 06/17/17 00:45 97.6 57 16 121/61 (81) 95 06/16/17 21:04 97.5 62 16 127/57 (80) 96 06/16/17 16:00 97.2 60 20 115/67 (83) 98 06/16/17 13:47 98 Nasal Cannula 2.00 06/16/17 12:46 Nasal Cannula 2.00 60 06/16/17 12:00 97.8 63 20 121/60 (80) 97 I/O 06/16/17 06/16/17 06/16/17 06/17/17 06/17/17 06/17/17 06:59 14:59 22:59 06:59 14:59 22:59 Intake Total 720 ml 480 ml 960 ml Output Total 400 ml 525 ml Balance 320 ml 480 ml 435 ml Intake Oral 720 ml 480 ml 960 ml Output Urine Total 400 ml 525 ml # Voids 3 # Bowel Movements 0 1 0 Result Diagram: 06/15/17 0816 Imaging Last Impressions Wrist X-Ray 06/10/17 0000 Signed Impressions: Service Date/Time: Saturday, June 10, 2017 12:45 - CONCLUSION: Severe arthritic changes. No acute bony findings Taqueria Odonnell MD Upper Extremity Ultrasound 06/05/17 0000 Signed Impressions: Service Date/Time: Monday, June 05, 2017 09:37 - CONCLUSION: No DVT or superficial venous thrombosis is identified in the left upper extremity. Taqueria Mcnamara MD Catheter Placement X-Ray 06/05/17 0000 Signed Impressions: Service Date/Time: Monday, June 05, 2017 10:26 - CONCLUSION: Uncomplicated PermaCath placement as above. Arcenio Ortega MD Chest X-Ray 06/01/17 1450 Signed Impressions: Service Date/Time: Thursday, June 01, 2017 14:53 - CONCLUSION: 1. Bibasilar atelectatic changes with possible associated small effusion on the right. 2. Borderline heart size. Arcenio Ortega MD Procedures HD Other Results Laboratory Tests Test 06/01/17 15:00 06/01/17 15:05 06/01/17 16:08 06/01/17 23:07 Blood Gas Puncture Site RT RADIAL Blood Gas Patient Temperature 98.6 Blood Gas HCO3 27 mmol/L Blood Gas Base Excess 2.7 mmol/L Blood Gas Oxygen Saturation 98 % Arterial Blood pH 7.39 Arterial Blood Partial Pressure CO2 46 mmHg Arterial Blood Partial Pressure O2 235 mmHG Arterial Blood Oxygen Content 14.8 Vol % Arterial Blood Carboxyhemoglobin 2.0 % Arterial Blood Methemoglobin 0.4 % Blood Gas Hemoglobin 10.4 G/DL Oxygen Delivery Device BiPAP Blood Gas Ventilator Setting IPAP14 EPAP7 Blood Gas Inspired Oxygen 100 % B-Type Natriuretic Peptide 597 PG/ML Urine Hyaline Casts 2 /lpf Urine Color LIGHT-YELLOW Urine Turbidity CLEAR Urine pH 5.5 Urine Specific [place] 1.007 Urine Protein TRACE mg/dL Urine Glucose (UA) NEG mg/dL Urine Ketones NEG mg/dL Urine Occult Blood TRACE Urine Nitrite NEG Urine Bilirubin NEG Urine Urobilinogen LESS THAN 2.0 MG/DL Urine Leukocyte Esterase NEG Urine RBC 4 /hpf Urine WBC LESS THAN 1 /hpf Urine Squamous Epithelial Cells <1 /hpf Urine Bacteria RARE /hpf Microscopic Urinalysis Comment CULT NOT INDICATED Test 06/02/17 05:15 06/03/17 05:59 06/04/17 20:35 06/08/17 05:05 Hemoglobin A1c 5.2 % Blood Urea Nitrogen 60 MG/DL 82 MG/DL Creatinine 3.99 MG/DL 5.37 MG/DL Random Glucose 95 MG/DL 89 MG/DL Total Protein 6.7 GM/DL 7.1 GM/DL Albumin 3.0 GM/DL 3.1 GM/DL Calcium Level 8.4 MG/DL 8.0 MG/DL Phosphorus Level 3.6 MG/DL 6.6 MG/DL Magnesium Level 2.2 MG/DL Alkaline Phosphatase 70 U/L Aspartate Amino Transf (AST/SGOT) 11 U/L Alanine Aminotransferase (ALT/SGPT) 15 U/L Total Bilirubin 1.0 MG/DL Sodium Level 140 MEQ/L 135 MEQ/L Potassium Level 4.0 MEQ/L 3.4 MEQ/L Chloride Level 103 MEQ/L 92 MEQ/L Carbon Dioxide Level 29.1 MEQ/L 31.0 MEQ/L Total Creatine Kinase 34 U/L Troponin I LESS THAN 0.02 NG/ML Free Thyroxine 1.18 NG/DL Thyroid Stimulating Hormone 3rd Gen 2.360 uIU/ML Iron Level 31 MCG/DL Total Iron Binding Capacity 311 MCG/DL Percent Iron Saturation 10.0 % Ferritin 88 NG/ML Albumin/Globulin Ratio 1.40 Vuwuf-8-Kmlmowero 0.23 GM/DL Longg-5-Otbjmuawj 0.73 GM/DL Beta Globulins 0.63 GM/DL Gamma Globulins 1.36 GM/DL Electrophoresis Pathologist Comment Hepatitis A IgM Antibody NEGATIVE Hepatitis B Surface Antigen NEGATIVE Hepatitis B Core IgM Antibody NEGATIVE Hepatitis C Antibody NEGATIVE White Blood Count 7.1 TH/MM3 Red Blood Count 3.96 MIL/MM3 Hemoglobin 10.4 GM/DL Hematocrit 32.0 % Mean Corpuscular Volume 80.8 FL Mean Corpuscular Hemoglobin 26.2 PG Mean Corpuscular Hemoglobin Concent 32.5 % Red Cell Distribution Width 17.0 % Platelet Count 123 TH/MM3 Mean Platelet Volume 7.5 FL Neutrophils (%) (Auto) 57.8 % Lymphocytes (%) (Auto) 20.7 % Monocytes (%) (Auto) 13.2 % Eosinophils (%) (Auto) 7.6 % Basophils (%) (Auto) 0.7 % Neutrophils # (Auto) 4.1 TH/MM3 Lymphocytes # (Auto) 1.5 TH/MM3 Monocytes # (Auto) 0.9 TH/MM3 Eosinophils # (Auto) 0.5 TH/MM3 Basophils # (Auto) 0.1 TH/MM3 CBC Comment DIFF FINAL Differential Comment Test 06/10/17 14:30 06/13/17 07:35 06/15/17 08:16 Uric Acid 10.4 MG/DL Blood Urea Nitrogen 41 MG/DL 69 MG/DL Creatinine 4.49 MG/DL 5.46 MG/DL Random Glucose 96 MG/DL 91 MG/DL Calcium Level 8.3 MG/DL 8.3 MG/DL Phosphorus Level 4.0 MG/DL Magnesium Level 2.1 MG/DL Sodium Level 133 MEQ/L 125 MEQ/L Potassium Level 3.8 MEQ/L 3.6 MEQ/L Chloride Level 94 MEQ/L 85 MEQ/L Carbon Dioxide Level 31.8 MEQ/L 27.4 MEQ/L Anion Gap 13 MEQ/L Estimat Glomerular Filtration Rate 10 ML/MIN Objective Remarks GENERAL: No acute distress. EYES: EOMI NECK: Supple. Trachea midline. CARDIOVASCULAR: Regular rate and rhythm. (+)soft murmur appreciated. RESPIRATORY: No accessory muscle use. Clear to auscultation. Breath sounds equal bilaterally. GASTROINTESTINAL: Abdomen soft, non-tender, nondistended. Normoactive bowel sounds x4. MUSCULOSKELETAL: No obvious deformities. Extremities without edema. NEUROLOGICAL: Awake and alert. Able to move all extremities spontaneously. Normal speech. PSYCHIATRIC: Appropriate mood and affect; insight and judgment normal. Medications and IVs Current Medications Medications (Trade) Dose Ordered Sig/Eduin Route Start Time Stop Time Status Last Admin (Norvasc) 10 mg DAILY PO 06/02/17 09:00 06/16/17 09:22 (Aspirin Chew) 81 mg DAILY CHEW 06/02/17 09:00 06/16/17 09:23 (Flonase Dejon Spr) 1 spray BID PRN EACH NARE 06/01/17 18:30 (Claritin) 10 mg DAILY PRN PO 06/01/17 18:30 (Lopressor) 50 mg BID PO 06/01/17 21:00 06/16/17 21:06 (Remeron) 10 mg HS PRN PO 06/01/17 18:30 06/03/17 20:52 (Tears Naturale Opth Soln) 2 drop Q4H PRN EACH EYE 06/01/17 18:30 (Hytrin) 2 mg HS PO 06/01/17 21:00 06/16/17 21:06 (Tylenol) 650 mg Q6H PRN PO 06/01/17 18:30 06/11/17 22:36 (Narcan Inj) 0.4 mg UNSCH PRN IV 06/01/17 18:30 (Indu-Colace) 1 tab BID PO 06/01/17 21:00 06/16/17 21:06 (Milk Of Magnesia Liq) 30 ml Q12H PRN PO 06/01/17 18:30 06/16/17 21:15 (Senokot) 17.2 mg Q12H PRN PO 06/01/17 18:30 06/15/17 08:42 (Dulcolax Supp) 10 mg DAILY PRN RECTAL 06/01/17 18:30 (Lactulose Liq) 30 ml DAILY PRN PO 06/01/17 18:30 06/07/17 13:21 (NS Flush) 2 ml UNSCH PRN IV FLUSH 06/01/17 18:30 (NS Flush) 2 ml BID IV FLUSH 06/01/17 21:00 06/16/17 21:07 (KCl) 10 meq BID PO 06/01/17 21:00 06/16/17 21:06 (Duoneb Neb) 1 ampule Q4HR NEB PRN NEB 06/01/17 19:00 (Mucinex Er) 600 mg BID PO 06/01/17 21:00 06/16/17 21:07 Sodium Chloride 1,000 ml @ 0 mls/hr Q0M PRN OTHER 06/04/17 17:23 (Heparin Inj) 8,000 units UNSCH PRN IVF 06/04/17 17:30 06/12/17 16:25 Sodium Chloride 1,000 ml @ 200 mls/hr Q5H PRN IV 06/04/17 17:23 Sodium Chloride 1,000 ml @ 0 mls/hr Q0M PRN OTHER 06/04/17 17:23 06/10/17 17:59 (Mannitol Inj) 12.5 gm UNSCH PRN IV 06/04/17 17:30 (Albumin 25% Inj) 25 gm UNSCH PRN IV 06/04/17 17:30 (NS Flush) 5 ml UNSCH PRN IV FLUSH 06/04/17 17:30 06/12/17 16:25 (Heparin Inj) UNSCH PRN .XX 06/04/17 17:30 06/15/17 11:21 (Gentamicin (Dialysis) Inj) 20 mg UNSCH PRN IV 06/04/17 17:30 06/15/17 11:21 (Zofran Inj) 4 mg UNSCH PRN IV 06/04/17 17:30 (Tylenol) 650 mg UNSCH PRN PO 06/04/17 17:30 (Benadryl) 25 mg UNSCH PRN PO 06/04/17 17:30 (Nitrostat Sl) 0.4 mg UNSCH PRN SL 06/04/17 17:30 (Catapres) 0.1 mg UNSCH PRN PO 06/04/17 17:30 (Epogen Inj) 6,000 units UNSCH PRN IV 06/04/17 17:30 06/15/17 11:21 (Gelfoam 12 Mm/7 Mm Top) 1 foam UNSCH PRN TOP 06/04/17 17:30 (NS Flush) UNSCH PRN IVF 06/05/17 11:45 (Heparin Inj) UNSCH PRN IV FLUSH 06/05/17 11:45 (Ultram) 50 mg Q6H PO 06/10/17 13:00 06/17/17 01:48 (Demadex) 40 mg DAILY PO 06/15/17 09:00 06/16/17 09:22 (Rocaltrol) 0.5 mcg DAILY PO 06/14/17 13:00 06/16/17 09:22 (Nephrocaps) 1 cap DAILY PO 06/14/17 13:00 06/16/17 09:23 A/P Assessment and Plan 87-year-old white male admitted for hypoxia and shortness of breath. Acute respiratory failure due to acute on chronic diastolic congestive heart failure along w worsening renal failure - much Improved after dialysis. Continue with dialysis. - Continue with diuretic torsemide and Zaroxolyn, monitor input and output closely. 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 Had HD today - status post Vas-Cath. -s/p AV fistula done 06/11. CM assisting w d/c planning and arranging outpatient HD -Dietitian to educate pt on renal diet. -Continue management per mortgage processor. Left wrist pain -Most likely from arthritis. -X-ray the wrist showed severe arthritis. no complaints today. Consider short course of steroids if worsening. COPD, chronic- continue with O2 support and DuoNeb. BPH, chronic - continue home terazosin. Hypertension- controlled. Constipation -Improved. DVT prophylaxis-heparin Discussed in his bedroom with his Daughter Lavinia Rodney and she states her Father will be alone in the area his only possibility will be going to SNF was discussed with [facility] not yet arranged awaiting fo Insurance authorizations. Discharge Planning Awaiting final arrangements for outpatient Hemodialysis to discharge Home. Discussed with nurse and with Case Sukhwinder Hernandez MD Jun 17, 2017 8:29 am
[2017-06-17] MEDS: SODIUM CHLORIDE 0.9% FLUSH 10 ML FLUSH IV FLUSH SCH ×2 (09:00→22:08)
[2017-06-17] MEDS: HEPARIN SODIUM - IV 10,000 UNITS/10 ML VIAL PRN (11:43)
[2017-06-17] MEDS: GENTAMICIN SULFATE (DIALYSIS USE ONLY) 20 MG/2 ML VIAL IV PRN (11:44)
[2017-06-17] MEDS: EPOETIN ALFA 10,000 UNITS/ML VIAL IV PRN (11:44)
[2017-06-17] MEDS: guaiFENesin E.R. 600 MG TAB PO SCH ×2 (13:21→22:08)
[2017-06-17] MEDS: CALCITRIOL 0.25 MCG CAP PO SCH (13:21)
[2017-06-17] MEDS: METOPROLOL TARTRATE 50 MG TAB PO SCH ×2 (13:21→22:09)
[2017-06-17] MEDS: DOCUSATE SODIUM 50 MG/SENNA 8.6 MG TAB PO SCH ×2 (13:21→21:00)
[2017-06-17] MEDS: TORSEMIDE 20 MG TAB PO SCH (13:21)
[2017-06-17] MEDS: VITAMIN B CMPLX/VITC/FOLIC AC CAP PO SCH (13:21)
[2017-06-17] MEDS: ASPIRIN 81 MG CHEW TAB CHEW SCH (13:22)
[2017-06-17] MEDS: POTASSIUM CHLORIDE 10 MEQ CONTROLLED RELEASE TAB PO SCH ×2 (13:22→22:09)
[2017-06-17] MEDS: LACTULOSE SYRUP 20 GM/30 ML CUP PO PRN (14:12)
--- NOTE | 2017-06-17 16:51 | HHI.NPPN ---
Subjective History of Present Illness 87-year-old male with past medical history of hypertension, ischemic heart disease and chronic kidney disease, chronic back pain and leg pain was brought to the hospital because of worsening shortness of breath. I was called to see the patient because of elevated BUN and creatinine. The patient has creatinine of 4.5 on presentation. Previously he has creatinine as high as 4.4. [facility]. Additional Remarks Patient is alert, breathing is better, sitting on chair, no SOB, clinically same. Review of Systems General Constitutional: Fatigue Respiratory Lungs: SOB, Cough, Sputum, Wheeze Cardiovascular Cardiac: CLEMONS Objective Data Data 06/17/17 06/18/17 18:59 06:59 Output Total 2000 ml Balance -2000 ml Hemodialysis 2000 ml Vital Signs Date Time Temp Pulse Resp B/P (MAP) Pulse Ox O2 Delivery O2 Flow Rate FiO2 06/17/17 12:00 97.6 66 18 140/63 (88) 94 06/17/17 11:06 Nasal Cannula 2.00 60 06/17/17 08:00 97.9 66 18 116/70 (85) 95 06/17/17 05:14 97.8 65 16 114/58 (76) 93 06/17/17 00:45 97.6 57 16 121/61 (81) 95 06/16/17 21:04 97.5 62 16 127/57 (80) 96 -: 06/15/17 0816 Physical Exam General Appearance: No Acute Distress, Comfortable Eyes Eye Exam: Pupils Equal Throat Throat Exam: Oral Mucosa [place] & Moist Neck Neck Exam: Neck Supple Pulmonary Resp Exam: Breath Sounds Equal, No Distress, Crackles, Rhonchi, Decreased Bases , Diminished Breath Sounds Cardiology CV Exam: Regular, Normal Sinus Rhythm Gastrointestinal/Abdomen GI Exam: Soft, Non-Tender, Bowel Sounds Present, Non-Distended Extremeties Extremities Exam: Trace Edema Neurologic Neuro Exam: Alert, Awake, Oriented Psychiatric Psych Exam: Appropriate Responses Assessment/Plan Assessment Summary: Anemia of CKD, Fluid/Volume Overload, CKD Stage IV Problem List: (1) Hypoxia ICD Codes: R09.02 - Hypoxemia Status: Acute (2) CAD (coronary artery disease) ICD Codes: I25.10 - CAD (coronary artery disease) Status: Acute (3) COPD (chronic obstructive pulmonary disease) ICD Codes: J44.9 - Chronic obstructive pulmonary disease Status: Acute (4) Hypertension ICD Codes: I10 - Hypertension Status: Acute (5) Congestive heart failure ICD Codes: I50.9 - Heart failure, unspecified Status: Acute (6) Chronic kidney disease, stage IV (severe) ICD Codes: N18.4 - Chronic kidney disease, stage 4 (severe) Status: Chronic Plan Patient has advance renal disease and GFR is decreasing. On Torsemide and non oliguric. K is normal. Patient and family agreed about starting HD. Iron supplement and Epogen. Started on HD Patient now agreed to continue HD. AVF done, has good Bruit. arrangements for out patient HD. On low dose Torsemide. Awaiting out patient HD arrangements. HD done today, tolerated well. order manager D/C planning noted. Problem Qualifiers (1) Hypertension: Qualified Codes: I10 - Essential (primary) hypertension Verona Raya MD Jun 17, 2017 16:51
[2017-06-17] MEDS: TERAZOSIN HCL 1 MG CAP PO SCH (22:08)
[2017-06-18] VITALS (8 sets, daily range): BP systolic 113–145; BP diastolic 57–64; PULSE 52–60; RESP 16–20; TEMP 97.4–98.4; O2SAT 96–99
[2017-06-18] MEDS: traMADol HCL 50 MG TAB PO SCH ×4 (00:50→19:00)
[2017-06-18] MEDS: SODIUM CHLORIDE 0.9% FLUSH 10 ML FLUSH IV FLUSH SCH ×2 (09:00→21:12)
[2017-06-18] MEDS: CALCITRIOL 0.25 MCG CAP PO SCH (09:21)
[2017-06-18] MEDS: POTASSIUM CHLORIDE 10 MEQ CONTROLLED RELEASE TAB PO SCH ×2 (09:21→21:11)
[2017-06-18] MEDS: guaiFENesin E.R. 600 MG TAB PO SCH ×2 (09:21→21:11)
[2017-06-18] MEDS: METOPROLOL TARTRATE 50 MG TAB PO SCH ×2 (09:22→21:11)
[2017-06-18] MEDS: TORSEMIDE 20 MG TAB PO SCH (09:22)
[2017-06-18] MEDS: DOCUSATE SODIUM 50 MG/SENNA 8.6 MG TAB PO SCH ×2 (09:22→21:13)
[2017-06-18] MEDS: VITAMIN B CMPLX/VITC/FOLIC AC CAP PO SCH (09:22)
[2017-06-18] MEDS: ASPIRIN 81 MG CHEW TAB CHEW SCH (09:22)
--- NOTE | 2017-06-18 11:37 | HHI.PR ---
Subjective Remarks 06/18: Stable in his bedroom seen in the aisle walking with Physical Therapy, discussed with Public Health Doctor trying to discharge to SNF today, no nausea, vomit or diarrhea. Objective Vital Signs Date Time Temp Pulse Resp B/P (MAP) Pulse Ox O2 Delivery O2 Flow Rate FiO2 06/18/17 09:51 98 Nasal Cannula 2.00 06/18/17 08:06 97.7 56 20 120/59 (79) 97 06/18/17 05:08 98.4 58 16 145/64 (91) 96 06/18/17 05:04 Nasal Cannula 2.00 06/17/17 23:30 98.7 56 16 94/63 (73) 96 06/17/17 23:00 Nasal Cannula 2.00 06/17/17 20:00 Nasal Cannula 2.00 06/17/17 20:00 65 06/17/17 19:44 98.6 65 16 111/57 (75) 96 06/17/17 17:38 96 Nasal Cannula 2.00 06/17/17 16:00 97.3 66 18 121/59 (79) 96 06/17/17 12:00 97.6 66 18 140/63 (88) 94 I/O 06/17/17 06/17/17 06/17/17 06/18/17 06/18/17 06/18/17 07:00 15:00 23:00 07:00 15:00 23:00 Intake Total 960 ml 720 ml 720 ml Output Total 525 ml 2000 ml 1200 ml 350 ml Balance 435 ml -2000 ml -480 ml 370 ml Intake Oral 960 ml 720 ml 720 ml Output Urine Total 525 ml 1200 ml 350 ml Hemodialysis 2000 ml # Bowel Movements 0 0 Result Diagram: 06/15/17 0816 Imaging Last Impressions Wrist X-Ray 06/10/17 0000 Signed Impressions: Service Date/Time: Saturday, June 10, 2017 12:45 - CONCLUSION: Severe arthritic changes. No acute bony findings Taqueria Odonnell MD Upper Extremity Ultrasound 06/05/17 0000 Signed Impressions: Service Date/Time: Monday, June 05, 2017 09:37 - CONCLUSION: No DVT or superficial venous thrombosis is identified in the left upper extremity. Taqueria Mcnamara MD Catheter Placement X-Ray 06/05/17 0000 Signed Impressions: Service Date/Time: Monday, June 05, 2017 10:26 - CONCLUSION: Uncomplicated PermaCath placement as above. Arcenio Ortega MD Chest X-Ray 06/01/17 1450 Signed Impressions: Service Date/Time: Thursday, June 01, 2017 14:53 - CONCLUSION: 1. Bibasilar atelectatic changes with possible associated small effusion on the right. 2. Borderline heart size. Arcenio Ortega MD Procedures HD Other Results Laboratory Tests Test 06/01/17 15:00 06/01/17 15:05 06/01/17 16:08 06/01/17 23:07 Blood Gas Puncture Site RT RADIAL Blood Gas Patient Temperature 98.6 Blood Gas HCO3 27 mmol/L Blood Gas Base Excess 2.7 mmol/L Blood Gas Oxygen Saturation 98 % Arterial Blood pH 7.39 Arterial Blood Partial Pressure CO2 46 mmHg Arterial Blood Partial Pressure O2 235 mmHG Arterial Blood Oxygen Content 14.8 Vol % Arterial Blood Carboxyhemoglobin 2.0 % Arterial Blood Methemoglobin 0.4 % Blood Gas Hemoglobin 10.4 G/DL Oxygen Delivery Device BiPAP Blood Gas Ventilator Setting IPAP14 [id number] Blood Gas Inspired Oxygen 100 % B-Type Natriuretic Peptide 597 PG/ML Urine Hyaline Casts 2 /lpf Urine Color LIGHT-YELLOW Urine Turbidity CLEAR Urine pH 5.5 Urine Specific [place] 1.007 Urine Protein TRACE mg/dL Urine Glucose (UA) NEG mg/dL Urine Ketones NEG mg/dL Urine Occult Blood TRACE Urine Nitrite NEG Urine Bilirubin NEG Urine Urobilinogen LESS THAN 2.0 MG/DL Urine Leukocyte Esterase NEG Urine RBC 4 /hpf Urine WBC LESS THAN 1 /hpf Urine Squamous Epithelial Cells <1 /hpf Urine Bacteria RARE /hpf Microscopic Urinalysis Comment CULT NOT INDICATED Test 06/02/17 05:15 06/03/17 05:59 06/04/17 20:35 06/08/17 05:05 Hemoglobin A1c 5.2 % Blood Urea Nitrogen 60 MG/DL 82 MG/DL Creatinine 3.99 MG/DL 5.37 MG/DL Random Glucose 95 MG/DL 89 MG/DL Total Protein 6.7 GM/DL 7.1 GM/DL Albumin 3.0 GM/DL 3.1 GM/DL Calcium Level 8.4 MG/DL 8.0 MG/DL Phosphorus Level 3.6 MG/DL 6.6 MG/DL Magnesium Level 2.2 MG/DL Alkaline Phosphatase 70 U/L Aspartate Amino Transf (AST/SGOT) 11 U/L Alanine Aminotransferase (ALT/SGPT) 15 U/L Total Bilirubin 1.0 MG/DL Sodium Level 140 MEQ/L 135 MEQ/L Potassium Level 4.0 MEQ/L 3.4 MEQ/L Chloride Level 103 MEQ/L 92 MEQ/L Carbon Dioxide Level 29.1 MEQ/L 31.0 MEQ/L Total Creatine Kinase 34 U/L Troponin I LESS THAN 0.02 NG/ML Free Thyroxine 1.18 NG/DL Thyroid Stimulating Hormone 3rd Gen 2.360 uIU/ML Iron Level 31 MCG/DL Total Iron Binding Capacity 311 MCG/DL Percent Iron Saturation 10.0 % Ferritin 88 NG/ML Albumin/Globulin Ratio 1.40 Vvolf-0-Gbpkzjkit 0.23 GM/DL Gcugh-4-Vazkoshjv 0.73 GM/DL Beta Globulins 0.63 GM/DL Gamma Globulins 1.36 GM/DL Electrophoresis Pathologist Comment Hepatitis A IgM Antibody NEGATIVE Hepatitis B Surface Antigen NEGATIVE Hepatitis B Core IgM Antibody NEGATIVE Hepatitis C Antibody NEGATIVE White Blood Count 7.1 TH/MM3 Red Blood Count 3.96 MIL/MM3 Hemoglobin 10.4 GM/DL Hematocrit 32.0 % Mean Corpuscular Volume 80.8 FL Mean Corpuscular Hemoglobin 26.2 PG Mean Corpuscular Hemoglobin Concent 32.5 % Red Cell Distribution Width 17.0 % Platelet Count 123 TH/MM3 Mean Platelet Volume 7.5 FL Neutrophils (%) (Auto) 57.8 % Lymphocytes (%) (Auto) 20.7 % Monocytes (%) (Auto) 13.2 % Eosinophils (%) (Auto) 7.6 % Basophils (%) (Auto) 0.7 % Neutrophils # (Auto) 4.1 TH/MM3 Lymphocytes # (Auto) 1.5 TH/MM3 Monocytes # (Auto) 0.9 TH/MM3 Eosinophils # (Auto) 0.5 TH/MM3 Basophils # (Auto) 0.1 TH/MM3 CBC Comment DIFF FINAL Differential Comment Test 06/10/17 14:30 06/13/17 07:35 06/15/17 08:16 Uric Acid 10.4 MG/DL Blood Urea Nitrogen 41 MG/DL 69 MG/DL Creatinine 4.49 MG/DL 5.46 MG/DL Random Glucose 96 MG/DL 91 MG/DL Calcium Level 8.3 MG/DL 8.3 MG/DL Phosphorus Level 4.0 MG/DL Magnesium Level 2.1 MG/DL Sodium Level 133 MEQ/L 125 MEQ/L Potassium Level 3.8 MEQ/L 3.6 MEQ/L Chloride Level 94 MEQ/L 85 MEQ/L Carbon Dioxide Level 31.8 MEQ/L 27.4 MEQ/L Anion Gap 13 MEQ/L Estimat Glomerular Filtration Rate 10 ML/MIN Objective Remarks GENERAL: No acute distress. EYES: EOMI NECK: Supple. Trachea midline. CARDIOVASCULAR: Regular rate and rhythm. (+)soft murmur appreciated. RESPIRATORY: No accessory muscle use. Clear to auscultation. Breath sounds equal bilaterally. GASTROINTESTINAL: Abdomen soft, non-tender, nondistended. Normoactive bowel sounds x4. MUSCULOSKELETAL: No obvious deformities. Extremities without edema. NEUROLOGICAL: Awake and alert. Able to move all extremities spontaneously. Normal speech. PSYCHIATRIC: Appropriate mood and affect; insight and judgment normal. Medications and IVs Current Medications Medications (Trade) Dose Ordered Sig/Eduin Route Start Time Stop Time Status Last Admin (Norvasc) 10 mg DAILY PO 06/02/17 09:00 06/18/17 09:23 (Aspirin Chew) 81 mg DAILY CHEW 06/02/17 09:00 06/18/17 09:22 (Flonase Dejon Spr) 1 spray BID PRN EACH NARE 06/01/17 18:30 (Claritin) 10 mg DAILY PRN PO 06/01/17 18:30 (Lopressor) 50 mg BID PO 06/01/17 21:00 06/18/17 09:22 (Remeron) 10 mg HS PRN PO 06/01/17 18:30 06/03/17 20:52 (Tears Naturale Opth Soln) 2 drop Q4H PRN EACH EYE 06/01/17 18:30 (Hytrin) 2 mg HS PO 06/01/17 21:00 06/17/17 22:08 (Tylenol) 650 mg Q6H PRN PO 06/01/17 18:30 06/11/17 22:36 (Narcan Inj) 0.4 mg UNSCH PRN IV 06/01/17 18:30 (Indu-Colace) 1 tab BID PO 06/01/17 21:00 06/18/17 09:22 (Milk Of Magnesia Liq) 30 ml Q12H PRN PO 06/01/17 18:30 06/16/17 21:15 (Senokot) 17.2 mg Q12H PRN PO 06/01/17 18:30 06/15/17 08:42 (Dulcolax Supp) 10 mg DAILY PRN RECTAL 06/01/17 18:30 (Lactulose Liq) 30 ml DAILY PRN PO 06/01/17 18:30 06/17/17 14:12 (NS Flush) 2 ml UNSCH PRN IV FLUSH 06/01/17 18:30 (NS Flush) 2 ml BID IV FLUSH 06/01/17 21:00 06/18/17 09:00 (KCl) 10 meq BID PO 06/01/17 21:00 06/18/17 09:21 (Duoneb Neb) 1 ampule Q4HR NEB PRN NEB 06/01/17 19:00 (Mucinex Er) 600 mg BID PO 06/01/17 21:00 06/18/17 09:21 Sodium Chloride 1,000 ml @ 0 mls/hr Q0M PRN OTHER 06/04/17 17:23 (Heparin Inj) 8,000 units UNSCH PRN IVF 06/04/17 17:30 06/12/17 16:25 Sodium Chloride 1,000 ml @ 200 mls/hr Q5H PRN IV 06/04/17 17:23 Sodium Chloride 1,000 ml @ 0 mls/hr Q0M PRN OTHER 06/04/17 17:23 06/10/17 17:59 (Mannitol Inj) 12.5 gm UNSCH PRN IV 06/04/17 17:30 (Albumin 25% Inj) 25 gm UNSCH PRN IV 06/04/17 17:30 (NS Flush) 5 ml UNSCH PRN IV FLUSH 06/04/17 17:30 06/12/17 16:25 (Heparin Inj) UNSCH PRN .XX 06/04/17 17:30 06/17/17 11:43 (Gentamicin (Dialysis) Inj) 20 mg UNSCH PRN IV 06/04/17 17:30 06/17/17 11:44 (Zofran Inj) 4 mg UNSCH PRN IV 06/04/17 17:30 (Tylenol) 650 mg UNSCH PRN PO 06/04/17 17:30 (Benadryl) 25 mg UNSCH PRN PO 06/04/17 17:30 (Nitrostat Sl) 0.4 mg UNSCH PRN SL 06/04/17 17:30 (Catapres) 0.1 mg UNSCH PRN PO 06/04/17 17:30 (Epogen Inj) 6,000 units UNSCH PRN IV 06/04/17 17:30 06/17/17 11:44 (Gelfoam 12 Mm/7 Mm Top) 1 foam UNSCH PRN TOP 06/04/17 17:30 (NS Flush) UNSCH PRN IVF 06/05/17 11:45 (Heparin Inj) UNSCH PRN IV FLUSH 06/05/17 11:45 (Ultram) 50 mg Q6H PO 06/10/17 13:00 06/18/17 06:02 (Demadex) 40 mg DAILY PO 06/15/17 09:00 06/18/17 09:22 (Rocaltrol) 0.5 mcg DAILY PO 06/14/17 13:00 06/18/17 09:21 (Nephrocaps) 1 cap DAILY PO 06/14/17 13:00 06/18/17 09:22 A/P Assessment and Plan 87-year-old white male admitted for hypoxia and shortness of breath. Acute respiratory failure due to acute on chronic diastolic congestive heart failure along w worsening renal failure - much Improved after dialysis. Continue with dialysis. - Continue with diuretic torsemide and Zaroxolyn, monitor input and output closely. 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 Had HD today - status post Vas-Cath. -s/p AV fistula done 06/11. CM assisting w d/c planning and arranging outpatient HD -Dietitian to educate pt on renal diet. -Continue management per wafer production lead worker. Left wrist pain -Most likely from arthritis. -X-ray the wrist showed severe arthritis. no complaints today. Consider short course of steroids if worsening. COPD, chronic- continue with O2 support and DuoNeb. BPH, chronic - continue home terazosin. Hypertension- controlled. Constipation -Improved. DVT prophylaxis-heparin Discussed with digital strategy manager awaiting final by Insurance and SNF to transfer to inpatient Group Home. Discharge Planning Awaiting final arrangements for outpatient Hemodialysis to discharge Home. Discussed with nurse and with Case Sukhwinder Hernandez MD Jun 18, 2017 11:37 am
--- NOTE | 2017-06-18 12:23 | HHI.NPPN ---
Subjective History of Present Illness 87-year-old male with past medical history of hypertension, ischemic heart disease and chronic kidney disease, chronic back pain and leg pain was brought to the hospital because of worsening shortness of breath. I was called to see the patient because of elevated BUN and creatinine. The patient has creatinine of 4.5 on presentation. Previously he has creatinine as high as 4.4. [facility]. Additional Remarks Patient is alert, breathing is better, clinically same. Review of Systems General Constitutional: Fatigue Respiratory Lungs: SOB, Cough, Sputum, Wheeze Cardiovascular Cardiac: CLEMONS Objective Data Data Vital Signs Date Time Temp Pulse Resp B/P (MAP) Pulse Ox O2 Delivery O2 Flow Rate FiO2 06/18/17 09:51 98 Nasal Cannula 2.00 06/18/17 09:00 94 Room Air 06/18/17 08:06 97.7 56 20 120/59 (79) 97 06/18/17 05:08 98.4 58 16 145/64 (91) 96 06/18/17 05:04 Nasal Cannula 2.00 06/17/17 23:30 98.7 56 16 94/63 (73) 96 06/17/17 23:00 Nasal Cannula 2.00 06/17/17 20:00 Nasal Cannula 2.00 06/17/17 20:00 65 06/17/17 19:44 98.6 65 16 111/57 (75) 96 06/17/17 17:38 96 Nasal Cannula 2.00 06/17/17 16:00 97.3 66 18 121/59 (79) 96 -: 06/15/17 0816 Physical Exam General Appearance: No Acute Distress, Comfortable Eyes Eye Exam: Pupils Equal Throat Throat Exam: Oral Mucosa [place] & Moist Neck Neck Exam: Neck Supple Pulmonary Resp Exam: Breath Sounds Equal, No Distress, Crackles, Rhonchi, Decreased Bases , Diminished Breath Sounds Cardiology CV Exam: Regular, Normal Sinus Rhythm Gastrointestinal/Abdomen GI Exam: Soft, Non-Tender, Bowel Sounds Present, Non-Distended Extremeties Extremities Exam: Trace Edema Neurologic Neuro Exam: Alert, Awake, Oriented Psychiatric Psych Exam: Appropriate Responses Assessment/Plan Assessment Summary: Anemia of CKD, Fluid/Volume Overload, CKD Stage IV Problem List: (1) Hypoxia ICD Codes: R09.02 - Hypoxemia Status: Acute (2) CAD (coronary artery disease) ICD Codes: I25.10 - CAD (coronary artery disease) Status: Acute (3) COPD (chronic obstructive pulmonary disease) ICD Codes: J44.9 - Chronic obstructive pulmonary disease Status: Acute (4) Hypertension ICD Codes: I10 - Hypertension Status: Acute (5) Congestive heart failure ICD Codes: I50.9 - Heart failure, unspecified Status: Acute (6) Chronic kidney disease, stage IV (severe) ICD Codes: N18.4 - Chronic kidney disease, stage 4 (severe) Status: Chronic Plan Patient has advance renal disease and GFR is decreasing. On Torsemide and non oliguric. K is normal. Patient and family agreed about starting HD. Iron supplement and Epogen. Started on HD Patient now agreed to continue HD. AVF done, has good Bruit. arrangements for out patient HD. On low dose Torsemide. Awaiting out patient HD arrangements. HD done yesterday, continue MWF for now. Problem Qualifiers (1) Hypertension: Qualified Codes: I10 - Essential (primary) hypertension Verona Raya MD Jun 18, 2017 12:23
[2017-06-18] MEDS: TERAZOSIN HCL 1 MG CAP PO SCH (21:11)
[2017-06-19] VITALS (8 sets, daily range): BP systolic 118–129; BP diastolic 54–62; PULSE 56–70; RESP 16–20; TEMP 97.8–98.4; O2SAT 95–98
[2017-06-19] MEDS: traMADol HCL 50 MG TAB PO SCH ×4 (00:23→19:54)
[2017-06-19] MEDS: POTASSIUM CHLORIDE 10 MEQ CONTROLLED RELEASE TAB PO SCH ×2 (08:32→22:25)
[2017-06-19] MEDS: VITAMIN B CMPLX/VITC/FOLIC AC CAP PO SCH (08:33)
[2017-06-19] MEDS: guaiFENesin E.R. 600 MG TAB PO SCH ×2 (08:33→22:24)
[2017-06-19] MEDS: TORSEMIDE 20 MG TAB PO SCH (08:33)
[2017-06-19] MEDS: METOPROLOL TARTRATE 50 MG TAB PO SCH ×2 (08:33→22:24)
[2017-06-19] MEDS: DOCUSATE SODIUM 50 MG/SENNA 8.6 MG TAB PO SCH ×2 (08:33→22:25)
[2017-06-19] MEDS: SODIUM CHLORIDE 0.9% FLUSH 10 ML FLUSH IV FLUSH SCH ×2 (08:34→22:26)
[2017-06-19] MEDS: ASPIRIN 81 MG CHEW TAB CHEW SCH (08:45)
[2017-06-19] MEDS: CALCITRIOL 0.25 MCG CAP PO SCH (08:46)
--- NOTE | 2017-06-19 10:34 | HHI.NPPN ---
Subjective History of Present Illness 87-year-old male with past medical history of hypertension, ischemic heart disease and chronic kidney disease, chronic back pain and leg pain was brought to the hospital because of worsening shortness of breath. I was called to see the patient because of elevated BUN and creatinine. The patient has creatinine of 4.5 on presentation. Previously he has creatinine as high as 4.4. [facility]. Additional Remarks Patient is alert, breathing is better, on HD now, feeling better. Review of Systems General Constitutional: Fatigue Respiratory Lungs: SOB, Cough, Sputum, Wheeze Cardiovascular Cardiac: CLEMONS Objective Data Data Vital Signs Date Time Temp Pulse Resp B/P (MAP) Pulse Ox O2 Delivery O2 Flow Rate FiO2 06/19/17 08:01 97.9 63 20 119/54 (75) 95 06/19/17 04:00 97.8 62 16 118/62 (80) 95 06/19/17 03:28 Nasal Cannula 2.00 06/19/17 00:36 Nasal Cannula 2.00 06/19/17 00:00 97.8 56 20 119/56 (77) 95 06/18/17 20:00 Nasal Cannula 2.00 06/18/17 20:00 58 06/18/17 20:00 97.4 55 17 113/59 (77) 99 06/18/17 17:57 96 Nasal Cannula 2.00 06/18/17 16:07 98.0 60 20 118/58 (78) 97 06/18/17 12:06 98.1 59 20 117/57 (77) 96 -: 06/15/17 0816 Physical Exam General Appearance: No Acute Distress, Comfortable Eyes Eye Exam: Pupils Equal Throat Throat Exam: Oral Mucosa [place] & Moist Neck Neck Exam: Neck Supple Pulmonary Resp Exam: Breath Sounds Equal, No Distress, Crackles, Rhonchi, Decreased Bases , Diminished Breath Sounds Cardiology CV Exam: Regular, Normal Sinus Rhythm Gastrointestinal/Abdomen GI Exam: Soft, Non-Tender, Bowel Sounds Present, Non-Distended Extremeties Extremities Exam: Trace Edema Neurologic Neuro Exam: Alert, Awake, Oriented Psychiatric Psych Exam: Appropriate Responses Assessment/Plan Assessment Summary: Anemia of CKD, Fluid/Volume Overload, CKD Stage IV Problem List: (1) Hypoxia ICD Codes: R09.02 - Hypoxemia Status: Acute (2) CAD (coronary artery disease) ICD Codes: I25.10 - CAD (coronary artery disease) Status: Acute (3) COPD (chronic obstructive pulmonary disease) ICD Codes: J44.9 - Chronic obstructive pulmonary disease Status: Acute (4) Hypertension ICD Codes: I10 - Hypertension Status: Acute (5) Congestive heart failure ICD Codes: I50.9 - Heart failure, unspecified Status: Acute (6) Chronic kidney disease, stage IV (severe) ICD Codes: N18.4 - Chronic kidney disease, stage 4 (severe) Status: Chronic Plan Patient has advance renal disease and GFR is decreasing. On Torsemide and non oliguric. K is normal. Patient and family agreed about starting HD. Iron supplement and Epogen. Started on HD Patient now agreed to continue HD. AVF done, has good Bruit. arrangements for out patient HD. On low dose Torsemide. Awaiting out patient HD arrangements. HD now, remove fluid as tolerated. Continue HD as schedule. Problem Qualifiers (1) Hypertension: Qualified Codes: I10 - Essential (primary) hypertension Verona Raya MD Jun 19, 2017 10:34
[2017-06-19] MEDS: GENTAMICIN SULFATE (DIALYSIS USE ONLY) 20 MG/2 ML VIAL IV PRN (10:59)
[2017-06-19] MEDS: HEPARIN SODIUM - IV 10,000 UNITS/10 ML VIAL PRN (11:00)
[2017-06-19] MEDS: EPOETIN ALFA 10,000 UNITS/ML VIAL IV PRN (11:00)
--- NOTE | 2017-06-19 13:56 | PD.CAR.PN ---
CVT Progress Note Subjective/Hospital Course: Referral received Full consult and surgery to follow Thanks Alla 06/06/17 Try to see the patient yesterday however he was in some sort of a study and then later got transferred to different floor My attempt to see patient today on the fourth floor failed because patient is now in dialysis Will try to catch up with patient tomorrow 06/07/17 Discussed care with the patient Clinically his veins a very poor and this is confirmed by the venous mapping study The only possibility will be above elebow AV fistula with either basilic or cephalic vein We'll go ahead with the same tomorrow 06/08/17 Patient was initially scheduled for AV fistula of the left arm however family has decided not to proceed with the same yet There would like to discuss this further and perhaps make decisions in a more comprehensive way in a sense of even continuing with the dialysis therapy and I can see there point completely. Surgery has been canceled and I'll be happy to create AV fistula in some other times family is wishes her such Otherwise, I would certainly recommend palliative care consult to discuss option with the patient and the family 06/19/17 Patient is status post the AV fistula left upper arm. Left cephalic vein is developing nicely and is fairly large so I expect a good result from this AV fistula creation. Patient's excellent brachial ulnar and radial pulse palpable and hand is warm and well perfused with normal capillary refill Patient does not have any appreciable steel or impairment of the distal arterial circulation. I would like to see patient in about a month and at which time we will schedule him for transposition of the vein and then fistula will be ready for use Objective: Vital Signs Date Time Temp Pulse Resp B/P (MAP) Pulse Ox O2 Delivery O2 Flow Rate FiO2 06/19/17 09:00 94 Nasal Cannula 2.00 06/19/17 08:01 97.9 63 20 119/54 (75) 95 06/19/17 04:00 97.8 62 16 118/62 (80) 95 06/19/17 03:28 Nasal Cannula 2.00 06/19/17 00:36 Nasal Cannula 2.00 06/19/17 00:00 97.8 56 20 119/56 (77) 95 06/18/17 20:00 Nasal Cannula 2.00 06/18/17 20:00 58 06/18/17 20:00 97.4 55 17 113/59 (77) 99 9/7/17 17:57 96 Nasal Cannula 2.00 06/18/17 16:07 98.0 60 20 118/58 (78) 97 Result Diagram: 06/15/17 0816 Wendy Gregory MD Jun 19, 2017 13:56
--- NOTE | 2017-06-19 14:26 | HHI.PR ---
Subjective Remarks 06/19: Discussed with nurse Miss Morales appreciated, no nausea, vomit or diarrhea. Objective Vital Signs Date Time Temp Pulse Resp B/P (MAP) Pulse Ox O2 Delivery O2 Flow Rate FiO2 06/19/17 09:00 94 Nasal Cannula 2.00 06/19/17 08:01 97.9 63 20 119/54 (75) 95 06/19/17 04:00 97.8 62 16 118/62 (80) 95 06/19/17 03:28 Nasal Cannula 2.00 06/19/17 00:36 Nasal Cannula 2.00 06/19/17 00:00 97.8 56 20 119/56 (77) 95 06/18/17 20:00 Nasal Cannula 2.00 06/18/17 20:00 58 06/18/17 20:00 97.4 55 17 113/59 (77) 99 06/18/17 17:57 96 Nasal Cannula 2.00 06/18/17 16:07 98.0 60 20 118/58 (78) 97 I/O 06/18/17 06/18/17 06/18/17 06/19/17 06/19/17 06/19/17 07:00 15:00 23:00 07:00 15:00 23:00 Intake Total 720 ml 420 ml 840 ml Output Total 350 ml 1200 ml 1000 ml Balance 370 ml 420 ml -360 ml -1000 ml Intake Oral 720 ml 420 ml 840 ml Output Urine Total 350 ml 1200 ml Hemodialysis 1000 ml # Voids 4 # Bowel Movements 0 2 0 Result Diagram: 06/15/17 0816 Imaging Last Impressions Wrist X-Ray 06/10/17 0000 Signed Impressions: Service Date/Time: Saturday, June 10, 2017 12:45 - CONCLUSION: Severe arthritic changes. No acute bony findings Taqueria Odonnell MD Upper Extremity Ultrasound 06/05/17 0000 Signed Impressions: Service Date/Time: Monday, June 05, 2017 09:37 - CONCLUSION: No DVT or superficial venous thrombosis is identified in the left upper extremity. Taqueria Mcnamara MD Catheter Placement X-Ray 06/05/17 0000 Signed Impressions: Service Date/Time: Monday, June 05, 2017 10:26 - CONCLUSION: Uncomplicated PermaCath placement as above. Arcenio Ortega MD Chest X-Ray 06/01/17 1450 Signed Impressions: Service Date/Time: Thursday, June 01, 2017 14:53 - CONCLUSION: 1. Bibasilar atelectatic changes with possible associated small effusion on the right. 2. Borderline heart size. Arcenio Ortega MD Procedures HD Other Results Laboratory Tests Test 06/01/17 15:00 06/01/17 15:05 06/01/17 16:08 06/01/17 23:07 Blood Gas Puncture Site RT RADIAL Blood Gas Patient Temperature 98.6 Blood Gas HCO3 27 mmol/L Blood Gas Base Excess 2.7 mmol/L Blood Gas Oxygen Saturation 98 % Arterial Blood pH 7.39 Arterial Blood Partial Pressure CO2 46 mmHg Arterial Blood Partial Pressure O2 235 mmHG Arterial Blood Oxygen Content 14.8 Vol % Arterial Blood Carboxyhemoglobin 2.0 % Arterial Blood Methemoglobin 0.4 % Blood Gas Hemoglobin 10.4 G/DL Oxygen Delivery Device BiPAP Blood Gas Ventilator Setting IPAP14 EPAP7 Blood Gas Inspired Oxygen 100 % B-Type Natriuretic Peptide 597 PG/ML Urine Hyaline Casts 2 /lpf Urine Color LIGHT-YELLOW Urine Turbidity CLEAR Urine pH 5.5 Urine Specific [place] 1.007 Urine Protein TRACE mg/dL Urine Glucose (UA) NEG mg/dL Urine Ketones NEG mg/dL Urine Occult Blood TRACE Urine Nitrite NEG Urine Bilirubin NEG Urine Urobilinogen LESS THAN 2.0 MG/DL Urine Leukocyte Esterase NEG Urine RBC 4 /hpf Urine WBC LESS THAN 1 /hpf Urine Squamous Epithelial Cells <1 /hpf Urine Bacteria RARE /hpf Microscopic Urinalysis Comment CULT NOT INDICATED Test 06/02/17 05:15 06/03/17 05:59 06/04/17 20:35 06/08/17 05:05 Hemoglobin A1c 5.2 % Blood Urea Nitrogen 60 MG/DL 82 MG/DL Creatinine 3.99 MG/DL 5.37 MG/DL Random Glucose 95 MG/DL 89 MG/DL Total Protein 6.7 GM/DL 7.1 GM/DL Albumin 3.0 GM/DL 3.1 GM/DL Calcium Level 8.4 MG/DL 8.0 MG/DL Phosphorus Level 3.6 MG/DL 6.6 MG/DL Magnesium Level 2.2 MG/DL Alkaline Phosphatase 70 U/L Aspartate Amino Transf (AST/SGOT) 11 U/L Alanine Aminotransferase (ALT/SGPT) 15 U/L Total Bilirubin 1.0 MG/DL Sodium Level 140 MEQ/L 135 MEQ/L Potassium Level 4.0 MEQ/L 3.4 MEQ/L Chloride Level 103 MEQ/L 92 MEQ/L Carbon Dioxide Level 29.1 MEQ/L 31.0 MEQ/L Total Creatine Kinase 34 U/L Troponin I LESS THAN 0.02 NG/ML Free Thyroxine 1.18 NG/DL Thyroid Stimulating Hormone 3rd Gen 2.360 uIU/ML Iron Level 31 MCG/DL Total Iron Binding Capacity 311 MCG/DL Percent Iron Saturation 10.0 % Ferritin 88 NG/ML Albumin/Globulin Ratio 1.40 Zbnaj-2-Jvoxkawrg 0.23 GM/DL Eppby-2-Tzyxysgyw 0.73 GM/DL Beta Globulins 0.63 GM/DL Gamma Globulins 1.36 GM/DL Electrophoresis Pathologist Comment Hepatitis A IgM Antibody NEGATIVE Hepatitis B Surface Antigen NEGATIVE Hepatitis B Core IgM Antibody NEGATIVE Hepatitis C Antibody NEGATIVE White Blood Count 7.1 TH/MM3 Red Blood Count 3.96 MIL/MM3 Hemoglobin 10.4 GM/DL Hematocrit 32.0 % Mean Corpuscular Volume 80.8 FL Mean Corpuscular Hemoglobin 26.2 PG Mean Corpuscular Hemoglobin Concent 32.5 % Red Cell Distribution Width 17.0 % Platelet Count 123 TH/MM3 Mean Platelet Volume 7.5 FL Neutrophils (%) (Auto) 57.8 % Lymphocytes (%) (Auto) 20.7 % Monocytes (%) (Auto) 13.2 % Eosinophils (%) (Auto) 7.6 % Basophils (%) (Auto) 0.7 % Neutrophils # (Auto) 4.1 TH/MM3 Lymphocytes # (Auto) 1.5 TH/MM3 Monocytes # (Auto) 0.9 TH/MM3 Eosinophils # (Auto) 0.5 TH/MM3 Basophils # (Auto) 0.1 TH/MM3 CBC Comment DIFF FINAL Differential Comment Test 06/10/17 14:30 06/13/17 07:35 06/15/17 08:16 Uric Acid 10.4 MG/DL Blood Urea Nitrogen 41 MG/DL 69 MG/DL Creatinine 4.49 MG/DL 5.46 MG/DL Random Glucose 96 MG/DL 91 MG/DL Calcium Level 8.3 MG/DL 8.3 MG/DL Phosphorus Level 4.0 MG/DL Magnesium Level 2.1 MG/DL Sodium Level 133 MEQ/L 125 MEQ/L Potassium Level 3.8 MEQ/L 3.6 MEQ/L Chloride Level 94 MEQ/L 85 MEQ/L Carbon Dioxide Level 31.8 MEQ/L 27.4 MEQ/L Anion Gap 13 MEQ/L Estimat Glomerular Filtration Rate 10 ML/MIN Objective Remarks GENERAL: No acute distress. EYES: EOMI NECK: Supple. Trachea midline. CARDIOVASCULAR: Regular rate and rhythm. (+)soft murmur appreciated. RESPIRATORY: No accessory muscle use. Clear to auscultation. Breath sounds equal bilaterally. GASTROINTESTINAL: Abdomen soft, non-tender, nondistended. Normoactive bowel sounds x4. MUSCULOSKELETAL: No obvious deformities. Extremities without edema. NEUROLOGICAL: Awake and alert. Able to move all extremities spontaneously. Normal speech. PSYCHIATRIC: Appropriate mood and affect; insight and judgment normal. Medications and IVs Current Medications Medications (Trade) Dose Ordered Sig/Eduin Route Start Time Stop Time Status Last Admin (Norvasc) 10 mg DAILY PO 06/02/17 09:00 06/18/17 09:23 (Aspirin Chew) 81 mg DAILY CHEW 06/02/17 09:00 06/19/17 08:45 (Flonase [place] Spr) 1 spray BID PRN EACH NARE 06/01/17 18:30 (Claritin) 10 mg DAILY PRN PO 06/01/17 18:30 (Lopressor) 50 mg BID PO 06/01/17 21:00 06/18/17 21:11 (Remeron) 10 mg HS PRN PO 06/01/17 18:30 06/03/17 20:52 (Tears Naturale Opth Soln) 2 drop Q4H PRN EACH EYE 06/01/17 18:30 (Hytrin) 2 mg HS PO 06/01/17 21:00 06/18/17 21:11 (Tylenol) 650 mg Q6H PRN PO 06/01/17 18:30 06/11/17 22:36 (Narcan Inj) 0.4 mg UNSCH PRN IV 06/01/17 18:30 (Indu-Colace) 1 tab BID PO 06/01/17 21:00 06/19/17 08:33 (Milk Of Magnesia Liq) 30 ml Q12H PRN PO 06/01/17 18:30 06/16/17 21:15 (Senokot) 17.2 mg Q12H PRN PO 06/01/17 18:30 06/15/17 08:42 (Dulcolax Supp) 10 mg DAILY PRN RECTAL 06/01/17 18:30 (Lactulose Liq) 30 ml DAILY PRN PO 06/01/17 18:30 06/17/17 14:12 (NS Flush) 2 ml UNSCH PRN IV FLUSH 06/01/17 18:30 (NS Flush) 2 ml BID IV FLUSH 06/01/17 21:00 06/19/17 08:34 (KCl) 10 meq BID PO 06/01/17 21:00 06/19/17 08:32 (Duoneb Neb) 1 ampule Q4HR NEB PRN NEB 06/01/17 19:00 (Mucinex Er) 600 mg BID PO 06/01/17 21:00 06/19/17 08:33 Sodium Chloride 1,000 ml @ 0 mls/hr Q0M PRN OTHER 06/04/17 17:23 (Heparin Inj) 8,000 units UNSCH PRN IVF 06/04/17 17:30 06/12/17 16:25 Sodium Chloride 1,000 ml @ 200 mls/hr Q5H PRN IV 06/04/17 17:23 Sodium Chloride 1,000 ml @ 0 mls/hr Q0M PRN OTHER 06/04/17 17:23 06/10/17 17:59 (Mannitol Inj) 12.5 gm UNSCH PRN IV 06/04/17 17:30 (Albumin 25% Inj) 25 gm UNSCH PRN IV 06/04/17 17:30 (NS Flush) 5 ml UNSCH PRN IV FLUSH 06/04/17 17:30 06/12/17 16:25 (Heparin Inj) UNSCH PRN .XX 06/04/17 17:30 06/19/17 11:00 (Gentamicin (Dialysis) Inj) 20 mg UNSCH PRN IV 06/04/17 17:30 06/19/17 10:59 (Zofran Inj) 4 mg UNSCH PRN IV 06/04/17 17:30 (Tylenol) 650 mg UNSCH PRN PO 06/04/17 17:30 (Benadryl) 25 mg UNSCH PRN PO 06/04/17 17:30 (Nitrostat Sl) 0.4 mg UNSCH PRN SL 06/04/17 17:30 (Catapres) 0.1 mg UNSCH PRN PO 06/04/17 17:30 (Epogen Inj) 6,000 units UNSCH PRN IV 06/04/17 17:30 06/19/17 11:00 (Gelfoam 12 Mm/7 Mm Top) 1 foam UNSCH PRN TOP 06/04/17 17:30 (NS Flush) UNSCH PRN IVF 06/05/17 11:45 (Heparin Inj) UNSCH PRN IV FLUSH 06/05/17 11:45 (Ultram) 50 mg Q6H PO 06/10/17 13:00 06/19/17 05:57 (Demadex) 40 mg DAILY PO 06/15/17 09:00 06/19/17 08:33 (Rocaltrol) 0.5 mcg DAILY PO 06/14/17 13:00 06/19/17 08:46 (Nephrocaps) 1 cap DAILY PO 06/14/17 13:00 06/19/17 08:33 A/P Assessment and Plan 87-year-old white male admitted for hypoxia and shortness of breath. Acute respiratory failure due to acute on chronic diastolic congestive heart failure along w worsening renal failure - much Improved after dialysis. Continue with dialysis. - Continue with diuretic torsemide and Zaroxolyn, monitor input and output closely. 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 Had HD today - status post Vas-Cath. followed by Vascular specialist will be seen in one month to complete procedure. -s/p AV fistula done 06/11. CM assisting w d/c planning and arranging outpatient HD -Dietitian to educate pt on renal diet. -Continue management per sock knitting machine operator. Left wrist pain -Most likely from arthritis. -X-ray the wrist showed severe arthritis. no complaints today. Consider short course of steroids if worsening. COPD, chronic- continue with O2 support and DuoNeb. BPH, chronic - continue home terazosin. Hypertension- controlled. Constipation -Improved. DVT prophylaxis-heparin Discussed with distribution sales manager again today and not yet set for outpatient Hemodialysis. Discharge Planning Awaiting final arrangements for outpatient Hemodialysis to discharge Home. Discussed with nurse and with Case Sukhwinder Hernandez MD Jun 19, 2017 14:26
[2017-06-19] MEDS: TERAZOSIN HCL 1 MG CAP PO SCH (22:25)
[2017-06-20] VITALS (8 sets, daily range): BP systolic 115–141; BP diastolic 58–67; PULSE 61–66; RESP 16–18; TEMP 97.3–98.8; O2SAT 95–99
[2017-06-20] MEDS: traMADol HCL 50 MG TAB PO SCH ×4 (01:21→18:25)
[2017-06-20] MEDS: CALCITRIOL 0.25 MCG CAP PO SCH (09:13)
[2017-06-20] MEDS: ASPIRIN 81 MG CHEW TAB CHEW SCH (09:13)
[2017-06-20] MEDS: LACTULOSE SYRUP 20 GM/30 ML CUP PO PRN (09:13)
[2017-06-20] MEDS: TORSEMIDE 20 MG TAB PO SCH (09:13)
[2017-06-20] MEDS: METOPROLOL TARTRATE 50 MG TAB PO SCH ×2 (09:13→20:47)
[2017-06-20] MEDS: SODIUM CHLORIDE 0.9% FLUSH 10 ML FLUSH IV FLUSH SCH ×2 (09:13→20:46)
[2017-06-20] MEDS: VITAMIN B CMPLX/VITC/FOLIC AC CAP PO SCH (09:13)
[2017-06-20] MEDS: guaiFENesin E.R. 600 MG TAB PO SCH ×2 (09:13→20:46)
[2017-06-20] MEDS: POTASSIUM CHLORIDE 10 MEQ CONTROLLED RELEASE TAB PO SCH ×2 (09:14→20:47)
[2017-06-20] MEDS: DOCUSATE SODIUM 50 MG/SENNA 8.6 MG TAB PO SCH ×2 (09:14→20:47)
--- NOTE | 2017-06-20 14:01 | HHI.PR ---
Subjective Remarks 06/19: Patient seen in his bedroom awaiting final recommendations by Tester Armature Or Fields not yet found Hemodialysis Arrangements for the patient. Objective Vital Signs Date Time Temp Pulse Resp B/P (MAP) Pulse Ox O2 Delivery O2 Flow Rate FiO2 06/20/17 12:00 97.3 66 18 131/63 (85) 99 06/20/17 12:00 Nasal Cannula 2.00 06/20/17 08:45 Nasal Cannula 2.00 06/20/17 08:00 97.4 62 18 135/63 (87) 99 06/20/17 04:00 98.6 62 18 115/58 (77) 98 06/20/17 00:00 Nasal Cannula 2.00 06/20/17 00:00 98.8 61 18 141/67 (91) 96 06/19/17 21:00 Nasal Cannula 2.00 06/19/17 20:00 68 06/19/17 20:00 98.4 70 20 129/60 (83) 95 06/19/17 17:48 98 Nasal Cannula 3.00 06/19/17 16:00 97.8 64 18 120/56 (77) 96 I/O 06/19/17 06/19/17 06/19/17 06/20/17 06/20/17 06/20/17 06:59 14:59 22:59 06:59 14:59 22:59 Intake Total 840 ml 380 ml 0 ml Output Total 1200 ml 1000 ml 800 ml Balance -360 ml -1000 ml -420 ml 0 ml Intake Oral 840 ml 380 ml 0 ml Output Urine Total 1200 ml 800 ml Hemodialysis 1000 ml # Voids 1 # Bowel Movements 0 1 0 Imaging Last Impressions Wrist X-Ray 06/10/17 0000 Signed Impressions: Service Date/Time: Saturday, June 10, 2017 12:45 - CONCLUSION: Severe arthritic changes. No acute bony findings Taqueria Odonnell MD Upper Extremity Ultrasound 06/05/17 0000 Signed Impressions: Service Date/Time: Monday, June 05, 2017 09:37 - CONCLUSION: No DVT or superficial venous thrombosis is identified in the left upper extremity. Taqueria Mcnamara MD Catheter Placement X-Ray 06/05/17 0000 Signed Impressions: Service Date/Time: Monday, June 05, 2017 10:26 - CONCLUSION: Uncomplicated PermaCath placement as above. Arcenio Ortega MD Chest X-Ray 06/01/17 1106 Signed Impressions: Service Date/Time: Thursday, June 01, 2017 14:53 - CONCLUSION: 1. Bibasilar atelectatic changes with possible associated small effusion on the right. 2. Borderline heart size. Arcenio Ortega MD Procedures HD Other Results Laboratory Tests Test 06/01/17 15:00 06/01/17 15:05 06/01/17 16:08 06/01/17 23:07 Blood Gas Puncture Site RT RADIAL Blood Gas Patient Temperature 98.6 Blood Gas HCO3 27 mmol/L Blood Gas Base Excess 2.7 mmol/L Blood Gas Oxygen Saturation 98 % Arterial Blood pH 7.39 Arterial Blood Partial Pressure CO2 46 mmHg Arterial Blood Partial Pressure O2 235 mmHG Arterial Blood Oxygen Content 14.8 Vol % Arterial Blood Carboxyhemoglobin 2.0 % Arterial Blood Methemoglobin 0.4 % Blood Gas Hemoglobin 10.4 G/DL Oxygen Delivery Device BiPAP Blood Gas Ventilator Setting IPAP14 EPAP7 Blood Gas Inspired Oxygen 100 % B-Type Natriuretic Peptide 597 PG/ML Urine Hyaline Casts 2 /lpf Urine Color LIGHT-YELLOW Urine Turbidity CLEAR Urine pH 5.5 Urine Specific [place] 1.007 Urine Protein TRACE mg/dL Urine Glucose (UA) NEG mg/dL Urine Ketones NEG mg/dL Urine Occult Blood TRACE Urine Nitrite NEG Urine Bilirubin NEG Urine Urobilinogen LESS THAN 2.0 MG/DL Urine Leukocyte Esterase NEG Urine RBC 4 /hpf Urine WBC LESS THAN 1 /hpf Urine Squamous Epithelial Cells <1 /hpf Urine Bacteria RARE /hpf Microscopic Urinalysis Comment CULT NOT INDICATED Test 06/02/17 05:15 06/03/17 05:59 06/04/17 20:35 06/08/17 05:05 Hemoglobin A1c 5.2 % Blood Urea Nitrogen 60 MG/DL 82 MG/DL Creatinine 3.99 MG/DL 5.37 MG/DL Random Glucose 95 MG/DL 89 MG/DL Total Protein 6.7 GM/DL 7.1 GM/DL Albumin 3.0 GM/DL 3.1 GM/DL Calcium Level 8.4 MG/DL 8.0 MG/DL Phosphorus Level 3.6 MG/DL 6.6 MG/DL Magnesium Level 2.2 MG/DL Alkaline Phosphatase 70 U/L Aspartate Amino Transf (AST/SGOT) 11 U/L Alanine Aminotransferase (ALT/SGPT) 15 U/L Total Bilirubin 1.0 MG/DL Sodium Level 140 MEQ/L 135 MEQ/L Potassium Level 4.0 MEQ/L 3.4 MEQ/L Chloride Level 103 MEQ/L 92 MEQ/L Carbon Dioxide Level 29.1 MEQ/L 31.0 MEQ/L Total Creatine Kinase 34 U/L Troponin I LESS THAN 0.02 NG/ML Free Thyroxine 1.18 NG/DL Thyroid Stimulating Hormone 3rd Gen 2.360 uIU/ML Iron Level 31 MCG/DL Total Iron Binding Capacity 311 MCG/DL Percent Iron Saturation 10.0 % Ferritin 88 NG/ML Albumin/Globulin Ratio 1.40 Aqkwi-6-Wxirvixuo 0.23 GM/DL Xdqrv-1-Wlwqwonyz 0.73 GM/DL Beta Globulins 0.63 GM/DL Gamma Globulins 1.36 GM/DL Electrophoresis Pathologist Comment Hepatitis A IgM Antibody NEGATIVE Hepatitis B Surface Antigen NEGATIVE Hepatitis B Core IgM Antibody NEGATIVE Hepatitis C Antibody NEGATIVE White Blood Count 7.1 TH/MM3 Red Blood Count 3.96 MIL/MM3 Hemoglobin 10.4 GM/DL Hematocrit 32.0 % Mean Corpuscular Volume 80.8 FL Mean Corpuscular Hemoglobin 26.2 PG Mean Corpuscular Hemoglobin Concent 32.5 % Red Cell Distribution Width 17.0 % Platelet Count 123 TH/MM3 Mean Platelet Volume 7.5 FL Neutrophils (%) (Auto) 57.8 % Lymphocytes (%) (Auto) 20.7 % Monocytes (%) (Auto) 13.2 % Eosinophils (%) (Auto) 7.6 % Basophils (%) (Auto) 0.7 % Neutrophils # (Auto) 4.1 TH/MM3 Lymphocytes # (Auto) 1.5 TH/MM3 Monocytes # (Auto) 0.9 TH/MM3 Eosinophils # (Auto) 0.5 TH/MM3 Basophils # (Auto) 0.1 TH/MM3 CBC Comment DIFF FINAL Differential Comment Test 06/10/17 14:30 06/13/17 07:35 06/15/17 08:16 Uric Acid 10.4 MG/DL Blood Urea Nitrogen 41 MG/DL 69 MG/DL Creatinine 4.49 MG/DL 5.46 MG/DL Random Glucose 96 MG/DL 91 MG/DL Calcium Level 8.3 MG/DL 8.3 MG/DL Phosphorus Level 4.0 MG/DL Magnesium Level 2.1 MG/DL Sodium Level 133 MEQ/L 125 MEQ/L Potassium Level 3.8 MEQ/L 3.6 MEQ/L Chloride Level 94 MEQ/L 85 MEQ/L Carbon Dioxide Level 31.8 MEQ/L 27.4 MEQ/L Anion Gap 13 MEQ/L Estimat Glomerular Filtration Rate 10 ML/MIN Objective Remarks GENERAL: No acute distress. EYES: EOMI NECK: Supple. Trachea midline. CARDIOVASCULAR: Regular rate and rhythm. (+)soft murmur appreciated. RESPIRATORY: No accessory muscle use. Clear to auscultation. Breath sounds equal bilaterally. GASTROINTESTINAL: Abdomen soft, non-tender, nondistended. Normoactive bowel sounds x4. MUSCULOSKELETAL: No obvious deformities. Extremities without edema. NEUROLOGICAL: Awake and alert. Able to move all extremities spontaneously. Normal speech. PSYCHIATRIC: Appropriate mood and affect; insight and judgment normal. Medications and IVs Current Medications Medications (Trade) Dose Ordered Sig/Eduin Route Start Time Stop Time Status Last Admin (Norvasc) 10 mg DAILY PO 06/02/17 09:00 06/20/17 09:13 (Aspirin Chew) 81 mg DAILY CHEW 06/02/17 09:00 06/20/17 09:13 (Flonase Dejon Spr) 1 spray BID PRN EACH NARE 06/01/17 18:30 (Claritin) 10 mg DAILY PRN PO 06/01/17 18:30 (Lopressor) 50 mg BID PO 06/01/17 21:00 06/20/17 09:13 (Remeron) 10 mg HS PRN PO 06/01/17 18:30 06/03/17 20:52 (Tears Naturale Opth Soln) 2 drop Q4H PRN EACH EYE 06/01/17 18:30 (Hytrin) 2 mg HS PO 06/01/17 21:00 06/19/17 22:25 (Tylenol) 650 mg Q6H PRN PO 06/01/17 18:30 06/11/17 22:36 (Narcan Inj) 0.4 mg UNSCH PRN IV 06/01/17 18:30 (Indu-Colace) 1 tab BID PO 06/01/17 21:00 06/20/17 09:14 (Milk Of Magnesia Liq) 30 ml Q12H PRN PO 06/01/17 18:30 06/16/17 21:15 (Senokot) 17.2 mg Q12H PRN PO 06/01/17 18:30 06/15/17 08:42 (Dulcolax Supp) 10 mg DAILY PRN RECTAL 06/01/17 18:30 (Lactulose Liq) 30 ml DAILY PRN PO 06/01/17 18:30 06/20/17 09:13 (NS Flush) 2 ml UNSCH PRN IV FLUSH 06/01/17 18:30 (NS Flush) 2 ml BID IV FLUSH 06/01/17 21:00 06/20/17 09:13 (KCl) 10 meq BID PO 06/01/17 21:00 06/20/17 09:14 (Duoneb Neb) 1 ampule Q4HR NEB PRN NEB 06/01/17 19:00 (Mucinex Er) 600 mg BID PO 06/01/17 21:00 06/20/17 09:13 Sodium Chloride 1,000 ml @ 0 mls/hr Q0M PRN OTHER 06/04/17 17:23 (Heparin Inj) 8,000 units UNSCH PRN IVF 06/04/17 17:30 06/12/17 16:25 Sodium Chloride 1,000 ml @ 200 mls/hr Q5H PRN IV 06/04/17 17:23 Sodium Chloride 1,000 ml @ 0 mls/hr Q0M PRN OTHER 06/04/17 17:23 06/10/17 17:59 (Mannitol Inj) 12.5 gm UNSCH PRN IV 06/04/17 17:30 (Albumin 25% Inj) 25 gm UNSCH PRN IV 06/04/17 17:30 (NS Flush) 5 ml UNSCH PRN IV FLUSH 06/04/17 17:30 06/12/17 16:25 (Heparin Inj) UNSCH PRN .XX 06/04/17 17:30 06/19/17 11:00 (Gentamicin (Dialysis) Inj) 20 mg UNSCH PRN IV 06/04/17 17:30 06/19/17 10:59 (Zofran Inj) 4 mg UNSCH PRN IV 06/04/17 17:30 (Tylenol) 650 mg UNSCH PRN PO 06/04/17 17:30 (Benadryl) 25 mg UNSCH PRN PO 06/04/17 17:30 (Nitrostat Sl) 0.4 mg UNSCH PRN SL 06/04/17 17:30 (Catapres) 0.1 mg UNSCH PRN PO 06/04/17 17:30 (Epogen Inj) 6,000 units UNSCH PRN IV 06/04/17 17:30 06/19/17 11:00 (Gelfoam 12 Mm/7 Mm Top) 1 foam UNSCH PRN TOP 06/04/17 17:30 (NS Flush) UNSCH PRN IVF 06/05/17 11:45 (Heparin Inj) UNSCH PRN IV FLUSH 06/05/17 11:45 (Ultram) 50 mg Q6H PO 06/10/17 13:00 06/20/17 13:32 (Demadex) 40 mg DAILY PO 06/15/17 09:00 06/20/17 09:13 (Rocaltrol) 0.5 mcg DAILY PO 06/14/17 13:00 06/20/17 09:13 (Nephrocaps) 1 cap DAILY PO 06/14/17 13:00 06/20/17 09:13 A/P Assessment and Plan 87-year-old white male admitted for hypoxia and shortness of breath. Acute respiratory failure due to acute on chronic diastolic congestive heart failure along w worsening renal failure - much Improved after dialysis. Continue with dialysis. - Continue with diuretic torsemide and Zaroxolyn, monitor input and output closely. 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 Had HD today - status post Vas-Cath. followed by Vascular specialist will be seen in one month to complete procedure. -s/p AV fistula done 06/11. CM assisting w d/c planning and arranging outpatient HD -Dietitian to educate pt on renal diet. -Continue management per staff air defense officer. Left wrist pain -Most likely from arthritis. -X-ray the wrist showed severe arthritis. no complaints today. Consider short course of steroids if worsening. COPD, chronic- continue with O2 support and DuoNeb. BPH, chronic - continue home terazosin. Hypertension- controlled. Constipation -Improved. DVT prophylaxis-heparin Discussed with sous chef kitchen manager again today and not yet set for outpatient Hemodialysis. Discharge Planning Awaiting final arrangements for outpatient Hemodialysis to discharge Home. Discussed with nurse and with Case Sukhwinder Hernandez MD Jun 20, 2017 14:01
[2017-06-20] MEDS: TERAZOSIN HCL 1 MG CAP PO SCH (20:47)
[2017-06-21] VITALS (8 sets, daily range): BP systolic 111–136; BP diastolic 56–61; PULSE 50–62; RESP 16–20; TEMP 97–98.2; O2SAT 94–99
[2017-06-21] MEDS: traMADol HCL 50 MG TAB PO SCH ×4 (00:41→17:28)
[2017-06-21] MEDS: CALCITRIOL 0.25 MCG CAP PO SCH (08:43)
[2017-06-21] MEDS: POTASSIUM CHLORIDE 10 MEQ CONTROLLED RELEASE TAB PO SCH ×2 (08:43→22:32)
[2017-06-21] MEDS: ASPIRIN 81 MG CHEW TAB CHEW SCH (08:44)
[2017-06-21] MEDS: VITAMIN B CMPLX/VITC/FOLIC AC CAP PO SCH (08:44)
[2017-06-21] MEDS: METOPROLOL TARTRATE 50 MG TAB PO SCH ×2 (08:44→21:00)
[2017-06-21] MEDS: guaiFENesin E.R. 600 MG TAB PO SCH ×2 (08:44→22:32)
[2017-06-21] MEDS: SODIUM CHLORIDE 0.9% FLUSH 10 ML FLUSH IV FLUSH SCH ×2 (08:44→21:00)
[2017-06-21] MEDS: TORSEMIDE 20 MG TAB PO SCH (08:44)
[2017-06-21] MEDS: DOCUSATE SODIUM 50 MG/SENNA 8.6 MG TAB PO SCH ×2 (08:45→21:00)
[2017-06-21 09:21] LABS: AUTOMATED NEUTROPHIL # 3.4 TH/MM3 (1.8-7.7); BASOPHIL % 0.5 % (0.0-2.0); EOSINOPHIL # 0.4 TH/MM3 (0-0.4); HEMATOCRIT 28.4 % (39.0-51.0); HEMO FLAGS DIFF FINAL; LYMPH % 23.8 % (9.0-44.0); LYMPHOCYTE # 1.4 TH/MM3 (1.0-4.8); MEAN CELL VOLUME 82.8 FL (80.0-100.0); MEAN CORPUSCULAR HEMOGLOBIN 26.7 PG (27.0-34.0); MEAN CORPUSCULAR HGB CONC 32.2 % (32.0-36.0); MONO % 11.1 % (0.0-8.0); NEUT % 58.6 % (16.0-70.0); PLATELET COUNT 125 TH/MM3 (150-450); RED BLOOD COUNT 3.43 MIL/MM3 (4.50-5.90); RED CELL DISTRIBUTION WIDTH 17.8 % (11.6-17.2); WHITE BLOOD COUNT 5.8 TH/MM3 (4.0-11.0)
[2017-06-21 10:02] LABS: BICARBONATE 30.5 MEQ/L (21.0-32.0); POTASSIUM 3.6 MEQ/L (3.5-5.1)
--- NOTE | 2017-06-21 11:45 | HHI.NPPN ---
Subjective History of Present Illness 87-year-old male with past medical history of hypertension, ischemic heart disease and chronic kidney disease, chronic back pain and leg pain was brought to the hospital because of worsening shortness of breath. I was called to see the patient because of elevated BUN and creatinine. The patient has creatinine of 4.5 on presentation. Previously he has creatinine as high as 4.4. [facility]. Additional Remarks Patient is alert, breathing is better, Review of Systems General Constitutional: Fatigue Respiratory Lungs: SOB, Cough, Sputum, Wheeze Cardiovascular Cardiac: CLEMON[place] Objective Data Data Vital Signs Date Time Temp Pulse Resp B/P (MAP) Pulse Ox O2 Delivery O2 Flow Rate FiO2 06/21/17 08:28 97.5 50 18 123/58 (79) 96 06/21/17 08:15 Nasal Cannula 2.00 06/21/17 04:00 Nasal Cannula 2.00 Humidified 06/21/17 04:00 97.9 52 16 136/61 (86) 99 06/21/17 00:00 Nasal Cannula 2.00 Humidified 06/21/17 00:00 98.2 62 16 130/61 (84) 94 06/20/17 20:19 Nasal Cannula 3.00 Humidified 06/20/17 20:00 97.5 62 16 124/59 (80) 95 06/20/17 16:00 97.9 64 18 120/58 (78) 99 06/20/17 16:00 Nasal Cannula 2.00 06/20/17 14:00 96 Nasal Cannula 3.00 06/20/17 12:00 97.3 66 18 131/63 (85) 99 06/20/17 12:00 Nasal Cannula 2.00 -: 06/21/17 0832 06/21/17 0832 Physical Exam General Appearance: No Acute Distress, Comfortable Eyes Eye Exam: Pupils Equal Throat Throat Exam: Oral Mucosa [place] & Moist Neck Neck Exam: Neck Supple Pulmonary Resp Exam: Breath Sounds Equal, No Distress, Crackles, Rhonchi, Decreased Bases , Diminished Breath Sounds Cardiology CV Exam: Regular, Normal Sinus Rhythm Gastrointestinal/Abdomen GI Exam: Soft, Non-Tender, Bowel Sounds Present, Non-Distended Extremeties Extremities Exam: Trace Edema Neurologic Neuro Exam: Alert, Awake, Oriented Psychiatric Psych Exam: Appropriate Responses Assessment/Plan Assessment Summary: Anemia of CKD, Fluid/Volume Overload, CKD Stage IV Problem List: (1) Hypoxia ICD Codes: R09.02 - Hypoxemia Status: Acute (2) CAD (coronary artery disease) ICD Codes: I25.10 - CAD (coronary artery disease) Status: Acute (3) COPD (chronic obstructive pulmonary disease) ICD Codes: J44.9 - Chronic obstructive pulmonary disease Status: Acute (4) Hypertension ICD Codes: I10 - Hypertension Status: Acute (5) Congestive heart failure ICD Codes: I50.9 - Heart failure, unspecified Status: Acute (6) Chronic kidney disease, stage IV (severe) ICD Codes: N18.4 - Chronic kidney disease, stage 4 (severe) Status: Chronic Plan Patient has advance renal disease and GFR is slightly better On Torsemide and non oliguric. K is normal. Patient and family agreed about starting HD. Iron supplement and Epogen. Started on HD Patient now agreed to continue HD. AVF done, has good Bruit. arrangements for out patient HD. On low dose Torsemide. Awaiting out patient HD arrangements. Dr. Raya to follow Problem Qualifiers (1) Hypertension: Qualified Codes: I10 - Essential (primary) hypertension Magalie Tracey MD Jun 21, 2017 11:45
--- NOTE | 2017-06-21 11:56 | HHI.PR ---
Subjective Remarks The patient was on the phone waiting to order his lunch. He had no acute complaints. Discussed with nursing. Objective Vitals Vital Signs Date Time Temp Pulse Resp B/P (MAP) Pulse Ox O2 Delivery O2 Flow Rate FiO2 06/21/17 08:28 97.5 50 18 123/58 (79) 96 06/21/17 08:15 Nasal Cannula 2.00 06/21/17 04:00 Nasal Cannula 2.00 Humidified 06/21/17 04:00 97.9 52 16 136/61 (86) 99 06/21/17 00:00 Nasal Cannula 2.00 Humidified 06/21/17 00:00 98.2 62 16 130/61 (84) 94 06/20/17 20:19 Nasal Cannula 3.00 Humidified 06/20/17 20:00 97.5 62 16 124/59 (80) 95 06/20/17 16:00 97.9 64 18 120/58 (78) 99 06/20/17 16:00 Nasal Cannula 2.00 06/20/17 14:00 96 Nasal Cannula 3.00 06/20/17 12:00 97.3 66 18 131/63 (85) 99 06/20/17 12:00 Nasal Cannula 2.00 I/O 06/20/17 06/20/17 06/20/17 06/21/17 06/21/17 06/21/17 06:59 14:59 22:59 06:59 14:59 22:59 Intake Total 0 ml 940 ml Balance 0 ml 940 ml Intake Oral 0 ml 940 ml # Voids 1 7 # Bowel Movements 0 1 Result Diagram: 06/21/17 0832 06/21/17 0832 Imaging Last Impressions Wrist X-Ray 06/10/17 0000 Signed Impressions: Service Date/Time: Saturday, June 10, 2017 12:45 - CONCLUSION: Severe arthritic changes. No acute bony findings Taqueria Odonnell MD Upper Extremity Ultrasound 06/05/17 0000 Signed Impressions: Service Date/Time: Monday, June 05, 2017 09:37 - CONCLUSION: No DVT or superficial venous thrombosis is identified in the left upper extremity. Taqueria Mcnamara MD Catheter Placement X-Ray 06/05/17 0000 Signed Impressions: Service Date/Time: Monday, June 05, 2017 10:26 - CONCLUSION: Uncomplicated PermaCath placement as above. Arcenio Ortega MD Chest X-Ray 06/01/17 1450 Signed Impressions: Service Date/Time: Thursday, June 01, 2017 14:53 - CONCLUSION: 1. Bibasilar atelectatic changes with possible associated small effusion on the right. 2. Borderline heart size. Arcenio Ortega MD Objective Remarks GENERAL: No acute distress, resting comfortably. EYES: EOMI NECK: Supple. Trachea midline. CARDIOVASCULAR: Regular rate and rhythm. (+)soft murmur appreciated. RESPIRATORY: No accessory muscle use. Clear to auscultation. Breath sounds equal bilaterally. GASTROINTESTINAL: Abdomen soft, non-tender, nondistended. Normoactive bowel sounds x4. MUSCULOSKELETAL: No obvious deformities. Extremities without edema. NEUROLOGICAL: Awake and alert. Able to move all extremities spontaneously. Normal speech. PSYCHIATRIC: Appropriate mood and affect; insight and judgment normal. Medications and IVs Current Medications Medications (Trade) Dose Ordered Sig/Eduin Route Start Time Stop Time Status Last Admin (Norvasc) 10 mg DAILY PO 06/02/17 09:00 06/21/17 08:44 (Aspirin Chew) 81 mg DAILY CHEW 06/02/17 09:00 06/21/17 08:44 (Flonase Dejon Spr) 1 spray BID PRN EACH NARE 06/01/17 18:30 (Claritin) 10 mg DAILY PRN PO 06/01/17 18:30 (Lopressor) 50 mg BID PO 06/01/17 21:00 06/21/17 08:44 (Remeron) 10 mg HS PRN PO 06/01/17 18:30 06/03/17 20:52 (Tears Naturale Opth Soln) 2 drop Q4H PRN EACH EYE 06/01/17 18:30 (Hytrin) 2 mg HS PO 06/01/17 21:00 06/20/17 20:47 (Tylenol) 650 mg Q6H PRN PO 06/01/17 18:30 06/11/17 22:36 (Narcan Inj) 0.4 mg UNSCH PRN IV 06/01/17 18:30 (Indu-Colace) 1 tab BID PO 06/01/17 21:00 06/20/17 09:14 (Milk Of Magnesia Liq) 30 ml Q12H PRN PO 06/01/17 18:30 06/16/17 21:15 (Senokot) 17.2 mg Q12H PRN PO 06/01/17 18:30 06/15/17 08:42 (Dulcolax Supp) 10 mg DAILY PRN RECTAL 06/01/17 18:30 (Lactulose Liq) 30 ml DAILY PRN PO 06/01/17 18:30 06/20/17 09:13 (NS Flush) 2 ml UNSCH PRN IV FLUSH 06/01/17 18:30 (NS Flush) 2 ml BID IV FLUSH 06/01/17 21:00 06/21/17 08:44 (KCl) 10 meq BID PO 06/01/17 21:00 06/21/17 08:43 (Duoneb Neb) 1 ampule Q4HR NEB PRN NEB 06/01/17 19:00 (Mucinex Er) 600 mg BID PO 06/01/17 21:00 06/21/17 08:44 Sodium Chloride 1,000 ml @ 0 mls/hr Q0M PRN OTHER 06/04/17 17:23 (Heparin Inj) 8,000 units UNSCH PRN IVF 06/04/17 17:30 06/12/17 16:25 Sodium Chloride 1,000 ml @ 200 mls/hr Q5H PRN IV 06/04/17 17:23 Sodium Chloride 1,000 ml @ 0 mls/hr Q0M PRN OTHER 06/04/17 17:23 06/10/17 17:59 (Mannitol Inj) 12.5 gm UNSCH PRN IV 06/04/17 17:30 (Albumin 25% Inj) 25 gm UNSCH PRN IV 06/04/17 17:30 (NS Flush) 5 ml UNSCH PRN IV FLUSH 06/04/17 17:30 06/12/17 16:25 (Heparin Inj) UNSCH PRN .XX 06/04/17 17:30 06/19/17 11:00 (Gentamicin (Dialysis) Inj) 20 mg UNSCH PRN IV 06/04/17 17:30 06/19/17 10:59 (Zofran Inj) 4 mg UNSCH PRN IV 06/04/17 17:30 (Tylenol) 650 mg UNSCH PRN PO 06/04/17 17:30 (Benadryl) 25 mg UNSCH PRN PO 06/04/17 17:30 (Nitrostat Sl) 0.4 mg UNSCH PRN SL 06/04/17 17:30 (Catapres) 0.1 mg UNSCH PRN PO 06/04/17 17:30 (Epogen Inj) 6,000 units UNSCH PRN IV 06/04/17 17:30 06/19/17 11:00 (Gelfoam 12 Mm/7 Mm Top) 1 foam UNSCH PRN TOP 06/04/17 17:30 (NS Flush) UNSCH PRN IVF 06/05/17 11:45 (Heparin Inj) UNSCH PRN IV FLUSH 06/05/17 11:45 (Ultram) 50 mg Q6H PO 06/10/17 13:00 06/21/17 11:47 (Demadex) 40 mg DAILY PO 06/15/17 09:00 06/21/17 08:44 (Rocaltrol) 0.5 mcg DAILY PO 06/14/17 13:00 06/21/17 08:43 (Nephrocaps) 1 cap DAILY PO 06/14/17 13:00 06/21/17 08:44 A/P Problem List: (1) Acute respiratory failure ICD Code: J96.00 - Acute respiratory failure, unspecified whether with hypoxia or hypercapnia Status: Acute (2) Acute on chronic diastolic congestive heart failure ICD Code: I50.33 - Acute on chronic diastolic (congestive) heart failure Status: Acute (3) Acute renal failure ICD Code: N17.9 - Acute kidney failure, unspecified Status: Acute (4) Chronic kidney disease, stage IV (severe) ICD Code: N18.4 - Chronic kidney disease, stage 4 (severe) Status: Chronic Assessment and Plan Acute respiratory failure Due to acute on chronic diastolic congestive heart failure along w worsening renal failure - much improved after dialysis. Continue with dialysis. - Continue with diuretic torsemide and Zaroxolyn, monitor input and output closely. Acute exacerbation of chronic kidney disease stage IV Nephrology following, on HD. Status post Vas-Cath. followed by Vascular specialist. S/p AV fistula done 06/11. - CM assisting w d/c planning and arranging outpatient HD - Dietitian to educate pt on renal diet. - Continue management per employee communications intern. Left wrist pain Most likely from arthritis. - X-ray the wrist showed severe arthritis. - pain control as needed. DVT prophylaxis-heparin Discharge Planning Awaiting outpatient hemodialysis to be arranged Problem Qualifiers (1) Acute respiratory failure: Qualified Codes: J96.01 - Acute respiratory failure with hypoxia Cornelius Martel DO Jun 21, 2017 11:56
[2017-06-21] MEDS: TERAZOSIN HCL 1 MG CAP PO SCH (22:31)
[2017-06-22] VITALS: BP 146/67; PULSE 67; RESP 17; TEMP 98.2; O2SAT 100
[2017-06-22] MEDS: traMADol HCL 50 MG TAB PO SCH ×4 (00:34→18:05)
[2017-06-22 04:00] VITALS: BP 140/63; PULSE 99; RESP 18; TEMP 98.1; O2SAT 99
[2017-06-22 07:06] LABS: BICARBONATE 31.4 MEQ/L (21.0-32.0); POTASSIUM 3.6 MEQ/L (3.5-5.1)
[2017-06-22] MEDS: ASPIRIN 81 MG CHEW TAB CHEW SCH (08:19)
[2017-06-22] MEDS: CALCITRIOL 0.25 MCG CAP PO SCH (08:19)
[2017-06-22] MEDS: TORSEMIDE 20 MG TAB PO SCH (08:19)
[2017-06-22] MEDS: guaiFENesin E.R. 600 MG TAB PO SCH ×2 (08:20→20:42)
[2017-06-22] MEDS: VITAMIN B CMPLX/VITC/FOLIC AC CAP PO SCH (08:20)
[2017-06-22] MEDS: POTASSIUM CHLORIDE 10 MEQ CONTROLLED RELEASE TAB PO SCH ×2 (08:20→20:42)
[2017-06-22] MEDS: METOPROLOL TARTRATE 50 MG TAB PO SCH ×2 (08:20→20:42)
[2017-06-22] MEDS: DOCUSATE SODIUM 50 MG/SENNA 8.6 MG TAB PO SCH ×2 (08:22→20:42)
[2017-06-22] MEDS: SODIUM CHLORIDE 0.9% FLUSH 10 ML FLUSH IV FLUSH SCH ×2 (08:22→20:43)
[2017-06-22 08:37] VITALS: BP 133/64; PULSE 57; RESP 19; TEMP 98.1; O2SAT 98
[2017-06-22] MEDS: HEPARIN SODIUM - IV 10,000 UNITS/10 ML VIAL PRN (11:26)
[2017-06-22] MEDS: GENTAMICIN SULFATE (DIALYSIS USE ONLY) 20 MG/2 ML VIAL IV PRN (11:26)
[2017-06-22] MEDS: EPOETIN ALFA 10,000 UNITS/ML VIAL IV PRN (11:27)
[2017-06-22 12:07] VITALS: BP 107/52; PULSE 61; RESP 18; TEMP 97.4; O2SAT 98
--- NOTE | 2017-06-22 15:26 | HHI.PR ---
Subjective Remarks The pt was resting in his chair. He said he had dialysis today. He had no acute complaints. Objective Vitals Vital Signs Date Time Temp Pulse Resp B/P (MAP) Pulse Ox O2 Delivery O2 Flow Rate FiO2 06/22/17 12:07 97.4 61 18 107/52 (70) 98 06/22/17 08:37 98.1 57 19 133/64 (87) 98 06/22/17 08:15 Nasal Cannula 2.00 06/22/17 04:00 98.1 99 18 140/63 (88) 99 06/22/17 00:00 98.2 67 17 146/67 (93) 100 06/21/17 20:14 99 Nasal Cannula 3.00 06/21/17 20:00 98.2 55 18 125/61 (82) 94 06/21/17 19:00 99 Room Air 3.00 06/21/17 17:31 98 Nasal Cannula 3.00 06/21/17 16:07 97.8 60 20 117/57 (77) 95 06/21/17 16:00 Nasal Cannula 2.00 I/O 06/21/17 06/21/17 06/21/17 06/22/17 06/22/17 06/22/17 07:00 15:00 23:00 07:00 15:00 23:00 Intake Total 720 ml Output Total 600 ml 1200 ml 2500 ml Balance 120 ml -1200 ml -2500 ml Intake Oral 720 ml Output Urine Total 600 ml 1200 ml Hemodialysis 2500 ml # Bowel Movements 0 Result Diagram: 06/21/17 0832 06/22/17 0555 Imaging Last Impressions Wrist X-Ray 06/10/17 0000 Signed Impressions: Service Date/Time: Saturday, June 10, 2017 12:45 - CONCLUSION: Severe arthritic changes. No acute bony findings Taqueria Odonnell MD Upper Extremity Ultrasound 06/05/17 0000 Signed Impressions: Service Date/Time: Monday, June 05, 2017 09:37 - CONCLUSION: No DVT or superficial venous thrombosis is identified in the left upper extremity. Taqueria Mcnamara MD Catheter Placement X-Ray 06/05/17 0000 Signed Impressions: Service Date/Time: Monday, June 05, 2017 10:26 - CONCLUSION: Uncomplicated PermaCath placement as above. Arcenio Ortega MD Chest X-Ray 06/01/17 1450 Signed Impressions: Service Date/Time: Thursday, June 01, 2017 14:53 - CONCLUSION: 1. Bibasilar atelectatic changes with possible associated small effusion on the right. 2. Borderline heart size. Arcenio Ortega MD Objective Remarks GENERAL: No acute distress, resting comfortably. EYES: EOMI NECK: Supple. Trachea midline. CARDIOVASCULAR: Regular rate and rhythm. (+)soft murmur appreciated. RESPIRATORY: No accessory muscle use. Clear to auscultation. Breath sounds equal bilaterally. GASTROINTESTINAL: Abdomen soft, non-tender, nondistended. Normoactive bowel sounds x4. MUSCULOSKELETAL: No obvious deformities. Extremities without edema. NEUROLOGICAL: Awake and alert. Able to move all extremities spontaneously. Normal speech. PSYCHIATRIC: Appropriate mood and affect; insight and judgment normal. Medications and IVs Current Medications Medications (Trade) Dose Ordered Sig/Eduin Route Start Time Stop Time Status Last Admin (Norvasc) 10 mg DAILY PO 06/02/17 09:00 06/22/17 08:20 (Aspirin Chew) 81 mg DAILY CHEW 06/02/17 09:00 06/22/17 08:19 (Flonase Dejon Spr) 1 spray BID PRN EACH NARE 06/01/17 18:30 (Claritin) 10 mg DAILY PRN PO 06/01/17 18:30 (Lopressor) 50 mg BID PO 06/01/17 21:00 06/22/17 08:20 (Remeron) 10 mg HS PRN PO 06/01/17 18:30 06/03/17 20:52 (Tears Naturale Opth Soln) 2 drop Q4H PRN EACH EYE 06/01/17 18:30 (Hytrin) 2 mg HS PO 06/01/17 21:00 06/21/17 22:31 (Tylenol) 650 mg Q6H PRN PO 06/01/17 18:30 06/11/17 22:36 (Narcan Inj) 0.4 mg UNSCH PRN IV 06/01/17 18:30 (Indu-Colace) 1 tab BID PO 06/01/17 21:00 06/20/17 09:14 (Milk Of Magnesia Liq) 30 ml Q12H PRN PO 06/01/17 18:30 06/16/17 21:15 (Senokot) 17.2 mg Q12H PRN PO 06/01/17 18:30 06/15/17 08:42 (Dulcolax Supp) 10 mg DAILY PRN RECTAL 06/01/17 18:30 (Lactulose Liq) 30 ml DAILY PRN PO 06/01/17 18:30 06/20/17 09:13 (NS Flush) 2 ml UNSCH PRN IV FLUSH 06/01/17 18:30 (NS Flush) 2 ml BID IV FLUSH 06/01/17 21:00 06/22/17 08:22 (KCl) 10 meq BID PO 06/01/17 21:00 06/22/17 08:20 (Duoneb Neb) 1 ampule Q4HR NEB PRN NEB 06/01/17 19:00 (Mucinex Er) 600 mg BID PO 06/01/17 21:00 06/22/17 08:20 Sodium Chloride 1,000 ml @ 0 mls/hr Q0M PRN OTHER 06/04/17 17:23 (Heparin Inj) 8,000 units UNSCH PRN IVF 06/04/17 17:30 06/12/17 16:25 Sodium Chloride 1,000 ml @ 200 mls/hr Q5H PRN IV 06/04/17 17:23 Sodium Chloride 1,000 ml @ 0 mls/hr Q0M PRN OTHER 06/04/17 17:23 06/10/17 17:59 (Mannitol Inj) 12.5 gm UNSCH PRN IV 06/04/17 17:30 (Albumin 25% Inj) 25 gm UNSCH PRN IV 06/04/17 17:30 (NS Flush) 5 ml UNSCH PRN IV FLUSH 06/04/17 17:30 06/12/17 16:25 (Heparin Inj) UNSCH PRN .XX 06/04/17 17:30 06/22/17 11:26 (Gentamicin (Dialysis) Inj) 20 mg UNSCH PRN IV 06/04/17 17:30 06/22/17 11:26 (Zofran Inj) 4 mg UNSCH PRN IV 06/04/17 17:30 (Tylenol) 650 mg UNSCH PRN PO 06/04/17 17:30 (Benadryl) 25 mg UNSCH PRN PO 06/04/17 17:30 (Nitrostat Sl) 0.4 mg UNSCH PRN SL 06/04/17 17:30 (Catapres) 0.1 mg UNSCH PRN PO 06/04/17 17:30 (Epogen Inj) 6,000 units UNSCH PRN IV 06/04/17 17:30 06/22/17 11:27 (Gelfoam 12 Mm/7 Mm Top) 1 foam UNSCH PRN TOP 06/04/17 17:30 (NS Flush) UNSCH PRN IVF 06/05/17 11:45 (Heparin Inj) UNSCH PRN IV FLUSH 06/05/17 11:45 (Ultram) 50 mg Q6H PO 06/10/17 13:00 06/22/17 12:38 (Demadex) 40 mg DAILY PO 06/15/17 09:00 06/22/17 08:19 (Rocaltrol) 0.5 mcg DAILY PO 06/14/17 13:00 06/22/17 08:19 (Nephrocaps) 1 cap DAILY PO 06/14/17 13:00 06/22/17 08:20 A/P Problem List: (1) Acute respiratory failure ICD Code: J96.00 - Acute respiratory failure, unspecified whether with hypoxia or hypercapnia Status: Acute (2) Acute on chronic diastolic congestive heart failure ICD Code: I50.33 - Acute on chronic diastolic (congestive) heart failure Status: Acute (3) Acute renal failure ICD Code: N17.9 - Acute kidney failure, unspecified Status: Acute (4) Chronic kidney disease, stage IV (severe) ICD Code: N18.4 - Chronic kidney disease, stage 4 (severe) Status: Chronic Assessment and Plan Acute respiratory failure Due to acute on chronic diastolic congestive heart failure along w worsening renal failure - much improved after dialysis. Continue with dialysis. - Continue with diuretic torsemide and Zaroxolyn, monitor input and output closely. Acute exacerbation of chronic kidney disease stage IV Nephrology following, on HD. Status post Vas-Cath. followed by Vascular specialist. S/p AV fistula done 06/11. - CM assisting w d/c planning and arranging outpatient HD - Dietitian to educate pt on renal diet. - Continue management per substitute school nurse. Left wrist pain X-ray the wrist showed severe arthritis. - pain control as needed. Anemia Chronic. Likely s/t renal disease. - follow CBC as needed. Hyponatremia Likely hypervolemic. - management with dialysis. - follow BMP. DVT prophylaxis-heparin Discharge Planning Awaiting outpatient hemodialysis to be arranged Problem Qualifiers (1) Acute respiratory failure: Qualified Codes: J96.01 - Acute respiratory failure with hypoxia Cornelius Martel DO Jun 22, 2017 15:26
[2017-06-22 16:20] VITALS: BP 130/58; PULSE 64; RESP 18; TEMP 98.1; O2SAT 96
--- NOTE | 2017-06-22 17:08 | HHI.NPPN ---
Subjective History of Present Illness 87-year-old male with past medical history of hypertension, ischemic heart disease and chronic kidney disease, chronic back pain and leg pain was brought to the hospital because of worsening shortness of breath. I was called to see the patient because of elevated BUN and creatinine. The patient has creatinine of 4.5 on presentation. Previously he has creatinine as high as 4.4. [facility]. Additional Remarks Patient is alert, breathing is better, seen after the HD. Review of Systems General Constitutional: Fatigue Respiratory Lungs: SOB, Cough, Sputum, Wheeze Cardiovascular Cardiac: CLEMONS Objective Data Data 06/22/17 06/23/17 19:00 07:00 Output Total 2500 ml Balance -2500 ml Hemodialysis 2500 ml Vital Signs Date Time Temp Pulse Resp B/P (MAP) Pulse Ox O2 Delivery O2 Flow Rate FiO2 06/22/17 16:20 98.1 64 18 130/58 (82) 96 06/22/17 12:07 97.4 61 18 107/52 (70) 98 06/22/17 08:37 98.1 57 19 133/64 (87) 98 06/22/17 08:15 Nasal Cannula 2.00 06/22/17 04:00 98.1 99 18 140/63 (88) 99 06/22/17 00:00 98.2 67 17 146/67 (93) 100 06/21/17 20:14 99 Nasal Cannula 3.00 06/21/17 20:00 98.2 55 18 125/61 (82) 94 06/21/17 19:00 99 Room Air 3.00 06/21/17 17:31 98 Nasal Cannula 3.00 -: 06/21/17 0832 06/22/17 0555 Physical Exam General Appearance: No Acute Distress, Comfortable Eyes Eye Exam: Pupils Equal Throat Throat Exam: Oral Mucosa [place] & Moist Neck Neck Exam: Neck Supple Pulmonary Resp Exam: Breath Sounds Equal, No Distress, Crackles, Rhonchi, Decreased Bases , Diminished Breath Sounds Cardiology CV Exam: Regular, Normal Sinus Rhythm Gastrointestinal/Abdomen GI Exam: Soft, Non-Tender, Bowel Sounds Present, Non-Distended Extremeties Extremities Exam: Trace Edema Neurologic Neuro Exam: Alert, Awake, Oriented Psychiatric Psych Exam: Appropriate Responses Assessment/Plan Assessment Summary: Anemia of CKD, Fluid/Volume Overload, CKD Stage IV Problem List: (1) Hypoxia ICD Codes: R09.02 - Hypoxemia Status: Acute (2) CAD (coronary artery disease) ICD Codes: I25.10 - CAD (coronary artery disease) Status: Acute (3) COPD (chronic obstructive pulmonary disease) ICD Codes: J44.9 - Chronic obstructive pulmonary disease Status: Acute (4) Hypertension ICD Codes: I10 - Hypertension Status: Acute (5) Congestive heart failure ICD Codes: I50.9 - Heart failure, unspecified Status: Acute (6) Chronic kidney disease, stage IV (severe) ICD Codes: N18.4 - Chronic kidney disease, stage 4 (severe) Status: Chronic Plan Patient has advance renal disease and GFR is slightly better On Torsemide and non oliguric. K is normal. Patient and family agreed about starting HD. Iron supplement and Epogen. Started on HD Patient now agreed to continue HD. AVF done, has good Bruit. arrangements for out patient HD. On low dose Torsemide. Awaiting out patient HD arrangements. Continue HD, MWF. Problem Qualifiers (1) Hypertension: Qualified Codes: I10 - Essential (primary) hypertension Verona Raya MD Jun 22, 2017 17:08
[2017-06-22 20:00] VITALS: BP 127/59; PULSE 58; RESP 20; TEMP 97.5; O2SAT 99
[2017-06-22] MEDS: TERAZOSIN HCL 1 MG CAP PO SCH (20:42)
[2017-06-23] VITALS: BP 130/61; PULSE 55; RESP 20; TEMP 98.3; O2SAT 97
[2017-06-23] MEDS: traMADol HCL 50 MG TAB PO SCH ×4 (01:05→18:47)
[2017-06-23 04:00] VITALS: BP 136/63; PULSE 59; RESP 20; TEMP 98.7; O2SAT 96
[2017-06-23 07:36] VITALS: O2SAT 98
[2017-06-23] MEDS: guaiFENesin E.R. 600 MG TAB PO SCH ×2 (08:18→19:42)
[2017-06-23 08:19] VITALS: BP 133/62; PULSE 58; RESP 20; TEMP 97.8; O2SAT 93
[2017-06-23] MEDS: POTASSIUM CHLORIDE 10 MEQ CONTROLLED RELEASE TAB PO SCH ×2 (08:19→19:42)
[2017-06-23] MEDS: CALCITRIOL 0.25 MCG CAP PO SCH (08:19)
[2017-06-23] MEDS: DOCUSATE SODIUM 50 MG/SENNA 8.6 MG TAB PO SCH ×3 (08:20→19:42)
[2017-06-23] MEDS: ASPIRIN 81 MG CHEW TAB CHEW SCH (08:21)
[2017-06-23] MEDS: VITAMIN B CMPLX/VITC/FOLIC AC CAP PO SCH (08:21)
[2017-06-23] MEDS: METOPROLOL TARTRATE 50 MG TAB PO SCH ×2 (08:22→19:42)
[2017-06-23] MEDS: TORSEMIDE 20 MG TAB PO SCH (08:23)
[2017-06-23] MEDS: SODIUM CHLORIDE 0.9% FLUSH 10 ML FLUSH IV FLUSH SCH (08:25)
[2017-06-23 11:48] LABS: MAGNESIUM 2.2 MG/DL (1.5-2.5); POTASSIUM 3.5 MEQ/L (3.5-5.1)
[2017-06-23 12:19] VITALS: BP 128/61; PULSE 58; RESP 19; TEMP 97.5; O2SAT 96
--- NOTE | 2017-06-23 15:48 | HHI.NPPN ---
Subjective History of Present Illness 87-year-old male with past medical history of hypertension, ischemic heart disease and chronic kidney disease, chronic back pain and leg pain was brought to the hospital because of worsening shortness of breath. I was called to see the patient because of elevated BUN and creatinine. The patient has creatinine of 4.5 on presentation. Previously he has creatinine as high as 4.4. [facility]. Additional Remarks Patient is alert, breathing is better, eating well, not in distress. Review of Systems General Constitutional: Fatigue Respiratory Lungs: SOB, Cough, Sputum, Wheeze Cardiovascular Cardiac: CLEMONS Objective Data Data Vital Signs Date Time Temp Pulse Resp B/P (MAP) Pulse Ox O2 Delivery O2 Flow Rate FiO2 06/23/17 12:19 97.5 58 19 128/61 (83) 96 06/23/17 08:26 98 Nasal Cannula 3.00 Humidified 06/23/17 08:19 97.8 58 20 133/62 (85) 93 06/23/17 07:36 98 Nasal Cannula 3.00 06/23/17 04:00 98.7 59 20 136/63 (87) 96 06/23/17 04:00 Nasal Cannula 2.00 06/23/17 00:00 98.3 55 20 130/61 (84) 97 06/23/17 00:00 Nasal Cannula 2.00 06/22/17 20:05 Nasal Cannula 3.00 06/22/17 20:00 97.5 58 20 127/59 (81) 99 06/22/17 20:00 Nasal Cannula 2.00 06/22/17 16:20 98.1 64 18 130/58 (82) 96 06/22/17 16:00 Nasal Cannula 2.00 -: 06/21/17 0832 06/23/17 1030 Physical Exam General Appearance: No Acute Distress, Comfortable Eyes Eye Exam: Pupils Equal Throat Throat Exam: Oral Mucosa [place] & Moist Neck Neck Exam: Neck Supple Pulmonary Resp Exam: Breath Sounds Equal, No Distress, Crackles, Rhonchi, Decreased Bases , Diminished Breath Sounds Cardiology CV Exam: Regular, Normal Sinus Rhythm Gastrointestinal/Abdomen GI Exam: Soft, Non-Tender, Bowel Sounds Present, Non-Distended Extremeties Extremities Exam: Trace Edema Neurologic Neuro Exam: Alert, Awake, Oriented Psychiatric Psych Exam: Appropriate Responses Assessment/Plan Assessment Summary: Anemia of CKD, Fluid/Volume Overload, CKD Stage IV Problem List: (1) Hypoxia ICD Codes: R09.02 - Hypoxemia Status: Acute (2) CAD (coronary artery disease) ICD Codes: I25.10 - CAD (coronary artery disease) Status: Acute (3) COPD (chronic obstructive pulmonary disease) ICD Codes: J44.9 - Chronic obstructive pulmonary disease Status: Acute (4) Hypertension ICD Codes: I10 - Hypertension Status: Acute (5) Congestive heart failure ICD Codes: I50.9 - Heart failure, unspecified Status: Acute (6) Chronic kidney disease, stage IV (severe) ICD Codes: N18.4 - Chronic kidney disease, stage 4 (severe) Status: Chronic Plan Patient has advance renal disease and GFR is slightly better On Torsemide and non oliguric. K is normal. Patient and family agreed about starting HD. Iron supplement and Epogen. Started on HD Patient now agreed to continue HD. AVF done, has good Bruit. arrangements for out patient HD. On low dose Torsemide. Awaiting out patient HD arrangements. HD will be in AM. Problem Qualifiers (1) Hypertension: Qualified Codes: I10 - Essential (primary) hypertension Verona Raya MD Jun 23, 2017 15:48
[2017-06-23 16:22] VITALS: BP 130/60; PULSE 63; RESP 19; TEMP 97.2; O2SAT 95
[2017-06-23] MEDS ORDERED: POTA-243 PO (16:29)
[2017-06-23] MEDS ORDERED: CALC.25 PO (16:29)
[2017-06-23] MEDS ORDERED: NEPHRO PO (16:29)
[2017-06-23] MEDS ORDERED: TRAM50TA PO (16:29)
[2017-06-23] MEDS ORDERED: TORS1TAB12 PO (16:29)
--- NOTE | 2017-06-23 16:35 | HHI.DCPOC ---
Discharge Care Plan Diagnosis: (1) Acute on chronic diastolic congestive heart failure (2) Chronic kidney disease, stage IV (severe) (3) Acute renal failure (4) COPD (chronic obstructive pulmonary disease) Goals to Promote Your Health * To prevent worsening of your condition and complications * To maintain your health at the optimal level Directions to Meet Your Goals Take your medications as prescribed Follow your dietary instruction Follow activity as directed Keep your appointments as scheduled Take your immunizations and boosters as scheduled If your symptoms worsen call your PCP, if no PCP go to Urgent Care Center or Emergency Room Smoking is Dangerous to Your Health. Avoid second hand smoke Call the 24-hour hour crisis hotline for domestic abuse at Cornelius Martel DO Jun 23, 2017 16:35
--- NOTE | 2017-06-23 16:43 | HHI.DS ---
Discharge Summary Admission Date Jun 01, 2017 at 17:34 Discharge Date: Jun 23, 2017 Admitting Diagnosis respiratory distress, pleural effusion (1) Acute respiratory failure ICD Code: J96.00 - Acute respiratory failure, unspecified whether with hypoxia or hypercapnia Status: Acute (2) Acute on chronic diastolic congestive heart failure ICD Code: I50.33 - Acute on chronic diastolic (congestive) heart failure Status: Acute (3) Acute renal failure ICD Code: N17.9 - Acute kidney failure, unspecified Status: Acute (4) Chronic kidney disease, stage IV (severe) ICD Code: N18.4 - Chronic kidney disease, stage 4 (severe) Status: Chronic Procedures Vascath placement AV fistula placement Brief History - From Admission The patient came in with respiratory distress. The patient is an 87-year-old male. He is normally followed at the [facility]. Who presented to the emergency department with history of respiratory distress. With sudden onset while trying to get out of his recliner. 911 was called and when fire responders arrived the patient was noted to be quite diaphoretic. He was placed on C-PAP and was brought in by EMS. When he arrived be seemed to more calm and comfortable but his oxygen saturation was 89% on C-PAP. The patient denied any chest pain. He states he was feeling a little better. Vital signs were stable. Has history of congestive heart failure. No history of fever or chills. The patient has also had recently been hospitalized at [facility] on May 18, 2017. Has made himself a limited DNR with chest compressions and shocks an ACL as medications but declines intubation. He has been worsening shortness of breath. Had supposed to be on 3 liters by nasal cannula, has up to 5 liters via nasal cannula. Has had increasing shortness of breath. Only goes to the [facility]. History of liver cancer, been in remission for at least a year ago. Has history of chronic kidney disease. Is on home oxygen. Recent. Has an extensive past medical history including chronic kidney disease stage III to IV, abdominal aortic aneurysm, hypertension, history of coronary artery disease, benign prostatic hypertrophy, osteoarthritis, liver cancer in remission four years. History of right knee replacement and neck surgery. Has history of liver cancer that he was treated with a pill. His only anticoagulation is an aspirin. Had been a smoker but quit that, had been a drinker but quit that also. Has history of osteoarthritis. History of myocardial infarction. History of radiation therapy. History of renal failure. History of cervical neck surgery. History of bilateral elbows and neck surgery, for the gout. Has history of gout and hypertension, chronic kidney disease, coronary artery disease. Had been a smoker, quit in the 1970s. Alcohol use, quit about 5-6 years ago. Denies any substance abuse. Lives in the area locally. CBC/BMP: 06/21/17 0832 06/23/17 1030 Significant Findings Laboratory Tests Test 06/21/17 08:32 06/22/17 05:55 06/23/17 10:30 Red Blood Count 3.43 MIL/MM3 (4.50-5.90) Hemoglobin 9.2 GM/DL (13.0-17.0) Hematocrit 28.4 % (39.0-51.0) Mean Corpuscular Hemoglobin 26.7 PG (27.0-34.0) Red Cell Distribution Width 17.8 % (11.6-17.2) Platelet Count 125 TH/MM3 (150-450) Monocytes (%) (Auto) 11.1 % (0.0-8.0) Eosinophils (%) (Auto) 6.0 % (0.0-4.0) Blood Urea Nitrogen 43 MG/DL (7-18) 52 MG/DL (7-18) 40 MG/DL (7-18) Creatinine 4.13 MG/DL (0.60-1.30) 4.34 MG/DL (0.60-1.30) 3.78 MG/DL (0.60-1.30) Sodium Level 132 MEQ/L (136-145) 128 MEQ/L (136-145) 131 MEQ/L (136-145) Chloride Level 92 MEQ/L (98-107) 88 MEQ/L (98-107) 93 MEQ/L (98-107) Estimat Glomerular Filtration Rate 14 ML/MIN (>89) 13 ML/MIN (>89) 15 ML/MIN (>89) Random Glucose 115 MG/DL (74-106) Calcium Level 8.3 MG/DL (8.5-10.1) Imaging Last Impressions Wrist X-Ray 06/10/17 0000 Signed Impressions: Service Date/Time: Saturday, June 10, 2017 12:45 - CONCLUSION: Severe arthritic changes. No acute bony findings Taqueria Odonnell MD Upper Extremity Ultrasound 06/05/17 0000 Signed Impressions: Service Date/Time: Monday, June 05, 2017 09:37 - CONCLUSION: No DVT or superficial venous thrombosis is identified in the left upper extremity. Taqueria Mcnamara MD Catheter Placement X-Ray 06/05/17 0000 Signed Impressions: Service Date/Time: Monday, June 05, 2017 10:26 - CONCLUSION: Uncomplicated PermaCath placement as above. Arcenio Ortega MD Chest X-Ray 06/01/17 1450 Signed Impressions: Service Date/Time: Thursday, June 01, 2017 14:53 - CONCLUSION: 1. Bibasilar atelectatic changes with possible associated small effusion on the right. 2. Borderline heart size. Arcenio Ortega MD PE at Discharge GENERAL: No acute distress, resting comfortably. EYES: EOMI NECK: Supple. Trachea midline. CARDIOVASCULAR: Regular rate and rhythm. (+)soft murmur appreciated. RESPIRATORY: No accessory muscle use. Clear to auscultation. Breath sounds equal bilaterally. GASTROINTESTINAL: Abdomen soft, non-tender, nondistended. Normoactive bowel sounds x4. MUSCULOSKELETAL: No obvious deformities. Extremities without edema. NEUROLOGICAL: Awake and alert. Able to move all extremities spontaneously. Normal speech. PSYCHIATRIC: Appropriate mood and affect; insight and judgment normal. Pt update on day of discharge The patient was feeling well. He was on the phone with his daughter. He was looking forward to leaving the hospital. Discussed with nursing and case management. Hospital Course Acute respiratory failure The pt had acute on chronic diastolic congestive heart failure along with worsening renal failure. His symptoms were much improved after dialysis. He will continue with dialysis. He received oxygen and nebs as needed. He will continue torsemide. Acute on chronic kidney failure Nephrology was consulted and HD was started. Status post Vas-Cath placement. Vascular surgery was consulted and the pt is s/p AV fistula done on 06/11. He will continue dialysis as an outpt. Case management assisted with d/c planning and arranging outpatient HD. Dietary was consulted to educate the pt on a renal diet. He will follow up with nephrology as an outpt. He will have a BMP checked in 2-3 days. Left wrist pain X-ray the wrist showed severe arthritis. He received pain control with Tramadol as needed. Hyponatremia Stable with dialysis. He will continue dialysis. He will have a BMP checked in 2 -3 days. Pt Condition on Discharge: Stable Discharge Disposition: Discharge to SNF Discharge Time: > 30 minutes Discharge Instructions DIET: Follow Instructions for: Heart Healthy Diet Activities you can perform: Regular-No Restrictions Other Activity Instructions: Follow Physical Therapy recommendations in SNF. Follow up Referrals: Nephrology - [address] Raya PCP Follow-up - 1 Week SNF/INTERMEDIATE/ with [facility] New Orders: BASIC METABOLIC PROF - 2-3 Days New Medications: Calcitriol (Rocaltrol) 0.25 Mcg Cap 0.5 MCG PO DAILY for supplement, #30 CAP Potassium Chloride ER (Klor-Con 10) 10 Meq Tab 10 MEQ PO BID for Diuretics, #14 TAB Torsemide (Demadex) 20 Mg Tab 40 MG PO DAILY for Fluid retention, #30 TAB Vitamin B Cmplx/Vit C/Folic AC (Nephro-Demetri Rx) 1 Tab 1 CAP PO DAILY for supplement for 30 Days, TAB Continued Medications: Amlodipine (Amlodipine) 10 Mg Tab 10 MG PO DAILY for Blood Pressure Management, #30 TAB 0 Refills Aspirin (Aspirin) 81 Mg Chew 81 MG CHEW DAILY, TAB 0 Refills Fluticasone Nasal [place] (Fluticasone Nasal [place]) 50 Mcg/Act Naspr 50 MCG EACH NARE BID PRN for ALLERGIES, #1 BOTTLE 0 Refills 50 mcg/spray Loratadine (Allergy Relief) 10 Mg Tab 10 MG PO DAILY PRN for ALLERGIES, TAB Metoprolol Tartrate (Metoprolol Tartrate) 50 Mg Tab 50 MG PO BID, #60 TAB 0 Refills Mirtazapine (Mirtazapine) 15 Mg Tab 10 MG PO HS PRN for Depression Control, #30 TAB 0 Refills Propylene Glycol-Glycerin Opth Drops (Artificial Tears Opth Drops) 1-0.3% Drops 1-2 DROP EACH EYE PRN PRN for DRY EYE, #15 ML 0 Refills Terazosin (Terazosin) 2 Mg Cap 2 MG PO HS, #30 CAP 0 Refills Tramadol (Tramadol) 50 Mg Tab 50 MG PO Q8H PRN for PAIN, #12 TAB 0 Refills (This prescription has been renewed ) Discontinued Medications: Diclofenac Sodium (Voltaren) 100 Gm Gel..gram. APPLIC TOPICAL BID PRN for Pain Management Furosemide (Furosemide) 40 Mg Tab 40 MG PO DAILY, #30 TAB 0 Refills Cornelius Martel DO Jun 23, 2017 16:43
[2017-06-23] MEDS: SENNOSIDES 8.6 MG TAB PO PRN (16:52)
[2017-06-23] MEDS: TERAZOSIN HCL 1 MG CAP PO SCH (19:42)
== END 2017-06-23 19:48 | DRG 264 ==
LOC: NEPC 14:36 → NEDA 17:34 → HCIN 20:41 → N04B 06-05 16:21
PROVIDERS: ADMIT Hospitalist; ATTEND Hospitalist
PROC: 5A09357 Assistance with Respiratory Ventilation, Less than 24 Consecutive Hours, Continuous Positive Airway Pressure (ICD-10-PCS; 2017-06-01)
PROC: 05HM33Z Insertion of Infusion Device into Right Internal Jugular Vein, Percutaneous Approach (ICD-10-PCS; 2017-06-05)
PROC: 5A1D60Z (ICD-10-PCS; 2017-06-05)
PROC: 03180ZD Bypass Left Brachial Artery to Upper Arm Vein, Open Approach (ICD-10-PCS; principal; 2017-06-11 10:07)
DX: I13.2 Hypertensive heart and chronic kidney disease with heart failure and with stage 5 chronic kidney disease, or end stage renal disease (principal); J96.01 Acute respiratory failure with hypoxia; N17.9 Acute kidney failure, unspecified; N18.6 End stage renal disease; I50.33 Acute on chronic diastolic (congestive) heart failure; E87.1 Hypo-osmolality and hyponatremia; Z99.81 Dependence on supplemental oxygen; I25.10 Atherosclerotic heart disease of native coronary artery without angina pectoris; N40.0 Benign prostatic hyperplasia without lower urinary tract symptoms; Z96.651 Presence of right artificial knee joint; M10.9 Gout, unspecified; J44.9 Chronic obstructive pulmonary disease, unspecified; D63.1 Anemia in chronic kidney disease; K59.00 Constipation, unspecified; Z66 Do not resuscitate; G89.29 Other chronic pain; M54.9 Dorsalgia, unspecified; M79.606 Pain in leg, unspecified; I71.4 Abdominal aortic aneurysm, without rupture; M19.032 Primary osteoarthritis, left wrist; Z99.2 Dependence on renal dialysis; Z92.3 Personal history of irradiation; Z87.891 Personal history of nicotine dependence; Z79.82 Long term (current) use of aspirin; Z85.05 Personal history of malignant neoplasm of liver; I25.2 Old myocardial infarction
CPT/HCPCS: 36558; 36600; 71010; 73110; 76937; 77001; 80048; 80053; 80069; 80074; 81001; 82550; 82728; 82805; 83036; 83540; 83550; 83735; 83880; 84100; 84132; 84165; 84439; 84443; 84484; 84550; 85025; 87040; 90935; 93005; 93971; 94002; 94003; 94150; 96374; 96375; 99152; 99153; C1750; C1769; J0171; J0461; J0690; J1170; J1580; J1644; J1756; J1940; J2250; J2405; J2720; J3010; J3370; J7030; J7050; Q4081